=== PATIENT | female | born 1940 | race Caucasian/White ===

== ENCOUNTER 2021-09-18 06:15 | Observation (INO) | payer MEDICARE, BC, SELFPAY ==
[2021-09-18] VITALS (7 sets, daily range): BP systolic 129–204; BP diastolic 68–110; PULSE 66–100; RESP 12–18; TEMP 36.3–37; O2SAT 89–100; BMI 23.9
--- NOTE | ~2021-09-18 | XR_ITS ---
EXAMINATION: XR SHOULDER, LEFT CLINICAL INFORMATION: Left shoulder trauma COMPARISON: None TECHNIQUE: Two views of the left shoulder. FINDINGS: There is a transverse fracture through the humeral neck. The humeral head is aligned with the glenoid. Surgical clips in the left axilla. The left lung is grossly clear. XR/XR shoulder LT min 2V IMPRESSION: Transverse fracture through the humeral neck.
--- NOTE | ~2021-09-18 | CT_ITS ---
EXAMINATION: CT CERVICAL SPINE WITHOUT CONTRAST CLINICAL INFORMATION: Trauma COMPARISON: None TECHNIQUE: Axial images through the cervical spine without contrast. Sagittal and coronal reconstructions on the technologist workstation were performed. This CT examination was performed using dose optimization techniques as appropriate, variously including the following: *Automated exposure control *Adjustment of mA and/or kV according to patient size (this includes techniques or standardized protocols for targeted exams where dose is matched to indication/reason for exam; i.e. extremities or head) *Use of iterative reconstruction technique DLP: 287 mGy-cm FINDINGS: There is mild curvature of the mid cervical spine to the right. Bone alignment is otherwise normal. No fracture or dislocation is seen. There is degenerative spondylosis and degenerative disc disease from C3-C4 to C6-C7. Prevertebral soft tissues are normal. There is bilateral carotid calcification. There are emphysematous changes at the lung apices and mild scarring. CT/CT cervical spine wo con IMPRESSION: Degenerative changes. No fracture or dislocation seen. Fleischner guidelines were followed.
--- NOTE | ~2021-09-18 | CT_ITS ---
EXAMINATION: CT HEAD WITHOUT CONTRAST CLINICAL INFORMATION: Trauma COMPARISON: None TECHNIQUE: Contiguous axial imaging was performed from the skull base to vertex without intravenous administration of contrast. This CT examination was performed using dose optimization techniques as appropriate, variously including the following: *Automated exposure control *Adjustment of mA and/or kV according to patient size (this includes techniques or standardized protocols for targeted exams where dose is matched to indication/reason for exam; i.e. extremities or head) *Use of iterative reconstruction technique DLP: 670 mGy-cm FINDINGS: There is no evidence of an extra-axial collection. There is no evidence of intra-axial or extra-axial hemorrhage. The ventricles and extra-axial CSF spaces are prominent suggestive of generalized atrophy. There is nonspecific periventricular white matter disease. There may be a small left basal ganglia lacunar infarct. No mass or mass effect is seen. Review of bone windows is normal. No skull fracture is seen. Visualized paranasal sinuses, mastoid air cells and middle ears are clear. CT/CT head/brain wo con IMPRESSION: Generalized atrophy and nonspecific periventricular white matter disease.
--- NOTE | 2021-09-18 06:47 | ECG_ITS ---
Test Reason : elevated troponin Blood Pressure : / mmHG Vent. Rate : 088 BPM Atrial Rate : 088 BPM P-R Int : 166 ms QRS Dur : 088 ms QT Int : 380 ms P-R-T Axes : 057 -40 075 degrees QTc Int : 459 ms Normal sinus rhythm Possible Left atrial enlargement Left axis deviation Left ventricular hypertrophy ( Sokolow-Gotti , Master product , Romhilt-Carvalho ) Nonspecific T wave abnormality Abnormal ECG When compared with ECG of 10-OCT-2017 11:17, ST no longer depressed in Anterior leads T wave inversion now evident in Lateral leads Referred By: Geovanni Strong Electronically Signed By:RUBENS MUHAMMAD MD
--- NOTE | 2021-09-18 06:49 | ED.FALL ---
HPI - Fall General Stated Complaint: fall Time Seen by Provider: 09/18/21 06:47 Source: patient and family Mode of arrival: EMS History of Present Illness HPI Narrative: Pt fell going to the bathroom,c/o left shoulder pain,denies chest pain and sob,she has hx of arthritis,she thinks she is not sure why she fell complaint: fall Onset (ago): hour(s) (1) Fall from: standing Fall witnessed: yes, by family Place fall occurred: home Loss of consciousness: none Prolonged down time: no Symptoms prior to fall: none Context: tripped/slipped Location of injury - extremities: left: shoulder Quality: sharp and dull Related Data Allergies Allergy/AdvReac Type Severity Reaction Status Date / Time No Known Allergies Allergy Unverified 03/31/20 15:43 Review of Systems Review of Systems: Yes all other systems are reviewed and are negative ENT: Reports system reviewed and no additional complaints, except as documented Cardiovascular: Cardiovascular: Reports no additional cardiovascular complaints Gastrointestinal: Gastrointestinal: Reports no additional gastrointestinal complaints [facility] Past Medical History Attestation statement: The following information was validated with the patient. [facility] Narrative: arthritis,s/p bilateral knee replacement Social History Social History Patient Tobacco Use Status: Never used Tobacco Use of substances other than those prescribed or required for medical reasons: No Advance Directives: No Advance Directives Information Provided: No Physical Exam Vital Signs: Vital Signs: Last Vital Signs Temp 97.4 F 09/18/21 06:49 Pulse 91 09/18/21 07:29 Resp 16 09/18/21 07:29 BP 192/110 H 09/18/21 07:29 Pulse Ox 97 09/18/21 07:29 BMI result Body Mass Index 23.9 HENMT: Head: Yes normal to inspection and Yes No palpable skull fracture present General nose exam: Normal external nose present Face and sinus: Yes normal facial exam Mouth: Normal oral and palatal mucosa present Throat: Yes posterior oropharynx normal Neck: Neck: Yes normal visual inspection, Yes full ROM and Yes no lymphadenopathy Thyroid: Thyroid normal Chest: Chest palpation & inspection: normal inspection of the chest Resp: Effort & Inspection: normal respiratory effort and able to speak in complete sentences Auscultation: clear to auscultation bilaterally Cardio: Jugular venous distension: no JVD Rate: regular rate Rhythm: regular rhythm GI: Inspection: Yes normal to inspection Palpation (GI): Soft to palpation and nontender Skin: General skin exam: no rashes or lesions noted Extrem: Other: left shoulder tenderness,decrease ROM Course Reevaluation(s) Reevaluation #1: Pt had an episode of wide complex tachy at 7.38 am ,discussed with school plant consultant dr Kwadwo aguirre admission Time: 08:44 Reevaluation #2: discussed with Dr Maximino Ornelas only sling Time: 09:24 Reevaluation #3: Spoke with Joni Multani Hospitalist - Fall Lab Data Result diagrams: 09/18/21 07:23 09/18/21 07:23 Labs: Lab Results 09/18/21 09/18/21 09/18/21 Range/Units 07:23 07:23 07:23 WBC 9.7 (4.8-10.8) X10*3/uL RBC 4.76 (4.20-5.50) X10*6/uL Hgb 13.1 (12.0-16.0) g/dl Hct 40.6 (37.0-47.0) % MCV 85.3 (80.0-98.0) fL MCH 27.5 (27.0-33.0) pg MCHC 32.3 (31.0-35.0) g/dl RDW 14.4 (11.0-16.0) % Plt Count 173 (160-400) X10*3/uL MPV 10.6 (9.4-12.3) fL Immature Gran % (Auto) 0.5 H (0.0-0.4) % Neut % (Auto) 82.2 H (45-73) % Lymph % (Auto) 10.8 L (20-40) % [place] % (Auto) 6.0 (2-11) % Eos % (Auto) 0.2 (0-4) % Baso % (Auto) 0.3 (0-2) % Lymph # (Auto) 1.0 L (1.2-4.9) X10*3/uL [place] # (Auto) 0.6 (0.1-1.2) X10*3/uL Eos # (Auto) 0.0 (0.0-0.4) X10*3/uL Baso # (Auto) 0.0 (0.0-0.2) X10*3/uL Abs Immat Gran (auto) 0.05 H (0.00-0.03) X10*3/uL Absolute Neuts (auto) 7.9 (2.0-8.3) x10*3/uL Absolute Nucleated RBC 0.000 (0.0-0.012) X10*3/uL Nucleated RBC % (auto) 0.0 (0.0-0.2) /100WBC Sodium 139 (135-145) mmol/L Potassium 4.2 (3.3-5.1) mmol/L Chloride 109 H (96-108) mmol/L Carbon Dioxide 22 (22-29) mmol/L Anion Gap 12 (12-20) BUN 19 H (9-16) mg/dL Creatinine 0.76 (0.5-1.4) mg/dL Estim Creat Clear Calc 49.6 Estimated GFR > 60 Random Glucose 112 (60-115) mg/dL Calcium 8.9 (8.4-10.2) mg/dL Total Bilirubin 0.3 (0.0-1.0) mg/dL AST 23 (5-31) U/L ALT 7 (0-31) U/L Alkaline Phosphatase 61 (39-117) U/L Troponin I High Sens 41.8 H (<3.5-17.0) ng/L Total Protein 7.0 (6.5-8.0) g/dL Albumin 3.5 (3.5-5.0) g/dL Imaging Data CT scan - head: Radiologist's impression: TECHNIQUE: Contiguous axial imaging was performed from the skull base to vertex without intravenous administration of contrast. This CT examination was performed using dose optimization techniques as appropriate, variously including the following: *Automated exposure control *Adjustment of mA and/or kV according to patient size (this includes techniques or standardized protocols for targeted exams where dose is matched to indication/reason for exam; i.e. extremities or head) *Use of iterative reconstruction technique DLP: 670 mGy-cm FINDINGS: There is no evidence of an extra-axial collection. There is no evidence of intra-axial or extra-axial hemorrhage. The ventricles and extra-axial CSF spaces are prominent suggestive of generalized atrophy. There is nonspecific periventricular white matter disease. There may be a small left basal ganglia lacunar infarct. No mass or mass effect is seen. Review of bone windows is normal. No skull fracture is seen. Visualized paranasal sinuses, mastoid air cells and middle ears are clear. ? CT/CT head/brain wo con IMPRESSION: Generalized atrophy and nonspecific periventricular white matter disease. CT CSPINE: Radiologist's impression: ?performed. ? This CT examination was performed using dose optimization techniques as appropriate, variously including the following: *Automated exposure control *Adjustment of mA and/or kV according to patient size (this includes techniques or standardized protocols for targeted exams where dose is matched to indication/reason for exam; i.e. extremities or head) *Use of iterative reconstruction technique DLP: 287 mGy-cm FINDINGS: There is mild curvature of the mid cervical spine to the right. Bone alignment is otherwise normal. No fracture or dislocation is seen. There is degenerative spondylosis and degenerative disc disease from C3-C4 to C6-C7. Prevertebral soft tissues are normal. There is bilateral carotid calcification. There are emphysematous changes at the lung apices and mild scarring. CT/CT cervical spine wo con IMPRESSION: Degenerative changes. No fracture or dislocation seen.? ? Fleischner guidelines were followed. ECG Data ECG interpretation date: 09/18/21 ECG interpretation time: 08:29 Pacemaker model: NSR 88 inverted t in V6 only Discharge Plan Discharge Clinical Impression: Syncope, Fracture, humerus, neck, Troponin level elevated Patient Disposition: Admitted As Inpatient
[2021-09-18 07:25] LABS: MANUAL DIFF FLAG NO
[2021-09-18 07:30] LABS: Basophils Percent Auto 0.3 % (0-2); Eosinophils Percent Auto 0.2 % (0-4); Hematocrit 40.6 % (37.0-47.0); Hemoglobin 13.1 g/dl (12.0-16.0); Imm Gran Abs Auto 0.05 X10*3/uL (0.00-0.03); Imm Gran Pct Auto 0.5 % (0.0-0.4); Lymphocytes Percent Auto 10.8 % (20-40); Mean Corpuscular HGB Conc 32.3 g/dl (31.0-35.0); Mean Corpuscular Hemoglobin 27.5 pg (27.0-33.0); Mean Corpuscular Volume 85.3 fL (80.0-98.0); Mean Platelet Volume 10.6 fL (9.4-12.3); Monocytes Absolute Auto 0.6 X10*3/uL (0.1-1.2); Neutrophils Absolute Auto 7.9 x10*3/uL (2.0-8.3); Neutrophils Percent Auto 82.2 % (45-73); Platelet Count 173 X10*3/uL (160-400); Red Blood Count 4.76 X10*6/uL (4.20-5.50); Red Cell Distribution Width 14.4 % (11.0-16.0); White Blood Count 9.7 X10*3/uL (4.8-10.8)
[2021-09-18 07:41] LABS: Alanine Aminotransferase 7 U/L (0-31); Albumin Level 3.5 g/dL (3.5-5.0); Alkaline Phosphatase 61 U/L (39-117); Anion Gap 12 (12-20); Aspartate Amino Transferase 23 U/L (5-31); Bilirubin Total 0.3 mg/dL (0.0-1.0); Blood Urea Nitrogen 19 mg/dL (9-16); Calcium 8.9 mg/dL (8.4-10.2); Carbon Dioxide 22 mmol/L (22-29); Chloride 109 mmol/L (96-108); Creatinine Clr Calc Pharmacy 49.6; Estimated Glomerular Filt Rate > 60; Glucose Random 112 mg/dL (60-115); Potassium 4.2 mmol/L (3.3-5.1); Sodium 139 mmol/L (135-145)
[2021-09-18 07:45] LABS: Troponin-I High Sensitivity 41.8 ng/L (<3.5-17.0)
[2021-09-18 10:07] LABS: COVID-19 Test Negative (Negative)
[2021-09-18] MEDS: oxyCODONE HCl Immed Release 5 MG TABLET PO (10:34)
--- NOTE | 2021-09-18 10:45 | P.HPHOSP_ITS ---
History of Present Illness Date of Service: 09/18/21 Chief Complaint: Fall This is a 81 year old female with a PMH of HTN, Breast Ca s/p mastectomy, RA, who presented to [facility] ED after she sustained a fall on the morning of admission. The patient, who is a limited historian, states that she fell at home while ambulating. She denies any LOC, but states that she does not recall the events surrounding the fall. She denies any palpitations or chest pain. She reports being in her state of health. Her who is bedside, reports no LOC either. He states that after the fall, she was unable to stand up from the floor and hence, he called the paramedics. In the ED, the patient underwent basic work including Cbc/bmp/ekg and imaging studies. Ct head / c-spine were negative for acute findings and XR revealed a L humeral neck fracture. Plan was for discharge home with outpatient f/u with ortho, however, the patient had an 11 beat run of what appears to be NSVT and hence, she will be observed over night. COVID Vaccination status -- Pfizer 2 dose series + booster Review of Systems Review of Systems: negative except HPI [facility] Medical History (Updated 09/18/21 @ 10:55 by David Multani MD) Breast cancer Hypertension Rheumatoid aortitis Pertinent family history: Positive for cancer , unclear what kind Surgical History (Updated 09/18/21 @ 10:51 by David Multani MD) H/O knee surgery H/O mastectomy Social History (Updated 09/18/21 @ 10:52 by David Multani MD) Alcohol intake: current Alcohol intake frequency: holidays/special occasions only Patient Tobacco Use Status: Current everyday Tobacco user Use of substances other than those prescribed or required for medical reasons: No Advance Directives: No Advance Directives Information Provided: No Meds Allergies Allergy/AdvReac Type Severity Reaction Status Date / Time No Known Allergies Allergy Unverified 03/31/20 15:43 Active Medications: Current Medications Acetaminophen (Acetaminophen 325 Mg Tablet) 650 mg PO Q6H PRN PRN Reason: Pain, Mild (Pain Scale 1-3) Oxycodone HCl (Oxycodone Hcl Immed Release 5 Mg Tablet) 5 mg PO Q6H PRN PRN Reason: Pain, Severe (Pain Scale 7-10) Pharmacy Consult (Consult Rx Perform Med Rec) 1 each MISCELLANE ONCE PRN PRN Reason: Consult order Sodium Chloride (0.9 % Sodium Chloride Flush 3 Ml Syringe) 3 ml IVFLUSH QSHIFT [facility] Home Medications Medication Instructions Recorded Confirmed Last Taken Type amlodipine 5 mg tablet 1 tab PO DAILY 09/18/21 09/18/21 09/17/21 History aspirin 81 mg tablet,delayed 81 mg PO DAILY 09/18/21 09/18/21 09/17/21 History release Physical Exam Vital Signs and Narrative: Vital Signs: Last Vital Signs Temp 97.4 F 09/18/21 06:49 Pulse 91 09/18/21 07:29 Resp 16 09/18/21 07:29 BP 192/110 H 09/18/21 07:29 Pulse Ox 97 09/18/21 07:29 BMI result Body Mass Index 23.9 Const: Other: Constitutional - Awake and Alert, No apparent distress Eyes - PERRLA, EOMI Cardiovascular - S1S2, RRR, No edema Respiratory - Normal lung expansion, Normal respiratory effort, No respiratory distress, CTA bilaterally Gastrointestinal - NT / ND; +BS; No rebound or guarding - No CVA tenderness Extremities - no calf tenderness bilaterally, no swelling Musculoskeletal - Normal inspection, LUE in sling Skin - Warm/Dry Neurological - Alert & oriented x3, No focal deficit Psychological - Appropriate affect Results Labs CBC and Chem 7: 09/18/21 07:23 09/18/21 07:23 Labs: Laboratory Results - last 24 hr 09/18/21 09/18/21 09/18/21 07:23 07:23 09:39 MCV 85.3 MCH 27.5 MCHC 32.3 RDW 14.4 Plt Count 173 MPV 10.6 Immature Gran % (Auto) 0.5 H Neut % (Auto) 82.2 H Lymph % (Auto) 10.8 L [place] % (Auto) 6.0 Eos % (Auto) 0.2 Baso % (Auto) 0.3 Lymph # (Auto) 1.0 L [place] # (Auto) 0.6 Eos # (Auto) 0.0 Baso # (Auto) 0.0 Abs Immat Gran (auto) 0.05 H Absolute Neuts (auto) 7.9 Absolute Nucleated RBC 0.000 Nucleated RBC % (auto) 0.0 Anion Gap 12 Estim Creat Clear Calc 49.6 Estimated GFR > 60 Random Glucose 112 Calcium 8.9 Magnesium 2.0 Total Bilirubin 0.3 AST 23 ALT 7 Alkaline Phosphatase 61 Total Protein 7.0 Albumin 3.5 COVID-19 (CATHERINE) COVID-19 Clin Com 09/18/21 09:39 MCV MCH MCHC RDW Plt Count MPV Immature Gran % (Auto) Neut % (Auto) Lymph % (Auto) [place] % (Auto) Eos % (Auto) Baso % (Auto) Lymph # (Auto) [place] # (Auto) Eos # (Auto) Baso # (Auto) Abs Immat Gran (auto) Absolute Neuts (auto) Absolute Nucleated RBC Nucleated RBC % (auto) Anion Gap Estim Creat Clear Calc Estimated GFR Random Glucose Calcium Magnesium Total Bilirubin AST ALT Alkaline Phosphatase Total Protein Albumin COVID-19 (CATHERINE) Negative COVID-19 Clin Com See Note Imaging Radiologist's Impressions: Impressions Cervical Spine CT 09/18/21 08:10 IMPRESSION: Degenerative changes. No fracture or dislocation seen. Fleischner guidelines were followed. Head CT 09/18/21 08:10 IMPRESSION: Generalized atrophy and nonspecific periventricular white matter disease. Shoulder X-Ray 09/18/21 08:57 IMPRESSION: Transverse fracture through the humeral neck. Assessment and Plan (1) NSVT (nonsustained ventricular tachycardia): Status: Acute Plan This is a 81 year old female with a PMH of HTN, RA, Brease Ca s/p mastectomy who presented to the hospital after she sustained a fall -- unclear if it was truly mechanical in nature as the patient denies any LOC but does not recalls the events surrounding the fall. She was noted to have a wide complex tachycardia last 11 beats in the ED and now will be observed on tele overnight. 1. NSVT 11 beats x 1 Lytes within normal limits will monitor on tele 2d echo + cardiology consult 2. Humeral neck fx sling and outpatient ortho f/u PO pain control 3. Uncontrolled HTN likely exacerbated by pain to start home meds and titrate as needed Full Code DVT pptx -- low risk, early ambulation Endorses her as HCP Quality Stroke Does the patient have a stroke diagnosis?: No VTE Prior VTE?: No VTE Risk Level:: Medical - low VTE Device Contraindication: Treatment Not Indicated VTE Drug Contraindication: Treatment Not Indicated
--- NOTE | 2021-09-18 10:47 | PHA.MEDREC ---
Pharmacy Consult ? Medication Reconciliation Pharmacy has completed the medication reconciliation. Spoke with patient and spouse.
[2021-09-18] MEDS: amLODIPine Besylate 5 MG TABLET PO (12:22)
[2021-09-18] MEDS: Aspirin Enteric Coated 81 MG TABLET.DR PO (12:22)
--- NOTE | 2021-09-18 15:42 | PC.NURSE ---
RN assumed care at 1500. Pt alert and confused, easily re-directed. Pt resting in stretcher calmly. Denies pain. Urinating without issues i pure wick. at bedside. offered multiple times throughout shift by previous RN's for transport home, refusing. educated that he can't stay in ER all night due to safety concerns, pt is admitted. refusing to leave. Case management addressing patient at this time.
--- NOTE | 2021-09-18 17:22 | PC.NURSE ---
Report called to BRIAN duarte at 1720, was told he will call back.
[2021-09-19 03:34] VITALS: BP 170/88; PULSE 73; RESP 14; TEMP 36.3; O2SAT 97
[2021-09-19] MEDS: oxyCODONE HCl Immed Release 5 MG TABLET PO (04:14)
[2021-09-19] MEDS: Acetaminophen 325 MG TABLET 650 MG PO (04:15)
[2021-09-19 07:34] VITALS: BP 140/84; PULSE 97; RESP 16; TEMP 36.6; O2SAT 97
[2021-09-19] MEDS: amLODIPine Besylate 5 MG TABLET PO (07:38)
[2021-09-19] MEDS: Aspirin Enteric Coated 81 MG TABLET.DR PO (07:38)
[2021-09-19] MEDS: 0.9 % Sodium Chloride Flush 3 ML SYRINGE IVFLUSH (07:38)
--- NOTE | 2021-09-19 09:17 | HO.PM.IMPN ---
Subjective Subjective Date of Service: 09/19/21 Interval History: seen and examined this AM bedside reports arm pain controlled denies any cp, palp, dizziness Review of Systems negative except interval history Physical Exam Vital Signs: Vital Signs: Last Vital Signs Temp 97.8 F 09/19/21 07:34 Pulse 97 09/19/21 07:34 Resp 16 09/19/21 07:34 BP 140/84 H 09/19/21 07:34 Pulse Ox 97 09/19/21 07:34 BMI result Body Mass Index 23.9 Const: Other: General - no acute distress, appears comfortable Cardiovascular - regular rate and rhythm, S1-S2 Lungs - normal respiratory effort, clear to auscultation bilaterally, no wheezing Abdomen - soft, nontender, no rebound or guarding Extremities - no edema bilaterally; LUE in sling Neuro - awake and alert, no focal deficits Objective Data Active Medications Acetaminophen (Acetaminophen 325 Mg Tablet) 650 mg PO Q6H PRN PRN Reason: Pain, Mild (Pain Scale 1-3) Last Admin: 09/19/21 04:15 Dose: 650 mg Documented by: SIVA Amlodipine Besylate (Amlodipine Besylate 5 Mg Tablet) 5 mg PO DAILY [facility]; Protocol Last Admin: 09/19/21 07:38 Dose: 5 mg Documented by: GILBERT Aspirin (Aspirin Enteric Coated 81 Mg Tablet.Dr) 81 mg PO DAILY [facility] Last Admin: 09/19/21 07:38 Dose: 81 mg Documented by: GILBERT Oxycodone HCl (Oxycodone Hcl Immed Release 5 Mg Tablet) 5 mg PO Q6H PRN PRN Reason: Pain, Severe (Pain Scale 7-10) Last Admin: 09/19/21 04:14 Dose: 5 mg Documented by: SIVA Pharmacy Consult (Consult Rx Perform Med Rec) 1 each MISCELLANE ONCE PRN PRN Reason: Consult order Sodium Chloride (0.9 % Sodium Chloride Flush 3 Ml Syringe) 3 ml IVFLUSH QSHIFT [facility] Last Admin: 09/19/21 07:38 Dose: 3 ml Documented by: GILBERT Labs CBC & Chem 7: 09/18/21 07:23 09/18/21 07:23 Labs: Laboratory Results - last 24 hr 09/18/21 09/18/21 09:39 09:39 Magnesium 2.0 COVID-19 (CATHERINE) Negative COVID-19 Clin Com See Note Assessment and Plan (1) NSVT (nonsustained ventricular tachycardia): Status: Acute Plan This is a 81 year old female with a PMH of HTN, RA, Brease Ca s/p mastectomy who presented to the hospital after she sustained a fall -- unclear if it was truly mechanical in nature as the patient denies any LOC but does not recalls the events surrounding the fall. She was noted to have a wide complex tachycardia last 11 beats in the ED and now will be observed on tele overnight. 1. NSVT 11 beats x 1 while in the ED, none further (did have a short burst of PAT this AM) continue tele await cardiology consult 2. Humeral neck fx sling and outpatient ortho f/u PO pain control 3. Uncontrolled HTN improved as her pain improves continue baseline antihypertensives Full Code DVT pptx -- low risk, early ambulation Endorses her as HCP dispo: likely home this afternoon if no further work up needed Quality Stroke Does the patient have a stroke diagnosis?: No VTE Prior VTE?: No VTE Risk Level:: Medical - low VTE Device Contraindication: Treatment Not Indicated VTE Drug Contraindication: Treatment Not Indicated
[2021-09-19 11:44] VITALS: BP 137/77; PULSE 100; RESP 15; TEMP 36.4; O2SAT 98
[2021-09-19 11:46] VITALS: BP 137/77; PULSE 100; O2SAT 98
--- NOTE | 2021-09-19 12:43 | PM.EVENT ---
Event Note Date of Service: 09/19/21 Event Note: Informed by RN that the patient and patient's wanted to be discharged. Both seen in her room. Requesting discharge and stating that they will follow up with her outpatient team for completion of work up. Informed them that plan is for discharge this afternoon, pending echo. Explained to them both that she has a NSVT run yesterday which requires work up. Informed them of the potential risk, including sustgained VT / MA / . They are able to verbalize this and restate it in their own words. The patient is AAOx3 as is the . They will be signing out AMA. Encouraged them to return to ED if they change their mind. Also encouraged them to f/u with PCP for completion of Echo. Will given referral for orthopedic follow up.
--- NOTE | 2021-09-19 12:57 | MHC.CM.PN ---
NURSE RADIOLOGY TECH NOTE ELECTRONIC MEDICAL RECORD REVIEWED ALONG WITH CASE DISCUSSED WITH STAFF NURSE AND HOSPITALISTS, MET WITH PATIENT AND HER PATIENT LIVBES WITH HER AND HAS BEEN INDEPENDENT IN ALL ADLS AND MOBILITY PRIOR TO COMING TO THE HOSPITAL , WHEN OUTIDE SOMETIME SHE MAY USE A CAN PRECAUTIONARY . SHE FELL AT HOME , REPORTS SHE SLIPED ON BATHROOM SCATTER RUG, SHE DOES NTO RECAL THIS , REPORTS SOME FORGETFUL [place] NESS, . PATIENT / DECLINED [facility] THYE FEEL THEY DO NOT NEED IT , PATIETN DISCHARGE PLAN HOME WITH NO SERVICES, HAS SLING ON LEFT ARM (FX HUMEROUS) PATIENT INITIALLY ALERT TO NAME PLACE AND SHE FELL ) TRANSPORTATION FAMILY SELF RESUMPTION OF [facility] FOR MEALS ON WHEELS PATIENT / SIGNING OUT AMA (AFTER SPEAKSING AT LENGTH WITH HOSPITALIST )
--- NOTE | 2021-09-19 13:06 | PM.CNCAR ---
History of Present Illness History of Present Illness Date of Service: 09/19/21 Requesting physician: David Multani Chief complaint: Possible loss of consciousness Narrative: I was consulted to see daughter thing cardiology consultation today as she fell in her bathroom yesterday. The was close by but did not actually see year fall. Patient does not recall anything. On further questioning she appears to be extremely confused and does not recall any other past medical history. She lives at home with her . denies her being confused at home however this history is questionable. is also questionable in providing history. Says in usual state of health yesterday morning, patient was going to the bathroom she does not recall anything. was in the kitchen close b heard her fall and when he reached her she was sitting on the floor and was awake and conscious. There is no clear loss of conscious reported. She was then complaining of left arm pain and was brought to the emergency room. In the emergency room she was noted to have left humerus fracture which is being seen by Orthopedic and manage conservatively. However while in the ED she was also noted to have a short run of wide complex rhythm which was felt to be nonsustained ventricular tachycardia. As per the patient and the have no prior cardiac history however this is difficult to obtain. Patient currently denies any chest pain and says she would like to go home. Review of Systems Review of Systems: Yes Unobtainable due to mental status Neurologic: Reports confusion Psychiatric: Psychiatric: Reports confusion PENDING SALE TO [facility] Past Medical History Medical History Breast cancer Hypertension Rheumatoid aortitis Surgical History Surgical History H/O knee surgery H/O mastectomy Social History Social History Alcohol intake: current Alcohol intake frequency: holidays/special occasions only Patient Tobacco Use Status: Current everyday Tobacco user Tobacco use type: Cigarette Cigarettes Per Day: 4 Second Hand Smoke Exposure: No service: No Current occupational status: retired Meds Allergies Allergy/AdvReac Type Severity Reaction Status Date / Time No Known Allergies Allergy Unverified 03/31/20 15:43 Active Medications: Current Medications Acetaminophen (Acetaminophen 325 Mg Tablet) 650 mg PO Q6H PRN PRN Reason: Pain, Mild (Pain Scale 1-3) Last Admin: 09/19/21 04:15 Dose: 650 mg Documented by: Amlodipine Besylate (Amlodipine Besylate 5 Mg Tablet) 5 mg PO DAILY [facility]; Protocol Last Admin: 09/19/21 07:38 Dose: 5 mg Documented by: Aspirin (Aspirin Enteric Coated 81 Mg Tablet.) 81 mg PO DAILY [facility] Last Admin: 09/19/21 07:38 Dose: 81 mg Documented by: Oxycodone HCl (Oxycodone Hcl Immed Release 5 Mg Tablet) 5 mg PO Q6H PRN PRN Reason: Pain, Severe (Pain Scale 7-10) Last Admin: 09/19/21 04:14 Dose: 5 mg Documented by: Pharmacy Consult (Consult Rx Perform Med Rec) 1 each MISCELLANE ONCE PRN PRN Reason: Consult order Sodium Chloride (0.9 % Sodium Chloride Flush 3 Ml Syringe) 3 ml IVFLUSH [facility] Last Admin: 09/19/21 07:38 Dose: 3 ml Documented by: Home Medications Medication Instructions Recorded Confirmed Last Taken Type amlodipine 5 mg tablet 1 tab PO DAILY 09/18/21 09/18/21 09/17/21 History aspirin 81 mg tablet,delayed 81 mg PO DAILY 09/18/21 09/18/21 09/17/21 History release Physical Exam Vital Signs: Vital Signs: Last Vital Signs Temp 97.6 F 09/19/21 11:44 Pulse 100 09/19/21 11:46 Resp 15 09/19/21 11:44 BP 137/77 09/19/21 11:46 Pulse Ox 98 09/19/21 11:46 BMI result Body Mass Index 23.9 Const: General: cooperative, comfortable, no acute distress, alert, awake and confusion Nutritional Appearance: average body habitus Orientation/consciousness: confusion HENMT: Head: Yes normocephalic and Yes periorbital ecchymosis Neck: Neck: Yes trachea midline, Yes supple and Yes no JVD Chest: Chest palpation & inspection: normal inspection of the chest Resp: Effort & Inspection: normal respiratory effort Auscultation: clear to auscultation bilaterally Cardio: Jugular venous distension: no JVD Palpation: normal PMI Rate: regular rate Rhythm: regular rhythm Heart sounds: S1 normal heart sound present, S2 normal heart sound present, no click, no gallops, no murmurs and no rubs GI: Auscultation: normal bowel sounds Skin: General skin exam: no rashes or lesions noted Neuro: General: no focal motor deficits and confusion Extrem: General: Yes no clubbing, cyanosis or edema Objective Labs and Meds Result diagrams: 09/18/21 07:23 09/18/21 07:23 Assessment and Plan (1) Fall: Status: Acute Patient who presented with fall, not completely witnessed by her who is completely confused. Patient does not recall the event, can be due to baseline diagnosed dementia. categorically denies any memory issues in the past. This is concerning and needs social work intervention in evaluation. She was noted to have 1 run of wide complex tachycardia on the ED monitoring question could represent AFib with aberrancy or nonsustained VT. She will need an echocardiogram to assess for LV systolic and diastolic function for further risk stratification in terms of discharge. If her LV systolic function is normal, she can be discharged home on low-dose metoprolol therapy. She will eventually require Holter monitor and stress test to further evaluate for cardiac risk. However it is unclear whether patient actually had a syncopal event although she did definitely have a fractured humerus which could be due to a fall. History is not clear at this point time. I would continue to pursue workup for significant cardiac abnormalities that would make her prone to have future risk of syncope. From cardiac perspective echocardiogram is negative can be discharged home. Will follow-up as outpatient. Thank you for allowing us to partake in the care Procedures Date of Service Date of Service: 09/19/21
--- NOTE | 2021-09-19 13:56 | MHC.CM.PN ---
ON-LINE [facility] REPORT FILED (CALL WAS MADE TO [phone]. INTAKE STAFF MEMBER STATED THAT DUE TO LACK OF AVAILABLE ASSISTANCE, ONLINE REPORT IS BEST WAY TO FILE TODAY.)
== END 2021-09-19 14:14 | disposition left against medical advice (07) ==
LOC: HO.ED 09:06 → HO.EDOVER 10:48 → HO.S3 17:05
PROVIDERS: Admitting Provider Family Medicine; Emergency Provider Emergency Medicine; PCP Internal Medicine; Visit Provider Family Medicine
DX: I47.2 Ventricular tachycardia (principal); M19.90 Unspecified osteoarthritis, unspecified site; M79.602 Pain in left arm; S00.12XA Contusion of left eyelid and periocular area, initial encounter; S42.295A Other nondisplaced fracture of upper end of left humerus, initial encounter for closed fracture; W18.30XA Fall on same level, unspecified, initial encounter; Y93.9 Activity, unspecified; Y92.008 Other place in unspecified non-institutional (private) residence as the place of occurrence of the external cause; Y99.8 Other external cause status; I10 Essential (primary) hypertension; R41.0 Disorientation, unspecified; M06.9 Rheumatoid arthritis, unspecified; M43.8X2 Other specified deforming dorsopathies, cervical region; R90.82 White matter disease, unspecified; R77.8 Other specified abnormalities of plasma proteins; F17.210 Nicotine dependence, cigarettes, uncomplicated; Z20.822 Contact with and (suspected) exposure to COVID-19; Z85.3 Personal history of malignant neoplasm of breast; Z90.10 Acquired absence of unspecified breast and nipple; Z79.899 Other long term (current) drug therapy; Z53.29 Procedure and treatment not carried out because of patient's decision for other reasons
CPT/HCPCS: 36415; 70450; 72125; 73030; 80053; 83735; 84484; 85025; 87635; 93005; 93306; 97162; 99218; 99285

== ENCOUNTER 2021-09-20 14:18 | Inpatient (IN) | payer MEDICARE, BC, SELFPAY ==
[2021-09-20 14:46] VITALS: BP 146/81; PULSE 96; RESP 18; TEMP 37.2; O2SAT 99; BMI 21.5
--- NOTE | 2021-09-20 15:01 | ED.EXTPRO ---
HPI - Extremity Problem General Chief complaint: Extremity Injury, Upper Stated complaint: SHOULDER PAIN RECENT FX Time Seen by Provider: 09/20/21 14:30 Source: EMS Mode of arrival: EMS Limitations: other (Poor historian) History of Present Illness HPI Narrative: Patient is brought to the emergency room today by EMS. According to the EMS crew, elderly services went to visit the patient and her at their home. It is unclear what the concern was, but EMS was asked to bring the patient to the emergency room. Patient was seen here in the emergency room yesterday. Patient fell when she was going to the bathroom. Patient came yesterday complaining of left shoulder pain. Patient was diagnosed with a transfer fracture through the humeral neck. While she was in the emergency room, patient had a run of wide complex tachycardia. Cardiology was consulted and admission was recommended. Orthopedics was also consulted, recommendations: Sling. Patient was admitted to the hospitalist service. Per the hospitalist's note. Patient left against medical advice, requested by her . Hospitalist spoke to the patient and her , it was explained to both of them that the patient needed further workup for nonsustained ventricular tachycardia. Both, patient and were informed of the potential risk of leaving against medical advice, including sustained ventricular tachycardia, myocardial infection, and . They were able to verbalize understanding and restated the above mention in their own words. It seems that case management called elderly services yesterday after the patient left against medical advise, asking them to check on the patient, which he did today. Today, patient comes to emergency room, she is not sure why she is here. Patient does not know where she is. Patient does not remember when she fell. Patient denies any chest pain or shortness of breath. Patient does not remember either that she was admitted yesterday to the hospital and she was going to stay for cardiac workup Related Data Home Medications Medication Instructions Recorded Confirmed amlodipine 5 mg tablet 1 tab PO DAILY 09/18/21 09/18/21 aspirin 81 mg tablet,delayed 81 mg PO DAILY 09/18/21 09/18/21 release Allergies Allergy/AdvReac Type Severity Reaction Status Date / Time No Known Allergies Allergy Unverified 03/31/20 15:43 Review of Systems Review of Systems: Constitutional : No fever ENT/Mouth : No Hearing loss, No Ear Pain, No Nasal Congestion, No Sinus Pain, No Hoarseness, No sore throat, No Rhinorrhea, No Swallowing Difficulty Eyes: No Eye Pain, No Swelling, No Redness, No Foreign Body, No Discharge, No Vision Changes Cardiovascular : No Chest Pain, No SOB, No Dyspnea on Exertion, No Orthopnea, No Edema, No Palpitations Respiratory : No Cough, No Sputum, No Wheezing, No Smoke Exposure, No Dyspnea Gastrointestinal : No Nausea, No Vomiting, No Diarrhea, No Constipation, No abdominal Pain, No Hematochezia, No Melena Genitourinary : no irregular bleeding, No Dysuria, No Urinary Frequency, No Hematuria, No Urinary Incontinence, No Urgency, No Flank Pain, No Urinary Flow Changes, No Hesitancy Musculoskeletal : Complaining of left shoulder pain Skin : No Skin Lesions, No rash Neuro : No Weakness, No Numbness, No Paresthesias, No Loss of Consciousness, No Dizziness, No Headache Psych : No Anxiety/Panic, No Depression, No SI/HI/AH/VH, No Social Issues, Heme/Lymph: No Bruising, No Bleeding,No Lymphadenopathy Endocrine : No Polyuria, No Polydipsia, No Temperature Intolerance COUNTS INCLUDE 234 BEDS AT THE [facility] Past Medical History Medical History Breast cancer Hypertension Rheumatoid aortitis Surgical History H/O knee surgery H/O mastectomy Social History Social History Alcohol intake: current Alcohol intake frequency: holidays/special occasions only Patient Tobacco Use Status: Current everyday Tobacco user Tobacco use type: Cigarette Cigarettes Per Day: 4 Second Hand Smoke Exposure: No Advance Directives: No Advance Directives Information Provided: No service: No Current occupational status: retired Physical Exam Vital Signs: Vital Signs: Last Vital Signs Temp 98.6 F 09/20/21 15:07 Pulse 92 09/20/21 15:07 Resp 16 09/20/21 15:07 BP 144/76 H 09/20/21 15:07 Pulse Ox 100 09/20/21 15:07 BMI result Body Mass Index 21.5 Const: Other: Appearance: Alert. Oriented X3. No acute distress. Eyes: Pupils equal, round and reactive to light. ENT: Pharynx normal. Neck: Normal inspection. Neck supple. No lymph nodes noted. No crepitus CVS: Normal heart rate and rhythm. Pulses normal. Normal S1 and S2 Respiratory: No respiratory distress. Breath sounds normal. No Wheezing. No rales Abdomen: Soft and nontender. No rigidity. No distention. Skin: Skin warm and dry. Normal skin color. Normal skin turgor. Extremities: No lower extremity edema. No Lacerations. No Rash Neuro: Oriented X 3. No motor deficit. No sensory deficit. Moving all extermities. No slurred speech. Cranial nerves 2-12 grossly intact Psych: Calm, cooperative, tries to answer questions, but seems confused Course Course Course Narrative: At this time, we will repeat the cardiac workup. At this time I spoke with the patient she seems to be agreeable to admission for further cardiac workup. All of the labs are pending. I discussed with the patient that yesterday she went into a potentially fatal arrhythmia, ventricular tachycardia. Patient and her are agreeable to be admitted for further workup. All of the labs are pending. Sign-out given to Dr. Carrero [facility] - Extremity (Nontraumatic) Lab Data Result diagrams: 09/20/21 16:03 09/20/21 16:03 Labs: Lab Results 09/20/21 09/20/21 09/20/21 Range/Units 15:18 16:03 16:03 WBC 5.5 (4.8-10.8) X10*3/uL RBC 4.61 (4.20-5.50) X10*6/uL Hgb 12.5 (12.0-16.0) g/dl Hct 39.0 (37.0-47.0) % MCV 84.6 (80.0-98.0) fL MCH 27.1 (27.0-33.0) pg MCHC 32.1 (31.0-35.0) g/dl RDW 14.6 (11.0-16.0) % Plt Count 157 L (160-400) X10*3/uL MPV 10.4 (9.4-12.3) fL Immature Gran % (Auto) 0.2 (0.0-0.4) % Neut % (Auto) 65.0 (45-73) % Lymph % (Auto) 23.5 (20-40) % Kinney % (Auto) 9.7 (2-11) % Eos % (Auto) 0.9 (0-4) % Baso % (Auto) 0.7 (0-2) % Lymph # (Auto) 1.3 (1.2-4.9) X10*3/uL Kinney # (Auto) 0.5 (0.1-1.2) X10*3/uL Eos # (Auto) 0.1 (0.0-0.4) X10*3/uL Baso # (Auto) 0.0 (0.0-0.2) X10*3/uL Abs Immat Gran (auto) 0.01 (0.00-0.03) X10*3/uL Absolute Neuts (auto) 3.6 (2.0-8.3) x10*3/uL Absolute Nucleated RBC 0.000 (0.0-0.012) X10*3/uL Nucleated RBC % (auto) 0.0 (0.0-0.2) /100WBC TSH Cancelled Urine Color YELLOW Urine Appearance HAZY Urine pH 5.5 (5.0-8.0) Ur Specific [place] >= 1.030 H (1.005-1.025) Urine Protein 2+ H (NEG-TRACE) MG/DL Urine Glucose (UA) NEG (NEG) MG/DL Urine Ketones 5 (NEG) MG/DL Urine Blood 2+ H (NEG) Urine Nitrite NEG (NEG) Ur Leukocyte Esterase NEG (NEG) Urine RBC 15-29 H (0) /HPF Urine WBC 0-2 (0-4) /HPF Ur Squamous Epith Cells 1+ /LPF Urine Bacteria 1+ /LPF Discharge Plan Discharge Clinical Impression: Arrhythmia Patient Disposition: Still a Patient Prescriptions: No Action aspirin 81 mg Tablet,Delayed Release (Dr/Ec) 81 mg PO DAILY 0RF amlodipine 5 mg tablet 1 tab PO DAILY 0RF
--- NOTE | 2021-09-20 15:05 | PC.NURSE ---
This Rn answered phone call, was patients daughter. daughter asking how and why patient was brought to ED, why elder services were in patients home today and what was the medical reason patient needed to be in hospital. This rn had not seen patient prior to this conversation, did not have any history as to why patient was coming to ED. daughter states she does not want CM involved and want medical reason as to why patient and her are in ER. asking for this RN to put together paperwork from patients stay yesterday, explained that this can be done through medical records, daughter states to this nurse you get those papers together for me now!', this Rn explained she must examine mother as she had not seen her as a patint yet and would like to assess her, daughter understood.
[2021-09-20 15:07] VITALS: BP 144/76; PULSE 92; RESP 16; TEMP 37; O2SAT 100
--- NOTE | 2021-09-20 15:20 | ECG_ITS ---
Test Reason : SHOULDER PAIN Blood Pressure : / mmHG Vent. Rate : 094 BPM Atrial Rate : 094 BPM P-R Int : 142 ms QRS Dur : 084 ms QT Int : 366 ms P-R-T Axes : 067 -37 053 degrees QTc Int : 457 ms Normal sinus rhythm Left axis deviation Moderate voltage criteria for LVH, may be normal variant ( Sokolow-Gotti , Master product ) ST & T wave abnormality, consider lateral ischemia or repolarization abnormality Abnormal ECG When compared with ECG of 18-SEP-2021 08:21, No significant change was found Referred By: Annie Graham Electronically Signed By:RUBENS MUHAMMAD MD
[2021-09-20 15:28] LABS: Appearance Urine HAZY; Color Urine YELLOW; Glucose Urine UA NEG (NEG); Leukocyte Esterase Urine NEG (NEG); Nitrite Urine NEG (NEG); PH 5.5 (5.0-8.0); Specific Gravity - Urine >= 1.030 (1.005-1.025); UACC Culture Trigger NO; Urine Blood 2+ (NEG); Urine Ketones 5 MG/DL (NEG); Urine Protein 2+ MG/DL (NEG-TRACE)
[2021-09-20 15:39] LABS: WBC Urine 0-2 /HPF (0-4)
[2021-09-20 15:40] LABS: Bacteria Urine 1+ /LPF; Squamous Epithelial Cell Urine 1+ /LPF
--- NOTE | 2021-09-20 15:46 | PC.NURSE ---
called PCP office, daughter stated that legal documents such as health care proxy would be on file there. office states they have no legal documents on file for patient.
--- NOTE | 2021-09-20 16:04 | MHC.CM.ED ---
Patient brought to ER via EMS. Received notification that patient was sent by [facility]. T/W spoke with Braden Costa at [facility]. He is the supervisor fireworks assembly of Opal Brewer. Opal went to the patient's home after Elder at Risk was filed at [facility] when patient left [facility] AMA. Patient was found to be very confused and she was unable to answer any question appropriately. EMS was activated and patient was brought to the ER. No HCP found to be on file. PCP is at [facility]. No HCP on file there. Work up is pending at this time. Continue to monitor for d/c needs.
[2021-09-20 16:07] LABS: MANUAL DIFF FLAG NO
[2021-09-20 16:08] LABS: Basophils Percent Auto 0.7 % (0-2); Eosinophils Absolute Auto 0.1 X10*3/uL (0.0-0.4); Eosinophils Percent Auto 0.9 % (0-4); Hemoglobin 12.5 g/dl (12.0-16.0); Imm Gran Abs Auto 0.01 X10*3/uL (0.00-0.03); Imm Gran Pct Auto 0.2 % (0.0-0.4); Lymphocytes Absolute Auto 1.3 X10*3/uL (1.2-4.9); Lymphocytes Percent Auto 23.5 % (20-40); Mean Corpuscular HGB Conc 32.1 g/dl (31.0-35.0); Mean Corpuscular Hemoglobin 27.1 pg (27.0-33.0); Mean Corpuscular Volume 84.6 fL (80.0-98.0); Mean Platelet Volume 10.4 fL (9.4-12.3); Monocytes Absolute Auto 0.5 X10*3/uL (0.1-1.2); Monocytes Percent Auto 9.7 % (2-11); Neutrophils Absolute Auto 3.6 x10*3/uL (2.0-8.3); Platelet Count 157 X10*3/uL (160-400); Red Blood Count 4.61 X10*6/uL (4.20-5.50); Red Cell Distribution Width 14.6 % (11.0-16.0); White Blood Count 5.5 X10*3/uL (4.8-10.8)
--- NOTE | 2021-09-20 16:11 | PC.NURSE ---
Daughter Priscilla called concerned as to why her parents were transferred to [facility]. No HCP or directives on file. Obtained permission from Soraya to share information with her daughter. This publications writer left a message for Priscilla to call [facility] back for care update. Spoke with Sobeida LEMAmanager ambulatory and she will speak with daughter when she calls back.
[2021-09-20 16:22] LABS: INTERNATIONAL NORM RATIO 1.1 (0.9-1.1); Prothrombin Time 12.6 SEC (9.9-13.0)
[2021-09-20 16:24] LABS: Alanine Aminotransferase 12 U/L (0-31); Albumin Level 3.6 g/dL (3.5-5.0); Alkaline Phosphatase 60 U/L (39-117); Anion Gap 11 (12-20); Aspartate Amino Transferase 24 U/L (5-31); Bilirubin Direct 0.2 mg/dL (0.0-0.5); Bilirubin Total 0.6 mg/dL (0.0-1.0); Blood Urea Nitrogen 29 mg/dL (9-16); Calcium 8.8 mg/dL (8.4-10.2); Carbon Dioxide 25 mmol/L (22-29); Chloride 106 mmol/L (96-108); Creatinine Clr Calc Pharmacy 46.6; Estimated Glomerular Filt Rate > 60; Glucose Random 129 mg/dL (60-115); Magnesium 2.2 mg/dL (1.6-2.6); Potassium 4.1 mmol/L (3.3-5.1); Sodium 138 mmol/L (135-145); Total Protein 7.1 g/dL (6.5-8.0)
[2021-09-20 16:30] LABS: B Type Natriuretic Peptide 158 pg/mL (<100); Troponin-I High Sensitivity 385.6 ng/L (<3.5-17.0)
[2021-09-20 16:41] LABS: COVID-19 Test Negative (Negative)
[2021-09-20 16:45] LABS: TSH reflex Free T4 0.79 uIU/mL (0.32-4.0)
[2021-09-20] MEDS: Aspirin 81 MG TAB.CHEW 324 MG PO (16:51)
[2021-09-20 17:27] VITALS: BP 151/71; PULSE 83; RESP 20; TEMP 37; O2SAT 99
[2021-09-20 19:27] LABS: Troponin-I High Sensitivity 502.2 ng/L (<3.5-17.0)
[2021-09-20 20:06] VITALS: BP 131/77; PULSE 92; RESP 14; TEMP 37; O2SAT 99
--- NOTE | 2021-09-20 20:40 | MHC.CM.ED ---
CM met with patient and her at 1705. Pt is very [place], has hearing aides in, unsure if they are working. Pt does not know why she is here. Pt does know she is in the hospital. Pt does understand that she has a fx L arm. tells CM that pt is fully vaccinated and boosted with Pfizer against Covid 19. Pt defers questions to her . Pt named her daughter, Priscilla Garcia ([phone]) as her HCP. Pt understands that Priscilla will make healthcare decisions for her if she cannot make them. Pt tells CM that Priscilla is going to move in with them and sell her home in [place]. HCP reviewed, completed and signed per protocol. Copies given and uploaded into [facility]. Pt to be admitted with NSTEMI, troponin at 385. IMM reviewed and signed 09/20/21@0990. Dr. Carrero in to speak with pt after speaking with daughter regarding plan of care for both patient and her father. [facility]CP is [facility] Marie Herrera at [facility]. Pt tells CM that she has 3 children and 6 grandchildren. CM spoke with daughterPriscilla multiple times. Priscilla tells CM that she and her brothers have a family care plan; Priscilla will move in with her parents and sell her house when they deem parents need more care. Torres, pt brother, verifies this plan and tells CM that Priscilla sees her parents twice a week and provides supports as needed. She has been doing this for 6 years. Torres tells CM that the family has finances to keep their parents at home, along with family care. CM to follow for d/c needs. Pt will need VNA at discharge. Unsure of transportation home.
--- NOTE | 2021-09-20 21:16 | P.HPHOSP_ITS ---
History of Present Illness Date of Service: 09/20/21 Chief Complaint: humeral fracture, this is a 81-year-old female with past medical history of breast cancer, hypertension, rheumatoid arthritis who initially presented to the hospital on 09 18 and admitted for evaluation of nonsustained V-tach but left against medical advice returns today after elderly services asked EMS to bring her in. It is unclear why elderly services was at the patient's home, EMS nor ED has any further information but patient was brought back for further evaluation. Patient is oriented to self and place but not to time, she is complaining of left shoulder pain otherwise has denied any dizziness, no chest pain, no shortness of breath, no abdominal pain nausea or vomiting, no diarrhea constipation, no urinary symptoms and no lower extremity edema. She does not remember how she sustained the fracture of her humerus, she does not remember falling or losing consciousness. Per the vent note from hospitalist on 09/19 patient requesting discharge and did not want to wait for the echocardiogram for the further evaluation of nonsustained V-tach and patient was signed out AMA by her and herself. Her daughter reported to the ED that she has now resumed care of her mother and is going to be her healthcare proxy. On arrival to the ED patient hemodynamically stable with no significant abnormal vitals labs are remarkable for WBC count of 4.7, hemoglobin of 11.7, hematocrit 36.9 , troponin of 385, increased to 502 EKG shows normal sinus rhythm, voltage criteria for LVH, nonspecific ST T wave abnormalities which were present on previous EKG cardiology was consulted, patient will be admitted for further management Review of Systems Review of Systems: Yes all other systems are reviewed and are negative [facility] Medical History (Updated 09/21/21 @ 06:56 by Tavo Nur MD) Breast cancer Hypertension NSVT (nonsustained ventricular tachycardia) Rheumatoid aortitis Family History (Updated 09/21/21 @ 06:56 by Tavo uNr MD) Other No family history of coronary artery disease Surgical History H/O knee surgery H/O mastectomy Social History Household Members: Spouse Housing: House Do you presently have visiting nurse or other home services: No Alcohol intake: current Alcohol intake frequency: holidays/special occasions only Patient Tobacco Use Status: Current everyday Tobacco user Tobacco use type: Cigarette Cigarettes Per Day: 4 Smoked in Last 30 Days: Yes Second Hand Smoke Exposure: No Use of substances other than those prescribed or required for medical reasons: No Have you been hit, kicked, punched, or otherwise hurt by someone within the past year? If so, by whom?: No Do you feel safe in your current relationship?: Yes Is there a partner from a previous relationship who is making you feel unsafe now?: No Are you made to feel afraid or neglected: No Advance Directives: No Advance Directives Information Provided: No Do you have thoughts of harming others: None Do you have a plan to hurt others: No Plan Recently lost weight without trying: Unsure Nutrition Risks: No Nutritional Risk Patient : No : No Poor oral hygiene: No service: No Current occupational status: [employer] Allergies Allergy/AdvReac Type Severity Reaction Status Date / Time No Known Allergies Allergy Unverified 03/31/20 15:43 Active Medications: Current Medications Pharmacy Consult (Consult Rx Perform Med Rec) 1 each MISCELLANE ONCE PRN PRN Reason: Consult order Home Medications Medication Instructions Recorded Confirmed Last Taken Type amlodipine 5 mg tablet 1 tab PO DAILY 09/18/21 09/20/21 09/17/21 History aspirin 81 mg tablet,delayed 81 mg PO DAILY 09/18/21 09/20/21 09/17/21 History release Physical Exam Vital Signs and Narrative: Vital Signs: Last Vital Signs Temp 98.6 F 09/20/21 20:06 Pulse 92 09/20/21 20:06 Resp 14 09/20/21 20:06 BP 131/77 09/20/21 20:06 Pulse Ox 99 09/20/21 20:06 BMI result Body Mass Index 21.5 Results Labs CBC and Chem 7: 09/21/21 05:59 09/21/21 05:59 Labs: Laboratory Results - last 24 hr 09/20/21 09/20/21 09/20/21 15:18 15:57 16:03 MCV 84.6 MCH 27.1 MCHC 32.1 RDW 14.6 Plt Count 157 L MPV 10.4 Immature Gran % (Auto) 0.2 Neut % (Auto) 65.0 Lymph % (Auto) 23.5 [place] % (Auto) 9.7 Eos % (Auto) 0.9 Baso % (Auto) 0.7 Lymph # (Auto) 1.3 [place] # (Auto) 0.5 Eos # (Auto) 0.1 Baso # (Auto) 0.0 Abs Immat Gran (auto) 0.01 Absolute Neuts (auto) 3.6 Absolute Nucleated RBC 0.000 Nucleated RBC % (auto) 0.0 PT INR Anion Gap Estim Creat Clear Calc Estimated GFR Random Glucose Calcium Magnesium Total Bilirubin Direct Bilirubin AST ALT Alkaline Phosphatase B-Natriuretic Peptide Total Protein Albumin TSH Urine Color YELLOW Urine Appearance HAZY Urine pH 5.5 Ur Specific [place] >= 1.030 H Urine Protein 2+ H Urine Glucose (UA) NEG Urine Ketones 5 Urine Blood 2+ H Urine Nitrite NEG Ur Leukocyte Esterase NEG Urine RBC 15-29 H Urine WBC 0-2 Ur Squamous Epith Cells 1+ Urine Bacteria 1+ COVID-19 (CATHERINE) Negative COVID-19 Clin Com See Note 09/20/21 09/20/21 09/20/21 16:03 16:03 16:03 MCV MCH MCHC RDW Plt Count MPV Immature Gran % (Auto) Neut % (Auto) Lymph % (Auto) [place] % (Auto) Eos % (Auto) Baso % (Auto) Lymph # (Auto) [place] # (Auto) Eos # (Auto) Baso # (Auto) Abs Immat Gran (auto) Absolute Neuts (auto) Absolute Nucleated RBC Nucleated RBC % (auto) PT 12.6 INR 1.1 Anion Gap 11 L Estim Creat Clear Calc 46.6 Estimated GFR > 60 Random Glucose 129 H Calcium 8.8 Magnesium 2.2 Total Bilirubin 0.6 Direct Bilirubin 0.2 AST 24 ALT 12 Alkaline Phosphatase 60 B-Natriuretic Peptide 158 H Total Protein 7.1 Albumin 3.6 TSH 0.79 Urine Color Urine Appearance Urine pH Ur Specific [place] Urine Protein Urine Glucose (UA) Urine Ketones Urine Blood Urine Nitrite Ur Leukocyte Esterase Urine RBC Urine WBC Ur Squamous Epith Cells Urine Bacteria COVID-19 (CATHERINE) COVID-19 Clin Com 09/20/21 16:03 MCV MCH MCHC RDW Plt Count MPV Immature Gran % (Auto) Neut % (Auto) Lymph % (Auto) [place] % (Auto) Eos % (Auto) Baso % (Auto) Lymph # (Auto) [place] # (Auto) Eos # (Auto) Baso # (Auto) Abs Immat Gran (auto) Absolute Neuts (auto) Absolute Nucleated RBC Nucleated RBC % (auto) PT INR Anion Gap Estim Creat Clear Calc Estimated GFR Random Glucose Calcium Magnesium Total Bilirubin Direct Bilirubin AST ALT Alkaline Phosphatase B-Natriuretic Peptide Total Protein Albumin TSH Cancelled Urine Color Urine Appearance Urine pH Ur Specific [place] Urine Protein Urine Glucose (UA) Urine Ketones Urine Blood Urine Nitrite Ur Leukocyte Esterase Urine RBC Urine WBC Ur Squamous Epith Cells Urine Bacteria COVID-19 (CATHERINE) COVID-19 Clin Com Assessment and Plan (1) NSVT (nonsustained ventricular tachycardia): Status: Acute (2) Acute non-ST elevation myocardial infarction (NSTEMI): Status: Acute (3) Closed left humeral fracture: Status: Acute Plan this is a 81-year-old female with past medical history of hypertension who initially presented to the hospital on 09/18 after a fall, found to have humeral fracture as well as NSVT. Patient signed out AMA on 09/19 without waiting for further evaluation of the NSVT returns today brought in by her daughter # nonsustained V-tach - patient currently hemodynamically stable, EKG shows normal sinus rhythm with nonspecific ST T wave abnormalities - will obtain echocardiogram - cardiology consulted # elevated troponin - likely type 2 NSTEMI - no EKG changes suggestive of ACS - patient denies chest pain - ED consult with Cardiology at this time will admit for echocardiogram, hold off on starting heparin given her recent fracture and falls - admit to telemetry - trend troponin # humeral fracture - sling - outpatient follow-up # hypertension - stable - continue amlodipine DVT prophylaxis Lovenox Quality Stroke Does the patient have a stroke diagnosis?: No VTE Prior VTE?: No VTE Risk Level:: Medical - moderate - high VTE Device Contraindication: Treatment Not Indicated VTE Drug Contraindication: N/A - Med Ordered
[2021-09-20 22:15] VITALS: BP 150/66; PULSE 79; RESP 24; TEMP 37; O2SAT 99
[2021-09-21] VITALS (8 sets, daily range): BP systolic 107–166; BP diastolic 58–83; PULSE 65–92; RESP 16–20; TEMP 36.3–37.1; O2SAT 92–100
[2021-09-21] MEDS: Acetaminophen 325 MG TABLET 650 MG PO ×3 (02:33→21:36)
[2021-09-21 06:27] LABS: MANUAL DIFF FLAG NO
[2021-09-21 06:33] LABS: Basophils Percent Auto 0.8 % (0-2); Eosinophils Absolute Auto 0.1 X10*3/uL (0.0-0.4); Eosinophils Percent Auto 2.8 % (0-4); Hematocrit 36.9 % (37.0-47.0); Hemoglobin 11.7 g/dl (12.0-16.0); Imm Gran Abs Auto 0.02 X10*3/uL (0.00-0.03); Imm Gran Pct Auto 0.4 % (0.0-0.4); Lymphocytes Absolute Auto 1.4 X10*3/uL (1.2-4.9); Lymphocytes Percent Auto 29.2 % (20-40); Mean Corpuscular HGB Conc 31.7 g/dl (31.0-35.0); Mean Corpuscular Hemoglobin 27.3 pg (27.0-33.0); Mean Corpuscular Volume 86.2 fL (80.0-98.0); Mean Platelet Volume 10.7 fL (9.4-12.3); Monocytes Absolute Auto 0.6 X10*3/uL (0.1-1.2); Monocytes Percent Auto 12.1 % (2-11); Neutrophils Absolute Auto 2.6 x10*3/uL (2.0-8.3); Neutrophils Percent Auto 54.7 % (45-73); Platelet Count 149 X10*3/uL (160-400); Red Blood Count 4.28 X10*6/uL (4.20-5.50); Red Cell Distribution Width 14.6 % (11.0-16.0); White Blood Count 4.7 X10*3/uL (4.8-10.8)
[2021-09-21 06:46] LABS: Anion Gap 10 (12-20); Blood Urea Nitrogen 23 mg/dL (9-16); Calcium 8.5 mg/dL (8.4-10.2); Carbon Dioxide 24 mmol/L (22-29); Chloride 108 mmol/L (96-108); Creatinine Clr Calc Pharmacy 54.7; Estimated Glomerular Filt Rate > 60; Glucose Random 94 mg/dL (60-115); Potassium 4.1 mmol/L (3.3-5.1); Sodium 138 mmol/L (135-145)
[2021-09-21 07:46] LABS: Troponin-I High Sensitivity 307.1 ng/L (<3.5-17.0)
--- NOTE | 2021-09-21 09:03 | HO.PM.IMPN ---
Subjective Subjective Date of Service: 09/21/21 Interval History: nsvt , elevated troponins Review of Systems Patient denies any chest pain or shortness of breath abdominal pain or fever chills No cough or phlegm. Physical Exam Vital Signs: Vital Signs: Last Vital Signs Temp 97.8 F 09/21/21 08:00 Pulse 92 09/21/21 08:00 Resp 20 09/21/21 08:00 BP 148/73 H 09/21/21 08:00 Pulse Ox 95 09/21/21 08:00 BMI result Body Mass Index 21.5 Appearance: Alert.? Oriented X3.? not in distress.? Eyes: Pupils equal, round and reactive to light.? Sclera nonicteric.? ENT: Pharynx normal.? Moist mucous membranes. cvs: rrr, [id number] . res: clear to auscultation ,no rhonchii or wheezing abd: no rebound or guarding ,nt, bs present. ext pulses present , no cyanosis, left arm sling neuro: axo3 , nonfocal. Objective Data Active Medications Acetaminophen (Acetaminophen 325 Mg Tablet) 650 mg PO Q6H PRN PRN Reason: Pain, Mild (Pain Scale 1-3) Last Admin: 09/21/21 02:33 Dose: 650 mg Documented by: TYRA Amlodipine Besylate (Amlodipine Besylate 5 Mg Tablet) 5 mg PO DAILY [facility]; Protocol Aspirin (Aspirin Enteric Coated 81 Mg Tablet.) 81 mg PO DAILY [facility] Docusate Sodium (Docusate Sodium 100 Mg Capsule) 100 mg PO DAILY PRN PRN Reason: Constipation Heparin Sodium (Porcine) (Heparin Sodium,Porcine 5,000 Unit/Ml Vial) 5,000 unit SUBCUT Q12H [facility] Last Admin: 09/21/21 01:19 Dose: Not Given Documented by: CYNTHIA Non-Admin Reason: Patient Refused Ondansetron HCl (Ondansetron Hcl 4 Mg/2 Ml Vial) 4 mg IVPUSH Q8H PRN PRN Reason: Nausea and Vomiting Oxycodone HCl (Oxycodone Hcl Immed Release 5 Mg Tablet) 5 mg PO Q6H PRN PRN Reason: Pain, Severe (Pain Scale 7-10) Pharmacy Consult (Consult Rx Perform Med Rec) 1 each MISCELLANE ONCE PRN PRN Reason: Consult order Sodium Chloride (0.9 % Sodium Chloride Flush 3 Ml Syringe) 3 ml IVFLUSH QSHIFT [id number] Last Admin: 09/21/21 01:20 Dose: Not Given Documented by: CYNTHIA Non-Admin Reason: IV Running Labs CBC & Chem 7: 09/21/21 05:59 09/21/21 05:59 Labs: Laboratory Results - last 24 hr 09/20/21 09/20/21 09/20/21 15:18 15:57 16:03 MCV 84.6 MCH 27.1 MCHC 32.1 RDW 14.6 Plt Count 157 L MPV 10.4 Immature Gran % (Auto) 0.2 Neut % (Auto) 65.0 Lymph % (Auto) 23.5 [place] % (Auto) 9.7 Eos % (Auto) 0.9 Baso % (Auto) 0.7 Lymph # (Auto) 1.3 [place] # (Auto) 0.5 Eos # (Auto) 0.1 Baso # (Auto) 0.0 Abs Immat Gran (auto) 0.01 Absolute Neuts (auto) 3.6 Absolute Nucleated RBC 0.000 Nucleated RBC % (auto) 0.0 PT INR Anion Gap Estim Creat Clear Calc Estimated GFR Random Glucose Calcium Magnesium Total Bilirubin Direct Bilirubin AST ALT Alkaline Phosphatase B-Natriuretic Peptide Total Protein Albumin TSH Urine Color YELLOW Urine Appearance HAZY Urine pH 5.5 Ur Specific [place] >= 1.030 H Urine Protein 2+ H Urine Glucose (UA) NEG Urine Ketones 5 Urine Blood 2+ H Urine Nitrite NEG Ur Leukocyte Esterase NEG Urine RBC 15-29 H Urine WBC 0-2 Ur Squamous Epith Cells 1+ Urine Bacteria 1+ COVID-19 (CATHERINE) Negative COVID-19 Clin Com See Note 09/20/21 09/20/21 09/20/21 16:03 16:03 16:03 MCV MCH MCHC RDW Plt Count MPV Immature Gran % (Auto) Neut % (Auto) Lymph % (Auto) [place] % (Auto) Eos % (Auto) Baso % (Auto) Lymph # (Auto) [place] # (Auto) Eos # (Auto) Baso # (Auto) Abs Immat Gran (auto) Absolute Neuts (auto) Absolute Nucleated RBC Nucleated RBC % (auto) PT 12.6 INR 1.1 Anion Gap 11 L Estim Creat Clear Calc 46.6 Estimated GFR > 60 Random Glucose 129 H Calcium 8.8 Magnesium 2.2 Total Bilirubin 0.6 Direct Bilirubin 0.2 AST 24 ALT 12 Alkaline Phosphatase 60 B-Natriuretic Peptide 158 H Total Protein 7.1 Albumin 3.6 TSH 0.79 Urine Color Urine Appearance Urine pH Ur Specific [place] Urine Protein Urine Glucose (UA) Urine Ketones Urine Blood Urine Nitrite Ur Leukocyte Esterase Urine RBC Urine WBC Ur Squamous Epith Cells Urine Bacteria COVID-19 (CATHERINE) COVID-19 Clin Com 09/20/21 09/21/21 09/21/21 16:03 05:59 05:59 MCV 86.2 MCH 27.3 MCHC 31.7 RDW 14.6 Plt Count 149 L MPV 10.7 Immature Gran % (Auto) 0.4 Neut % (Auto) 54.7 Lymph % (Auto) 29.2 [place] % (Auto) 12.1 H Eos % (Auto) 2.8 Baso % (Auto) 0.8 Lymph # (Auto) 1.4 [place] # (Auto) 0.6 Eos # (Auto) 0.1 Baso # (Auto) 0.0 Abs Immat Gran (auto) 0.02 Absolute Neuts (auto) 2.6 Absolute Nucleated RBC 0.000 Nucleated RBC % (auto) 0.0 PT INR Anion Gap 10 L Estim Creat Clear Calc 54.7 Estimated GFR > 60 Random Glucose 94 Calcium 8.5 Magnesium Total Bilirubin Direct Bilirubin AST ALT Alkaline Phosphatase B-Natriuretic Peptide Total Protein Albumin TSH Cancelled Urine Color Urine Appearance Urine pH Ur Specific [place] Urine Protein Urine Glucose (UA) Urine Ketones Urine Blood Urine Nitrite Ur Leukocyte Esterase Urine RBC Urine WBC Ur Squamous Epith Cells Urine Bacteria COVID-19 (CATHERINE) COVID-19 Clin Com Assessment and Plan (1) Cardiomyopathy: Status: Acute (2) NSVT (nonsustained ventricular tachycardia): Status: Acute Plan 81-year-old female with past medical history of hypertension who initially presented to the hospital on 09/18 after a fall, found to have humeral fracture as well as NSVT.? Patient signed out AMA on 09/19 without waiting for further evaluation of the NSVT returns today brought in by her daughter 1. nonsustained V-tach/? elevated troponin nsvt in Ed echo:1. Moderate LV systolic dysfunction with LVEF of 35-40% with ? impaired relaxation filling pattern and elevated filling ? pressures? 2.? No significant abnormality of cardiac valvular Dopplers? ? ? 3. Normal RV systolic pressure ? 4. Trivial pericardial effusion? ? trops flat,telemtry Seen by Cardiology: Seems like above echo finding possible like lead due to cardiomyopathy,could ahve underlying cad: Recommended to continue aspirin, check lipid panel, added metoprolol and valsartan. 2. humeral fracture -? sling -? outpatient follow-up 3.? hypertension -? stable started on valsartan and metoprolol as above. will moniter tele and also moniter overnight with mutiple blood pressure medication adjustments ,moniter renal function /electrolytes , also discussed with patient family in detail. ?DVT prophylaxis Lovenox Quality Stroke Does the patient have a stroke diagnosis?: No VTE Prior VTE?: No VTE Risk Level:: Medical - moderate - high VTE Device Contraindication: Treatment Not Indicated VTE Drug Contraindication: N/A - Med Ordered
--- NOTE | 2021-09-21 09:30 | CA_ITS ---
Transthoracic Echocardiogram Patient (Last, First, Middle): Soraya Mendoza M Gender: Female Date of : 1940 Age: 81 Procedure Date: 09/21/2021 Procedure Type: Transthoracic Echocardiogram Location: [facility] [place] Height: 160.02 cm Weight: 54.89 kg BSA: 1.56 m2 Heart Rate: bpm BP: 166 / 33 mmHg Flour Blender: ROMI Phillip MD: Tavo Nur MD Administrative Operations Coordinator: Krzysztof Burkett MD Symptoms: NSVT, elevated trop Study Quality: Fair ECG Rhythm: Sinus Conclusions: - 1. Moderate LV systolic dysfunction with LVEF of 35-40% with impaired relaxation filling pattern and elevated filling pressures 2. No significant abnormality of cardiac valvular Dopplers 3. Normal RV systolic pressure 4. Trivial pericardial effusion Findings Left Ventricle Normal left ventricular cavity size. There is normal left ventricular wall thickness. The left ventricular systolic function is moderately decreased. The visually estimated ejection fraction is between 35-40%. There is moderate global hypokinesis. Spectral Doppler is indicative of an impaired relaxation filling pattern. Elevated filling pressures. E/E prime ratio is >15, consistent with elevated filling pressures. Right Ventricle Normal right ventricular cavity size and systolic function. Atria The left atrium is likely dilated. There is lipomatous hypertrophy of the interatrial septum. There is no evidence of interatrial shunt. The right atrium is normal in size. Aortic Valve Normal aortic valve structure and function. There is no aortic valve stenosis. There is no aortic valve regurgitation. Mitral Valve There is mild anterior and moderate posterior mitral leaflet thickening. There is mild mitral annular calcification. There is trace mitral valve regurgitation. There is no mitral valve stenosis. Pulmonic Valve The pulmonic valve was not well visualized. Tricuspid Valve There is mild tricuspid valve regurgitation. The right ventricular systolic pressure is normal. Mildly elevated right atrial pressure. There is no evidence of pulmonary hypertension. Great Vessels All visible segments of the aorta are normal in size. The pulmonary artery was not well visualized. Venous The inferior vena cava is mildly dilated and collapses less than 50% with inspiration. Pericardium/Pleural There is a trivial pericardial effusion. Prior Study Comparison No prior study available for comparison. Measurements 2D Linear Measurements IVSd: 1.03 0.6-0.9/0.6-1.0 cm LVIDd: 5.40 3.9-5.3/4.2-5.9 cm LVIDd Index: 3.46 2.4-3.2/2.2-3.1 cm/m2 LVIDs: 4.53 2.0-3.6 cm LVPWd: 0.98 0.7-1.1 cm LA Diam: 3.50 2.7-3.8/3.0-4.0 cm LAIDs Index: 2.24 1.5-2.3 cm/m2 LV Mass: 258.53 67-162/88-224 g LV Mass Index: 165.72 43-95/49-115 g/m2 LVOT Diam: 2.30 3.0+(-)1.3 cm 2D Systolic Function EF 4C: 37.70 >55% EF 2C: 39.20 >55% EF BiP: 39.30 >55% Mitral Valve MV Pk E: 0.55 MV PK A: 0.94 MV Decel Time: 187.00 E/A: 0.60 E'Lateral: 2.61 E'Medial: 3.37 E/E' Med: 16.30 E/E' Lat: 21.00 PHT: 55.00 MVA PHT: 4.00 Decel [place]: 2.93 Aortic Valve AoV Pk Miky: 1.23 AoV Mn Miky: 0.92 AoV VTI: 0.24 AoV Pk Grad: 6.00 Aov Mn Grad: 4.00 ERROL Cont.VTI: 2.23 LVOT LVOT Pk Miky: 0.65 LVOT Mn Miky: 0.44 LVOT VTI: 0.13 LVOT Pk Grad: 2.00 LVOT Mn Grad: 1.00 LVOT Diam: 2.30 LVOT Area: 4.15 Diastolic Function MV Pk E: 0.55 MV Pk A: 0.94 E/A: 0.60 E'Medial: 3.37 E/E' Med: 16.30 E' Laterial: 2.61 E/E' Lat: 21.00 Right Ventricle TAPSE (mm): 22.40 TVS' Miky: 14.50 Tricuspid Valve TR Pk Miky: 1.98 TR Pk Grad: 16.00 RA Press: 8.00 RVSP: 24.00 Great Vessels Aorta Sinus of Valsalva: 3.39 2.0-3.5 cm Updated in Other Vendor System with Status of Final Krzysztof Burkett MD electronically signed on 09/21/2021 9:50:45 AM with status of Final
[2021-09-21] MEDS: Heparin Sodium,Porcine 5,000 UNIT/ML VIAL 5000 UNIT SUBCUT ×2 (09:47→21:38)
[2021-09-21] MEDS: Aspirin Enteric Coated 81 MG TABLET.DR PO (09:47)
[2021-09-21] MEDS: amLODIPine Besylate 5 MG TABLET PO (09:47)
[2021-09-21] MEDS: 0.9 % Sodium Chloride Flush 3 ML SYRINGE IVFLUSH ×3 (09:47→21:47)
--- NOTE | 2021-09-21 10:27 | PM.PNCARD ---
Subjective Subjective Date of Service: 09/21/21 Principal diagnosis: Elevated troponins, LV systolic dysfunction. Interval history: I was reconsulted during this hospitalization. I saw the patient couple of days ago when she was signed out against medical advise by her . At that time there was concern in because patient was very confused and seems like the was confused. Subsequently after going home Elder Services were involved and refer both the patient and patient's to the hospital. Patient is very confused and does not know why she is here. She denies any chest pain syndrome. Her troponin were elevated went up to 300 subsequent troponin to 500 and down trending again to 300 today. This is suggestive myocardial injury. Patient again has no symptoms of angina. EKG shows nonspecific changes and no significant changes. All this could be related to stress-induced troponin release related to recent fall and fracture. She continues to have pain in the left arm. Denies any shortness of breath, orthopnea, PND. Echo done this morning shows diffuse hypokinesis LVEF of 35-40% unclear as to prior diagnosis of cardiomyopathy. Overnight has no arrhythmias. Review of Systems Review of Systems Yes Unobtainable due to mental status Physical Exam Vital Signs: Last Vital Signs Temp 97.8 F 09/21/21 08:00 Pulse 92 09/21/21 08:00 Resp 20 09/21/21 08:00 BP 148/73 H 09/21/21 08:00 Pulse Ox 95 09/21/21 08:00 BMI result Body Mass Index 21.5 Const General: cooperative, comfortable, no acute distress, alert and awake Nutritional Appearance: thin Orientation/consciousness: patient oriented x3 Neck Neck: Yes trachea midline, Yes supple and Yes no JVD Chest Chest palpation & inspection: normal inspection of the chest Resp Effort & Inspection: normal respiratory effort Auscultation: clear to auscultation bilaterally Cardio Jugular venous distension: no JVD Palpation: normal PMI Rate: regular rate Rhythm: regular rhythm Heart sounds: S1 normal heart sound present, S2 normal heart sound present, no click, no gallops and no murmurs GI Auscultation: normal bowel sounds Skin General skin exam: no rashes or lesions noted and ecchymosis Neuro General: patient oriented x3 Objective Labs and Meds Result diagrams: 09/21/21 05:59 09/21/21 05:59 Lab results: Laboratory Results - last 24 hr 09/20/21 09/20/21 09/20/21 15:18 15:57 16:03 WBC 5.5 RBC 4.61 Hgb 12.5 Hct 39.0 MCV 84.6 MCH 27.1 MCHC 32.1 RDW 14.6 Plt Count 157 L MPV 10.4 Immature Gran % (Auto) 0.2 Neut % (Auto) 65.0 Lymph % (Auto) 23.5 [place] % (Auto) 9.7 Eos % (Auto) 0.9 Baso % (Auto) 0.7 Lymph # (Auto) 1.3 [place] # (Auto) 0.5 Eos # (Auto) 0.1 Baso # (Auto) 0.0 Abs Immat Gran (auto) 0.01 Absolute Neuts (auto) 3.6 Absolute Nucleated RBC 0.000 Nucleated RBC % (auto) 0.0 PT INR Sodium Potassium Chloride Carbon Dioxide Anion Gap BUN Creatinine Estim Creat Clear Calc Estimated GFR Random Glucose Calcium Magnesium Total Bilirubin Direct Bilirubin AST ALT Alkaline Phosphatase Troponin I High Sens B-Natriuretic Peptide Total Protein Albumin TSH Urine Color YELLOW Urine Appearance HAZY Urine pH 5.5 Ur Specific [place] >= 1.030 H Urine Protein 2+ H Urine Glucose (UA) NEG Urine Ketones 5 Urine Blood 2+ H Urine Nitrite NEG Ur Leukocyte Esterase NEG Urine RBC 15-29 H Urine WBC 0-2 Ur Squamous Epith Cells 1+ Urine Bacteria 1+ COVID-19 (CATHERINE) Negative COVID-19 Clin Com See Note 09/20/21 09/20/21 09/20/21 16:03 16:03 16:03 WBC RBC Hgb Hct MCV MCH MCHC RDW Plt Count MPV Immature Gran % (Auto) Neut % (Auto) Lymph % (Auto) [place] % (Auto) Eos % (Auto) Baso % (Auto) Lymph # (Auto) [place] # (Auto) Eos # (Auto) Baso # (Auto) Abs Immat Gran (auto) Absolute Neuts (auto) Absolute Nucleated RBC Nucleated RBC % (auto) PT 12.6 INR 1.1 Sodium 138 Potassium 4.1 Chloride 106 Carbon Dioxide 25 Anion Gap 11 L BUN 29 H D Creatinine 0.81 Estim Creat Clear Calc 46.6 Estimated GFR > 60 Random Glucose 129 H Calcium 8.8 Magnesium 2.2 Total Bilirubin 0.6 Direct Bilirubin 0.2 AST 24 ALT 12 Alkaline Phosphatase 60 Troponin I High Sens 385.6 H* D B-Natriuretic Peptide 158 H Total Protein 7.1 Albumin 3.6 TSH 0.79 Urine Color Urine Appearance Urine pH Ur Specific [place] Urine Protein Urine Glucose (UA) Urine Ketones Urine Blood Urine Nitrite Ur Leukocyte Esterase Urine RBC Urine WBC Ur Squamous Epith Cells Urine Bacteria COVID-19 (CATHERINE) COVID-19 Clin Com 09/20/21 09/20/21 09/21/21 16:03 18:56 05:59 WBC 4.7 L RBC 4.28 Hgb 11.7 L Hct 36.9 L MCV 86.2 MCH 27.3 MCHC 31.7 RDW 14.6 Plt Count 149 L MPV 10.7 Immature Gran % (Auto) 0.4 Neut % (Auto) 54.7 Lymph % (Auto) 29.2 [place] % (Auto) 12.1 H Eos % (Auto) 2.8 Baso % (Auto) 0.8 Lymph # (Auto) 1.4 [place] # (Auto) 0.6 Eos # (Auto) 0.1 Baso # (Auto) 0.0 Abs Immat Gran (auto) 0.02 Absolute Neuts (auto) 2.6 Absolute Nucleated RBC 0.000 Nucleated RBC % (auto) 0.0 PT INR Sodium Potassium Chloride Carbon Dioxide Anion Gap BUN Creatinine Estim Creat Clear Calc Estimated GFR Random Glucose Calcium Magnesium Total Bilirubin Direct Bilirubin AST ALT Alkaline Phosphatase Troponin I High Sens 502.2 H* B-Natriuretic Peptide Total Protein Albumin TSH Cancelled Urine Color Urine Appearance Urine pH Ur Specific [place] Urine Protein Urine Glucose (UA) Urine Ketones Urine Blood Urine Nitrite Ur Leukocyte Esterase Urine RBC Urine WBC Ur Squamous Epith Cells Urine Bacteria COVID-19 (CATHERINE) COVID-19 Clin Com 09/21/21 09/21/21 05:59 05:59 WBC RBC Hgb Hct MCV MCH MCHC RDW Plt Count MPV Immature Gran % (Auto) Neut % (Auto) Lymph % (Auto) [place] % (Auto) Eos % (Auto) Baso % (Auto) Lymph # (Auto) [place] # (Auto) Eos # (Auto) Baso # (Auto) Abs Immat Gran (auto) Absolute Neuts (auto) Absolute Nucleated RBC Nucleated RBC % (auto) PT INR Sodium 138 Potassium 4.1 Chloride 108 Carbon Dioxide 24 Anion Gap 10 L BUN 23 H Creatinine 0.69 Estim Creat Clear Calc 54.7 Estimated GFR > 60 Random Glucose 94 Calcium 8.5 Magnesium Total Bilirubin Direct Bilirubin AST ALT Alkaline Phosphatase Troponin I High Sens 307.1 H* B-Natriuretic Peptide Total Protein Albumin TSH Urine Color Urine Appearance Urine pH Ur Specific [place] Urine Protein Urine Glucose (UA) Urine Ketones Urine Blood Urine Nitrite Ur Leukocyte Esterase Urine RBC Urine WBC Ur Squamous Epith Cells Urine Bacteria COVID-19 (CATHERINE) COVID-19 Clin Com Progress Note: A&P Assessment and plan (1) Acute non-ST elevation myocardial infarction (NSTEMI): Status: Acute Assessment and Plan: Patient presented 2 days ago with a fall/syncope of unclear etiology with left humerus fracture and was signed out against medical advise prior to workup by her . Presents again with no continued cardiac symptoms although this is difficult to assess in this patient given her significant memory impairment and possible underlying dementia. Likely that she could have significant coronary artery disease. However she is not having any clinical symptoms at this point time and given her cognitive dysfunction needs to be discussed in details as to whether management time would be. I think conservative management plan with medical therapy should be pursued. I still do not think she needs IV heparin as she has no ischemic symptoms. Would continue low-dose aspirin therapy. Start beta-blockers and statin therapy. Other possible etiologies include stress-induced cardiomyopathy given her recent humeral fracture and probably underlying prior undiagnosed cardiomyopathy, leading to troponin elevation with acute hospitalization. (2) Cardiomyopathy: Status: Acute Assessment and Plan: Cardiomyopathy unclear whether this is ischemic versus stress-induced versus longstanding nonischemic cardiomyopathy. Clinically not in heart failure at this point time. Will continue with conservative management. Start beta-blockers as above. Also add valsartan to her regimen for neurohormonal modulation. Should discuss with family about further management including signs and symptoms of heart failure. Will sign of the case at this point time unless there further questions please re-consult us. Thank you for allowing us to partake in her care Fall Risk Details Current Medications: Current Medications Acetaminophen (Acetaminophen 325 Mg Tablet) 650 mg PO Q6H PRN PRN Reason: Pain, Mild (Pain Scale 1-3) Last Admin: 09/21/21 02:33 Dose: 650 mg Documented by: Amlodipine Besylate (Amlodipine Besylate 5 Mg Tablet) 5 mg PO DAILY TAWNYA; Protocol Last Admin: 09/21/21 09:47 Dose: 5 mg Documented by: Aspirin (Aspirin Enteric Coated 81 Mg Tablet.) 81 mg PO DAILY [facility] Last Admin: 09/21/21 09:47 Dose: 81 mg Documented by: Docusate Sodium (Docusate Sodium 100 Mg Capsule) 100 mg PO DAILY PRN PRN Reason: Constipation Heparin Sodium (Porcine) (Heparin Sodium,Porcine 5,000 Unit/Ml Vial) 5,000 unit SUBCUT Q12H [facility] Last Admin: 09/21/21 09:47 Dose: 5,000 unit Documented by: Ondansetron HCl (Ondansetron Hcl 4 Mg/2 Ml Vial) 4 mg IVPUSH Q8H PRN PRN Reason: Nausea and Vomiting Oxycodone HCl (Oxycodone Hcl Immed Release 5 Mg Tablet) 5 mg PO Q6H PRN PRN Reason: Pain, Severe (Pain Scale 7-10) Pharmacy Consult (Consult Rx Perform Med Rec) 1 each MISCELLANE ONCE PRN PRN Reason: Consult order Sodium Chloride (0.9 % Sodium Chloride Flush 3 Ml Syringe) 3 ml IVFLUSH QSHIFT [facility] Last Admin: 09/21/21 09:47 Dose: 3 ml Documented by: Time Spent With Patient Time: Total time spent is greater than 50% in coordination of care (as documented) at patient's floor/unit and/or counseling patient: Time with patient: 25 - 35 minutes Progress Note: Quality Stroke Does the patient have a stroke diagnosis?: No Procedures Date of Service Date of Service: 09/21/21
[2021-09-21] MEDS: Valsartan 40 MG TABLET PO (11:37)
[2021-09-21] MEDS: Metoprolol Tartrate 25 MG TABLET PO ×2 (11:38→19:20)
[2021-09-21 14:47] LABS: Appearance Urine HAZY; Color Urine YELLOW; Glucose Urine UA NEG (NEG); Leukocyte Esterase Urine NEG (NEG); Nitrite Urine NEG (NEG); PH 5.5 (5.0-8.0); Specific Gravity - Urine 1.025 (1.005-1.025); UACC Culture Trigger NO; Urine Blood 3+ (NEG); Urine Ketones NEG (NEG); Urine Protein 1+ MG/DL (NEG-TRACE)
[2021-09-21 15:03] LABS: Amphetamine Screen Urine Not Detected (Not Detect); Barbiturates, Urine Not Detected (Not Detect); Benzodiazepines Screen Urine Not Detected (Not Detect); Cannabinoid Screen Urine Not Detected (Not Detect); Cocaine Screen Urine Not Detected (Not Detect); Fentanyl, urine Not Detected (Not Detect); Opiate Screen Urine Not Detected (Not Detect); Phencyclidine Screen Urine Not Detected (Not Detect)
[2021-09-21 15:32] LABS: Bacteria Urine 1+ /LPF; Squamous Epithelial Cell Urine TRACE /LPF; WBC Urine 0-2 /HPF (0-4)
--- NOTE | 2021-09-21 15:59 | MHC.CM.PN ---
CM MET WITH PTS DAUGHTER AT HER REQUEST SHE REPORTS THERE WAS A HCP COMPLETED WITH THE PT YESTERDAY HOWEVER HER FIRST AND LAST NAME WAS INCORRECT A NEW HCP WAS COMPLETED TODAY NAMING HER DAUGHTER, BINTA VELAZQUEZ, HER AGENT
[2021-09-21 16:43] LABS: Cholesterol 174 mg/dL; HDL Cholesterol 52 mg/dL; LDL Cholesterol Calculated 107 mg/dl; Triglycerides 76 mg/dL
[2021-09-21] MEDS: Atorvastatin Calcium 40 MG TABLET PO (19:20)
[2021-09-21] MEDS: Albuterol/Iprat 2.5/0.5MG 3 ML AMPUL.NEB INHALE (19:39)
[2021-09-22 04:00] VITALS: BP 126/84; PULSE 68; RESP 18; TEMP 36.9; O2SAT 97
[2021-09-22 07:23] LABS: Anion Gap 8 (12-20); Blood Urea Nitrogen 24 mg/dL (9-16); Calcium 8.7 mg/dL (8.4-10.2); Carbon Dioxide 26 mmol/L (22-29); Chloride 109 mmol/L (96-108); Creatinine Clr Calc Pharmacy 53.1; Estimated Glomerular Filt Rate > 60; Glucose Random 98 mg/dL (60-115); Sodium 139 mmol/L (135-145)
[2021-09-22 07:39] VITALS: PULSE 72; RESP 16; O2SAT 98
[2021-09-22] MEDS: Albuterol/Iprat 2.5/0.5MG 3 ML AMPUL.NEB INHALE (07:39)
--- NOTE | 2021-09-22 07:57 | PM.DS ---
DS: Providers Provider Date of Service: 09/22/21 Date of admission: 09/20/21 21:14 Primary care physician: Jonathan Hrenandez III, MD Consults: 09/20/21 21:13 Consult to Cardiology Routine Consulting Provider: Krzysztof Burkett Reason for consultation: NSVT, elevated trop Has provider been notified: Yes DS: Diagnosis Discharge Diagnosis (1) Cardiomyopathy: Status: Acute (2) NSVT (nonsustained ventricular tachycardia): Status: Acute DS: Summary Hospital Course Hospital Course: 81-year-old female with past medical history of breast cancer, hypertension, rheumatoid arthritis who initially presented to the hospital on? 3 and admitted for evaluation of? nonsustained? V-tach but left against medical advice returns today after elderly services asked EMS to bring her in.? It is unclear why elderly services was at the patient's home, EMS nor ED has any further information but patient was brought back for further evaluation.? Patient is oriented to self and place but not to time, she is complaining of left shoulder pain otherwise has denied any dizziness, no chest pain, no shortness of breath, no abdominal pain nausea or vomiting, no diarrhea constipation, no urinary symptoms and no lower extremity edema.? She does not remember how she sustained the fracture of her humerus, she does not remember falling or losing consciousness. ? Per? the vent note from hospitalist on 09/19 patient requesting discharge and did not want to wait for the echocardiogram for the? further evaluation of? nonsustained V-tach and patient was signed out AMA by her and herself. ? Her daughter reported to the ED that she has now resumed care of her mother and is going to be her healthcare proxy. ? On arrival to the ED patient hemodynamically stable with no? significant abnormal vitals ?labs are remarkable for WBC count of 4.7, hemoglobin of 11.7, hematocrit 36.9 ,? troponin of 385, increased to 502 ?EKG shows normal sinus rhythm, voltage criteria for LVH, nonspecific ST T wave abnormalities which were present on previous EKG ?cardiology was consulted, patient will be admitted for further management. Hospital course: 81-year-old female with past medical history of hypertension who initially presented to the hospital on 09/18 after a fall, found to have humeral fracture as well as NSVT.? Patient signed out AMA on 09/19 without waiting for further evaluation of the NSVT returns today brought in by her daughter Hospital course: Patient presented 2 days ago with a fall/syncope of unclear etiology with left humerus fracture and was signed out against medical advise prior to workup by her .? Presents again with no continued cardiac symptoms although this is difficult to assess in this seems like patient has memory impairment( confirmed with duaghter)and very loud on hearing , may possible underlying dementia.? telemetry seems fine and troponins flat. Patient Likely that she could have significant coronary artery disease.? However she is not having any clinical symptoms at this point time and given her cognitive dysfunction -discussed with her daughter in detail cardiology recomendation: conservative management plan with medical therapy should be pursued. cardiology recomended medical therapy with low-dose aspirin therapy,beta-blockers and statin and added valsartan her regimen for neurohormonal modulation. Other possible etiologies include stress-induced cardiomyopathy given her recent humeral fracture and probably underlying prior undiagnosed cardiomyopathy, leading to troponin elevation with acute hospitalization. Patient is to follow-up with Cardiology out patiently for further management as well as PCP. 2. humeral fracture-has ? sling outpatient follow-up with ortho. Daughter said she is going to make the appointment with Ortho because patient missed appointment this week, ortho is aware. 3. Cognitive impairment: As per the daughter patient has on and off memory problems, today she looks at our baseline as per daughter. Daughter is leaning towards outpatient neurology [id number] possible undiagnosed dementia. Above management discussed with the patient in detail length she understand and in agreement with the above plan, time spent 50 minutes and 50% time spent on counseling. Significant findings: As above. Procedures performed: None. Treatment and response: As above. Complications: None. Time Spent with Patient Time attestation: Total time spent providing and/or coordinating discharge services: Discharge coordination time: Greater than 30 minutes Quality: Stroke Does the patient have a stroke diagnosis?: No Physical Exam Vital Signs: Vital Signs: Last Vital Signs Temp 98.4 F 09/22/21 04:00 Pulse 72 09/22/21 07:39 Resp 16 09/22/21 07:39 BP 126/84 09/22/21 04:00 Pulse Ox 97 09/22/21 04:00 BMI result Body Mass Index 21.5 Appearance: Alert.? Oriented X3.? not in distress.? Eyes: Pupils equal, round and reactive to light.? Sclera nonicteric.? ENT: Pharynx normal.? Moist mucous membranes. cvs: rrr, [id number] . res: clear to auscultation ,no rhonchii or wheezing abd: no rebound or guarding ,nt, bs present. ext pulses present , no cyanosis, left arm sling neuro: axo3 , nonfocal DS: Data Data Completed and Pending Labs on day of discharge: Laboratory Results - last 24 hr 09/21/21 09/21/21 09/21/21 05:59 11:15 11:15 Sodium Potassium Chloride Carbon Dioxide Anion Gap BUN Creatinine Estim Creat Clear Calc Estimated GFR Random Glucose Calcium Triglycerides 76 Cholesterol 174 LDL Cholesterol, Calc 107 HDL Cholesterol 52 Urine Color YELLOW Urine Appearance HAZY Urine pH 5.5 Ur Specific [place] 1.025 Urine Protein 1+ H Urine Glucose (UA) NEG Urine Ketones NEG Urine Blood 3+ H Urine Nitrite NEG Ur Leukocyte Esterase NEG Urine RBC 1-4 Urine WBC 0-2 Ur Squamous Epith Cells TRACE Urine Bacteria 1+ Urine Opiates Screen Not Detected Urine Fentanyl Screen Not Detected Ur Barbiturates Screen Not Detected Ur Phencyclidine Scrn Not Detected Ur Amphetamines Screen Not Detected U Benzodiazepines Scrn Not Detected Urine Cocaine Screen Not Detected U Marijuana (THC) Screen Not Detected 09/22/21 06:25 Sodium 139 Potassium 4.0 Chloride 109 H Carbon Dioxide 26 Anion Gap 8 L BUN 24 H Creatinine 0.71 Estim Creat Clear Calc 53.1 Estimated GFR > 60 Random Glucose 98 Calcium 8.7 Triglycerides Cholesterol LDL Cholesterol, Calc HDL Cholesterol Urine Color Urine Appearance Urine pH Ur Specific [place] Urine Protein Urine Glucose (UA) Urine Ketones Urine Blood Urine Nitrite Ur Leukocyte Esterase Urine RBC Urine WBC Ur Squamous Epith Cells Urine Bacteria Urine Opiates Screen Urine Fentanyl Screen Ur Barbiturates Screen Ur Phencyclidine Scrn Ur Amphetamines Screen U Benzodiazepines Scrn Urine Cocaine Screen U Marijuana (THC) Screen Additional Comments Additional comments: echo ? :1. Moderate LV systolic dysfunction with LVEF of 35-40% with ? impaired relaxation filling pattern and elevated filling ? pressures? 2.? No significant abnormality of cardiac valvular Dopplers? ? ? 3. Normal RV systolic pressure ? 4. Trivial pericardial effusion? Discharge Plan Discharge Patient Disposition: Home Health Service Discharge Diagnosis: Cardiomyopathy,htn Referrals: [facility] [Other] - 1 Week Jonathan Heranndez III, MD [Primary Care Provider] - 1 Week Discharge Medications: New atorvastatin 40 mg Tablet 40 mg PO BEDTIME Qty: 30 0RF docusate sodium 100 mg Capsule 100 mg PO DAILY PRN (Reason: Constipation) Qty: 30 0RF metoprolol tartrate 25 mg Tablet 25 mg PO BID Qty: 60 0RF Protocol: Hold for SBP/HR < HOLD for SBP < : 90 HOLD for HR < : 60 valsartan 40 mg tablet 40 mg PO BID Qty: 60 0RF Continued aspirin 81 mg Tablet,Delayed Release (Dr/Ec) 81 mg PO DAILY 0RF Discontinued amlodipine 5 mg tablet 1 tab PO DAILY 0RF Discharge Orders: Discharge Order (Routine); Ordered 09/22/21 Ordered By: Sneha Subramanian Diet: advance to usual diet, low fat, low cholesterol and low salt diet Activity on Discharge: As tolerated Stand Alone Forms: Patient Portal Discharge page Care Plan Goals: Patient initially came with abnormal heart rhythm(nsvt)-that time left against medical advise and came back : Seen by Cardiology-patient has found to have low heart function: Seen by Cardiology for above: Cardiology recommended medical management: Patient medications are adjusted. Patient telemetry recording seems fine. Patient will be going home, further management out patiently with PCP and Cardiology may arrange their own appointment if needed. Cognitive impairment: As per family patient mental status at baseline, consider outpatient neurology evaluation as per PCP. Please check BMP in 1 week outpatient with PCP. humeral fracture-has ? sling,outpatient follow-up with ortho. Above was discussed with patient daughter and patient has spent in detail. Health Concerns: As above. Plan of Treatment: As above. Assessment: As above. Discharge Date/Time: 09/22/21 13:17
[2021-09-22 08:00] VITALS: BP 136/82; PULSE 73; RESP 18; TEMP 36.3; O2SAT 96
[2021-09-22] MEDS: 0.9 % Sodium Chloride Flush 3 ML SYRINGE IVFLUSH (09:01)
[2021-09-22] MEDS: Metoprolol Tartrate 25 MG TABLET PO (09:01)
[2021-09-22] MEDS: Aspirin Enteric Coated 81 MG TABLET.DR PO (09:01)
[2021-09-22] MEDS: Acetaminophen 325 MG TABLET 650 MG PO (09:47)
--- NOTE | 2021-09-22 10:44 | P.CDIC_ITS ---
CDI Concurrent Query Documentation Clarification: PHYSICIAN'S DOCUMENTATION REQUEST Date of Query: 09/22/21 1044 Patient Name: Soraya Mendoza Admit Date: 09/20/21 Dear Doctor, A review of the medical record indicates additional documentation may be needed. Please review below and update the documentation accordingly. Clinical Indicators: Risk Factors/Clinical Indicators/Treatments ED: Dementia - patient lacks insight, doesnt know why she is here, doesnt remember the two admits, falling, memory impairement. Based on the above, could you clarify in the Progress Notes which, if any of the following, is the most likely etiology of the confusion/altered mental status? * Dementia - indicate type of dementia, such as Alzheimer's, senile, vascular, Lewy body, etc. * Acute delirium - indicate known or suspected etiology, such as postoperative, due to narcotics or other drugs, etc. * Baseline dementia - indicate type, such as Alzheimer's, senile, vascular, Lewy body, etc., and any associated behavioral disturbances (aggressive, combative, or violent behavior) * Acute or subacute confusional state due to (specify known or suspected etiology) * Other etiology (please specify) * Unable to determine Use of terms such as suspected, likely, concern for, or probable (associated with a specific diagnosis that is being evaluated, monitored, or treated as if it exists) are acceptable and can be coded in the inpatient setting, when documented at the time of discharge. Thank you, Nancy Rosales [facility], CDIS Extension: [phone] Please use your independent medical judgment in providing your response. THIS QUERY IS PART OF THE PERMANENT MEDICAL RECORD Provider Response: Other Other Diagnosis: cognitive impairment ( currently at baseline),possible undiagnosed dementia
--- NOTE | 2021-09-22 10:58 | P.PNCA_ITS ---
Subjective Subjective Date of Service: 09/22/21 Principal diagnosis: Elevated troponins, LV systolic dysfunction. Interval history: Patient still remains confused. Daughter was at bedside. She thinks patient has adequate mental status. Patient still does not know why she is in the hospital and how long she has been here. She definitely has short-term memory i ssues. She has tolerated initiation of medical therapy since yesterday. No reported chest pain or shortness of breath. Complains of left arm pain and I told her that she has left humeral fracture, she was not aware of it despite having been told multiple times. Review of Systems Review of Systems Yes Unobtainable due to mental status Reports confusion Psychiatric: Reports confusion Physical Exam Vital Signs: Last Vital Signs Temp 97.3 F 09/22/21 08:00 Pulse 73 09/22/21 08:00 Resp 18 09/22/21 08:00 BP 136/82 09/22/21 08:00 Pulse Ox 96 09/22/21 08:00 BMI result Body Mass Index 21.5 Const General: cooperative, comfortable, no acute distress, alert, awake and confusion Nutritional Appearance: thin and other (Frail elderly woman) Orientation/consciousness: confusion Limitations: no limitations Neck Neck: Yes trachea midline, Yes supple and Yes no JVD Resp Effort & Inspection: normal respiratory effort Auscultation: clear to auscultation bilaterally Cardio Jugular venous distension: no JVD Palpation: normal PMI Rate: regular rate Rhythm: regular rhythm Heart sounds: S1 normal heart sound present, S2 normal heart sound present, no click, no gallops and no murmurs GI Auscultation: normal bowel sounds Skin General skin exam: no rashes or lesions noted and ecchymosis Neuro General: no focal motor deficits and confusion Extrem General: Yes no clubbing, cyanosis or edema Objective Labs and Meds Result diagrams: 09/21/21 05:59 09/22/21 06:25 Lab results: Laboratory Results - last 24 hr 09/21/21 09/21/21 09/21/21 05:59 11:15 11:15 Sodium Potassium Chloride Carbon Dioxide Anion Gap BUN Creatinine Estim Creat Clear Calc Estimated GFR Random Glucose Calcium Triglycerides 76 Cholesterol 174 LDL Cholesterol, Calc 107 HDL Cholesterol 52 Urine Color YELLOW Urine Appearance HAZY Urine pH 5.5 Ur Specific [place] 1.025 Urine Protein 1+ H Urine Glucose (UA) NEG Urine Ketones NEG Urine Blood 3+ H Urine Nitrite NEG Ur Leukocyte Esterase NEG Urine RBC 1-4 Urine WBC 0-2 Ur Squamous Epith Cells TRACE Urine Bacteria 1+ Urine Opiates Screen Not Detected Urine Fentanyl Screen Not Detected Ur Barbiturates Screen Not Detected Ur Phencyclidine Scrn Not Detected Ur Amphetamines Screen Not Detected U Benzodiazepines Scrn Not Detected Urine Cocaine Screen Not Detected U Marijuana (THC) Screen Not Detected 09/22/21 06:25 Sodium 139 Potassium 4.0 Chloride 109 H Carbon Dioxide 26 Anion Gap 8 L BUN 24 H Creatinine 0.71 Estim Creat Clear Calc 53.1 Estimated GFR > 60 Random Glucose 98 Calcium 8.7 Triglycerides Cholesterol LDL Cholesterol, Calc HDL Cholesterol Urine Color Urine Appearance Urine pH Ur Specific [place] Urine Protein Urine Glucose (UA) Urine Ketones Urine Blood Urine Nitrite Ur Leukocyte Esterase Urine RBC Urine WBC Ur Squamous Epith Cells Urine Bacteria Urine Opiates Screen Urine Fentanyl Screen Ur Barbiturates Screen Ur Phencyclidine Scrn Ur Amphetamines Screen U Benzodiazepines Scrn Urine Cocaine Screen U Marijuana (THC) Screen Progress Note: A&P Assessment and plan (1) Cardiomyopathy: Status: Acute Assessment and Plan: Patient with LV systolic dysfunction with moderate LV systolic dysfunction without any signs of congestive heart failure. She has no symptoms. No prior history of known cardiac issues however this is difficult to obtain from the patient. For now management will be medical given his significant cognitive dysfunction. Will continue pursue neurohormonal modulation with valsartan and metoprolol. Outpatient follow-up with ischemic workup if her cognitive function improves. Will set up for outpatient follow-up. Signs and symptoms of heart failure were discussed. May consider outpatient ischemic workup she continues to improve medically. (2) Acute non-ST elevation myocardial infarction (NSTEMI): Status: Acute Assessment and Plan: Patient present with elevated troponin with rise and fall suggestive NSTEMI and myocardial necrosis. However this appears to be secondary. Could be due to underlying LV systolic dysfunction and/or stress-induced related to her acute fracture. Underlying coronary artery disease cannot be entirely ruled out, patient however complains of no chest pain. Continue aspirin and statin therapy. Continue to control blood pressure with neurohormonal modulation as above. Outpatient ischemic workup can be pursued if her mental status improves. From cardiac perspective patient can be discharged home. Fall Risk Details Current Medications: Current Medications Acetaminophen (Acetaminophen 325 Mg Tablet) 650 mg PO Q6H PRN PRN Reason: Pain, Mild (Pain Scale 1-3) Last Admin: 09/22/21 09:47 Dose: 650 mg Documented by: Aspirin (Aspirin Enteric Coated 81 Mg Tablet.) 81 mg PO DAILY [facility] Last Admin: 09/22/21 09:01 Dose: 81 mg Documented by: Atorvastatin Calcium (Atorvastatin Calcium 40 Mg Tablet) 40 mg PO BEDTIME [facility] Last Admin: 09/21/21 19:20 Dose: 40 mg Documented by: Docusate Sodium (Docusate Sodium 100 Mg Capsule) 100 mg PO DAILY PRN PRN Reason: Constipation Heparin Sodium (Porcine) (Heparin Sodium,Porcine 5,000 Unit/Ml Vial) 5,000 unit SUBCUT Q12H [facility] Last Admin: 09/21/21 21:38 Dose: 5,000 unit Documented by: Metoprolol Tartrate (Metoprolol Tartrate 25 Mg Tablet) 25 mg PO BID [facility]; Protocol Last Admin: 09/22/21 09:01 Dose: 25 mg Documented by: Ondansetron HCl (Ondansetron Hcl 4 Mg/2 Ml Vial) 4 mg IVPUSH Q8H PRN PRN Reason: Nausea and Vomiting Oxycodone HCl (Oxycodone Hcl Immed Release 5 Mg Tablet) 5 mg PO Q6H PRN PRN Reason: Pain, Severe (Pain Scale 7-10) Pharmacy Consult (Consult Rx Perform Med Rec) 1 each MISCELLANE ONCE PRN PRN Reason: Consult order Sodium Chloride (0.9 % Sodium Chloride Flush 3 Ml Syringe) 3 ml IVFLUSH QSHIFT [facility] Last Admin: 09/22/21 09:01 Dose: 3 ml Documented by: Time Spent With Patient Time: Total time spent is greater than 50% in coordination of care (as documented) at patient's floor/unit and/or counseling patient: Time with patient: 25 - 35 minutes Progress Note: Quality Stroke Does the patient have a stroke diagnosis?: No Procedures Date of Service Date of Service: 09/22/21
[2021-09-22 11:14] VITALS: BP 122/80; PULSE 70; RESP 18; TEMP 36.3; O2SAT 98
[2021-09-22 11:18] VITALS: BP 122/80; PULSE 70; O2SAT 98
--- NOTE | 2021-09-22 11:30 | P.F2F_ITS ---
Service Date Service Date: 09/22/21 Encounter Date of encounter: 09/22/21 Reasons for Services Signs and symptoms assessed: NSVT, cardiomyopathy, cognitive impairment Reason for halfway: CV/CP assess and/or care, neurological assessment, medication management, medication treatment and teach disease management Reason for occupational therapy: home safety and mobility, therapeutic exercises, restore joint function, gait/transfer training, assess need for DME, ADL training, energy conservation and other MD Overseeing Care: Jonathan Hernandez III Homebound: Leaving the home is medically contraindicated at this time without the asist of a device and/or another person due th the listed conditions above and below. Reason homebound: weakness related to hospital stay Homebound supporting statement: Patient has multiple comorbidities including new cardiomyopathy, also has cognitive impairment, need needs help with appointments. Certification: Based on the above findings, I certify that this patient is confined to the home and needs intermittent halfway care, physical therapy and/or speech therapy, or continues to need occupational therapy. The patient is under my care, and I have initiated the establishment of the plan of care. The patient will be followed by a physician who will periodically review the plan of care.
[2021-09-22 13:21] LABS: Vitamin B12 215 pg/mL (200-900)
--- NOTE | 2021-09-22 13:53 | MHC.CM.PN ---
POST DISCHARGE NOTE CALL FROM DIANN JACK OF [facility]. SHE IS ASKING ABOUT PATIENT STATUS AND MADE AWARE THAT PATIENT HAS DISCHARGED HOME TODAY WITH [facility] SERVICES SET UP FOR PATIENT. CONTACT NUMBER FOR [facility] GIVEN. DIANN THANKED [facility] FOR [place]ING AND FOR THE INFORMATION. THEY WILL FOLLOW UP IN THE COMMUNITY. SHE LEAVES HER PHONE NUMBER [phone] FOR ANY CONCERNS OR FUTURE ADMISSIONS TO [facility] AND/OR DC NEEDS
--- NOTE | 2021-09-22 14:00 | MHC.CM.PN ---
called [facility] neglect abuse office ..left message for usha chao dc of this pt ho me with julia today
== END 2021-09-22 13:17 | disposition home health service (06) | DRG 281 ==
LOC: HO.ED 21:09 → HO.EDOVER 21:20 → HO.IMC 09-21 01:11
PROVIDERS: Emergency Medicine; Admitting Provider Internal Medicine; Emergency Provider Emergency Medicine Emergency Medical Services; PCP Physician Assistant Medical; Visit Provider Internal Medicine
DX: I47.2 Ventricular tachycardia (principal); I21.A1 Myocardial infarction type 2; S42.302A Unspecified fracture of shaft of humerus, left arm, initial encounter for closed fracture; I42.9 Cardiomyopathy, unspecified; M06.9 Rheumatoid arthritis, unspecified; W19.XXXA Unspecified fall, initial encounter; F17.210 Nicotine dependence, cigarettes, uncomplicated; Z71.6 Tobacco abuse counseling; I10 Essential (primary) hypertension; F03.90 Unspecified dementia, unspecified severity, without behavioral disturbance, psychotic disturbance, mood disturbance, and anxiety; Z20.822 Contact with and (suspected) exposure to COVID-19; Z79.82 Long term (current) use of aspirin; Z79.899 Other long term (current) drug therapy
CPT/HCPCS: 36415; 70450; 72125; 73030; 80048; 80053; 80061; 80076; 80307; 81001; 81003; 82607; 83735; 83880; 84443; 84484; 85025; 85610; 87635; 93005; 93306; 94640; 97161; 97162; 99218; 99285

== ENCOUNTER → 2021-09-28 09:32 | Outpatient (REF) | payer MEDICARE, BC, SELFPAY ==
--- NOTE | ~2021-09-28 | NM_ITS ---
Lexiscan Myocardial perfusion study Indication: Elevated troponins, cardiomyopathy, assess for coronary disease and ischemia Technique: The patient was brought in for a Lexiscan perfusion study on 09/29/2021 and was injected 0.4 mg of Lexiscan intravenously. Within a minute of this injection 25 mCi of sestamibi was given intravenously. Images were obtained using the SPECT gamma camera interlaced with the gating device. Images were obtained in supine position. Resting perfusion study was performed on 09/28/2021. Patient was administered 25 mCi of sestamibi intravenously at rest. Images were then obtained in supine position. Total DLP 77mGy-cm. Images were processed with the software and compared side to side in short axis, horizontal long axis and vertical long axis views. Findings: Raw acquisition was reviewed. Arms by the patient's side. The stress perfusion study showed diminished tracer uptake in the mid lateral wall, mid inferolateral wall. Towards the distal part of lateral wall and inferolateral wall as well as the adjacent apex, there is absent tracer uptake. With CT attenuation correction, there is some improvement in uptake in these areas which may indicate diaphragmatic attenuation artifact. In the most apical lateral wall and adjacent apex, there is still reduced uptake. The gated study shows diminished LV systolic function with calculated LVEF of 27%. LV cavity is mildly dilated in size. The gated study shows globally reduced wall thickening and contraction of segments. Markedly reduced thickening in the distal lateral wall and adjacent apex. Resting study shows diminished tracer uptake in the mid to distal inferolateral wall and adjacent apex. There is overall reduced tracer uptake in the inferior wall as well. There is improvement with CT attenuation correction and hence suggestive of diaphragmatic attenuation artifact. Gating at rest reveals globally reduced wall motion with ejection fraction at 28%. The findings are consistent with mid to distal lateral, inferolateral defect as well as adjacent apex with reversible and fixed components. NM/NM abdoul perf SPECT rest & str Impression: 1. Myocardial perfusion imaging study shows mixed ischemia/infarct pattern in the mid to distal lateral wall, inferolateral wall as well as adjacent apex. Other areas appear to be normally perfused. Could be mixed cardiomyopathy. 2. Gated LVEF is 27% during stress and 28% during rest. Correlate with echocardiogram. 3. Transient ischemic dilatation not present, but LV cavity appears dilated. EKG component of the test reported separately.
--- NOTE | 2021-09-28 08:47 | CA_ITS ---
Acquisition Time: 2021-09-29 09:14:15 Total Exercise Time: 00:02:00 Test Indications: nsvt Medications: see chart Protocol: LEXISCAN Max HR: 111 BPM 78% of Pred: 141 BPM Max BP: 122/068 mmHG Max Work Load: 1.0 METS Pharmacological stress test with Lexiscan injection, while sitting and kicking her legs, without anginal symptoms, with isolated PVCs, with normotensive response to injection, with nondiagnostic EKG for ischemia. In recovery she was treated with Aminophylline 75mg IVP to reverse Lexiscan. At 5 min recovery there was a 3 beat atrial run and isolated PACs noted. Nuclear images pending. Test reviewed with Dr Alarcon. Referred By: Krzysztof Burkett Overread By: FABIANA SHIELDS
== END ==
LOC: HO.CARD 09:32
PROVIDERS: Visit Provider Internal Medicine Cardiovascular Disease
DX: I47.2 Ventricular tachycardia (principal); I21.4 Non-ST elevation (NSTEMI) myocardial infarction
CPT/HCPCS: 78452; 93017; A9500

== ENCOUNTER → 2021-09-29 08:28 | Outpatient (REF) | payer MEDICARE, BC, SELFPAY ==
--- NOTE | 2021-09-29 08:38 | HM_ITS ---
conclusion: 1. Patient was monitored for total period of 2 days and 21 hours 2. Baseline was normal sinus rhythm with average heart of 69 beats per minute 3. One 8 beat run of nonsustained VT at about [id number] beats per minute noted. 4. Total of 2644 PVCs accounting for 0.9% of total burden account for occasional PVCs 5. Total of 1714 PACs accounting for 0.59% of total burden accounting for occasional PACs 6. No patient reported events MTDD
== END ==
LOC: HO.CARD 08:28
PROVIDERS: PCP Internal Medicine; Visit Provider Internal Medicine Cardiovascular Disease
DX: I47.2 Ventricular tachycardia (principal); I21.4 Non-ST elevation (NSTEMI) myocardial infarction
CPT/HCPCS: 93242; J0280; J2785

== ENCOUNTER 2021-10-05 | Outpatient (REF) | payer MEDICARE, BC, SELFPAY | END 2021-10-05 00:01 | LOC: CF | PROVIDERS: Visit Provider Orthopaedic Surgery | DX: S42.302A Unspecified fracture of shaft of humerus, left arm, initial encounter for closed fracture (principal) | CPT/HCPCS: 99202 ==

== ENCOUNTER → 2022-08-30 09:40 | Outpatient (BNVA) | payer MEDICARE, BC, SELFPAY | PROVIDERS: PCP Internal Medicine; Visit Provider Psychiatry & Neurology Neurology | DX: F03.918 Unspecified dementia, unspecified severity, with other behavioral disturbance (principal) | CPT/HCPCS: 99202 ==

== ENCOUNTER 2023-04-01 09:22 | Outpatient (AMB) | payer MEDICARE, BC, SELFPAY ==
--- NOTE | 2023-04-01 09:41 | A.OFFVIS_ITS ---
Intake Vital Signs 04/01/23 09:44 Weight 113 lb 4 oz BP 112/62 Blood Pressure Location Rt brachial Pulse 64 Pulse Source Pulse Oximeter Pulse Oximetry (%) 97 Oxygen Delivery Method Room Air Intake Visit Reasons: 3m follow up-lvm Intake Note: F/U DEmentia Manager It Security Required: No Allergies No Known Allergies Allergy (Verified 04/01/23 09:46) Medication List - Last Reconciled 04/01/23 by Glenna Lema MD docusate sodium 100 mg PO DAILY PRN memantine 28 mg PO DAILY metoprolol tartrate 25 mg See Protocol PO BID valsartan 40 mg PO BID HPI HPI Comments History of Present Illness Details 83y/o female comes for follow up of cogn itive impairment and behavior issues.Her daughter reports increase in appetite. she is accompanied by her daughter and who helps with the history. Patient says that she is ok becomes agitated when I mention memory changes. she also was more aggressive with statins and is off that. Her personality changed in the past 1 year .she had a fall and fractured her left humerus , she also had VT . Her memory changes started about 2 years but worse since her fall 1 year ago.Her helps with meals. she needs reminder with her showers.Her cognition fluctuates. She sleeps OK. [facility] and socializes.she reads the newspaper everyday [facility] Medical History Dementia with behavioral disturbance NSVT (nonsustained ventricular tachycardia) NSVT (nonsustained ventricular tachycardia) Breast cancer Rheumatoid aortitis Hypertension Troponin level elevated Fracture, humerus, neck Syncope Surgical History H/O knee surgery H/O mastectomy Family History Mother Cancer Sister Cancer Daughter Cancer Other No family history of coronary artery disease Social History Household Members: Spouse Housing: House Do you presently have visiting nurse or other home services: No Alcohol intake: never Patient Tobacco Use Status: Current everyday Tobacco user Tobacco use type: Cigarette Cigarettes Per Day: 4 Second Hand Smoke Exposure: No service: No Current occupational status: retired Review of Systems Neuro Reports confusion Psych Reports confusion Physical Exam Vital Signs: Last Vital Signs Pulse 64 04/01/23 09:44 BP 112/62 04/01/23 09:44 Pulse Ox 97 04/01/23 09:44 Oxygen Delivery Method Room Air 04/01/23 09:44 Const General: no acute distress, anxious and confusion Nutritional Appearance: average body habitus Orientation/consciousness: confusion Limitations: behavioral limitations HEENT Head: Yes normal to inspection Face and sinus: Yes normal facial exam Eyes Pupils: Equal, round and reactive pupils present Neuro General: moves all extremities, no focal motor deficits and confusion Cranial nerves: Yes Facial sensation intact/muscles of mastication intact, Yes Equal, round and reactive pupils present, Yes Bilaterally intact EOM present, Yes Nystagmus not present, Yes Normal facial strength present, Yes Midline tongue present, Yes Symmetric palate elevation present and Yes Ability to bilaterally elevate shoulders present Cognition (Neuro): abnormal cognition Speech: Expressive aphasia present and Receptive aphasia present Gait exam (Neuro): Normal gait present Motor exam (neuro): 5/5 motor strength present throughout and Normal motor muscle tone present throughout Coordination: [id number] test normal Psych Speech and movement: Clear speech present Affect: Irritable affect present Thought process: Perseverating thought process present Insight: Fair insight present (Psych) Assessment & Plan Assessment & Plan (1) Dementia with behavioral disturbance: Comment: ? frontal lobe dementia Code(s): F03.918 - Unspecified dementia, unspecified severity, with other behavioral disturbance Plan Reviewed CT brain from September 2021- shows atrophy and white matter changes Labs reviewed- mildly decreased vit B 12 - suggested OTC Vit B 12 supplement Namenda XR 28mg qd I will trial her on lexapro 10mg qd t Medications: New escitalopram oxalate (Lexapro) 10 mg PO DAILY 30 tabs 6RF Coding Level of Care Code Est Pt Level 4 (11552) Diagnoses Dementia with behavioral disturbance F03.918
[2023-04-01 09:44] VITALS: BP 112/62; PULSE 64; O2SAT 97
== END 2023-04-01 10:23 | disposition home or self-care (01) ==
PROVIDERS: Visit Provider Psychiatry & Neurology Neurology
DX: F03.918 Unspecified dementia, unspecified severity, with other behavioral disturbance (principal)
CPT/HCPCS: 99214

== ENCOUNTER → 2023-04-01 09:22 | Outpatient (BNVA) | payer MEDICARE, BC, SELFPAY | PROVIDERS: Visit Provider Psychiatry & Neurology Neurology | DX: F03.918 Unspecified dementia, unspecified severity, with other behavioral disturbance (principal) | CPT/HCPCS: 99212 ==

== ENCOUNTER 2023-09-30 09:14 | Outpatient (AMB) | payer MEDICARE, BC, SELFPAY ==
--- NOTE | 2023-09-30 09:33 | MHC.OFFVIS ---
Intake Vital Signs 09/30/23 09:34 Height 5 ft 2.5 in Weight 117 lb 2 oz BMI 21.1 BP 162/80 H Blood Pressure Location Rt brachial Position Sitting Respiration 17 Pulse 69 Pulse Source Pulse Oximeter Pulse Oximetry (%) 96 Oxygen Delivery Method Room Air Intake Visit Reasons: 6 mnts f/u-LVM Intake Note: Pt presents for a 6 month follow up for dementia. 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 she still reads a lot but does not remember what she read.Her daughter reports increase in appetite. she is accompanied by her daughter and who helps with the history. Patient says that she is ok becomes agitated when I mention memory changes. she also was more aggressive with statins and is off that. Her memory changes started about 2 years but worse since her fall 1 year ago.Her helps with meals. she needs reminder with her showers.Her cognition fluctuates. She sleeps OK. she goes to [facility] [place] and socializes.she reads the newspaper everyday [facility] Medical History Dementia with behavioral disturbance NSVT (nonsustained ventricular tachycardia) NSVT (nonsustained ventricular tachycardia) Breast cancer Rheumatoid aortitis Hypertension Troponin level elevated Fracture, humerus, neck Syncope Surgical History H/O knee surgery H/O mastectomy Family History Mother Cancer Sister Cancer Daughter Cancer Other No family history of coronary artery disease Social History Household Members: Spouse Housing: House Do you presently have visiting nurse or other home services: No Alcohol intake: never Comment: 1:1 sitter Patient Tobacco Use Status: Current everyday Tobacco user Tobacco use type: Cigarette Cigarettes Per Day: 4 Second Hand Smoke Exposure: No service: No Current occupational status: retired Review of Systems Neuro Reports confusion Psych Reports confusion Physical Exam Vital Signs: Last Vital Signs Pulse 69 09/30/23 09:34 Resp 17 09/30/23 09:34 BP 162/80 H 09/30/23 09:34 Pulse Ox 96 09/30/23 09:34 Oxygen Delivery Method Room Air 09/30/23 09:34 BMI result Body Mass Index 21.1 Const General: no acute distress, anxious and confusion Nutritional Appearance: average body habitus Orientation/consciousness: confusion Limitations: behavioral limitations HEENT Head: Yes normal to inspection Face and sinus: Yes normal facial exam Eyes Pupils: Equal, round and reactive pupils present Neuro General: moves all extremities, no focal motor deficits and confusion Cranial nerves: Yes Facial sensation intact/muscles of mastication intact, Yes Equal, round and reactive pupils present, Yes Bilaterally intact EOM present, Yes Nystagmus not present, Yes Normal facial strength present, Yes Midline tongue present, Yes Symmetric palate elevation present and Yes Ability to bilaterally elevate shoulders present Cognition (Neuro): abnormal cognition Speech: Expressive aphasia present and Receptive aphasia present Gait exam (Neuro): Normal gait present Motor exam (neuro): 5/5 motor strength present throughout and Normal motor muscle tone present throughout Coordination: [id number] test normal Psych Speech and movement: Clear speech present Affect: Irritable affect present Thought process: Perseverating thought process present Insight: Fair insight present (Psych) Assessment & Plan Assessment & Plan (1) Dementia with behavioral disturbance: Comment: ? frontal lobe dementia Code(s): F03.918 - Unspecified dementia, unspecified severity, with other behavioral disturbance Plan Namenda XR 28mg qd lexapro 20mg qd \quetiapine 12.5 mg qhs Medications: New quetiapine 12.5 mg (1/2 x 25 mg) PO BEDTIME 30 tabs 6RF Changed From escitalopram oxalate (Lexapro) 10 mg PO DAILY 30 tabs 6RF To escitalopram oxalate 20 mg PO DAILY 30 tabs 6RF Coding Level of Care Code Est Pt Level 4 (92381) Diagnoses Dementia with behavioral disturbance F03.918
[2023-09-30 09:34] VITALS: BP 162/80; PULSE 69; RESP 17; O2SAT 96; BMI 21.1
== END 2023-09-30 10:15 | disposition home or self-care (01) ==
PROVIDERS: PCP Internal Medicine; Visit Provider Psychiatry & Neurology Neurology
DX: F03.918 Unspecified dementia, unspecified severity, with other behavioral disturbance (principal)
CPT/HCPCS: 99214

== ENCOUNTER → 2023-09-30 09:14 | Outpatient (BNVA) | payer MEDICARE, BC, SELFPAY | PROVIDERS: PCP Internal Medicine; Visit Provider Psychiatry & Neurology Neurology | DX: F03.918 Unspecified dementia, unspecified severity, with other behavioral disturbance (principal) | CPT/HCPCS: 99212 ==

== ENCOUNTER 2024-04-09 12:57 | Outpatient (AMB) | payer MEDICARE, BC, SELFPAY ==
[2024-04-09 13:08] VITALS: BP 122/70; PULSE 68; O2SAT 98; BMI 22.0
--- NOTE | 2024-04-09 13:08 | A.OFFVIS_ITS ---
Vital Signs 04/09/24 13:08 Height 5 ft 2.5 in Weight 122 lb BMI 22.0 BP 122/70 Blood Pressure Location Rt brachial Position Sitting Pulse 68 Pulse Source Pulse Oximeter Pulse Oximetry (%) 98 Oxygen Delivery Method Room Air Intake Visit Reasons: 6 MONTH F/U Intake Note: Patient presents for a 6 mo f/u- Dementia with behavioral disturbance. Guard Entrance Registrar Required: No Accompanied by: Daughter Allergies No Known Allergies Allergy (Verified 04/09/24 13:10) HPI Comments Details: 84y/o female comes for follow up of cognitive impairment and behavior issues.she had a left hip fracture in NOVEMBER 2023 afetr a fall. she has partial hip replacement complicated by DVT then bleeding related to anticoagulants . she was encompass in [place] and she started walking in 2 weeks .she is doing well now and goes to PT she goes to senior center everyday.Memory is stable. she still reads a lot but does not remember what she read.Her daughter reports increase in appetite. she is accompanied by her daughter and who helps with the history. Her helps with meals. she needs reminder with her showers.Her cognition fluctuates. She sleeps OK. she reads the newspaper everyday she was too drowsy with quetiapine PFSH Medical History Dementia with behavioral disturbance NSVT (nonsustained ventricular tachycardia) NSVT (nonsustained ventricular tachycardia) Breast cancer Rheumatoid aortitis Hypertension Troponin level elevated Fracture, humerus, neck Syncope Surgical History H/O knee surgery H/O mastectomy Family History Mother Cancer Sister Cancer Daughter Cancer Other No family history of coronary artery disease Social History Household Members: Spouse Housing: House Do you presently have visiting nurse or other home services: No Alcohol intake: never Comment: 1:1 sitter Patient Tobacco Use Status: Current everyday Tobacco user Tobacco use type: Cigarette Cigarettes Per Day: 4 Second Hand Smoke Exposure: No service: No Current occupational status: retired Review of Systems Neuro Reports confusion Psych Reports confusion Physical Exam Vital Signs: Last Vital Signs Pulse 68 04/09/24 13:08 BP 122/70 04/09/24 13:08 Pulse Ox 98 04/09/24 13:08 Oxygen Delivery Method Room Air 04/09/24 13:08 BMI result Body Mass Index 22.0 Const General: no acute distress, anxious and confusion Nutritional Appearance: average body habitus Orientation/consciousness: confusion Limitations: behavioral limitations HEENT Head: Yes normal to inspection Face and sinus: Yes normal facial exam Eyes Pupils: Equal, round and reactive pupils present Neuro General: moves all extremities, no focal motor deficits and confusion Cranial nerves: Yes Facial sensation intact/muscles of mastication intact, Yes Equal, round and reactive pupils present, Yes Bilaterally intact EOM present, Yes Nystagmus not present, Yes Normal facial strength present, Yes Midline tongue present, Yes Symmetric palate elevation present and Yes Ability to bilaterally elevate shoulders present Cognition (Neuro): abnormal cognition Speech: Expressive aphasia present and Receptive aphasia present Gait exam (Neuro): Normal gait present Motor exam (neuro): 5/5 motor strength present throughout and Normal motor muscle tone present throughout Coordination: qwzaly-jc-gjgb test normal Psych Speech and movement: Clear speech present Affect: Irritable affect present Thought process: Perseverating thought process present Insight: Fair insight present (Psych) Assessment & Plan Assessment & Plan (1) Dementia with behavioral disturbance: Comment: ? frontal lobe dementia Code(s): F03.918 - Unspecified dementia, unspecified severity, with other behavioral disturbance Category: Medical Plan Namenda XR 28mg qd lexapro 20mg qd Continue exercises. Coding Level of Care Code Est Pt Level 4 (13895) Diagnoses Dementia with behavioral disturbance F03.918
== END 2024-04-09 14:01 | disposition home or self-care (01) ==
PROVIDERS: PCP Internal Medicine; Visit Provider Psychiatry & Neurology Neurology
DX: F03.918 Unspecified dementia, unspecified severity, with other behavioral disturbance (principal)
CPT/HCPCS: 99214

== ENCOUNTER → 2024-04-09 12:57 | Outpatient (BNVA) | payer MEDICARE, BC, SELFPAY | PROVIDERS: PCP Internal Medicine; Visit Provider Psychiatry & Neurology Neurology | DX: F03.918 Unspecified dementia, unspecified severity, with other behavioral disturbance (principal); Z91.81 History of falling | CPT/HCPCS: 99212 ==

== ENCOUNTER 2025-01-27 11:02 | Outpatient (AMB) | payer MEDICARE, BC, SELFPAY ==
--- OUTSIDE RECORDS SUMMARY | 2025-01-22 23:59 | XMS_ITS | Continuity of Care Document ---
Author Organization [facility] Address [address] [place] [id number]- Care Team Providers Care Business Services Specialist Sales Name Role Phone David VANCE MD, Jonathan Vergara Primary Care Physician Encounter [facility] Date(s): 12/23/24 - 01/22/25 [facility] [address] [place] [id number]- Attending Physician: Chyna Coto Admitting Physician: Chyna Coto Referring Physician: Admtr ArAshley Encounter Type: Triage Allergies, Adverse Reactions, Alerts Substance Criticality Severity Reaction Reaction Severity Status methotrexate Active iodinated radiocontrast dyes hives Active Percocet anxiety Active Medications Eliquis 2.5 mg oral tablet 1 tablet = 2.5 mg, By Mouth, 2 times a day, # 60 tablet, 0 Refills, Maintenance, 12/24/24 4:29:00 PMEDT, Tablet, Partial fill upon patient request if the prescription is for a schedule II opioid drug. Start Date: 12/24/24 Status: Ordered Quantity: 60.0 Unit: tablet Repeat number: 1 escitalopram 10 mg oral tablet m, By Mouth, 2 times a day, # 90 tablet, 0 Refills, Maintenance, 12/24/24 4:29:00 PM EDT, Tablet, Partial fill upon patient request if the prescription is for a schedule II opioid drug. Start Date: 12/24/24 Status: Ordered Quantity: 90.0 Unit: tablet Repeat number: 1 metoprolol 25 mg oral tablet 25 mg, 1, tablet, By Mouth, 2 times a day, # 180 tablet, Refills 0, Maintenance, 12/24/24 4:29:00 PMEDT, Partial fill upon patient request if the prescription is for a schedule II opioid drug. Start Date: 12/24/24 Status: Ordered Quantity: 180.0 Unit: tablet Repeat number: 1 Tirosint 62.5 mcg (0.0625 mg) oral capsule 1 capsule = 62.5 mcg, By Mouth, Daily, 30 to 60 minutes before breakfast, # 30 capsule, 11 Refills,Maintenance, 01/21/25 8:48:00 AM EDT, Capsule, [id number], Partial fill upon patient requestif the prescription is for a schedule II opioid drug., 160, cm, 12/23/24 12:56:00 EDT, Height Start Date: 01/21/25 Status: Ordered Quantity: 30.0 Unit: capsule Repeat number: 12 Tirosint 75 mcg (0.075 mg) oral capsule 1 capsule = 75 mcg, By Mouth, Daily, # 30 capsule, 11 Refills, Maintenance, 12/23/24 1:27:00 PM EDT,Capsule, [id number], Partial fill upon patient request if the prescription is for a schedule II opioid drug., 160, cm, 12/23/24 12:56:00 EDT, Height Start Date: 12/23/24 Status: Ordered Quantity: 30.0 Unit: capsule Repeat number: 12 valsartan 80 mg oral tablet 80 mg, 1, tablet, By Mouth, Daily, # 90 tablet, Refills 0, Maintenance, 12/24/24 4:29:00 PM EDT, Partial fill upon patient request if the prescription is for a schedule II opioid drug. Start Date: 12/24/24 Status: Ordered Quantity: 90.0 Unit: tablet Repeat number: 1 Patient Care team information Care Team Personnel Name: Jonathan Hernandez III, MD Position: Reference Physician Member Role: PCP Address: [address] [place] [address] Telecom: Name: Fanny Madrigal RN Position: S RN Member Role: Primary Care Nurse Name: Shawna Gregorio LPN Position: S RN Member Role: Primary Care Nurse Care Team Related Persons Name: MI HARGROVE Name: DARIA VELAZQUEZ [facility] Insurance Providers Guarantor name: [facility] Information #: 1 Payer: [facility] Payer Identifier: NA Member Number: [id number] Group Number: [id number] Subscriber Identifier: [id number] Relationship to Subscriber: self Coverage Type: Medicare PPO Coverage Verification Date: KD Telecom: KD Address: NA
[2025-01-27 11:18] VITALS: BP 110/80; PULSE 75; O2SAT 95
--- NOTE | 2025-01-27 11:18 | MHC.OFFVIS ---
Vital Signs 01/27/25 11:18 Height 5 ft 2.5 in BP 110/80 Blood Pressure Location Lt brachial Position Sitting Pulse 75 Pulse Source Pulse Oximeter Pulse Oximetry (%) 95 Oxygen Delivery Method Room Air Intake Visit Reasons: 6 MONTH F/U Intake Note: Patient presents for follow up Dementia with behavioral disturbance Senior Sql Server Developer Required: No Accompanied by: Spouse Allergies No Known Allergies Allergy (Verified 01/27/25 11:19) HPI Comments Details: 84y/o female comes for follow up of cognitive impairment and behavior issues.s she was started on Thyroid replacement and is doing better since then. Her behavior and cognition is better History from last visit- he had a left hip fracture in NOVEMBER 2023 afetr a fall. she has partial hip replacement complicated by DVT then bleeding related to anticoagulants . she was encompass in [place] and she started walking in 2 weeks .she is doing well now and goes to PT she goes to senior center everyday.Memory is stable. she still reads a lot but does not remember what she read.Her daughter reports increase in appetite. she is accompanied by her daughter and who helps with the history. Her helps with meals. she needs reminder with her showers.Her cognition fluctuates. She sleeps OK. she reads the newspaper everyday she was too drowsy with quetiapine [facility] Medical History Dementia with behavioral disturbance NSVT (nonsustained ventricular tachycardia) NSVT (nonsustained ventricular tachycardia) Breast cancer Rheumatoid aortitis Hypertension Troponin level elevated Fracture, humerus, neck Syncope Surgical History H/O knee surgery H/O mastectomy Family History Mother Cancer Sister Cancer Daughter Cancer Other No family history of coronary artery disease Social History Household Members: Spouse Housing: House Do you presently have visiting nurse or other home services: No Alcohol intake: never Comment: 1:1 sitter Patient Tobacco Use Status: Current everyday Tobacco user Tobacco use type: Cigarette Cigarettes Per Day: 4 Second Hand Smoke Exposure: No service: No Current occupational status: retired Physical Exam Vital Signs: Last Vital Signs Pulse 75 01/27/25 11:18 BP 110/80 01/27/25 11:18 Pulse Ox 95 01/27/25 11:18 Oxygen Delivery Method Room Air 01/27/25 11:18 Const General: no acute distress Nutritional Appearance: average body habitus HEENT Head: Yes normal to inspection Face and sinus: Yes normal facial exam Eyes Pupils: Equal, round and reactive pupils present Neuro Other: gait- off balance with cane General: moves all extremities and no focal motor deficits Cranial nerves: Yes Facial sensation intact/muscles of mastication intact, Yes Equal, round and reactive pupils present, Yes Bilaterally intact EOM present, Yes Nystagmus not present, Yes Normal facial strength present, Yes Midline tongue present, Yes Symmetric palate elevation present and Yes Ability to bilaterally elevate shoulders present Cognition (Neuro): abnormal cognition Speech: Expressive aphasia present and Receptive aphasia present Motor exam (neuro): 5/5 motor strength present throughout and Normal motor muscle tone present throughout Assessment & Plan Assessment & Plan (1) Dementia with behavioral disturbance: Comment: ? frontal lobe dementia Code(s): F03.918 - Unspecified dementia, unspecified severity, with other behavioral disturbance Category: Medical Plan Namenda XR 28mg qd lexapro 20mg qd Continue exercises. Coding Level of Care Code Est Pt Level 4 (13142) Diagnoses Dementia with behavioral disturbance F03.918
--- OUTSIDE RECORDS SUMMARY | 2025-01-27 11:58 | XMS_ITS | Patient Health Record ---
Author Organization [facility] Address [address] [place] [address] Care Team Providers Care Driller Helper Name Role Phone Dewayne Hernandez MD Primary Care Provider UnavailAdelaida Torres Unavailable [phone] Allergies Allergen (clinical drug ingredient) Drug/Non Drug Allergy documented on EMR Reaction Allergy Type Onset Date Status acetaminophen / oxycodone Percocet Unknown Drug Allergy Active Iodinated contrast media (substance) Iodinated Diagnostic Agents Unknown Drug Allergy Active Reason For Referral Diagnosis 1 Other hammer toe(s) (acquired), right foot (M20.41) Diagnosis 2 Arthritis of joint o f lesser toe, right (M19.071) Diagnosis 3 Other hammer toe(s) (acquired), left foot (M20.42) Diagnosis 4 Arthritis of joint o f lesser toe, left (M19.072) Diagnosis 5 Plantar wart (B07.0) Referring Provider First Name Dewayne Referring Provider Last Name David [facility]erred Provider Adelaida Fontana Referred Address [address] [place], [place],[address], Referred Provider Specialty Podiatry Referral Priority Routine Medications Medication SIG (Take, Route, Frequency, Duration) Notes Start Date End Date Status Ammonium Lactate 12 % 1 application Externally Twice a day; Duration: 30 days Not-Taking Compression Stockings 20-30mm Hg 1 pair wear daily; Duration: 30 days Not-Taking Levothyroxine Sodium 75 MCG TAKE 1 TABLET BY MOUTH ONCE EVERY DAY Oral; Duration: 90 Days Active Memantine HCl Active Metoprolol Succinate ER 50 MG 1 tablet Orally Once a day Active Levothyroxine Sodium 50 MCG TAKE 1 TABLET BY MOUTH EVERY DAY Oral; Duration: 90 Days Active Eliquis 5 MG as directed Orally 1/2 in am 1/2 in pm Active Escitalopram Oxalate 10 MG 1 tablet Orally Once a day Active Metoprolol Succinate Active Valsartan 80 MG 1 tablet Orally Once a day Not-Taking Levothyroxine Sodium 50 MCG TAKE 1 TABLET BY MOUTH EVERY DAY Oral; Duration: 90 Days Not-Taking Memantine HCl ER 28 MG TAKE 1 CAPSULE (28MG) BY MOUTH DAILY. Oral; Duration: 90 Days Active Social History Tobacco Use: Social History Observation Description Date Details (start date - stop date) Never Smoker NA - NA Alcohol Screen Question Answer Notes Did you have a drink containing alcohol in the p ast year? No Points 0 Interpretation Negative Tobacco use other than smoking: Question Answer Notes Are you an other tobacco user? No Tobacco Control (Standard) Question Answer Notes Tobacco use: Nonsmoker Problems Problem Type SNOMED Code ICD Code Onset Dates Problem Status W/U Status Risk Notes Problem Acquired hammer toe of right foot (7011708841886252) Other hammer toe(s) (acquired), right foot (M20.41) Active confirmed Problem Acquired hammer toe of left foot (7180587188198981) Other hammer toe(s) (acquired), left foot (M20.42) Active confirmed Problem Plantar wart (06750604) Plantar wart (B07.0) Active confirmed Problem Acquired hammer toe of right foot (0915515162580954) Other hammer toe(s) (acquired), right foot (M20.41) Active confirmed Problem Localized, primary osteoarthritis of the ankle and/or foot (582991825) Arthritis of joint of lesser toe, left (M19.072) Active confirmed Problem Localized, primary osteoarthritis of the ankle and/or foot (934489873) Arthritis of joint of lesser toe, right (M19.071) Active confirmed Vital Signs Blood pressure diastolic 80 mm Hg 11/09/2024 Height 5 ft 2 in in 11/09/2024 Blood pressure systolic 135 mm Hg 11/09/2024 Weight 145 lbs 11/09/2024 BMI 26.52 kg/m2 11/09/2024 Procedures Procedure Date Ordered Date Performed Result Body Sit e 68864-QKJOFDH NAIL, 6 OR MORE 04/16/2024 N/A 10196-SVIELQQ NAIL, 6 OR MORE 07/30/2024 N/A 01526-ELKBQIU NAIL, 6 OR MORE 11/09/2024 N/A 20858-Rblesukm Plate 11/09/2024 N/A Encounters Encounter Location Date Provider Diagnosis [facility] [address] 04/16/2024 Adelaida Black Onychomycosis B35.1 ; Pain of toe of right foot M79.674 and Pain of toe of left foot [facility]79.[facility] [address] 07/30/2024 Adelaida Black Onychomycosis B35.1 ; Pain of toe of right foot M79.674 and Pain of toe of left foot M79.[address] [address] 11/09/2024 Adelaida Black Onychomycosis B35.1 ; Ingrown nail L60.0 ; Pain of toe of right foot M79.674 and Pain of toe of left foot M79.675 Assessments Encounter Date Diagnosis (ICD Code) Assessment Notes Treatment Notes Treatment Clinical Notes Section Notes 04/16/2024 Pain of toe of right foot (ICD-10 - M79.674) 04/16/2024 Onychomycosis (ICD-10 - B35.1) 07/30/2024 Pain of toe of right foot (ICD-10 - M79.674) 07/30/2024 Onychomycosis (ICD-10 - B35.1) 11/09/2024 Ingrown nail (ICD-10 - L60.0) 11/09/2024 Onychomycosis (ICD-10 - B35.1) 11/09/2024 Pain of toe of right foot (ICD-10 - M79.674) 07/30/2024 Pain of toe of left foot (ICD-10 - M79.675) 04/16/2024 Pain of toe of left foot (ICD-10 - M79.675) 11/09/2024 Pain of toe of left foot (ICD-10 - M79.675) Plan Of Treatment Pending Test Test Name Order Date 74030-[id number] NAIL, 6 OR MORE 02/07/2023 01320-RYUPZAM NAIL, 6 OR MORE 05/23/2023 43339-ZWKWDBB NAIL, 6 OR MORE 09/16/2023 77916-PEXDNBB NAIL, 6 OR MORE 01/02/2024 95672-BIMNDRG NAIL, 6 OR MORE 04/16/2024 17367-RFVBUMJ NAIL, 6 OR MORE 07/30/2024 64241-UBUEQUH NAIL, 6 OR MORE 11/09/2024 28173-Bkthsdux Plate 11/09/2024 Next Appt Details Provider Name:Adelaida Fontana , 02/08/2025 01:15:00 PM, [address] [place], [address], Provider Name:Adelaida Fontana , 05/03/2025 01:15:00 PM, [address] [place], [address], Insurance Providers Payer Name Payer Address Payer Phone Subscriber Number Group Number Insured Name Patient Relationship to Insured Coverage Start Date Coverage End Date [facility] 65 Medicare Preferred [address] [place] [address] [phone] [id number] Soraya Mendoza Self - patient is the insured Medical (General) History Medical History History ICD Code Hypertension Psoriatic arthropathy microalbuminuria peripheral artery disease Dementia Ischemic cardiomyopathy Nonsustained ventricular tachycardia A fib Syncope Supraventricular tachycardia Rheumatoid arthritis osteoarthritis of glenohumeral joint, ri ght Anxiety disorder DVT Hearing loss Glaucoma Osteoporosis Fracture of humerus, right Reflux Infiltrating lobular Back,Hip,and Knee pain Broken bones Cancer (Breast) covid-19 High blood pressure Chicken pox Bone implants/screws Surgical History Surgery Date(Month/Year) left knee replacement 2004 fracture of humerus, right 11/2008 breast cancer wrist surgery Hospitalization History Reason Date(Month/Year) [facility] and broke hip 11/2023
--- OUTSIDE RECORDS SUMMARY | 2025-01-27 11:58 | XMS_ITS | Clinical Summary ---
Author Organization [facility] Address [address] [facility] [address] [place] [address] Care Team Providers Care Supervisor Chlorine Liquefaction Name Role Phone Unavailable Primary Care Provider Unavailabl e Immunizations Immunization Administration Dates Next Due Influenza, IIV3, injectable 04/14/2019, 8 Influenza, Unspecified 04/14/2019,03/11/2018 Influenza, seasonal, injecta ble, preservative free 04/06/2024,04/19/2016,05/22/2014,04/10,04/18/2011,03/31/2010,04/02/2009 ,04/01/2008,04/11/2007,05/20/2006,08/2004 Influenza, trivalent, adjuvanted 04/30/2022,02/13,05/01/2016 Novel [id number], preservative-free 07/21/2009 PPD Test 09/04/2011,12/26/2005 Pfizer Covid-19 Vaccine 12+ 07/05/2022 Pneumococcal Conjugate PCV 13 03/23/2017, 016 Pneumococcal Polysaccharide PPSV23 03/11,05/03/2015,09/04/2011,05/20 Tdap 05/03/2015,02/04/2012 Zoster, Recombinant 05/14/2020,02/19/2020 Social History Tobacco Use Types Packs/Day Years Used Date Smoking Tobacco: Never Assessed Comments Unknown Sex and Gender Information Value Date Recorded Sex Assigned at Female 04/07/2024 2:11 PM EDT Legal Sex Female 2:09 PM EDT Gender Identity Female 04/07/2024 2:11 PM EDT Sexual Orientation Don't know 04/07/2024 2: 11 PM EDT Plan of Treatment Health Maintenance Due Date Last Done Comments Depression Screening 1942 Lipid Panel 1942 SDOH Screening 1942 Alcohol/Substance Use Screening 1954 Tobacco Screening 1954 RSV Patients and Patients Aged 60 years or older (1 - 1-dose 75+ series) 2017 COVID-19 Vaccine (4 - season) 2024 07/05/2022, 09/12/2020, 08/22/2020 Influenza Vaccine (#1) 2025 , 04/30/2022, 04/14/2019, Additional history exists DTaP/Tdap/Td Vaccines (3 - Td or Tdap) 05/03/2025 05/03/2015, 02/04/2012 Pneumococcal Vaccine: 50+ Years Completed 03/11/2018, 03/23/2017, 05/22/2016, Additional history exists Zoster Vaccines Completed 05/14/2020, 02/19/2020 HIB Vaccines Aged Out No longer eligi ble based on patient's age to complete this topic HPV Vaccines Aged Out No longer eligi ble based on patient's age to complete this topic Hepatitis A Vaccines Aged Out No long er eligible based on patient's age to complete this topic Hepatitis B Vaccines Aged Out No long er eligible based on patient's age to complete this topic IPV Vaccines Aged Out No longer eligi ble based on patient's age to complete this topic Meningococcal B Vaccine Aged Out No l onger eligible based on patient's age to complete this topic Meningococcal Vaccine Aged Out No serina katherine eligible based on patient's age to complete this topic RSV under 20 months Aged Out No longe r eligible based on patient's age to complete this topic Rotavirus Vaccines Aged Out No longer eligible based on patient's age to complete this topic Insurance MEDICARE
--- OUTSIDE RECORDS SUMMARY | 2025-01-27 11:59 | XMS_ITS | Clinical Summary ---
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 regulations and is used for clinical purposes. Test Performed by Lorraine Rodrigez, [employer] [facility], [address] [place] [address] Sandeep Loya M.D., Ph.D., Director of Laboratories , CLIA [id number] Blood Venous blood specimen / Unknown Venipuncture / Unknown 11/17/2024 12:48 PM EDT 11/17/2024 12:48 PM EDT Gretel Mcconnell MD LAB BLOOD ORDERABLES Final R esult [place] [address] [place] [address] * Creatine kinase (11/17/2024 12:48 PM EDT) [facility] Total CK 60 22 - 269 unit/L LAB CHEMISTRY METHOD 11/17/2024 4:[address] [facility] Blood Venous blood specimen / Unknown Venipuncture / Unknown 11/17/2024 12:48 PM EDT 11/17/2024 12:48 PM EDT Gretel Mcconnell MD LAB BLOOD ORDERABLES Final R esult Performing Organization Address [facility] Co de Phone Number [facility] [address] [place] [address], [place] [phone] * Thyroid stimulating hormone with reflex to free t4 and free t3 (10/28/2024 11:19 AM EDT) [facility] TSH 1.66 0.40 - 4.00 mcIU/mL LAB CHEMISTRY METHOD 10/28/2024 2:[address] [facility] Blood Venous blood specimen / Unknown Venipuncture / Unknown 10/28/2024 11:19 AM EDT 10/28/2024 11:19 AM EDT Gretel Mcconnell MD LAB BLOOD ORDERABLES Final R esult Performing Organization Address City/[facility]/ZIP Co de Phone Number [facility] [address] [place] [address], [place] [phone] * Annual BMP Blood Test (03/20/2024) [facility] Annual BMP Blood Test Abstracted Emma Najera MD HEALTH MAINTENANCE Final Result * Falls Risk Assessment (05/02/2023) Falls Risk Assessment Abstracted Historical Provider MD [facility] Final Result * Depression Screening (05/02/2023) Depression Screening Abstracted [facility] Provider [facility] Final Result * DXA BONE DENSITY STUDY 1+ SITS AXIAL SKEL (06/15/2022 10:18 AM EST) Anatomical Region Laterality Modality Bone Densitometr y 02/08/2022 10:4 6 AM EDT Narrative 06/18/2022 9:14 AM EST Clinical history: other osteoporosis Scans of the lumbar spine and hips were performed on a [employer] fan beam bone densitometer. Bone mineral density measurements and associated T and Z scores respectively are as follows: Lumbar Spine: L1-L4 BMD: 0.874 g/cm2 T-Score: -1.6 Z-Score: 1.1 Compared with the prior study dated 04/22/2019, the BMD reading has increased which is statistically significant Left Proximal Femur: Neck BMD: 0.551 g/cm2 T-Score: -2.7 Z-Score: -0.4 Total BMD: 0.612 g/cm2 T-Score: -2.7 Z-Score: -0.6 Compared with the prior study the mean BMD reading in the total left hip has decreased which is statistically significant Compared with standards for the young adult, lowest measured bone density places the patient in the W.H.O. osteoporotic range. IMPRESSION: IMPRESSION: Osteoporosis. The NOF guidelines recommend that FDA approved medical therapies be considered in postmenopausal women and men age >50 years with a: i. Hip or vertebral (clinical or morphometric) fracture ii. T score of < -2.5 at the spine or hip iii. 10 year fracture probability by FRAX of >3% for hip fracture, or >20% for major osteoporotic fracture PLEASE NOTE: W.H.O. classification is based on lowest measured density at the spine, femoral neck, or total hip.This classification has prognostic significance when applied to post menopausal women and older men. 1) The World Health Organization defines low BMD as follows: T-score Normal at or > -1 Osteopenia < -1 and > -2.5 Osteoporosis at or < -2.5 without fractures Established osteoporosis < -2.5 with fractures Procedure Note Janina Sanchez MD - 08/20/2023 Clinical history: other osteoporosis Scans of the lumbar spine and hips were performed on a [employer] beam bone densitometer. Bone mineral density measurements and associated T and Z scoresrespectively are as follows: Lumbar Spine: L1-L4 BMD: 0.874 g/cm2 T-Score: -1.6 Z-Score: 1.1 Compared with the prior study dated 04/22/2019, the BMD reading hasincreased which is statistically significant Left Proximal Femur: Neck BMD: 0.551 g/cm2 T-Score: -2.7 Z-Score: -0.4 Total BMD: 0.612 g/cm2 T-Score: -2.7 Z-Score: -0.6 Compared with the prior study the mean BMD reading in the total left hiphas decreased which is statistically significant Compared with standards for the young adult, lowest measured bone densityplaces the patient in the W.H.O. osteoporotic range. IMPRESSION: IMPRESSION: Osteoporosis. The NOF guidelines recommend that FDA approved medical therapies beconsidered in postmenopausal women and men age >50 years with a: i. Hip or vertebral (clinical or morphometric) fracture ii. T score of < -2.5 at the spine or hip iii. 10 year fracture probability by FRAX of >3% for hip fracture, or >20%for major osteoporotic fracture PLEASE NOTE: W.H.O. classification is based on lowest measured density at the spine,femoral neck, or total hip.This classification has prognostic significance when applied to postmenopausal women and older men. 1) The World Health Organization defines low BMD as follows: T-score Normal at or > -1 Osteopenia < -1 and > -2.5 Osteoporosis at or < -2.5 withoutfractures Established osteoporosis < -2.5 with fractures Phoebe LORENZANA IMG DXA PROCEDU RES Final Result * (ABNORMAL) Lipid panel (04/25/2021) LDL/HDL Ratio 4 0 - 4 Triglycerides 83 0 - 150 mg/dL Cholesterol 221(A) 0 - 200 mg/dL HDL 59 >=40 mg/dL LDL Cholesterol 146(A) 0 - 100 mg/dL Blood Venous blood specimen / Unknown us Historical Provider LAB BLOOD ORDERABLES Adamaris l Result from Last 3 Months or Most Recently Relevant to Health Maintenance Insurance [employer] - [place] MEDICARE ADVANTAGE Advance Directives Documents on File Type Date Recorded Patient Interventional Radiologist Expl anation Health Care Decision (hx) 12/05/2023 AD MARQUEZ DIRECTIVE Health Care Decision (hx) 12/05/2023 AD MARQUEZ DIRECTIVE Health Care Decision (hx) 12/05/2023 AD MARQUEZ DIRECTIVE Health Care Decision (hx) 03/17/2019 AD MARQUEZ DIRECTIVE Health Care Decision (hx) 03/17/2019 AD MARQUEZ DIRECTIVE Health Care Decision (hx) 03/17/2019 AD MARQUEZ DIRECTIVE Health Care Decision (hx) 03/17/2019 AD MARQUEZ DIRECTIVE Health Care Decision (hx) 03/17/2019 AD MARQUEZ DIRECTIVE Health Care Decision (hx) 03/17/2019 AD MARQUEZ DIRECTIVE Health Care Decision (hx) 03/17/2019 AD MARQUEZ DIRECTIVE Health Care Decision (hx) 03/17/2019 AD MARQUEZ DIRECTIVE Health Care Decision (hx) 03/17/2019 AD MARQUEZ DIRECTIVE Health Care Decision (hx) 03/17/2019 AD MARQUEZ DIRECTIVE Health Care Decision (hx) 03/17/2019 AD MARQUEZ DIRECTIVE Health Care Decision (hx) 03/17/2019 AD MARQUEZ DIRECTIVE Health Care Decision (hx) 03/17/2019 AD MARQUEZ DIRECTIVE Health Care Decision (hx) 03/13/2019 AD MARQUEZ DIRECTIVE Health Care Decision (hx) 03/13/2019 AD MARQUEZ DIRECTIVE Health Care Decision (hx) 03/13/2019 AD MARQUEZ DIRECTIVE Health Care Decision (hx) 03/13/2019 AD MARQUEZ DIRECTIVE Health Care Decision (hx) 03/13/2019 AD MARQUEZ DIRECTIVE Health Care Decision (hx) 03/13/2019 AD MARQUEZ DIRECTIVE Health Care Decision (hx) 03/13/2019 AD MARQUEZ DIRECTIVE Health Care Decision (hx) 03/13/2019 AD MARQUEZ DIRECTIVE Health Care Decision (hx) 03/13/2019 AD MARQUEZ DIRECTIVE Health Care Decision (hx) 03/13/2019 AD MARQUEZ DIRECTIVE Health Care Decision (hx) 03/13/2019 AD MARQUEZ DIRECTIVE Health Care Decision (hx) 03/13/2019 AD MARQUEZ DIRECTIVE Health Care Decision (hx) 03/13/2019 AD MARQUEZ DIRECTIVE Health Care Decision (hx) 06/06/2010 AD MARQUEZ DIRECTIVE Health Care Decision (hx) 06/06/2010 AD MARQUEZ DIRECTIVE Health Care Decision (hx) 06/06/2010 AD MARQUEZ DIRECTIVE Health Care Decision (hx) 06/06/2010 AD MARQUEZ DIRECTIVE Health Care Decision (hx) 06/06/2010 AD MARQUEZ DIRECTIVE Health Care Decision (hx) 06/06/2010 AD MARQUEZ DIRECTIVE Health Care Decision (hx) 06/06/2010 AD MARQUEZ DIRECTIVE Health Care Decision (hx) 06/06/2010 AD MARQUEZ DIRECTIVE Health Care Decision (hx) 06/06/2010 AD MARQUEZ DIRECTIVE Health Care Decision (hx) 06/06/2010 AD MARQUEZ DIRECTIVE Health Care Decision (hx) 06/06/2010 AD MARQUEZ DIRECTIVE Health Care Decision (hx) 06/06/2010 AD MARQUEZ DIRECTIVE Health Care Decision (hx) 06/06/2010 AD MARQUEZ DIRECTIVE Care Teams Director [employer] Relationship Specialty Start Date End Date Jonathan Hernandez MD [address] [place] [id number] PCP - General Internal Medicine 05/21/24
--- OUTSIDE RECORDS SUMMARY | 2025-01-27 11:59 | XMS_ITS | Clinical Summary ---
Author Organization [facility] Address [address] [place] [id number] Care Team Providers Care Assayer Name Role Phone Byron Fuentes MD Primary Care Provider [phone] Allergies Active Allergy Reactions Criticality Noted Date Comments Iodinated Contrast Media 03/04/2019 Oxycodone-Acetaminophen 03/04/2019 Medications Medication Sig Dispensed Refills Start Date End Date Status metoprolol succinate (TOPROL-XL) 24 hr tablet 50 mg Take by mouth daily. 0 Active valsartan (DIOVAN) tablet 160 mg Take 160 mg by mouth daily. 0 Active rosuvastatin (CRESTOR) tablet 20 mg Take 20 mg by mouth daily. 0 Active Active Problems No known active problems Family History Medical History Relation Name Comments No Sig Med Hx Father Breast cancer Mother Uterine cancer Mother Breast cancer Sister Relation Name Status Comments Father Mother neg BRCA test Sister Social History Tobacco Use Types Packs/Day Years Used Date Smoking Tobacco: Former Cigarettes 0.1 25 Smokeless Tobacco: Never Alcohol Use Standard Drinks/Week Comments Yes 0 (1 standard drink = 0.6 oz pur e alcohol) RARE Sex and Gender Information Value Date Recorded Sex Assigned at Not on file Gender Identity Not on file Sexual Orientation Not on file Job Start Date Occupation Industry Not on file Not on file Not on file Last Filed Vital Signs Vital Sign Reading Time Taken Comments Blood Pressure 176/77 02/27/2022 9:55 AM EDT Pulse 99 02/27/2022 9:55 AM EDT Temperature 36.8 C (98.2 F) 02/27/2022 9:55 AM EDT Respiratory Rate - - Oxygen Saturation 100% 02/27/2022 9:55 AM EDT Inhaled Oxygen Concentration - - Weight 55.3 kg (122 lb) 02/27/2022 9:55 AM EDT Height 160 cm (5' 3 ) 01/05/2020 10:37 AM EDT Body Mass Index 21.61 01/05/2020 10:37 AM EDT Plan of Treatment Health Maintenance Due Date Last Done Comments Depression Screening 1952 Preventative Health Evaluation 1960 Fall Risk Assessment 2007 Osteoporosis Screening (DEXA Scan) 2007 RSV Adult > 60+ Yrs or (1 - 1-dose 75+ series) 2017 COVID-19 Vaccine ( season) 2024 07/05/2022, 09/12/2020, 08/22/2020 Influenza Vaccine (#1) 2025 2, 04/30/2022, 04/14/2019, Additional history exists DTap / Tdap / Td (3 - Td or Tdap) 05/03/2025 05/03/2015, 02/04/2012 Pneumococcal Vaccine Completed 03/11/2018, 03/23/2017, 05/22/2016, Additional history exists Shingrix-Zoster Vaccine Completed 05/14/2020, 02/18 Hepatitis B Vaccines Aged Out No long er eligible based on patient's age to complete this topic RSV Ped < 20 months Aged Out No longe r eligible based on patient's age to complete this topic Care Teams Assayer Relationship Specialty Start Date End Date Byron Fuentes MD PCP - General Rheumatology 08/11/19
== END 2025-01-27 12:47 | disposition home or self-care (01) ==
LOC: HO.HSMS 11:03
PROVIDERS: PCP Internal Medicine; Visit Provider Psychiatry & Neurology Neurology
DX: F03.918 Unspecified dementia, unspecified severity, with other behavioral disturbance (principal)
CPT/HCPCS: 99214

== ENCOUNTER → 2025-01-27 11:02 | Outpatient (BNVA) | payer MEDICARE, SELFPAY | PROVIDERS: PCP Internal Medicine; Visit Provider Psychiatry & Neurology Neurology | DX: R41.89 Other symptoms and signs involving cognitive functions and awareness (principal); F91.9 Conduct disorder, unspecified; Z79.899 Other long term (current) drug therapy | CPT/HCPCS: 99212 ==

== ENCOUNTER 2025-04-27 11:37 | Inpatient (IN) | payer MEDICARE, SELFPAY ==
--- NOTE | ~2025-04-27 | XR_ITS ---
EXAMINATION: XR PELVIS CLINICAL INFORMATION: post op COMPARISON: April 27, 2025. TECHNIQUE: AP view of the pelvis. FINDINGS: Metallic prosthesis with an acetabular and femoral component well-seated in the osseous structures of the right hip. Skin hood along the right hip. Degenerative changes in the symphysis pubis. Status post total left hip arthroplasty prosthesis, unchanged. XR/XR pelvis 1-2V IMPRESSION: Status post total right hip arthroplasty prosthesis, satisfactory. Electronically signed by: Gagan Ernst MD 04/30/2025 07:06 AM EDT
--- NOTE | ~2025-04-27 | XR_ITS ---
EXAMINATION: XR HIP 1 VIEW RIGHT WITH PELVIS HISTORY: pain, injury COMPARISON: There are no prior studies available for comparison. FINDINGS: A single AP view of the pelvis and two views of the right hip are submitted. The bones are osteopenic. A left hip prosthesis is noted. There is a subcapital fracture of the right femur. No additional fracture is identified. There is no dislocation. The right hip joint space is maintained. The soft tissues are unremarkable. XR/XR hip RT w PEL1V IMPRESSION: Subcapital fracture of the right femur. Electronically signed by: Edgar English MD 04/27/2025 01:15 PM EDT
--- NOTE | ~2025-04-27 | CT_ITS ---
EXAMINATION: CT CERVICAL SPINE WITHOUT CONTRAST CLINICAL INFORMATION: Pain, injury. COMPARISON: 09/18/2021. TECHNIQUE: Spiral CT imaging of the cervical spine performed in axial plane without contrast. Multiplanar reformatted images were constructed from the axial data set. This CT examination was performed using dose optimization techniques as appropriate, variously including the following: *Automated exposure control *Adjustment of mA and/or kV according to patient size (this includes techniques or standardized protocols for targeted exams where dose is matched to indication/reason for exam; i.e. extremities or head) *Use of iterative reconstruction technique FINDINGS: Severe motion artifact is present, obscuring C3 and C4 entirely. Reacquisition of these levels was performed. Despite this, the exam is considered significantly limited. CORONAL ALIGNMENT: -There is a minimal right convex scoliosis. SAGITTAL ALIGNMENT: -There is straightening of the normal lordosis. Within the confines of motion, there is no evidence of traumatic subluxation. C1-C2 AND CRANIOCERVICAL JUNCTION: -Grossly intact and normally aligned. VERTEBRAL BODIES AND FACETS: -No definite fracture or evidence of traumatic subluxation although extremely motion limited. DISCS: -Mild to moderate disc degeneration present C4-5 and C5-6. Mild degeneration C6-7. CENTRAL CANAL: -Cannot well assess due to motion. PREVERTEBRAL AND PARAVERTEBRAL SOFT TISSUES: -Grossly no prevertebral or paravertebral soft tissue abnormality within confines of motion. LUNG APICES: -Not included on the exam. CT/CT cervical spine wo IV con IMPRESSION: 1. Severely motion limited examination, despite reacquisition of levels C2-C4. If there is high suspicion for injury, rescanning this patient is suggested. 2. Within these confines, no CT evidence of acute cervical spine fracture or injury. Electronically signed by: Odin Chase MD 04/27/2025 01:14 PM EDT
--- NOTE | ~2025-04-27 | XR_ITS ---
EXAMINATION: XR CHEST 1 VIEW HISTORY: fall, weakness COMPARISON: There are no prior studies available for comparison. FINDINGS: Two AP portable views of the chest performed at 1:02 PM are submitted. The lungs are expanded and clear. There is no pleural effusion, pneumothorax, or pulmonary vascular congestion. The heart is normal in size. The aorta is calcified. There is degenerative disc disease of the spine. There is an old healed fracture of the right 7th rib. There are surgical clips in both axillae. XR/XR chest 1V IMPRESSION: Clear lungs. Electronically signed by: Edgar English MD 04/27/2025 01:13 PM EDT
--- NOTE | ~2025-04-27 | XR_ITS ---
CLINICAL HISTORY: Shortness of breath with a drop in pulse ox sp hip 1 view chest x-ray Comparison: CR/SR - XR CHEST 1 VIEW - 04/27/25 13:01 EDT Findings: No consolidation or effusion. Slight blunting of the left costophrenic angle which could be atelectasis or consolidation. Heart size is stable. No acute fracture. IMPRESSION: 1. Slight blunting of the left costophrenic angle, nonspecific possibly related to atelectasis This document has been electronically signed by: Temi Self MD on 04/30/2025 06:31:06
--- NOTE | ~2025-04-27 | CT_ITS ---
EXAMINATION: CT HEAD WITHOUT CONTRAST CLINICAL INFORMATION: Pain, injury, anticoagulated. COMPARISON: 09/18/2021. TECHNIQUE: Contiguous axial imaging was performed from the skull base to vertex without intravenous administration of contrast. This CT examination was performed using dose optimization techniques as appropriate, variously including the following: *Automated exposure control *Adjustment of mA and/or kV according to patient size (this includes techniques or standardized protocols for targeted exams where dose is matched to indication/reason for exam; i.e. extremities or head) *Use of iterative reconstruction technique FINDINGS: Study is significantly motion degraded, limiting sensitivity. There is no evidence of intracranial hemorrhage or extra-axial fluid collection. There is no mass effect, or edema. No CT evidence of acute territorial infarct. Ventricles, sulci, and cisterns are diffusely somewhat prominent, in keeping with age-related cerebral and cerebellar involutional changes. No hydrocephalus. No midline shift. Negative hyperdense MCA sign. Negative insular ribbon sign. Patchy periventricular and deep white matter hypoattenuation is consistent with moderate small vessel ischemic changes. Old lacunar type infarcts are present in the bilateral gangliocapsular regions. Partial empty sella. Atheromatous calcification of the bilateral carotid siphons and V4 segments vertebral arteries bilaterally. Globes and orbital contents image normally. There are bilateral lens replacements. No extracranial soft tissue abnormalities. The paranasal sinuses, mastoid air cells, and tympanic cavities are normally aerated. No suspicious bony abnormalities. There are no acute fractures evident within confines of motion. CT/CT head/brain wo IV con IMPRESSION: 1. Significantly motion degraded examination. Within these confines, no acute intracranial abnormalities. Electronically signed by: Odin Chase MD 04/27/2025 01:23 PM EDT
--- NOTE | 2025-04-27 11:47 | ED_ITS ---
HPI - General Adult General Chief complaint: Fall Stated complaint: FLL,R HIP PAIN,OBVIOUS DEFORMITY,-HS,-LOC,+THINNER Time Seen by Provider: 04/27/25 11:47 Source: patient, family (patient's daughter) and EMS Mode of arrival: EMS Limitations: physical limitation (patient is demented at baseline) History of Present Illness ED Provider: Ning Agudelo PA-C HPI narrative: Patient is a 85 year old assigned female at with a history of dementia, NSVT, cardiomyopathy, s/p left hip replacement complicated by developing a left lower extremity DVT (now on Eliquis) presenting to the emergency department today after a fall. Patient was at home and tripped walking up 2 steps and fell back onto her right hip. Patient's daughter provided all history given the patient's demented status. Related Data Home Medications ?Medication ?Instructions ?Recorded ?Confirmed apixaban 5 mg (74 tabs) tablets in 5 mg PO BID 4 a dose pack (Eliquis DVT-PE Treat 30D Start) escitalopram oxalate 10 mg tablet 10 mg PO BID 4 metoprolol tartrate 25 mg tablet 25 mg PO DAILY valsartan 40 mg tablet 80 mg PO DAILY 04/09/24 apixaban 2.5 mg tablet (Eliquis) 2.5 mg PO BID 5 levothyroxine 62.5 mcg capsule 62.5 mcg PO DAILY 01/27 (Tirosint) Previous Rx's ?Medication ?Instructions ?Recorded docusate sodium 100 mg capsule 100 mg PO DAILY PRN Con stipation 09/22/21 #30 caps memantine 28 mg capsule 28 mg PO DAILY #30 ea sprinkle,extended release 24hr Allergies Allergy/AdvReac Type Severity Reaction Status Date / Time No Known Allergies Allergy Verified 04/27/25 12:06 Review of Systems 2 Constitutional: Constitutional: Reports as per HPI Eyes: Eyes: Reports as per HPI ENT: Reports as per HPI Cardiovascular: Cardiovascular: Reports as per HPI Respiratory: Respiratory: Reports as per HPI Gastrointestinal: Gastrointestinal: Reports as per HPI Genitourinary: Genitourinary: Reports as per HPI Musculoskeletal: Musculoskeletal: Reports as per HPI Integumentary/Breasts: Skin/Breast: Reports as per HPI Neurologic: Reports as per HPI and Reports confusion (per her baseline) Psychiatric: Psychiatric: Reports as per HPI and Reports confusion (per her baseline) Endocrine: Endocrine: Reports as per HPI Hematologic/Lymphatic: Hematologic/Lymphatic: Reports as per HPI Allergic/Immunologic: Allergic/Immunologic: Reports as per HPI [facility] Past Medical History Attestation statement: The following information was validated with the patient. (all information validated with the patient's daughter) Source: old records reviewed, obtained from family (patient's daughter provided all history and ROS given the patient's demented status) and nursing notes reviewed Medical History Dementia with behavioral disturbance NSVT (nonsustained ventricular tachycardia) NSVT (nonsustained ventricular tachycardia) Breast cancer Rheumatoid aortitis Hypertension Troponin level elevated Fracture, humerus, neck Syncope Surgical History H/O knee surgery H/O mastectomy Family History Family History Mother Cancer Sister Cancer Daughter Cancer Other No family history of coronary artery disease Social History Social History Household Members: Spouse Housing: House Do you presently have visiting nurse or other home services: No Alcohol intake: never Comment: 1:1 sitter Patient Tobacco Use Status: Current everyday Tobacco user Tobacco use type: Cigarette Cigarettes Per Day: 4 Smoked in Last 30 Days: No Second Hand Smoke Exposure: No Use of substances other than those prescribed or required for medical reasons: No Advance Directives: No Advance Directives Information Provided: Yes service: No Current occupational status: retired Physical Exam ED Vital Signs: Vital Signs - 24 hr 04/27/25 12:04 Temperature 98.0 F Pulse Rate 65 Respiratory Rate 20 Blood Pressure 196/96 H Pulse Oximetry 100 Oxygen Delivery Method Room Air BMI result Body Mass Index 28.8 Const General: cooperative, no acute distress, alert, awake and confusion (per her baseline) Nutritional Appearance: well nourished Orientation/consciousness: oriented to person and confusion (per her baseline) HENMT Head: Yes normal to inspection and Yes atraumatic Ears: hearing grossly normal bilaterally and external ears normal General nose exam: Normal external nose present, no nasal discharge noted and no epistaxis Face and sinus: Yes normal facial exam, No abrasion and No laceration Mouth: Normal oral and palatal mucosa present, no drooling and no muffled voice Eyes General: appearance normal, both eyes and all related structures Periorbital: periorbital findings normal Eyelids: Yes eyelids normal Conjunctivae: conjunctivae normal Pupils: Equal, round and reactive pupils present EOM: EOMs intact bilaterally Neck Neck: Yes normal visual inspection and Yes full ROM Resp Effort & Inspection: normal respiratory effort and able to speak in complete sentences Neuro General: oriented to person, moves all extremities, CN's II-XI intact bilaterally and confusion (per her baseline) Cranial nerves: Yes Equal, round and reactive pupils present Extrem Other: patient's right lower extremity is shortened and externally rotated patient has decreased right lower extremity ROM secondary to pain General: Yes capillary refill normal Psych Appearance: grossly normal Mental Status: mental status grossly normal Medications Administered Discontinued Medications Generic Name Dose Route Start Last Admin Trade Name Freq PRN Reason Stop Dose Admin Acetaminophen 1,000 mg in 100 mls @ 400 mls/hr 04/27/25 12:12 04/27/25 12:50 Ofirmev IV 04/27/25 12:26 Infused ONCE ONE Infusion Medical Decision Making Medical Decision Making [facility] Narrative: Patient is a 85 year old assigned female at with a history of dementia, NSVT, cardiomyopathy, s/p left hip replacement complicated by developing a left lower extremity DVT (now on Eliquis) presenting to the emergency department today after a fall. Patient's physical exam was as noted in the physical exam portion of this note. Patient's blood work was unremarkable. Patient's EKG was unremarkable. Patient's chest x-ray showed no acute process. Patient's CT head and c-spine showed no acute process. Patient's right hip and pelvis x-ray showed a right subcapital femoral fracture. I explained my physical exam findings as well as all test results to the patient and the patient's daughter. I answered all questions asked by the patient and the patient's daughter. I spoke with the orthopedic team who recommended admission to the medicine team for probable surgical intervention tomorrow. I spoke with the hospitalist team who agreed to admission. Patient's daughter verbalized agreement and understanding with this treatment plan and admission. Differential Diagnosis Differential Diagnoses: The differential diagnosis associated with the presentation includes Right hip fracture Pain Fall Admission/Observation Consideration of admission/observation: Escalation of care including admission/observation considered Patient admitted as noted in the MDM Rationale portion of this note. Consult Healthcare Provider Management of the patient was discussed with: Hospitalist (Spoke with the hospitalist team as noted in the MDM Rationale portion of this note. ) and Lumber Checker (Spoke to the orthopedic team as noted in the MDM Rationale portion of this note. ) Lab Data [facility] Lab Attestation statement: I reviewed the patient's lab results. My interpretation of these results are in the MDM Rationale portion of this note. 04/27/25 11:57 04/27/25 11:57 Labs: Lab Results 04/27/25 04/27/25 Range/Units 11:57 13:29 WBC 7.7 (4.8-10.8) X10*3/uL RBC 5.16 D (4.20-5.50) X10*6/uL Hgb 14.4 D (12.0-16.0) g/dl Hct 45.7 D (37.0-47.0) % MCV 88.6 (80.0-98.0) fL MCH 27.9 (27.0-33.0) pg MCHC 31.5 (31.0-35.0) g/dl RDW 13.8 (11.0-16.0) % Plt Count 188 D (160-400) X10*3/uL MPV 9.9 (9.4-12.3) fL Immature Gran % (Auto) 0.5 H (0.0-0.4) % Neut % (Auto) 63.6 (45-73) % Lymph % (Auto) 25.7 (20-40) % [place] % (Auto) 7.9 (2-11) % Eos % (Auto) 1.7 (0-4) % Baso % (Auto) 0.6 (0-2) % Lymph # (Auto) 2.0 (1.2-4.9) X10*3/uL [place] # (Auto) 0.6 (0.1-1.2) X10*3/uL Eos # (Auto) 0.1 (0.0-0.4) X10*3/uL Baso # (Auto) 0.1 (0.0-0.2) X10*3/uL Abs Immat Gran (auto) 0.04 H (0.00-0.03) X10*3/uL Absolute Neuts (auto) 4.9 (2.0-8.3) x10*3/uL Absolute Nucleated RBC 0.000 (0.0-0.012) X10*3/uL Nucleated RBC % (auto) 0.0 (0.0-0.2) /100WBC PT 15.2 H (10.9-12.4) SEC INR 1.3 H (0.9-1.1) Sodium 142 (135-145) mmol/L Potassium 4.0 (3.3-5.1) mmol/L Chloride 108 (96-108) mmol/L Carbon Dioxide 24 (22-29) mmol/L Anion Gap 14 (12-20) BUN 25 H (9-16) mg/dL Creatinine 0.91 (0.5-1.4) mg/dL Estim Creat Clear Calc 43.4 Estimated GFR 59 Random Glucose 106 (60-115) mg/dL Calcium 9.1 (8.4-10.2) mg/dL Magnesium 2.4 (1.6-2.6) mg/dL Total Bilirubin 0.4 (0.0-1.0) mg/dL AST 22 (5-31) U/L ALT 13 (0-31) U/L Alkaline Phosphatase 99 (39-117) U/L Total Protein 7.5 (6.5-8.0) g/dL Albumin 4.0 (3.5-5.0) g/dL Blood Type A Positive Antibody Screen NEGATIVE Independent Interpretation I performed an independent interpretation of an: EKG, Plain X-Ray and CT Scan Interpretation: My interpretation is in agreement with the radiologist's impression of these imaging studies. L Reason for Exam: fall, weakness EXAMINATION: XR CHEST 1 VIEW HISTORY: fall, weakness COMPARISON: There are no prior studies available for comparison. FINDINGS: Two AP portable views of the chest performed at 1:02 PM are submitted. The lungs are expanded and clear. There is no pleural effusion, pneumothorax, or pulmonary vascular congestion. The heart is normal in size. The aorta is calcified. There is degenerative disc disease of the spine. There is an old healed fracture of the right 7th rib.There are surgical clips in both axillae. XR/XR chest 1V IMPRESSION: Clear lungs. Electronically signed by: Edgar English MD 04/27/2025 01:13 PM EDT RP Dictated By: Edgar English MD Signed By: Electronically signed by Edgar English MD 04/27/25 1313 Reason for Exam: pain, injury EXAMINATION: XR HIP 1 VIEW RIGHT WITH PELVIS HISTORY: pain, injury COMPARISON: There are no prior studies available for comparison. FINDINGS: A single AP view of the pelvis and two views of the right hip are submitted. The bones are osteopenic. A left hip prosthesis is noted. There is a subcapital fracture of the right femur. No additional fracture is identified. There is no dislocation. The right hip joint space is maintained. The soft tissues are unremarkable. XR/XR hip RT w PEL1V IMPRESSION: Subcapital fracture of the right femur. Electronically signed by: Edgar English MD 04/27/2025 01:15 PM EDT RP Dictated By: Edgar English MD Signed By: Electronically signed by Edgar English MD 04/27/25 1315 Report Number: [id number]: Total DLP = 777.00 mGy-cm Reason for Exam: pain, injury, on AC EXAMINATION: CT HEAD WITHOUT CONTRAST CLINICAL INFORMATION: Pain, injury, anticoagulated. COMPARISON: 09/18/2021. TECHNIQUE: Contiguous axial imaging was performed from the skull base to vertex without intravenous administration of contrast. This CT examination was performed using dose optimization techniques as appropriate, variously including the following: *Automated exposure control *Adjustment of mA and/or kV according to patient size (this includes techniques or standardized protocols for targeted exams where dose is matched to indication/reason for exam; i.e. extremities or head) *Use of iterative reconstruction technique FINDINGS: Study is significantly motion degraded, limiting sensitivity. There is no evidence of intracranial hemorrhage or extra-axial fluid collection. There is no mass effect, or edema. No CT evidence of acute territorial infarct. Ventricles, sulci, and cisterns are diffusely somewhat prominent, in keeping with age-related cerebral and cerebellar involutional changes. No hydrocephalus. No midline shift. Negative hyperdense MCA sign. Negative insular ribbon sign. Patchy periventricular and deep white matter hypoattenuation is consistent with moderate small vessel ischemic changes. Old lacunar type infarcts are present in the bilateral gangliocapsular regions. Partial empty sella. Atheromatous calcification of the bilateral carotid siphons and V4 segments vertebral arteries bilaterally. Globes and orbital contents image normally. There are bilateral lens replacements. No extracranial soft tissue abnormalities. The paranasal sinuses, mastoid air cells, and tympanic cavities are normally aerated. No suspicious bony abnormalities. There are no acute fractures evident within confines of motion. CT/CT head/brain wo IV con IMPRESSION: 1. Significantly motion degraded examination. Within these confines, no acute intracranial abnormalities. Electronically signed by: Odin Chase MD 04/27/2025 01:23 PM EDT Dictated By: Odin Chase MD Signed By: Electronically signed by Odin Chase MD 04/27/25 1323 Report Number: [id number]: Total DLP = 384.00 mGy-cm Reason for Exam: pain, injury, on AC EXAMINATION: CT CERVICAL SPINE WITHOUT CONTRAST CLINICAL INFORMATION: Pain, injury. COMPARISON: 09/18/2021. TECHNIQUE: Spiral CT imaging of the cervical spine performed in axial plane without contrast. Multiplanar reformatted images were constructed from the axial data set. This CT examination was performed using dose optimization techniques as appropriate, variously including the following: *Automated exposure control *Adjustment of mA and/or kV according to patient size (this includes techniques or standardized protocols for targeted exams where dose is matched to indication/reason for exam; i.e. extremities or head) *Use of iterative reconstruction technique FINDINGS: Severe motion artifact is present, obscuring C3 and C4 entirely. Reacquisition of these levels was performed. Despite this, the exam is considered significantly limited. CORONAL ALIGNMENT: -There is a minimal right convex scoliosis. SAGITTAL ALIGNMENT: -There is straightening of the normal lordosis. Within the confines of motion, there is no evidence of traumatic subluxation. C1-C2 AND CRANIOCERVICAL JUNCTION: -Grossly intact and normally aligned. VERTEBRAL BODIES AND FACETS: -No definite fracture or evidence of traumatic subluxation although extremely motion limited. DISCS: -Mild to moderate disc degeneration present C4-5 and C5-6. Mild degeneration C6- 7. CENTRAL CANAL: -Cannot well assess due to motion. PREVERTEBRAL AND PARAVERTEBRAL SOFT TISSUES: -Grossly no prevertebral or paravertebral soft tissue abnormality within confines of motion. LUNG APICES: -Not included on the exam. CT/CT cervical spine wo IV con IMPRESSION: 1. Severely motion limited examination, despite reacquisition of levels C2-C4. If there is high suspicion for injury, rescanning this patient is suggested. 2. Within these confines, no CT evidence of acute cervical spine fracture or injury. Electronically signed by: Odin Chase MD 04/27/2025 01:14 PM EDT Dictated By: Odin Chase MD Signed By: Electronically signed by Odin Chase MD 04/27/25 1314 I independently interpreted this EKG and am in agreement with the below findings: Vent. Rate: 64 BPM Atrial Rate: 64 BPM P-R Int: 160 ms QRS Dur: 84 ms QT Int: 396 ms P-R-T Axes: 100 -26 -54 degrees QTcB Int: 408 ms Normal sinus rhythm DD/ 1320 Radiology Impression Discussion of test interpretation with radiology: I have reviewed the radiologist's reading. Independent Historian Clinical information obtained from an independent historian. History obtained from or confirmed by: EMS (EMS provided additional history and confirmed the history provided by the patient. ) and Other (Patient's daughter provided additional history and confirmed the history provided by the patient. ) Critical Care Time Critical Care Time Critical Care Time: Yes Total Critical Care Time: 46 Attestation: I spent 46 minutes of Critical Care Time with this patient. This does not include time spent on separately reported billable procedures. Discharge Plan Discharge Clinical Impression: Closed fracture of right hip, Fall Patient Disposition: Admitted As Inpatient
--- NOTE | 2025-04-27 11:48 | ECG_ITS ---
Test Reason : WEAKNESS Blood Pressure : */* mmHG Vent. Rate : 64 BPM Atrial Rate : 64 BPM P-R Int : 160 ms QRS Dur : 84 ms QT Int : 396 ms P-R-T Axes : 100 -26 -54 degrees QTcB Int : 408 ms Normal sinus rhythm ST & T wave abnormality, consider anterolateral ischemia Abnormal ECG When compared with ECG of 20-Sep-2021 16:10, Non-specific change in ST segment in Inferior leads ST now depressed in Anterior leads T wave inversion now evident in Anterior leads Referred By: Ning Agudelo Electronically Signed By: Edwardo Vasquez
[2025-04-27 12:04] VITALS: BP 164/90; BP 196/96; PULSE 60; PULSE 65; RESP 20; TEMP 36.7; O2SAT 100; O2SAT 98; BMI 28.8
[2025-04-27 12:05] LABS: MANUAL DIFF FLAG NO
[2025-04-27 12:14] LABS: Hematocrit 45.7 % (37.0-47.0); Hemoglobin 14.4 g/dl (12.0-16.0); Imm Gran Abs Auto 0.04 X10*3/uL (0.00-0.03); Imm Gran Pct Auto 0.5 % (0.0-0.4); Lymphocytes Absolute Auto 2.0 X10*3/uL (1.2-4.9); Mean Corpuscular HGB Conc 31.5 g/dl (31.0-35.0); Mean Corpuscular Hemoglobin 27.9 pg (27.0-33.0); Mean Corpuscular Volume 88.6 fL (80.0-98.0); NRBC Abs Auto 0.000 X10*3/uL (0.0-0.012); NRBC Pct Auto 0.0 /100WBC (0.0-0.2); Platelet Count 188 X10*3/uL (160-400); Red Blood Count 5.16 X10*6/uL (4.20-5.50); White Blood Count 7.7 X10*3/uL (4.8-10.8)
--- NOTE | 2025-04-27 12:17 | PC.NURSE ---
iv inserted, labs drawn, engine monitor applied, pt to radiology
[2025-04-27 12:31] LABS: Alanine Aminotransferase 13 U/L (0-31); Albumin Level 4.0 g/dL (3.5-5.0); Alkaline Phosphatase 99 U/L (39-117); Anion Gap 14 (12-20); Aspartate Amino Transferase 22 U/L (5-31); Blood Urea Nitrogen 25 mg/dL (9-16); Calcium 9.1 mg/dL (8.4-10.2); Carbon Dioxide 24 mmol/L (22-29); Chloride 108 mmol/L (96-108); Creatinine Clr Calc Pharmacy 43.4; Estimated Glomerular Filt Rate 59; Magnesium 2.4 mg/dL (1.6-2.6); Potassium 4.0 mmol/L (3.3-5.1); Sodium 142 mmol/L (135-145); Total Protein 7.5 g/dL (6.5-8.0)
[2025-04-27 13:44] LABS: INTERNATIONAL NORM RATIO 1.3 (0.9-1.1); Prothrombin Time 15.2 SEC (10.9-12.4)
--- NOTE | 2025-04-27 14:02 | P.HPHOSP_ITS ---
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 Fall was mechanical in nature. Patient was walking up stairs and slipped backwards, was partially helped down but still fell pretty hard on her right side. She is complaining about right- sided hip pain. In ED found to have sub capitular right femur fracture. Review of Systems 2 Review of Systems: Yes all other systems are reviewed and are negative [facility] Medical History Dementia with behavioral disturbance NSVT (nonsustained ventricular tachycardia) NSVT (nonsustained ventricular tachycardia) Breast cancer Rheumatoid aortitis Hypertension Troponin level elevated Fracture, humerus, neck Syncope Family History Mother Cancer Sister Cancer Daughter Cancer Other No family history of coronary artery disease Surgical History H/O knee surgery H/O mastectomy Social History Household Members: Spouse Housing: House Do you presently have visiting nurse or other home services: No Alcohol intake: never Comment: 1:1 sitter Patient Tobacco Use Status: Current everyday Tobacco user Tobacco use type: Cigarette Cigarettes Per Day: 4 Smoked in Last 30 Days: No Second Hand Smoke Exposure: No Use of substances other than those prescribed or required for medical reasons: No Advance Directives: No Advance Directives Information Provided: Yes service: No Current occupational status: retired [employer] Allergies Allergy/AdvReac Type Severity Reaction Status Date / Time No Known Allergies Allergy Verified 04/27/25 12:06 Active Medications: Current Medications Acetaminophen (Acetaminophen 325 Mg Tablet) 650 mg PO Q6H PRN PRN Reason: Pain, Mild 1-3,fever,headache Calcium Carbonate (Calcium Carbonate 750 Mg Tab.Chew) 750 mg PO Q4H PRN PRN Reason: Heartburn Magnesium Hydroxide (Milk Of Magnesia 30 Ml Oral.Susp) 30 ml PO DAILY PRN PRN Reason: Constipation Melatonin (Melatonin 3 Mg Tablet) 6 mg PO BEDTIME PRN PRN Reason: Insomnia Sodium Chloride (0.9 % Sodium Chloride Flush 3 Ml Syringe) 3 ml IVFLUSH QSHIFT [facility] Home Medications ?Medication ?Instructions ?Recorded ?Confirmed ?Last Taken ?Type apixaban 5 mg (74 tabs) tablets in 5 mg PO BID 4 Unknown History a dose pack (Eliquis DVT-PE Treat 30D Start) escitalopram oxalate 10 mg tablet 10 mg PO BID 4 Unknown History metoprolol tartrate 25 mg tablet 25 mg PO DAILY Unknown History valsartan 40 mg tablet 80 mg PO DAILY 04/09/24 Unk nown History apixaban 2.5 mg tablet (Eliquis) 2.5 mg PO BID 5 Unknown History levothyroxine 62.5 mcg capsule 62.5 mcg PO DAILY 01/27 Unknown History (Tirosint) Physical Exam 2 Vital Signs and Narrative: Vital Signs: Last Vital Signs Temp 98.0 F 04/27/25 12:04 Pulse 65 04/27/25 12:04 Resp 20 04/27/25 12:04 BP 196/96 H 04/27/25 12:04 Pulse Ox 100 04/27/25 12:04 O2 Del Method Room Air 04/27/25 12:04 BMI result Body Mass Index 28.8 General: AO X 2, no acute distress Resp: CTA bilateral, no accessory muscles used CVS: S1,S2,RRR GI: soft, non tender, non distended Neuro: motor grossly intact, alert Psych: appropriate affect, has some insight Results Labs 04/27/25 11:57 04/27/25 11:57 Labs: Laboratory Results - last 24 hr 04/27/25 04/27/25 11:57 13:29 MCV 88.6 MCH 27.9 MCHC 31.5 RDW 13.8 Plt Count 188 D MPV 9.9 Immature Gran % (Auto) 0.5 H Neut % (Auto) 63.6 Lymph % (Auto) 25.7 [place] % (Auto) 7.9 Eos % (Auto) 1.7 Baso % (Auto) 0.6 Lymph # (Auto) 2.0 [place] # (Auto) 0.6 Eos # (Auto) 0.1 Baso # (Auto) 0.1 Abs Immat Gran (auto) 0.04 H Absolute Neuts (auto) 4.9 Absolute Nucleated RBC 0.000 Nucleated RBC % (auto) 0.0 PT 15.2 H INR 1.3 H Anion Gap 14 Estim Creat Clear Calc 43.4 Estimated GFR 59 Random Glucose 106 Calcium 9.1 Magnesium 2.4 Total Bilirubin 0.4 AST 22 ALT 13 Alkaline Phosphatase 99 Total Protein 7.5 Albumin 4.0 Imaging Radiologist's Impressions: Impressions Cervical Spine CT 04/27/25 12:27 IMPRESSION: 1. Severely motion limited examination, despite reacquisition of levels C2-C4. If there is high suspicion for injury, rescanning this patient is suggested. 2. Within these confines, no CT evidence of acute cervical spine fracture or injury. Electronically signed by: Odin Chase MD 04/27/2025 01:14 PM EDT RP Head CT 04/27/25 12:27 IMPRESSION: 1. Significantly motion degraded examination. Within these confines, no acute intracranial abnormalities. Electronically signed by: Odin Chase MD 04/27/2025 01:23 PM EDT RP Hip/Pelvis X-Ray 04/27/25 12:59 IMPRESSION: Subcapital fracture of the right femur. Electronically signed by: Edgar English MD 04/27/2025 01:15 PM EDT RP Chest X-Ray 04/27/25 13:01 IMPRESSION: Clear lungs. 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, rheumatoid arthritis, presented with fall Mechanical fall complicated by right femur fracture Moderate risk for moderate risk surgery, benefits outweigh risks and would proceed as planned History of DVT Restart Eliquis after surgery, if delay in surgery will bridge with IV heparin Alzheimer dementia At risk for delirium, monitor Memantine Chronic systolic CHF Euvolemic, on Toprol and valsartan Full code Given hip fracture and need for surgical repair expected to require at least 2 midnights inpatient Quality Stroke Does the patient have a stroke diagnosis?: No VTE Prior VTE?: Yes VTE Risk Level:: Medical - moderate - high VTE Device Contraindication: N/A - Device Ordered VTE Drug Contraindication: Treatment Not Indicated
--- NOTE | 2025-04-27 14:50 | P.CONOP_ITS ---
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 Fall was mechanical in nature. Patient was walking up stairs and slipped backwards, was partially helped down but still fell pretty hard on her right side. In ED found to have sub capitular right femur fracture. I spoke with the patients daughterPriscilla who states the patient has dementia . She lives with her daughter and . She is ambulatory at baseline. Review of Systems 2 Review of Systems: Yes all other systems are reviewed and are negative [facility] Past Medical History Medical History Dementia with behavioral disturbance NSVT (nonsustained ventricular tachycardia) NSVT (nonsustained ventricular tachycardia) Breast cancer Rheumatoid aortitis Hypertension Troponin level elevated Fracture, humerus, neck Syncope Family History Family History Mother Cancer Sister Cancer Daughter Cancer Other No family history of coronary artery disease Surgical History Surgical History H/O knee surgery H/O mastectomy Social History Social History Household Members: Spouse and Children Housing: House Do you presently have visiting nurse or other home services: No Alcohol intake: never Comment: 1:1 sitter Patient Tobacco Use Status: Never used Tobacco Tobacco use type: Cigarette Cigarettes Per Day: 4 Second Hand Smoke Exposure: No service: No Current occupational status: retired Meds Allergies Allergy/AdvReac Type Severity Reaction Status Date / Time No Known Allergies Allergy Verified 04/27/25 12:06 Active Medications: Current Medications Acetaminophen (Acetaminophen 325 Mg Tablet) 650 mg PO Q6H PRN PRN Reason: Pain, Mild 1-3,fever,headache Calcium Carbonate (Calcium Carbonate 750 Mg Tab.Chew) 750 mg PO Q4H PRN PRN Reason: Heartburn Magnesium Hydroxide (Milk Of Magnesia 30 Ml Oral.Susp) 30 ml PO DAILY PRN PRN Reason: Constipation Melatonin (Melatonin 3 Mg Tablet) 6 mg PO BEDTIME PRN PRN Reason: Insomnia Sodium Chloride (0.9 % Sodium Chloride Flush 3 Ml Syringe) 3 ml IVFLUSH QSHIFT [facility] Home Medications ?Medication ?Instructions ?Recorded ?Confirmed ?Last Taken ?Type escitalopram oxalate 10 mg tablet 10 mg PO BID 4 04/27/25 04/27/25 History valsartan 40 mg tablet 80 mg PO DAILY 04/09/2404/1404/27/25 History apixaban 2.5 mg tablet (Eliquis) 2.5 mg PO BID 5 04/27/25 04/27/25 History levothyroxine 62.5 mcg capsule 62.5 mcg PO DAILY 01/2704/27/25 04/27/25 History (Tirosint) metoprolol succinate 25 mg 25 mg PO BID 04/27/2504/2704/27/25 History tablet,extended release 24 hr Physical Exam 2 Vital Signs: Vital Signs: Last Vital Signs Temp 98.0 F 04/27/25 12:04 Pulse 65 04/27/25 12:04 Resp 20 04/27/25 12:04 BP 196/96 H 04/27/25 12:04 Pulse Ox 100 04/27/25 12:04 O2 Del Method Room Air 04/27/25 12:04 BMI result Body Mass Index 28.8 Const: General: cooperative, healthy appearing, comfortable and no acute distress Extrem: Other: Right hip skin intact. No open wounds or abraisons She has pain with log roll Unable to perform SLR she is able to dorsi and plantar flex NVI Results Labs 04/27/25 11:57 04/27/25 11:57 Labs: Abnormal lab results 04/27/25 04/27/25 Range/Units 11:57 13:29 Immature Gran % (Auto) 0.5 H (0.0-0.4) % Abs Immat Gran (auto) 0.04 H (0.00-0.03) X10*3/uL PT 15.2 H (10.9-12.4) SEC INR 1.3 H (0.9-1.1) BUN 25 H (9-16) mg/dL H & H 04/27/25 Range/Units 11:57 Hgb 14.4 D (12.0-16.0) g/dl Hct 45.7 D (37.0-47.0) % Coagulation 04/27/25 Range/Units 13:29 INR 1.3 H (0.9-1.1) All other labs normal. Diagnostic results Hip x-ray: image reviewed (Right femoral neck fracture) Assessment and Plan (1) Displaced fracture of right femoral neck: Status: Acute Plan I explained to the patient;s daughter Priscilla, the extent of her injury which would benefit from surgical intervention for optimal functioning. She does understand nonsurgical intervention would result in significantly limited function including bed bound for anywhere from 8-12 weeks at least. Given the patient's activity level and she is ambulatory at baseline, it would be recommended to pursue surgical intervention. We discussed the procedure in detail along with the risks benefits and alternatives. Risks including but not limited to infection, injury to surrounding nerves and tissue and bone, small and large vessels, stiffness,need for further surgery, DVT/PE along with intraoperative complications including but not limited to . We discussed postoperative recovery which includes Home with VNA vs STR. Daughter is adamant the patient be transferred to [place] rehab once DC from hospital. I did place a consult for CM with the information. I explained typical recovery is often WBAT with a walker for approximately 6 weeks,but overall recovery could be anywhere from 6-12 months. The patient's daughter does express understanding and would like to proceed with Operative fixation of the right hip with Dr. Stanton. The patient will be booked accordingly. NPO after midnight, medical clearance obtained. Priscilla HCP signs consents: [phone] She states last dose of Eliquis 04/26 2.5 am / 2.5 evening 04/27 2.5 am INR 1.3 Procedures Date of Service Date of Service: 04/27/25
[2025-04-27] MEDS: 0.9 % Sodium Chloride Flush 3 ML SYRINGE IVFLUSH ×2 (15:18→20:20)
--- OUTSIDE RECORDS SUMMARY | 2025-04-27 16:33 | XMS_ITS | Encounter Summary ---
Author Organization [facility] Address [address] [place] [address] Care Team Providers Care Protein Scientist Name Role Phone Byron Fuentes MD Primary Care Provider Un available Flor Bruce MD Primary Care Provider Unavail able Byron Fuentes MD Unavailable Unavaila Jonathan Beth MD Primary Care Provider [phone] Jonathan Hernandez MD Primary Care Provider [phone] Luis Rodriguez MD Unavailable Arlen Millan NP Unavailable Unavailab Joselito Carranza MD Unavailable Unavailab Lisa Maddox MD Unavailable UnavailShawna Alvarez LINOLEUM LAYER APPRENTICE Unavailable [phone] Encounter Details Date Type Department Care Team Description 10/31/2016 [facility] Medical Records [address] [place] [address] Abstract, Provider Social History Tobacco Use Types Packs/Day Years Used Date Smoking Tobacco: Former Cigarettes 0.1 25 Smokeless Tobacco: Never Alcohol Use Standard Drinks/Week Comments Yes 0 (1 standard drink = 0.6 oz pur e alcohol) rare Sex Assigned at Date Recorded Not on file Job Start Date Occupation Industry Not on file Not on file Not on file documented as of this encounter Plan of Treatment Not on file documented as of this encounter Visit Diagnoses Not on filedocumented in this encounter Care Teams Protein Scientist Relationship Specialty Start Date End Date Byron Fuentes MD PCP - General 07/15/1992 09/04/18 Flor Bruce MD PCP - General Internal Medicine 09/05/18 05/21/21 Jonathan Hernandez MD [address] [place], [place] [id number] PCP - General Internal Medicine 05/22/21 09/03/21 Jonathan Hernandez MD [address] [place] [address] PCP - General Internal Medicine 09/04/21 Byron Fuentes MD Specialist Internal Medicine 10/05/19 Luis Rodriguez MD [address] [place] [address] Innovation Analyst Cardiovascular Disease 10/12/21 Arlen Millan NP [address] [place], [place] [phone] Nurse Practioner Acute Care 12/21/21 Joselito Pires MD [address] [place] [address] Neurology 02/08/22 Lisa Zepeda MD [address] [place], [place] [phone] Specialist Internal Medicine 02/08/22 Shawna Farooq NP [address] [place] [address] Cardiology 05/15/24 documented as of this encounter
--- OUTSIDE RECORDS SUMMARY | 2025-04-27 16:33 | XMS_ITS | Encounter Summary ---
Author Organization [facility] Address [address] [place] [address] Care Team Providers Care Asphalt Distributor Operator Name Role Phone Byron Fuentes MD Primary Care Provider Un available Flor Bruce MD Primary Care Provider Unavail able Byron Fuentes MD Unavailable Unavaila Jonathan Beth MD Primary Care Provider [phone] Jonathan Hernandez MD Primary Care Provider [phone] Luis Rodriguez MD Unavailable Arlen Millan NP Unavailable Unavailab Joselito Carranza MD Unavailable Unavailab Lisa Maddox MD Unavailable UnavailShawna Alvarez SOIL TECHNICIAN Unavailable [phone] Encounter Details Date Type Department Care Team Description 04/09/2017 [facility] Medical Records [address] [place] [address] Abstract, Provider Social History Tobacco Use Types [...] on filedocumented in this encounter Care Teams Asphalt Distributor Operator Relationship Specialty Start Date End Date Byron Fuentes MD PCP - General 07/15/1992 09/04/18 Flor Bruce MD PCP - General Internal Medicine 09/05/18 05/21/21 Jonathan Hernandez MD [address] [place], [place] [id number] PCP - General Internal Medicine 05/22/21 09/03/21 Jonathan Hernandez MD [address] [place] [address] PCP - General Internal Medicine 09/04/21 Byron Fuentes MD Specialist Internal Medicine 10/05/19 Luis Rodriguez MD [address] [place] [address] Delivery Man Cardiovascular Disease 10/12/21 Arlen Millan NP [address] [place], [place] [id number] Nurse Practioner Acute Care 12/21/21 Joselito Pires MD [address] [place] [address] Neurology 02/08/22 Lisa Zepeda MD [address] [place], [place] [phone] Specialist Internal Medicine 02/08/22 Shawna Farooq NP [address] [place] [address] Cardiology 05/15/24 documented as of this encounter
--- OUTSIDE RECORDS SUMMARY | 2025-04-27 16:33 | XMS_ITS | Encounter Summary ---
Author Organization [facility] Address [address] [place] [address] Care Team Providers Care Statistical Modeler Name Role Phone Jonathan Hernandez MD Primary Care Provider [phone] Luis Rodriguez MD Unavailable Arlen Millan NP Unavailable Unavailab Joselito Carranza MD Unavailable Unavailab Lisa Maddox MD Unavailable Unavailabl Shawna Zuluaga METAL SLITTER Unavailable [phone] Encounter Details Date Type Department Care Team Description 09/30/2023 [facility] Report Medical Records [address] [place] [address] Glenna Lema MD Social History Tobacco Use Types Packs/Day Years Used Date Smoking Tobacco: Some Days Cigarettes 0.1 25 Started: 01/26/1960 Smokeless Tobacco: Never Comments:smokes 2 cigarettes daily Alcohol Use Standard Drinks/Week Comments [...] on filedocumented in this encounter Care Teams Statistical Modeler Relationship Specialty Start Date End Date Jonathan Hernandez MD [address] [place] [address] PCP - General Internal Medicine 09/04/21 Luis Rodriguez MD [address] [place] [address] Data Abstractor Cardiovascular Disease 10/12/21 Arlen Millan NP [address] [place] [address] Nurse Practioner Acute Care 12/21/21 Joselito Pires MD [address] [place] [address] Neurology 02/08/22 Lisa Zepeda MD [address] [place] [address] Specialist Internal Medicine 02/08/22 Shawna Farooq NP [address] [place] [address] Cardiology 05/15/24 documented as of this encounter
--- OUTSIDE RECORDS SUMMARY | 2025-04-27 16:33 | XMS_ITS | Encounter Summary ---
Author Organization [facility] Address [address] [place] [address] Care Team Providers Care Faucet Polisher Name Role Phone Jonathan Hernandez MD Primary Care Provider [phone] Luis Rodriguez MD Unavailable Arlen Millan NP Unavailable Unavailab Joselito Carranza MD Unavailable Unavailab Lisa Maddox MD Unavailable UnavailShawna Alvarez PUMP STATION OPERATOR Unavailable [phone] Encounter Details Date Type Department Care Team Description 12/04/2023 Hospital Medical Records [address] [place], [place] [id number] [place] [address] Social History Tobacco Use Types Packs/Day Years [...] on file documented as of this encounter Procedures Procedure Name Priority Date/Time Associated Diagnosis Comments OUTSIDE ECHO Routine 12/02/2023 documented in this encounter Results * OUTSIDE ECHO (12/02/2023) Provider Default CARDIOLOGY [facility] documented in this encounter Visit Diagnoses Not on filedocumented in this encounter Care Teams Faucet Polisher Relationship Specialty Start Date End Date Jonathan Hernandez MD [address] [place] [address] PCP - General Internal Medicine 09/04/21 Luis Rodriguez MD [address] [place] [address] Manager Unit Cardiovascular Disease 10/12/21 Arlen Millan NP [address] [place] [address] Nurse Practioner Acute Care 12/21/21 Joselito Pires MD [address] [place] [address] Neurology 02/08/22 Lisa Zepeda MD [address] [place] [address] Specialist Internal Medicine 02/08/22 Shawna Farooq NP [address] [place] [address] Cardiology 05/15/24 documented as of this encounter
--- OUTSIDE RECORDS SUMMARY | 2025-04-27 16:33 | XMS_ITS | Encounter Summary ---
Author Organization [facility] Address [address] [place] [address] Care Team Providers Care Regulatory Lead Name Role Phone Jonathan Hernandez MD Primary Care Provider [phone] Luis Rodriguez MD Unavailable Arlen Millan NP Unavailable Unavailab Joselito Carranza MD Unavailable Unavailab Lisa Maddox MD Unavailable UnavailShawna Alvarez CONCERT PIANIST Unavailable [phone] Encounter Details Date Type Department Care Team Description 11/01/2023 Pt. Non Urgent Medical Question Cardio PVCA Diag Testing 101 [address] [facility] [address] [place] [address] [id number] Luis Rodriguez MD [address] [place] [address] [phone] Social History Tobacco Use Types Packs/Day Years [...] on file documented as of this encounter Miscellaneous Notes * Telephone Encounter - Clifton Ross RN - 11/04/2023 7:58 AM EDTFrom: Soraya Mendoza To: Umair Rodriguez Sent: 11/01/2023 6:59 PM EDT Subject: Valsarten Hi Dr. Rodriguez Just sent in a prescription request for an increase in Valsartan dose for Soraya Mendoza. She took my Dads 160mg Valsartan by accident this week. It seems to help with her anxiety that leads to her bouts with high blood pressure. Could I make an appointment for them both to be reevaluated? I wi ll wait till next week before refilling Soraya's Valsartan. Jaime Cervantes daughter health proxy on file for both. documented in this encounter Plan of Treatment Not on file documented as of this encounter Visit Diagnoses Not on filedocumented in this encounter Care Teams Regulatory Lead Relationship Specialty Start Date End Date Jonathan Hernandez MD [address] [place] [address] PCP - General Internal Medicine 09/04/21 Luis Rodriguez MD [address] [place] [address] Concrete Polisher Cardiovascular Disease 10/12/21 Arlen Millan NP [address] [place], [place] [phone] Nurse Practioner Acute Care 12/21/21 Joselito Piers MD [address] [place] [address] Neurology 02/08/22 Lisa Zepeda MD [address] [place], [place] [phone] Specialist Internal Medicine 02/08/22 Shawna Farooq NP [address] [place], [place] [phone] Cardiology 05/15/24 documented as of this encounter
--- OUTSIDE RECORDS SUMMARY | 2025-04-27 16:33 | XMS_ITS | Encounter Summary ---
Author Organization [facility] Address [address] [place] [address] Care Team Providers Care Hall Coordinator Name Role Phone Jonathan Hernandez MD Primary Care Provider Luis Rodriguez MD Unavailable Arlen Millan NP Unavailable Unavailab Joselito Carranza MD Unavailable Unavailab Lisa Maddox MD Unavailable Unavailabl Shawna Zuluaga NP Unavailable Encounter Details Date Type Department Care Team Description 12/10/2023 Pt. Non Urgent Medical Question Cardio PVC [address] [facility] [address] [place] [address] Shawna Farooq NP [address] [facility] [place] [address] Social History Tobacco Use Types Packs/Day Years [...] encounter Miscellaneous Notes * Telephone Encounter - Kira Candi - 12/11/2023 8:04 AM EDTFrom: Soraya Mendoza To: Yvette Farooq Sent: 12/10/2023 10:38 PM EDT Subject: Review Of Meds Needed due Hip surgery and blood clot Torin Shawnabruce Farooq, [facility]-, I am writing due to a recent visit with Dr. Rodriguez and my mother Soraya Mendoza. On November 23, she fell and broke her hip and had a hemiarthroplasty and then on November 30, she developed and had a blood clot treated first with Hepparin drip and now the pill called Eliquis. She is now at [facility] and the her blood pressure is low today it was higher at 112 over 64 and 81 pulse. Attached are the medications changes as they occurred between [facility] and [facility]. Can you check from your perspective field of cardiology to see why her pulse maybe so low is it normal in these events. Happy to pay for a telehealth visit for you to speak with her providers at [facility] in [place] where she is staying for intense PT and OT. Thank you in advance, Priscilla Cervantes for Soraya Mendoza [phone] documented in this encounter Plan of Treatment Not on file documented as of this encounter Visit Diagnoses Not on filedocumented in this encounter Care Teams Hall Coordinator Relationship Specialty Start Date End Date Jonathan Hernandez MD [address] [place] [address] PCP - General Internal Medicine 09/04/21 Luis Rodriguez MD [address] [place] [address] Residential Worker Cardiovascular Disease 10/12/21 Arlen Millan NP [address] [place] [address] Nurse Practioner Acute Care 12/21/21 Joselito Pires MD [address] [place] [address] Neurology 02/08/22 Lisa Zepeda MD [address] [place], [place] [phone] Specialist Internal Medicine 02/08/22 Shawna Farooq NP [address] [place] [address] Cardiology 05/15/24 documented as of this encounter
--- OUTSIDE RECORDS SUMMARY | 2025-04-27 16:33 | XMS_ITS | Encounter Summary ---
Author Organization [facility] Address [address] [place] [address] Care Team Providers Care Enrollment Management Manager Name Role Phone Jonathan Hernandez MD Primary Care Provider [phone] Luis Rodriguez MD Unavailable Arlen Millan NP Unavailable Unavailab Joselito Carranza MD Unavailable Unavailab Lisa Maddox MD Unavailable UnavailShawna Alvarez FITTER HAND Unavailable Reason for Visit * Reason Onset Date Comments APPOINTMENT 03/28/2023 ON 03/22/23 Encounter Details Date Type Department Care Team Description 03/28/2023 Telephone Adult Medicine [facility] [address] [place] [address] [phone] Jonathan Hernandez MD [address] [place] [address] [phone] APPOINTMENT (ON 03/22/23) Social History Tobacco Use Types Packs/Day Years [...] file Not on file Not on file COVID-19 Exposure Response Date Recorded In the last 10 days, have yo u been in contact with someone who was confirmed or suspected to have Coronavirus/COVID-19? No / Unsure 03/22/2023 1:14 PM EDT documented as of this encounter Miscellaneous Notes * Telephone Encounter - Pao Tate PA-C - 03/28/2023 4:57 PM EDT Images from the original note were not included. * Telephone Encounter - Gina Lee - 03/28/2023 4:14 PM EDT On March 22 I had clocked out of wokr to leave early and was approched by patients daughter who had requested help with her mother who was in the car in our parking lot who refused to come inside building for her appt, I went out to the vehicle and introduced myself to PT, who stated her daughter was a Bitch and I dont know what her daughter does to her and she stated she was fine and did not make this appt, I offered to walk PT inside and bring her into exam room by myself PT agreed andsaid as long as that bitch does not come in the room that she would come she stated again I dont know what her daughter does to her and that her daughter has no control of what she does, Daughter also had patient's with them who was found wondering the parking lot with another coworker trying to find his car which he came with daughter and PT we checked in with Petr in front office clerk and asked daughter if it was okay if I took PT to exam room alone daughter agreed and situation with PT deesculated and PT was cooperative. Blood pressure was elevated and MA and provider was informed. Farooq adair completely agreed and was thankful for my help. I was able to get PT's weight and vitals with out issue documented in this encounter Plan of Treatment Not on file documented as of this encounter Visit Diagnoses Not on filedocumented in this encounter Care Teams Enrollment Management Manager Relationship Specialty Start Date End Date Jonathan Hernandez MD [address] [place] [address] PCP - General Internal Medicine 09/04/21 Luis Rodriguez MD [address] [place] [address] Refueler Cardiovascular Disease 10/12/21 Arlen Millan NP [address] [place] [address] Nurse Practioner Acute Care 12/21/21 Joselito Pires MD [address] [place] [address] Neurology 02/08/22 Lisa Zepeda MD [address] [place] [address] Specialist Internal Medicine 02/08/22 Shawna Farooq NP [address] [place] [address] Cardiology 05/15/24 documented as of this encounter
--- OUTSIDE RECORDS SUMMARY | 2025-04-27 16:33 | XMS_ITS | Encounter Summary ---
Author Organization [facility] Address [address] [place] [address] Care Team Providers Care Chemical Tank Worker Name Role Phone Jonathan Hernandez MD Primary Care Provider [phone] Luis Rodriguez MD Unavailable Arlen Millan NP Unavailable Unavailab Joselito Carranza MD Unavailable Unavailab Lisa Maddox MD Unavailable UnavailShawna Alvarez BUCKLE AND BUTTON MAKER Unavailable [phone] Encounter Details Date Type Department Care Team Description 12/02/2023 [facility] V[facility] Surgery - [place] [address] [address] Suzan Owens MD [address] [address] Social History Tobacco Use Types Packs/Day Years [...] on filedocumented in this encounter Care Teams Chemical Tank Worker Relationship Specialty Start Date End Date Jonathan Hernandez MD [address] [place] [address] PCP - General Internal Medicine 09/04/21 Luis Rodriguez MD [address] [place] [address] Technical Publications Writer Cardiovascular Disease 10/12/21 Arlen Millan NP [address] [place] [address] Nurse Practioner Acute Care 12/21/21 Joseltio Pires MD [address] [place] [address] Neurology 02/08/22 Lisa Zepeda MD [address] [place] [address] Specialist Internal Medicine 02/08/22 Shawna Farooq NP [address] [place] [address] Cardiology 05/15/24 documented as of this encounter
--- OUTSIDE RECORDS SUMMARY | 2025-04-27 16:33 | XMS_ITS | Encounter Summary ---
Author Organization [facility] Address [address] [place] [address] Care Team Providers Care Database Security Expert Name Role Phone Byron Fuentes MD Primary Care Provider Un available Flor Bruce MD Primary Care Provider Unavail able Byron Fuentes MD Unavailable Unavaila Jonathan Beth MD Primary Care Provider [phone] Jonathan Hernandez MD Primary Care Provider [phone] Luis Rodriguez MD Unavailable Arlen Millan NP Unavailable Unavailab Joselito Carranza MD Unavailable Unavailab Lisa Maddox MD Unavailable UnavailShawna Alvarez GARMENT CUTTER Unavailable [phone] Encounter Details Date Type Department Care Team Description 04/03/2017 Business Doc Medical Records [address] [place] [address] Abstract, Provider Social History Tobacco Use Types [...] on filedocumented in this encounter Care Teams Database Security Expert Relationship Specialty Start Date End Date Byron Fuentes MD PCP - General 07/15/1992 09/04/18 Flor Bruce MD PCP - General Internal Medicine 09/05/18 05/21/21 Jonathan Hernandez MD [address] [place] [address] PCP - General Internal Medicine 05/22/21 09/03/21 Jonathan Hernandez MD [address] [place] [address] 8[address]13 PCP - General Internal Medicine 09/04/21 Byron Fuentes MD Specialist Internal Medicine 10/05/19 Luis Rodriguez MD [address] [place] [address] Blank Driller Cardiovascular Disease 10/12/21 Arlen Millan NP [address] [place], [place] [phone] Nurse Practioner Acute Care 12/21/21 Joselito Pires MD [address] [place] [address] 6[address] Neurology 02/08/22 Lisa Zepeda MD [address] [place], [place] [phone] Specialist Internal Medicine 02/08/22 Shawna Farooq NP [address] [place] [address]41 Cardiology 05/15/24 documented as of this encounter
--- OUTSIDE RECORDS SUMMARY | 2025-04-27 16:33 | XMS_ITS | Encounter Summary ---
Author Organization [facility] Address [address] [place] [address] Care Team Providers Care Mold Shaker Name Role Phone Jonathan Hernandez MD Primary Care Provider [phone] Luis Rodriguez MD Unavailable Arlen Millan NP Unavailable Unavailab Joselito Carranza MD Unavailable Unavailab Lisa Maddox MD Unavailable UnavailShawna Alvarez B2B MANAGED SERVICE SALES EXEC Unavailable [phone] Reason for Visit * Reason Onset Date Comments refill request 11/01/2023 Valsartan Encounter Details Date Type Department Care Team Description 11/01/2023 Refill Cardio PVC POC [address] [facility] [address] [place] [address] Luis Rodriguez MD [address] [place] [address] [id number] refill request (Valsartan ) Social History Tobacco Use Types Packs/Day Years [...] encounter Miscellaneous Notes * Telephone Encounter - Stefanie Thakkar RN - 11/04/2023 11:45 AM EDT Pt sent my chart message for Valsartan refill, pt has refill left at pharmacy I spoke with Brenda Meyer Refill refused LMOM to inform pt and sent my chart message documented in this encounter Plan of Treatment Not on file documented as of this encounter Visit Diagnoses Diagnosis NSTEMI (non-ST elevated myocardial infarction) (HCC) Acute myocardial infarction, subendocardial infarction, episode of care unspecified Ischemic cardiomyopathy Other specified forms of chronic ischemic heart disease documented in this encounter Care Teams Mold Shaker Relationship Specialty Start Date End Date Jonathan Hernandez MD [address] [place] [address] PCP - General Internal Medicine 09/04/21 Luis Rodriguez MD [address] [place], [place] [phone] Harness Installer Cardiovascular Disease 10/12/21 Arlen Millan NP [address] [place], [place] [address] Nurse Practioner Acute Care 12/21/21 Joselito Pires MD [address] [place] [address] Neurology 02/08/22 Lisa Zepeda MD [address] [place], [place] [phone] Specialist Internal Medicine 02/08/22 Shawna Farooq NP [address] [place] [address] Cardiology 05/15/24 documented as of this encounter
--- OUTSIDE RECORDS SUMMARY | 2025-04-27 16:34 | XMS_ITS | Encounter Summary ---
Author Organization [facility] Address [address] [place] [address] Care Team Providers Care Underground Heavy Equipment Operator Name Role Phone Byron Fuentes MD Unavailable Unavaila Jonathan Beth MD Primary Care Provider [phone] Jonathan Hernandez MD Primary Care Provider [phone] Luis Rodriguez MD Unavailable Arlen Millan NP Unavailable Unavailab Joselito Carranza MD Unavailable Unavailab Lisa Maddox MD Unavailable UnavailShawna Alvarez PHOTOGRAPHIC ARTIST Unavailable [phone] Reason for Referral * Non DANIEL (Routine) - Authorized/Booked Specialty Diagnoses / Procedures Referred By Contac t Referred To Contact ORTHOPEDICS / Orthopedic Procedures REFERRAL TO ORTHOPEDICS (IN NETWORK) Stacia Garza PA [address] [place] [address] Jeremy Turcios PA-C [address] [place] [address] Referral ID Status Reason Start Date Expiration Date V isits Requested Visits Authorized [id number] Authorized/ Booked 09/03/2021 09/03/2022 12 12 Encounter Details Date Type Department Care Team Description 09/03/2021 Telephone Adult Medicine [address] [address] Stacia Garza PA Social History Tobacco Use Types Packs/Day Years [...] Exposure Response Date Recorded In the last month, have you been in contact with someone who was confirmed or suspected to have Coronavirus / COVID-19? No / Unsure 09/01/2021 10:04 AM EST documented as of this encounter Miscellaneous Notes * Telephone Encounter - Sarah Peres M.A. - 09/04/2021 1:56 PM EST Read message to Pt. She understands. * Telephone Encounter - Sushil Gooden - 09/04/2021 1:09 PM EST Patient's calling back to office * Telephone Encounter - Kayli Pena - 09/04/2021 1:02 PM EST Patient's returning call to office. * Telephone Encounter - Sarah Peres M.A. - 09/04/2021 11:36 AM EST Pt not at home. said to try again after 2:30. Call cell # [phone] re: Stacia Leger's message below. * Telephone Encounter - Stacia Leger PA-C - 09/03/2021 6:53 AM EST Please let patient know that I will be referring her to orthopedics. The x-ray of her right shoulder is stable from her previous x-ray showing degenerative changes or changes that occur over time. Also it shows that the lump that she has on her elbow is from swelling in her joint so that is anotherreason why I will be referring her to orthopedics. She will continue her follow-up with Dr. Rodriguez next month. Thank you. documented in this encounter Plan of Treatment Not on file documented as of this encounter Visit Diagnoses Diagnosis Elbow joint effusion, left- Primary Chronic right shoulder pain Pain in joint, shoulder region documented in this encounter Care Teams Underground Heavy Equipment Operator Relationship Specialty Start Date End Date Jonathan Hernandez MD [address] [place] [address] PCP - General Internal Medicine 05/22/21 09/03/21 Jonathan Hernandez MD [address] [place] [address] PCP - General Internal Medicine 09/04/21 Byron Fuentes MD Specialist Internal Medicine 10/05/19 Luis Rodriguez MD [address] [place] [address]71 Scrap Handler Cardiovascular Disease 10/12/21 Arlen Millan NP [address] [place] [address] Nurse Practioner Acute Care 12/21/21 Joselito Pires MD [address] [place], [place] [phone] Neurology 02/08/22 Lisa Zepeda MD [address] [place] [address] Specialist Internal Medicine 02/08/22 Shawna Farooq NP [address] [place] [address]48 Cardiology 05/15/24 documented as of this encounter
--- OUTSIDE RECORDS SUMMARY | 2025-04-27 16:34 | XMS_ITS | Encounter Summary ---
Author Organization [facility] Address [address] [place] [address] Care Team Providers Care Humanities Division Chair Name Role Phone Flor Bruce MD Primary Care Provider Unavail able Byron Fuentes MD Unavailable Unavaila Jonathan Beth MD Primary Care Provider [phone] Jonathan Hernandez MD Primary Care Provider Luis Rodriguez MD Unavailable Arlen Millan NP Unavailable Unavailab Joselito Carranza MD Unavailable Unavailab Lisa Maddox MD Unavailable UnavailShawna Alvarez NP Unavailable Encounter Details Date Type Department Care Team Description 04/24/2019 Business Doc Medical Records [address] [place] [address] Abstract, Provider Social History Tobacco Use Types Packs/Day Years Used Date Smoking Tobacco: Some Days Cigarettes 0.1 25 Started: 01/26/1960 Smokeless Tobacco: Never Alcohol Use Standard Drinks/Week Comments No 0 [...] on filedocumented in this encounter Care Teams Humanities Division Chair Relationship Specialty Start Date End Date Flor Bruce MD PCP - General Internal Medicine 09/05/18 05/21/21 Jonathan Hernandez MD [address] [place] [address] PCP - General Internal Medicine 05/22/21 09/03/21 Jonathan Hernandez MD [address] [place] [address] PCP - General Internal Medicine 09/04/21 Byron Fuentes MD Specialist Internal Medicine 10/05/19 Luis Rodriguez MD [address] [place] [address] Packaging Designer Cardiovascular Disease 10/12/21 Arlen Millan NP [address] [place], [place] [address] Nurse Practioner Acute Care 12/21/21 Joselito Pires MD [address] [place], [place] [address] Neurology 02/08/22 Lisa Zepeda MD [address] [place] [address] Specialist Internal Medicine 02/08/22 Shawna Farooq NP [address] [place], [place] [address] Cardiology 05/15/24 documented as of this encounter
--- OUTSIDE RECORDS SUMMARY | 2025-04-27 16:34 | XMS_ITS | Encounter Summary ---
Author Organization [facility] Address [address] [place] [address] Care Team Providers Care Fitness Attendant Name Role Phone Byron Fuentes MD Primary Care Provider Un available Flor Bruce MD Primary Care Provider Unavail able Byron Fuentes MD Unavailable Unavaila Jonathan Beth MD Primary Care Provider Jonathan Hernandez MD Primary Care Provider [phone] Luis Rodriguez MD Unavailable Arlen Millan NP Unavailable Unavailab Joselito Carranza MD Unavailable Unavailab Lisa Maddox MD Unavailable UnavailShawna Alvarez MINE SAFETY DIRECTOR Unavailable [phone] Reason for Visit * Reason Onset Date Comments REFERRAL 04/17/2011 Encounter Details Date Type Department Care Team Description 04/17/2011 Telephone [facility] - [address] [address] Byron Fuentes MD REFERRAL Social History Tobacco Use Types Packs/Day Years [...] encounter Miscellaneous Notes * Telephone Encounter - Nikitarebekah Lonnie - 04/17/2011 8:58 AM EDT See review 02/12/11 * Telephone Encounter - Sarah العلي - 04/17/2011 8:54 AM EDT Please verify with the patient now that this is the current/active insurance: [place] Plan[place] Product Type: MEDICARE [id number] Effective 04/14/09: BCBS will not retro referral requests over 90 days. If request is for this please instruct patient to call the 800# on their insurance card to appeal. Do not submit a request. Referrals cannot be processed if the insurance is not accurate. If the insurance listed above in red is NO BILLING INFORMATION FOUND FOR THIS ENCOUTNER The patients correct insurance must be obtained and registered in [employer] or their referral can not be processed. Who is calling to request this referral? [email or web address] If the caller is not the patient, what is their name? N/A FIRST and LAST NAME of SPECIALIST PATIENT is seeing: Dr. Tahira Vinson What specialty is this? acoustic intelligence specialist DIAGNOSIS Patient is being seen for (Not a body part or a procedure): glaucoma evaluation Have you seen this SPECIALIST for this PROBLEM/DX before?NO If YES, when:na Have you checked REVIEW or the APPT DESK to see if this referral has already been done or has visits left? YES Who referred the patient to this specialty? Dr. Senior Is this visit:Initial Visit Address of Specialist:[address] [place] [address] Phone # of Specialist:[phone] Fax #: (if applicable):[phone] Does patient have an appointment scheduled?: YES Date of appointment- (including a retro-request): 04-17-11 Is this appointment related to: Not MVA, WC or Surgery related documented in this encounter Plan of Treatment Not on file documented as of this encounter Visit Diagnoses Not on filedocumented in this encounter Care Teams Fitness Attendant Relationship Specialty Start Date End Date Byron Fuentes MD PCP - General 07/15/1992 09/04/18 Flor Bruce MD PCP - General Internal Medicine 09/05/18 05/21/21 Jonathan Hernandez MD [address] [place] [address] PCP - General Internal Medicine 05/22/21 09/03/21 Jonathan Hernandez MD [address] [place] [address]791 PCP - General Internal Medicine 09/04/21 Byron Fuentes MD Specialist Internal Medicine 10/05/19 Luis Rodriguez MD [address] [place] [address] Pork Cutlet Maker Cardiovascular Disease 10/12/21 Arlen Millan, KENNY [address] [place] [address] Nurse Practioner Acute Care 12/21/21 Joselito Pires MD [address] [place], [place] [phone] Neurology 02/08/22 Lisa Zepeda MD [address] [place] [address] Specialist Internal Medicine 02/08/22 Shawna Farooq NP [address] [place] [address] Cardiology 05/15/24 documented as of this encounter
--- OUTSIDE RECORDS SUMMARY | 2025-04-27 16:34 | XMS_ITS | Encounter Summary ---
Author Organization [facility] Address [address] [place] [address] Care Team Providers Care Licensed Psychiatric Technician Name Role Phone Jonathan Hernandez MD Primary Care Provider [phone] Luis Rodriguez MD Unavailable Arlen Millan NP Unavailable Unavailab Joselito Carranza MD Unavailable Unavailab Lisa Maddox MD Unavailable UnavailShawna Alvarez COMMUNITY HEALTH DIRECTOR Unavailable [phone] Reason for Visit * Reason Onset Date Comments Echocardiogram 06/12/2022 Echo results Encounter Details Date Type Department Care Team Description 06/12/2022 Telephone Cardio PVCA Diag Testing [address] [facility] [address] [place] [address] Hayley Samano PA-C [address] [place] [address] Echocardiogram (Echo results) Social History Tobacco Use Types Packs/Day Years [...] was confirmed or suspected to have Coronavirus/COVID-19? Unable to assess 06/15/2022 9:59 AM EST documented as of this encounter Miscellaneous Notes * Telephone Encounter - Hayley Samano PA-C - 06/12/2022 12:49 PM EST I reviewed echo completed earlier this month. LVEF remains unchanged 35-40% from echo done this past spring at [facility]. I called and spoke to daughter, Priscilla. Daughter confirmed that patient is taking metoprolol and ARB on a regular basis. She stopped rosuvastatin due to agitation in the setting of dementia. Daughter reports agitation has improved significantly off statin. She states patient has not had any significant dyspnea. She can walk around the grocery store with no symptoms. No weight gain or edema. Recommend checking BMP and then determining if we can optimize CHF med regimen further. Checks BP and HR at [facility]. Recent pulse 70-90s and BP 120/60. Scheduling- please call daughter Priscilla to reschedule Donell appt with Dr. Rodriguez as she can not makea late afternoon appt time. Requesting mid moring or early afternoon any day of the week.Ok to leave a voicemail. documented in this encounter Plan of Treatment Not on file documented as of this encounter Results * (ABNORMAL) BASIC METABOLIC PANEL (06/13/2022 10:39 AM EST) GLUCOSE 106(H) 70 - 100 mg/dL 06/13/2022 4:01 PM EST [facility] Comment:Reference range appl icable to fasting specimens only Blood Urea Nitrogen 17 5 - 25 mg/dL 06/13/2022 4:01 PM EST [facility] CREAT 0.85 0.5 - 1.1 mg/dL 06/13/2022 4:01 PM EST [facility] GLOMERULAR FILTRATION RATE 69 >60 06/13/2022 4:01 PM EST [facility] Comment: This eGFR result was calculated using the CKD-EPI 2020 Creatinine Equation NA 141 135 - 145 mEq/L 06/13/2022 4:01 PM EST [facility] K 4.1 3.5 - 5.5 mmol/L 06/13/2022 4:01 PM EST [facility] CL 108 96 - 110 mmol/L 06/13/2022 4:01 PM EST [facility] CARBON DIOXIDE (CO2) 29 21 - 32 mmol/L 06/13/2022 4:01 PM EST [facility] ANION GAP 4 3 - 11 06/13/2022 4:01 PM EST [facility] CALCIUM 8.9 8.5 - 10.5 mg/dL 06/13/2022 4:01 PM EST [facility] 06/13/2022 10:3 9 AM EST 06/13/2022 10:40 AM EST Narrative [facility] - 06/13/2022 4:01 PM EST Release to patient->Immediate Hayley Samano PA-C LAB [facility] documented in this encounter Visit Diagnoses Diagnosis Ischemic cardiomyopathy- Primary Other specified forms of chronic ischemic heart disease Ischemic cardiomyopathy Other specified forms of chronic ischemic heart disease documented in this encounter Care Teams Licensed Psychiatric Technician Relationship Specialty Start Date End Date Jonathan Hernandez MD [address] [place] [address] PCP - General Internal Medicine 09/04/21 Luis Rodriguez MD [address] [place] [address] Brewery Cellar Worker Cardiovascular Disease 10/12/21 Arlen Millan NP [address] [place], [place] [address] Nurse Practioner Acute Care 12/21/21 Joselito Pires MD [address] [place], [place] [address]47[address] Neurology 02/08/22 Lisa Zepeda MD [address] [place], [place] [address] Specialist Internal Medicine 02/08/22 Shawna Farooq NP [address] [place], [place] [address] Cardiology 05/15/24 documented as of this encounter
--- OUTSIDE RECORDS SUMMARY | 2025-04-27 16:34 | XMS_ITS | Encounter Summary ---
Author Organization [facility] Address [address] [place] [address] Care Team Providers Care Roads And Parking Lots Sweeper Operator Name Role Phone Byron Fuentes MD Primary Care Provider Un available Flor Bruce MD Primary Care Provider Unavail able Byron Fuentes MD Unavailable Unavaila Jonathan Beth MD Primary Care Provider Jonathan Hernandez MD Primary Care Provider [phone] Luis Rodriguez MD Unavailable Arlen Millan NP Unavailable Unavailab Joselito Carranza MD Unavailable Unavailab Lisa Maddox MD Unavailable UnavailShawna Alvarez BRICKMASON SUPERVISOR Unavailable [phone] Encounter Details Date Type Department Care Team Description 06/29/2015 COVERED BUTTON MAKER/[facility] Report Medical Records [address] [place] [address] Abstract, Provider Social History Tobacco Use Types [...] on filedocumented in this encounter Care Teams Roads And Parking Lots Sweeper Operator Relationship Specialty Start Date End Date Byron Fuentes MD PCP - General 07/15/1992 09/04/18 Flor Bruce MD PCP - General Internal Medicine 09/05/18 05/21/21 Jonathan Hernandez MD [address] [place] [address] PCP - General Internal Medicine 05/22/21 09/03/21 Jonathan Hernandez MD [address] [place] [address] PCP - General Internal Medicine 09/04/21 Byron Fuentes MD Specialist Internal Medicine 10/05/19 Luis Rodriguez MD [address] [place] [address] Permastone Mechanic Cardiovascular Disease 10/12/21 Arlen Millan NP [address] [place], [place] [address] Nurse Practioner Acute Care 12/21/21 Joselito Pires MD [address] [place] [address] Neurology 02/08/22 Lisa Zepeda MD [address] [place], [place] [address] Specialist Internal Medicine 02/08/22 Shawna Farooq NP [address] [place] [address] Cardiology 05/15/24 documented as of this encounter
--- OUTSIDE RECORDS SUMMARY | 2025-04-27 16:34 | XMS_ITS | Encounter Summary ---
Author Organization [facility] Address [address] [place] [address] Care Team Providers Care Textiles And Clothing Teacher Name Role Phone Flor Bruce MD Primary Care Provider Unavail able Byron Fuentes MD Unavailable Unavaila Jonathan Beth MD Primary Care Provider [phone] Jonathan Hernandez MD Primary Care Provider [phone] Luis Rodriguez MD Unavailable Arlen Millan NP Unavailable Unavailab Joselito Carranza MD Unavailable Unavailab Lisa Maddox MD Unavailable UnavailShawna Alvarez CERTIFIED NURSE AIDE Unavailable [phone] Encounter Details Date Type Department Care Team Description 03/12/2019 Hospital Medical Records [address] [place] [address] Chidi Dickinson MD [address] [place] [address] Social History Tobacco Use Types Packs/Day Years [...] on filedocumented in this encounter Care Teams Textiles And Clothing Teacher Relationship Specialty Start Date End Date Flor Bruce MD PCP - General Internal Medicine 09/05/18 05/21/21 Jonathan Hernandez MD [address] [place] [address] PCP - General Internal Medicine 05/22/21 09/03/21 Jonathan Hernandez MD [address] [place] [address] PCP - General Internal Medicine 09/04/21 Byron Fuentes MD Specialist Internal Medicine 10/05/19 Luis Rodriguez MD [address] [place] [address] Grinding Machine Operator Portable Cardiovascular Disease 10/12/21 Arlen Millan, KENNY [address] [place], [place] [phone] Nurse Practioner Acute Care 12/21/21 Joselito Pires MD [address] [place] [address] Neurology 02/08/22 Lisa Zepeda MD [address] [place], [place] [phone] Specialist Internal Medicine 02/08/22 Shawna Farooq NP [address] [place] [address] Cardiology 05/15/24 documented as of this encounter
--- OUTSIDE RECORDS SUMMARY | 2025-04-27 16:34 | XMS_ITS | Encounter Summary ---
Author Organization [facility] Address [address] [place] [address] Care Team Providers Care Operations Consultant Name Role Phone Byron Fuentes MD Primary Care Provider Un available Flor Bruce MD Primary Care Provider Unavail able Byron Fuentes MD Unavailable Unavaila Jonathan Beth MD Primary Care Provider [phone] Jonathan Hernandez MD Primary Care Provider [phone] Luis Rodriguez MD Unavailable Arlen Millan NP Unavailable Unavailab Joselito Carranza MD Unavailable Unavailab Lisa Maddox MD Unavailable UnavailShawna Alvarez TOBACCO SIEVE OPERATOR Unavailable [phone] Encounter Details Date Type Department Care Team Description 09/02/2013 Business Doc Medical Records [address] [place] [address] Abstract, Provider Social History Tobacco Use Types [...] on filedocumented in this encounter Care Teams Operations Consultant Relationship Specialty Start Date End Date Byron Fuentes MD PCP - General 07/15/1992 09/04/18 Flor Bruce MD PCP - General Internal Medicine 09/05/18 05/21/21 Jonathan Hernandez MD [address] [place] [address] PCP - General Internal Medicine 05/22/21 09/03/21 Jonathan Hernandez MD [address] [place] [address] PCP - General Internal Medicine 09/04/21 Byron Fuentes MD Specialist Internal Medicine 10/05/19 Luis Rodriguez MD [address] [place] [address] Route Vending Machine Servicer Cardiovascular Disease 10/12/21 Arlen Millan NP [address] [place], [place] [address] Nurse Practioner Acute Care 12/21/21 Joselito Pires MD [address] [place] [address] Neurology 02/08/22 Lisa Zepeda MD [address] [place], [place] [address] Specialist Internal Medicine 02/08/22 Shawna Farooq NP [address] [place] [address] Cardiology 05/15/24 documented as of this encounter
--- OUTSIDE RECORDS SUMMARY | 2025-04-27 16:34 | XMS_ITS | Encounter Summary ---
Author Organization [facility] Address [address] [place] [address] Care Team Providers Care Mobile Architect Name Role Phone Byron Fuentes MD Primary Care Provider Un available Flor Bruce MD Primary Care Provider Unavail able Byron Fuentes MD Unavailable Unavaila Jonathan eBth MD Primary Care Provider [phone] Jonathan Hernandez MD Primary Care Provider [phone] Luis Rodriguez MD Unavailable Arlen Millan NP Unavailable Unavailab Joselito Carranza MD Unavailable Unavailab Lisa Maddox MD Unavailable UnavailShawna Alvarez SPRING LAYER Unavailable [phone] Encounter Details Date Type Department Care Team Description 12/25/2011 Guest Services Ambassador Report Medical Records [address] [place] [address] Abstract, Provider Social History Tobacco Use Types [...] on filedocumented in this encounter Care Teams Mobile Architect Relationship Specialty Start Date End Date Byron Fuentes MD PCP - General 07/15/1992 09/04/18 Flor Bruce MD PCP - General Internal Medicine 09/05/18 05/21/21 Jonathan Hernandez MD [address] [place] [address] 51210 PCP - General Internal Medicine 05/22/21 09/03/21 Jonathan Hernandez MD [address] [place] [address] 55987 PCP - General Internal Medicine 09/04/21 Byron Fuentes MD Specialist Internal Medicine 10/05/19 Luis Rodriguez MD [address] [place] [address] 10358 Metal Window Screen Assembler Cardiovascular Disease 10/12/21 Arlen Millan NP [address] [place], [place] [phone] Nurse Practioner Acute Care 12/21/21 Joselito Pires MD [address] [place] [address] 68413 Neurology 02/08/22 Lisa Zepeda MD [address] [place], [place] [address] Specialist Internal Medicine 02/08/22 Shawna Farooq NP [address] [place] [address] 28138 Cardiology 05/15/24 documented as of this encounter
--- OUTSIDE RECORDS SUMMARY | 2025-04-27 16:34 | XMS_ITS | Encounter Summary ---
Author Organization [facility] Address [address] [place] [address] Care Team Providers Care Solutions Specialist Name Role Phone Jonathan Hernandez MD Primary Care Provider [phone] Luis Rodriguez MD Unavailable Arlen Millan NP Unavailable Unavailab Joselito Carranza MD Unavailable Unavailab Lisa Maddox MD Unavailable UnavailShawna Alvarez CARE ANALYST Unavailable [phone] Encounter Details Date Type Department Care Team Description 06/26/2022 SCAN Medical Records [address] [place] [address] Abstract, Provider Social History Tobacco Use Types [...] AM EST documented as of this encounter Plan of Treatment Not on file documented as of this encounter Procedures Procedure Name Priority Date/Time Associated Diagnosis Comments OUTSIDE LAB Routine 06/26/2022 OUTSIDE LAB Routine 06/26/2022 documented in this encounter Results * OUTSIDE LAB (06/26/2022) Provider Abstract LAB * OUTSIDE LAB (06/26/2022) Provider Abstract LAB documented in this encounter Visit Diagnoses Not on filedocumented in this encounter Care Teams Solutions Specialist Relationship Specialty Start Date End Date Jonathan Hernandez MD [address] [place] [address]407 PCP - General Internal Medicine 09/04/21 Luis Rodriguez MD [address] [place] [address] 95133 Spray Machine Operator Cardiovascular Disease 10/12/21 Arlen Millan NP [address] [place], [place] [address] Nurse Practioner Acute Care 12/21/21 Joselito Pires MD [address] [place] [address] 14750 Neurology 02/08/22 Lisa Zepeda MD [address] [place], [place] [address] Specialist Internal Medicine 02/08/22 Shawna Farooq NP [address] [place] [address] 76382 Cardiology 05/15/24 documented as of this encounter
--- OUTSIDE RECORDS SUMMARY | 2025-04-27 16:34 | XMS_ITS | Encounter Summary ---
Author Organization [facility] Address [address] [place] [address] Care Team Providers Care Shipping Clerk/Admin Name Role Phone Jnoathan Hernandez MD Primary Care Provider [phone] Luis Rodriguez MD Unavailable Arlen Millan NP Unavailable Unavailab Joselito Carranza MD Unavailable Unavailab Lisa Maddox MD Unavailable UnavailShawna Alvarez SWITCHBOARD TROUBLESHOOTER Unavailable [phone] Reason for Visit * Reason Onset Date Comments Medication 06/20/2022 Reminder for med ications Encounter Details Date Type Department Care Team Description 06/20/2022 Telephone Cardio PVCA Diag Testing [address] [facility] [address] [place], [place] [id number] Luis Rodriguez MD [address] [place] [address] [id number] Medication (Reminder for medications) Social History Tobacco Use Types Packs/Day Years [...] encounter Miscellaneous Notes * Telephone Encounter - Ariadne Yates RN - 06/20/2022 1:21 PM EST Past 2 days only took valsartan and has not taken Toprol Xl for past 2 days. Daughter states patient has a better day, less tired and eats better and is happier. Per daughter patient will be seeing anew neurologist in 08/2022 and is 08/30/[address] Glenna Nixon. I spoke with daughter who stated patient has plenty of meds for now and will call when needs meds. She asked for me to speak with patient as well and remind her why she is on them. I spoke with patient and reminded her JM has her on these medications for her heart. I asked patient to please take daily as prescribed so JM can see how she is doing on her meds. I asked her to please take meds as prescribed so she does not start to feel unwell and end up in the hospital and discharged on more meds. I am unsure if she will take her meds or not. 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 She states she has [employer] assistance with helpful information for what assistance is in the community. * Telephone Encounter - Hayley Samano PA-C - 06/20/2022 11:56 AM EST Please have nurse call patient and encourage her to take her medications as prescribed. * Telephone Encounter - Ashlie Pulido C.M.A. - 06/20/2022 10:46 AM EST Pt doesn't want to take her BP meds. Dtr Mary Lou, called to report that . Her bp with meds at home 120/68 without 154/74 (todays bp) . Pt stopped meds 3 days ago and hid them. I spoke with pt and to find out if patient was having any trouble tolerating the med and they both said no. Soraya simply doesn't want to take them. Dtr asked me to tell her to take them but I told Priscilla, I would let her provider be aware of the situation . I told Mary Lou we do want Toro to be compliant with her medical treatment. In the end we cannot force her She was hoping we can encourage her to take her meds * Telephone Encounter - Monroeantionette Teodoro - 06/20/2022 9:57 AM EST Patients daughter Priscilla calling,state patient is not taking her medications and reporting blood pressure for patient is 156/74 without medications . Would like a nurse to call and advise patient tottake medications so the monitoring blood pressure can be accurate.[phone] documented in this encounter Plan of Treatment Not on file documented as of this encounter Visit Diagnoses Not on filedocumented in this encounter Care Teams Shipping Clerk/Admin Relationship Specialty Start Date End Date Jonathan Hernandez MD [address] [place] [address] PCP - General Internal Medicine 09/04/21 Luis Rodriguez MD [address] [place] [address] Information Assistant Cardiovascular Disease 10/12/21 Arlen Millan NP [address] [place], [place] [phone] Nurse Practioner Acute Care 12/21/21 Joselito Pires MD [address] [place] [address] 65734 Neurology 02/08/22 Lisa Zepeda MD [address] [place], [place] [phone] Specialist Internal Medicine 02/08/22 Shawna Farooq NP [address] [place] [address] Cardiology 05/15/24 documented as of this encounter
--- OUTSIDE RECORDS SUMMARY | 2025-04-27 16:34 | XMS_ITS | Encounter Summary ---
Author Organization [facility] Address [address] [place] [address] Care Team Providers Care Upsetter Helper Name Role Phone Byron Fuentes MD Primary Care Provider Un available Flor Bruce MD Primary Care Provider Unavail able Byron Fuentes MD Unavailable Unavaila Jonathan Beth MD Primary Care Provider [phone] Jonathan Hernandez MD Primary Care Provider [phone] Luis Rodriguez MD Unavailable Arlen Millan NP Unavailable Unavailab Joselito Carranza MD Unavailable Unavailab Lisa Maddox MD Unavailable UnavailShawna Alvarez BUTTON AND BUCKLE MAKER Unavailable [phone] Reason for Visit * Reason Onset Date Comments APPOINTMENT 01/22/2017 gastro dept. Encounter Details Date Type Department Care Team Description 01/22/2017 Telephone Gastroenterology - [address] [phone] Tyler Zimmer MD APPOINTMENT (gastro dept.) Social History Tobacco Use Types Packs/Day Years [...] encounter Miscellaneous Notes * Telephone Encounter - Nkechi Lundberg - 01/22/2017 5:00 PM EDT We have sent a follow-up letter advising the patient to contact us for an appointment to have theircolonoscopy with no response. At this time we will be removing this patient from our wait list. We would appreciate your assistance in facilitating the scheduling of this patient. documented in this encounter Plan of Treatment Not on file documented as of this encounter Visit Diagnoses Not on filedocumented in this encounter Care Teams Upsetter Helper Relationship Specialty Start Date End Date Byron Fuentes MD PCP - General 07/15/1992 09/04/18 Flor Bruce MD PCP - General Internal Medicine 09/05/18 05/21/21 Jonathan Hernandez MD [address] [place] [address] PCP - General Internal Medicine 05/22/21 09/03/21 Jonathan Hernandez MD [address] [place] [address] PCP - General Internal Medicine 09/04/21 Byron Fuentes MD Specialist Internal Medicine 10/05/19 Luis Rodriguez MD [address] [place], [place] [phone] Solution Manager Cardiovascular Disease 10/12/21 Arlen Millan NP [address] [place], [place] [address] Nurse Practioner Acute Care 12/21/21 Joselito Pires MD [address] [place], [place] [phone] Neurology 02/08/22 Lisa Zepeda MD [address] [place], [place] [phone] Specialist Internal Medicine 02/08/22 Shawna Farooq NP [address] [place] [address] Cardiology 05/15/24 documented as of this encounter
--- OUTSIDE RECORDS SUMMARY | 2025-04-27 16:34 | XMS_ITS | Encounter Summary ---
Author Organization [facility] Address [address] [place] [address] Care Team Providers Care Ssn/Ssbn Weapons Equipment Operator Name Role Phone Jonathan Hernandez MD Primary Care Provider [phone] Luis Rodriguez MD Unavailable Arlen Millan NP Unavailable Unavailab Joselito Carranza MD Unavailable Unavailab Lisa Maddox MD Unavailable UnavailShawna Alvarez CLIENT MANAGER [employer]GE [employer] Unavailable [phone] Encounter Details Date Type Department Care Team Description 05/25/2022 Pt. Non Urgent Medic al Question Cardio PVC Stfd [address] [facility] [address] [place] [id number] Arlen Millan NP Social History Tobacco Use Types Packs/Day Years [...] suspected to have Coronavirus/COVID-19? No / Unsure 05/16/2022 1:00 PM EDT documented as of this encounter Plan of Treatment Not on file documented as of this encounter Visit Diagnoses Not on filedocumented in this encounter Care Teams Ssn/Ssbn Weapons Equipment Operator Relationship Specialty Start Date End Date Jonathan Hernandez MD [address] [place], [place] [phone] PCP - General Internal Medicine 09/04/21 Luis Rodriguez MD [address] [place] [address] Mid Level Net Developer Cardiovascular Disease 10/12/21 Arlen Millan NP [address] [place] [address] Nurse Practioner Acute Care 12/21/21 Joselito Pires MD [address] [place], [place] [phone] Neurology 02/08/22 Lisa Zepeda MD [address] [place] [address] Specialist Internal Medicine 02/08/22 Shawna Farooq NP [address] [place], [place] [address] Cardiology 05/15/24 documented as of this encounter
--- OUTSIDE RECORDS SUMMARY | 2025-04-27 16:34 | XMS_ITS | Encounter Summary ---
Author Organization [facility] Address [address] [place] [address] Care Team Providers Care Drafter Civil Name Role Phone Byron Fuentes MD Unavailable Unavaila Jonathan Beth MD Primary Care Provider [phone] Luis Rodriguez MD Unavailable Arlen Millan NP Unavailable Unavailab Joselito Carranza MD Unavailable Unavailab Lisa Maddox MD Unavailable UnavailShawna Alvarez PATIENT CARE ASSISTANT Unavailable [phone] Encounter Details Date Type Department Care Team Description 09/18/2021 Hospital Medical Records [address] [place] [address] David Multani MD Social History Tobacco Use Types Packs/Day [...] have Coronavirus / COVID-19? No / Unsure 09/11/2021 3:23 PM EST documented as of this encounter Plan of Treatment Not on file documented as of this encounter Visit Diagnoses Not on filedocumented in this encounter Care Teams Drafter Civil Relationship Specialty Start Date End Date Jonathan Hernandez MD [address] [place], [place] [phone] PCP - General Internal Medicine 09/04/21 Byron Fuentes MD Specialist Internal Medicine 10/05/19 Luis Rodriguez MD [address] [place] [address] Business Analytics Intern Cardiovascular Disease 10/12/21 Arlen Millan NP [address] [place] [address] Nurse Practioner Acute Care 12/21/21 Joselito Pires MD [address] [place], [place] [address] Neurology 02/08/22 Lisa Zepeda MD [address] [place] [address] Specialist Internal Medicine 02/08/22 Shawna Farooq NP [address] [place] [address] Cardiology 05/15/24 documented as of this encounter
--- OUTSIDE RECORDS SUMMARY | 2025-04-27 16:34 | XMS_ITS | Encounter Summary ---
Author Organization [facility] Address [address] [place] [address] Care Team Providers Care Sales Operations Coordinator Name Role Phone Byron Fuentes MD Primary Care Provider Un available Flor Bruce MD Primary Care Provider Unavail able Byron Fuentes MD Unavailable Unavaila Jonathan Beth MD Primary Care Provider [phone] Jonathan Hernandez MD Primary Care Provider [phone] Luis Rodriguez MD Unavailable Arlen Millan NP Unavailable Unavailab Joselito Carranza MD Unavailable Unavailab Lisa Maddox MD Unavailable UnavailShawna Alvarez SURVEYOR'S ASSISTANT Unavailable [phone] Encounter Details Date Type Department Care Team Description 06/23/2014 AREA FIELD WORKER/MassPat Report Medical Records [address] [place] [address] Abstract, Provider Social History Tobacco Use Types [...] on filedocumented in this encounter Care Teams Sales Operations Coordinator Relationship Specialty Start Date End Date Byron Fuentes MD PCP - General 07/15/1992 09/04/18 Flor Bruce MD PCP - General Internal Medicine 09/05/18 05/21/21 Jonathan Hernandez MD [address] [place] [address] 81468 PCP - General Internal Medicine 05/22/21 09/03/21 Jonathan Hernandez MD [address] [place] [address] 85906 PCP - General Internal Medicine 09/04/21 Byron Fuentes MD Specialist Internal Medicine 10/05/19 Luis Rodriguez MD [address] [place] [address] 97753 Warp Picker Cardiovascular Disease 10/12/21 Arlen Millan NP [address] [place], [place] [phone] Nurse Practioner Acute Care 12/21/21 Joselito Pires MD [address] [place] [address] 96450 Neurology 02/08/22 Lisa Zepeda MD [address] [place], [place] [phone] Specialist Internal Medicine 02/08/22 Shawna Farooq NP [address] [place] [address]7835 Cardiology 05/15/24 documented as of this encounter
--- OUTSIDE RECORDS SUMMARY | 2025-04-27 16:34 | XMS_ITS | Encounter Summary ---
Author Organization [facility] Address [address] [place] [address] Care Team Providers Care Servicer Name Role Phone Flor Bruce MD Primary Care Provider Unavail able Byron Fuentes MD Unavailable Unavaila Jonathan Beth MD Primary Care Provider [phone] Jonathan Hernandez MD Primary Care Provider Luis Rodriguez MD Unavailable Arlen Millan NP Unavailable Unavailab Joselito Carranza MD Unavailable Unavailab Lisa Maddox MD Unavailable UnavailShawna Alvarez NP Unavailable Encounter Details Date Type Department Care Team Description 07/20/2019 Release of Information Medical Records [address] [place] [address] Abstract, Provider Social History Tobacco Use Types [...] on filedocumented in this encounter Care Teams Servicer Relationship Specialty Start Date End Date Flor Bruce MD PCP - General Internal Medicine 09/05/18 05/21/21 Jonathan Hernandez MD [address] [place] [address]38 PCP - General Internal Medicine 05/22/21 09/03/21 Jonathan Hernandez MD [address] [place] [address] 19050 PCP - General Internal Medicine 09/04/21 Byron Fuentes MD Specialist Internal Medicine 10/05/19 Luis Rodriguez MD [address] [place] [address] Cat Cracker Operator Cardiovascular Disease 10/12/21 Arlen Millan NP [address] [place], [place] [address] Nurse Practioner Acute Care 12/21/21 Joselito Pires MD [address] [place], [place] [address] Neurology 02/08/22 Lisa Zepeda MD [address] [place] [address] Specialist Internal Medicine 02/08/22 Shawna Farooq NP [address] [place], [place] [address] Cardiology 05/15/24 documented as of this encounter
--- OUTSIDE RECORDS SUMMARY | 2025-04-27 16:34 | XMS_ITS | Encounter Summary ---
Author Organization [facility] Address [address] [place] [address] Care Team Providers Care Vocational Teacher Name Role Phone Byron Fuentes MD Primary Care Provider Un available Flor Bruce MD Primary Care Provider Unavail able Byron Fuentes MD Unavailable Unavaila Jonathan Beth MD Primary Care Provider [phone] Jonathan Hernandez MD Primary Care Provider [phone] Luis Rodriguez MD Unavailable Arlen Millan NP Unavailable Unavailab Joselito Carranza MD Unavailable Unavailab Lisa Maddox MD Unavailable UnavailShawna Alvarez SENIOR DOT NET DEVELOPER Unavailable [phone] Encounter Details Date Type Department Care Team Description 04/17/2011 Eye Mud Worker Report Medical Records [address] [place] [address] Tahira Vinson Social History Tobacco Use Types Packs/Day Years [...] on filedocumented in this encounter Care Teams Vocational Teacher Relationship Specialty Start Date End Date Byron Fuentes MD PCP - General 07/15/1992 09/04/18 Flor Bruce MD PCP - General Internal Medicine 09/05/18 05/21/21 Jonathan Hernandez MD [address] [place] [address] 43383 PCP - General Internal Medicine 05/22/21 09/03/21 Jonathan Hernandez MD [address] [place] [address] 09405 PCP - General Internal Medicine 09/04/21 Byron Fuentes MD Specialist Internal Medicine 10/05/19 Luis Rodriguez MD [address] [place] [address] 46360 Salt Refiner Cardiovascular Disease 10/12/21 Arlen Millan, KENNY [address] [place], [place] [address] Nurse Practioner Acute Care 12/21/21 Joselito Pires MD [address] [place] [address] 16095 Neurology 02/08/22 Lisa Zepeda MD [address] [place], [place] [address] Specialist Internal Medicine 02/08/22 Shawna Farooq NP [address] [place] [address] 22231 Cardiology 05/15/24 documented as of this encounter
--- OUTSIDE RECORDS SUMMARY | 2025-04-27 16:34 | XMS_ITS | Encounter Summary ---
Author Organization [facility] Address [address] [place] [address] Care Team Providers Care Corn Cooker Name Role Phone Byron uFentes MD Primary Care Provider Un available Flor Bruce MD Primary Care Provider Unavail able Byron uFentes MD Unavailable Unavaila Jonathan Beth MD Primary Care Provider [phone] Jonathan Hernandez MD Primary Care Provider [phone] Luis Rodriguez MD Unavailable Arlen Millan NP Unavailable Unavailab Joselito Carranza MD Unavailable Unavailab Lisa Maddox MD Unavailable UnavailShawna Alvarez MECHANICAL RESEARCH ENGINEER Unavailable [phone] Encounter Details Date Type Department Care Team Description 08/04/2012 Business Doc Medical Records [address] [place] [address] Abstract, Provider Social History Tobacco Use Types [...] on filedocumented in this encounter Care Teams Corn Cooker Relationship Specialty Start Date End Date Byron Fuentes MD PCP - General 07/15/1992 09/04/18 Flor Bruce MD PCP - General Internal Medicine 09/05/18 05/21/21 Jonathan Hernandez MD [address] [place] [address] 18046 PCP - General Internal Medicine 05/22/21 09/03/21 Jonathan Hernandez MD [address] [place] [address] 00477 PCP - General Internal Medicine 09/04/21 Byron Fuentes MD Specialist Internal Medicine 10/05/19 Lusi Rodriguez MD [address] [place] [address] 09428 Mobility Scooter Repairer Cardiovascular Disease 10/12/21 Arlen Millan NP [address] [place], [place] [address] Nurse Practioner Acute Care 12/21/21 Joselito Pires MD [address] [place] [address] 64060 Neurology 02/08/22 Lisa Zepeda MD [address] [place], [place] [address] Specialist Internal Medicine 02/08/22 Shawna Farooq NP [address] [place] [address]995 Cardiology 05/15/24 documented as of this encounter
--- OUTSIDE RECORDS SUMMARY | 2025-04-27 16:34 | XMS_ITS | Encounter Summary ---
Author Organization [facility] Address [address] [place] [address] Care Team Providers Care Auto Garage Attendant Name Role Phone Byron Fuentes MD Primary Care Provider Un available Flor Bruce MD Primary Care Provider Unavail able Byron Fuentes MD Unavailable Unavaila Jonathan Beth MD Primary Care Provider [phone] Jonathan Hernandez MD Primary Care Provider [phone] Luis Rodriguez MD Unavailable Arlen Millan NP Unavailable Unavailab Joselito Carranza MD Unavailable Unavailab Lisa Maddox MD Unavailable UnavailShawna Alvarez HOT TOP LINER Unavailable [phone] Encounter Details Date Type Department Care Team Description 02/07/2012 Business Doc Medical Records [address] [place] [address] Abstract, Provider Social History Tobacco Use Types [...] on filedocumented in this encounter Care Teams Auto Garage Attendant Relationship Specialty Start Date End Date Byron Fuentes MD PCP - General 07/15/1992 09/04/18 Flor Bruce MD PCP - General Internal Medicine 09/05/18 05/21/21 Jonathan Hernandez MD [address] [place] [address]127 PCP - General Internal Medicine 05/22/21 09/03/21 Jonathan Hernandez MD [address] [place] [address] 23482 PCP - General Internal Medicine 09/04/21 Byron Fuentes MD Specialist Internal Medicine 10/05/19 Luis Rodriguez MD [address] [place] [address]841 Career Advisor Cardiovascular Disease 10/12/21 Arlen Millan NP [address] [place], [place] [address] Nurse Practioner Acute Care 12/21/21 Joselito Pires MD [address] [place] [address] 06703 Neurology 02/08/22 Lisa Zepeda MD [address] [place], [place] [phone] Specialist Internal Medicine 02/08/22 Shawna Farooq NP [address] [place] [address] Cardiology 05/15/24 documented as of this encounter
--- OUTSIDE RECORDS SUMMARY | 2025-04-27 16:34 | XMS_ITS | Clinical Summary ---
Author Organization [facility] Address [address] [facility] [address] [place] [address] Phone Care Team Providers Care Collection Systems Worker Name Role Phone Unavailable Primary Care Provider Unavailabl e Social History Tobacco Use Types Packs/Day Years Used Date Smoking Tobacco: Never Assessed Education Answer Date Recorded Are you interested in more education? Not on angel e 11/10/2022 Are you concerned about learning? Not on file 11/10/2022 No 11/10/2022 No 11/10/2022 Digital Access Answer Date Recorded No 12/11/2022 No 12/11/2022 Reliable internet access at home? Not on file 12/11/2022 Device with a working camera? Not on file Comments Unknown Sex and Gender Information Value Date Recorded Sex Assigned at Not on file Legal Sex Female 11:48 AM EST Gender Identity Not on file Sexual Orientation Not on file Plan of Treatment Not on file Medical Devices Not on file Additional Source Comments The information contained in this document represents components of the legal health record. It is not the complete legal health record.[facility]
--- OUTSIDE RECORDS SUMMARY | 2025-04-27 16:34 | XMS_ITS | Encounter Summary ---
Author Organization [facility] Address [address] [place] [address] Care Team Providers Care Advertising Operations Manager Name Role Phone Byron Fuentes MD Primary Care Provider Un available Flor Bruce MD Primary Care Provider Unavail able Byron Fuentes MD Unavailable Unavaila Jonathan Beth MD Primary Care Provider [phone] Jonathan Hernandez MD Primary Care Provider Luis Rodriguez MD Unavailable Arlen Millan NP Unavailable Unavailab Joselito Carranza MD Unavailable Unavailab Lisa Maddox MD Unavailable UnavailShawna Alvarez AIRCRAFT MAINTENANCE TECHNICIAN Unavailable [phone] Reason for Visit * Reason Comments E-prescribe Rx Request Encounter Details Date Type Department Care Team Description 02/26/2016 Refill Rheumatology - [address] [address] Byron Fuentes MD E-prescribe Rx Request Social History Tobacco Use Types Packs/Day Years [...] encounter Miscellaneous Notes * Telephone Encounter - Lauren Jodi WillettN. - 02/27/2016 2:06 PM EDT She does not need the refill and she will call to refill.... And yes she is down to 2 a day * Telephone Encounter - Lauren Zapata L.P.N. - 02/27/2016 1:22 PM EDT Not due till * Telephone Encounter - Byron Fuentes MD - 02/27/2016 12:44 PM EDT Krystal, please call patient [phone] (home) [phone] (work) I had given her 60 and she was supposed to cut down to an average of 2 per day Ask her how many she has left Dr. Fuentes * Telephone Encounter - Byron Fuentes MD - 02/27/2016 12:43 PM EDT Too early for refill Dr. Fuentes * Telephone Encounter - Connie Lexi - 02/27/2016 8:02 AM EDT Patient would like script to be: E-PRESCRIBED/FAXED TO PHARMACY WHEN WAS THE PATIENT'S LAST APPOINTMENT IN ADULT MEDICINE? 11/29/15 WHEN WAS THE LAST TIME THE PATIENT SAW THEIR PCP? Same as above Does patient have an upcoming appointment? Yes 02/29/16 (THE MEDICATION REQUESTED IS ON THE MED LIST ABOVE) All of the medications requested were on the CURRENT MEDS list Did you check the Pharmacy information above?: YES Patient wants: 30 -day supply Is this a mail order prescription request ? NO Patients current insurance carrier is: Payor: MEDICARE-[employer] / Plan: MEDICARE-[employer] / Product Type: MEDICARE [id number] documented in this encounter Plan of Treatment Not on file documented as of this encounter Visit Diagnoses Not on filedocumented in this encounter Care Teams Advertising Operations Manager Relationship Specialty Start Date End Date Byron Fuentes MD PCP - General 07/15/1992 09/04/18 Flor Bruce MD PCP - General Internal Medicine 09/05/18 05/21/21 Jonathan Hernandez MD [address] [place] [address] PCP - General Internal Medicine 05/22/21 09/03/21 Jonathan Hernandez MD [address] [place] [address] PCP - General Internal Medicine 09/04/21 Byron Fuentes MD Specialist Internal Medicine 10/05/19 Luis Rodriguez MD [address] [place] [address] Executive Pilot Cardiovascular Disease 10/12/21 Arlen Millan, KENNY [address] [place] [address] Nurse Practioner Acute Care 12/21/21 Joselito Pires MD [address] [place], [place] [phone] Neurology 02/08/22 Lisa Zepeda MD [address] [place] [address] Specialist Internal Medicine 02/08/22 Shawna Farooq KENNY [address] [place] [address] Cardiology 05/15/24 documented as of this encounter
--- OUTSIDE RECORDS SUMMARY | 2025-04-27 16:34 | XMS_ITS | Encounter Summary ---
Author Organization [facility] Address [address] [place] [address] Care Team Providers Care Onion Farmer Name Role Phone Byron Fuentes MD Primary Care Provider Un available Flor Bruce MD Primary Care Provider Unavail able Byron Fuentes MD Unavailable Unavaila Jonathan Beth MD Primary Care Provider [phone] Jonathan Hernandez MD Primary Care Provider [phone] Luis Rodriguez MD Unavailable Arlen Millan NP Unavailable Unavailab Joselito Carranza MD Unavailable Unavailab Lisa Maddox MD Unavailable UnavailShawna Alvarez ANIMAL CONTROL SUPERVISOR Unavailable Encounter Details Date Type Department Care Team Description 02/04/2018 Business Doc Medical Records [address] [place] [address] Abstract, Provider Social History Tobacco Use Types [...] on filedocumented in this encounter Care Teams Onion Farmer Relationship Specialty Start Date End Date Byron Fuentes MD PCP - General 07/15/1992 09/04/18 Flor Bruce MD PCP - General Internal Medicine 09/05/18 05/21/21 Jonathan Hernandez MD [address] [place] [address] PCP - General Internal Medicine 05/22/21 09/03/21 Jonathan Hernandez MD [address] [place] [address] PCP - General Internal Medicine 09/04/21 Byron Fuentes MD Specialist Internal Medicine 10/05/19 Luis Rodriguez MD [address] [place] [address] Telephone Sex Worker Cardiovascular Disease 10/12/21 Arlen Millan, KENNY [address] [place], [place] [address] Nurse Practioner Acute Care 12/21/21 Joselito Pires MD [address] [place], [place] [address] Neurology 02/08/22 Lisa Zepeda MD [address] [place] [address] Specialist Internal Medicine 02/08/22 Shawna Farooq NP [address] [place] [address] Cardiology 05/15/24 documented as of this encounter
--- OUTSIDE RECORDS SUMMARY | 2025-04-27 16:34 | XMS_ITS | Encounter Summary ---
Author Organization [facility] Address [address] [place] [address] Care Team Providers Care Box Lidder Name Role Phone Byron Fuentes MD Primary Care Provider Un available Flor Bruce MD Primary Care Provider Unavail able Byron Fuentes MD Unavailable Unavaila Jonathan Beth MD Primary Care Provider [phone] Jonathan Hernandez MD Primary Care Provider [phone] Luis Rodriguez MD Unavailable Arlen Millan NP Unavailable Unavailab Joselito Carranza MD Unavailable Unavailab Lisa Maddox MD Unavailable UnavailShawna Alvarez SERVICE CLEANER Unavailable Encounter Details Date Type Department Care Team Description 06/06/2016 Wellness Visit Medical Records [address] [place] [address] Byron Fuentes MD Social History Tobacco Use Types Packs/Day [...] on filedocumented in this encounter Care Teams Box Lidder Relationship Specialty Start Date End Date Byron Fuentes MD PCP - General 07/15/1992 09/04/18 Flor Bruce MD PCP - General Internal Medicine 09/05/18 05/21/21 Jonathan Hernandez MD [address] [place] [address] PCP - General Internal Medicine 05/22/21 09/03/21 Jonathan Hernandez MD [address] [place] [address] PCP - General Internal Medicine 09/04/21 Byron Fuentes MD Specialist Internal Medicine 10/05/19 Luis Rodriguez MD [address] [place] [address] Water Conservationist Cardiovascular Disease 10/12/21 Arlen Millan, KENNY [address] [place], [place] [address] Nurse Practioner Acute Care 12/21/21 Joselito Pires MD [address] [place] [address] Neurology 02/08/22 Lisa Zepeda MD [address] [place], [place] [phone] Specialist Internal Medicine 02/08/22 Shawna Farooq NP [address] [place] [address] Cardiology 05/15/24 documented as of this encounter
--- OUTSIDE RECORDS SUMMARY | 2025-04-27 16:34 | XMS_ITS | Encounter Summary ---
Author Organization [facility] Address [address] [place] [address] Care Team Providers Care Proprietary Trader Name Role Phone Flor Bruce MD Primary Care Provider Unavail able Byron Fuentes MD Unavailable Unavaila Jonathan Beth MD Primary Care Provider [phone] Jonathan Hernandez MD Primary Care Provider [phone] Luis Rodriguez MD Unavailable Arlen Millan NP Unavailable Unavailab Joselito Carranza MD Unavailable Unavailab Lisa Maddox MD Unavailable UnavailShawna Alvarez HR ADMINISTRATIVE ASSISTANT Unavailable Encounter Details Date Type Department Care Team Description 03/05/2019 Hr Specialist Report Medical Records [address] [place] [address] Lisa Zepeda MD Social History Tobacco Use Types Packs/Day [...] on filedocumented in this encounter Care Teams Proprietary Trader Relationship Specialty Start Date End Date Flor Bruce MD PCP - General Internal Medicine 09/05/18 05/21/21 Jonathan Hernandez MD [address] [place] [address] PCP - General Internal Medicine 05/22/21 09/03/21 Jonathan Hernandez MD [address] [place], [place] [phone] PCP - General Internal Medicine 09/04/21 Byron Fuentes MD Specialist Internal Medicine 10/05/19 Luis Rodriguez MD [address] [place] [address] Hand Hardener Cardiovascular Disease 10/12/21 Arlen Millan NP [address] [place] [address] Nurse Practioner Acute Care 12/21/21 Joselito Pires MD [address] [place], [place] [phone] Neurology 02/08/22 Lisa Zepeda MD [address] [place] [address] Specialist Internal Medicine 02/08/22 Shawna Farooq NP [address] [place], [place] [phone] Cardiology 05/15/24 documented as of this encounter
--- OUTSIDE RECORDS SUMMARY | 2025-04-27 16:34 | XMS_ITS | Encounter Summary ---
Author Organization [facility] Address [address] [place] [address] Care Team Providers Care Food Assembler Commissary Kitchen Name Role Phone Byron Fuentes MD Primary Care Provider Un available Flor Bruce MD Primary Care Provider Unavail able Byron Fuentes MD Unavailable Unavaila Jonathan Beth MD Primary Care Provider [phone] Jonathan Hernandez MD Primary Care Provider [phone] Luis Rodriguez MD Unavailable Arlen Millan NP Unavailable Unavailab Joselito Carranza MD Unavailable Unavailab Lisa Maddox MD Unavailable UnavailShawna Alvarez SANDING LINE OPERATOR Unavailable [phone] Encounter Details Date Type Department Care Team Description 02/27/2011 Hospital Medical Records [address] [place] [address] Clay Garcia MD Social History Tobacco Use Types Packs/Day [...] on filedocumented in this encounter Care Teams Food Assembler Commissary Kitchen Relationship Specialty Start Date End Date Byron Fuentes MD PCP - General 07/15/1992 09/04/18 Flor Bruce MD PCP - General Internal Medicine 09/05/18 05/21/21 Jonathan Hernandez MD [address] [place] [address] PCP - General Internal Medicine 05/22/21 09/03/21 Jonathan Hernandez MD [address] [place] [address] PCP - General Internal Medicine 09/04/21 Byron Fuentes MD Specialist Internal Medicine 10/05/19 Luis Rodriguez MD [address] [place] [address] Design Quality Engineer Cardiovascular Disease 10/12/21 Arlen Millan, KENNY [address] [place] [address] Nurse Practioner Acute Care 12/21/21 Joselito Pires MD [address] [place] [address] Neurology 02/08/22 Lisa Zepeda MD [address] [place] [address] Specialist Internal Medicine 02/08/22 Shawna Farooq NP [address] [place] [address] Cardiology 05/15/24 documented as of this encounter
--- OUTSIDE RECORDS SUMMARY | 2025-04-27 16:34 | XMS_ITS | Encounter Summary ---
Author Organization [facility] Address [address] [place] [address] Care Team Providers Care Primary Class Teacher Name Role Phone Jonathan Hernandez MD Primary Care Provider Luis Rodriguez MD Unavailable Arlen Millan NP Unavailable Unavailab Joselito Carranza MD Unavailable Unavailab Lisa Maddox MD Unavailable UnavailShawna Alvarez COMMUNICATION EQUIPMENT REPAIRER Unavailable [phone] Encounter Details Date Type Department Care Team Description 06/12/2022 Pt. Non Urgent Medical Question Cardio PVCA Diag Testing [address] [facility] [address] [place], [place] [phone] Luis Rodriguez MD [address] [place] [address] [id number] Social History Tobacco Use Types Packs/Day Years [...] on filedocumented in this encounter Care Teams Primary Class Teacher Relationship Specialty Start Date End Date Jonathan Hernandez MD [address] [place] [address] PCP - General Internal Medicine 09/04/21 Luis Rodriguez MD [address] [place] [address] Contract Admin Cardiovascular Disease 10/12/21 Arlen Millan NP [address] [place] [address] Nurse Practioner Acute Care 12/21/21 Joselito Pires MD [address] [place] [address] Neurology 02/08/22 Lisa Zepeda MD [address] [place] [address] Specialist Internal Medicine 02/08/22 Shawna Farooq NP [address] [place] [address] Cardiology 05/15/24 documented as of this encounter
--- OUTSIDE RECORDS SUMMARY | 2025-04-27 16:34 | XMS_ITS | Encounter Summary ---
Author Organization [facility] Address [address] [place] [address] Care Team Providers Care Bakery Machine Mechanic Supervisor Name Role Phone Byron Fuentes MD Primary Care Provider Un available Flor Bruce MD Primary Care Provider Unavail able Byron Fuentes MD Unavailable Unavaila Jonathan Beth MD Primary Care Provider [phone] Jonathan Hernandez MD Primary Care Provider [phone] Lius Rodriguez MD Unavailable Arlen Millan NP Unavailable Unavailab Joselito Carranza MD Unavailable Unavailab Lisa Maddox MD Unavailable UnavailShawna Alvarez FIRE TRUCK DRIVER Unavailable Encounter Details Date Type Department Care Team Description 02/14/2015 MARKETING OPERATIONS MANAGER/[place] Report Medical Records [address] [place] [address] Abstract, Provider Social History Tobacco Use Types [...] on filedocumented in this encounter Care Teams Bakery Machine Mechanic Supervisor Relationship Specialty Start Date End Date Byron Fuentes MD PCP - General 07/15/1992 09/04/18 Flor Bruce MD PCP - General Internal Medicine 09/05/18 05/21/21 Jonathan Hernandez MD [address] [place] [address] PCP - General Internal Medicine 05/22/21 09/03/21 Jonathan Hernandez MD [address] [place] [address] PCP - General Internal Medicine 09/04/21 Byron Fuentes MD Specialist Internal Medicine 10/05/19 Luis Rodriguez MD [address] [place] [address] Equipment Services Associate Cardiovascular Disease 10/12/21 Arlen Millan NP [address] [place], [place] [address] Nurse Practioner Acute Care 12/21/21 Joselito Pires MD [address] [place] [address] Neurology 02/08/22 Lisa Zepeda MD [address] [place], [place] [address] Specialist Internal Medicine 02/08/22 Shawna Farooq NP [address] [place] [address] Cardiology 05/15/24 documented as of this encounter
--- OUTSIDE RECORDS SUMMARY | 2025-04-27 16:34 | XMS_ITS | Encounter Summary ---
Author Organization [facility] Address [address] [place] [address] Care Team Providers Care Kitchen Manager Name Role Phone Flor Bruce MD Primary Care Provider Unavail able Byron Fuentes MD Unavailable Unavaila Jonathan Beth MD Primary Care Provider [phone] Jonathan Hernandez MD Primary Care Provider [phone] Luis Rodriguez MD Unavailable Arlen Millan NP Unavailable Unavailab Joselito Carranza MD Unavailable Unavailab Lisa Maddox MD Unavailable UnavailShawna Alvarez CONTINUOUS CRUSHER OPERATOR Unavailable [phone] Encounter Details Date Type Department Care Team Description 01/05/2020 Coagulating Drying Supervisor Report Medical Records [address] [place] [address] Lisa Zepeda MD Social History Tobacco Use [...] on filedocumented in this encounter Care Teams Kitchen Manager Relationship Specialty Start Date End Date Flor Bruce MD PCP - General Internal Medicine 09/05/18 05/21/21 Jontahan Hernandez MD [address] [place], [place] [phone] PCP - General Internal Medicine 05/22/21 09/03/21 Jonathan Hernandez MD [address] [place], [place] [address] PCP - General Internal Medicine 09/04/21 Byron Fuentes MD Specialist Internal Medicine 10/05/19 Luis Rodriguez MD [address] [place] [address] Loan Officer Assistant Cardiovascular Disease 10/12/21 Arlen Millan NP [address] [place], [place] [address] Nurse Practioner Acute Care 12/21/21 Joselito Pires MD [address] [place], [place] [address] Neurology 02/08/22 Lisa Zepeda MD [address] [place] [address] Specialist Internal Medicine 02/08/22 Shawna Farooq NP [address] [place] [address] Cardiology 05/15/24 documented as of this encounter
--- OUTSIDE RECORDS SUMMARY | 2025-04-27 16:34 | XMS_ITS | Encounter Summary ---
Author Organization [facility] Address [address] [place] [address] Care Team Providers Care Bobbin Painter Name Role Phone Flor Bruce MD Primary Care Provider Unavail able Byron Fuentes MD Unavailable Unavaila Jonathan Beth MD Primary Care Provider [phone] Jonathan Hernandez MD Primary Care Provider Luis Rodriguez MD Unavailable Arlen Millan NP Unavailable Unavailab Joselito Carranza MD Unavailable Unavailab Lisa Maddox MD Unavailable UnavailShawna Alvarez DIESEL RETROFIT INSTALLER Unavailable [phone] Reason for Visit * Reason Onset Date Comments Provider Call Back 05/05/2021 Encounter Details Date Type Department Care Team Description 05/05/2021 Telephone Adult Medicine [address] [address] Flor Bruce MD Provider Call Back Social History Tobacco Use Types Packs/Day Years [...] have Coronavirus / COVID-19? No / Unsure 04/25/2021 2:16 PM EDT documented as of this encounter Miscellaneous Notes * Telephone Encounter - Obed Real PA-C - 05/09/2021 11:28 AM EDT Resubmitted referrals stating patient request [facility] * Telephone Encounter - Bette Redding - 05/09/2021 11:21 AM EDT Telephone call to patient to clarify which referrals she would like to be sent to [facility] and patient would like all referrals to be sent to [facility] patient not specific about where in [place]. * Telephone Encounter - Jez Romero M.A. - 05/08/2021 10:31 AM EDT Left message for patient to return call. Please clarify which referrals she wants sent to [facility] and where in [place]. * Telephone Encounter - Obed Real PA-C - 05/08/2021 8:02 AM EDT Please clarify what [facility] and which referrals. * Telephone Encounter - Shawna Klein - 05/05/2021 2:36 PM EDT Caller requesting call back from provider: Is the caller the patient? YES If caller is not the patient, what is the callers name? N/A Callers relationship to patient? N/A If person calling is not the patient themselves, is there a verbal release in FYI or permanent comments for this person: NO Reason for call back: Patient requesting to speak with Manan regarding referrals that were placed for patient. Patient states he wants referrals sent to [facility]. Caller offered to speak with the nurse for assistance: YES Response: Patient offered to speak with nurse for assistance and patient agreed. Message forwarded to nurse. documented in this encounter Plan of Treatment Not on file documented as of this encounter Visit Diagnoses Not on filedocumented in this encounter Care Teams Bobbin Painter Relationship Specialty Start Date End Date Flor Bruce MD PCP - General Internal Medicine 09/05/18 05/21/21 Jonathan Hernandez MD [address] [place] [address] PCP - General Internal Medicine 05/22/21 09/03/21 Jonathan Hernandez MD [address] [place] [address] PCP - General Internal Medicine 09/04/21 Byron Fuentes MD Specialist Internal Medicine 10/05/19 Luis Rodriguez MD [address] [place] [address] Pack Changer Cardiovascular Disease 10/12/21 Arlen Millan NP [address] [place], [place] [address] Nurse Practioner Acute Care 12/21/21 Joselito Pires MD [address] [place], [place] [address] Neurology 02/08/22 Lisa Zepeda MD [address] [place] [address] Specialist Internal Medicine 02/08/22 Shawna Farooq NP [address] [place], [place] [address] Cardiology 05/15/24 documented as of this encounter
--- OUTSIDE RECORDS SUMMARY | 2025-04-27 16:34 | XMS_ITS | Encounter Summary ---
Author Organization [facility] Address [address] [place] [address] Care Team Providers Care Metaphysician Name Role Phone Jonathan Hernandez MD Primary Care Provider [phone] Luis Rodriguez MD Unavailable Arlen Millan NP Unavailable Unavailab Joselito Carranza MD Unavailable Unavailab Lisa Maddox MD Unavailable UnavailShawna Alvarez COMMERCIAL ENERGY RATER Unavailable [phone] Encounter Details Date Type Department Care Team Description 12/20/2023 Home Health Certification Medical Records [address] [place] [address] Caring, Livia Social History Tobacco Use Types Packs/Day Years [...] on filedocumented in this encounter Care Teams Metaphysician Relationship Specialty Start Date End Date Jonathan Hernandez MD [address] [place] [address] PCP - General Internal Medicine 09/04/21 Luis Rodriguez MD [address] [place] [address] Ratings Analyst Cardiovascular Disease 10/12/21 Arlen Millan NP [address] [place] [address] Nurse Practioner Acute Care 12/21/21 Joselito Pires MD [address] [place] [address] Neurology 02/08/22 Lisa Zepeda MD [address] [place] [address] Specialist Internal Medicine 02/08/22 Shawna Farooq NP [address] [place] [address] Cardiology 05/15/24 documented as of this encounter
--- OUTSIDE RECORDS SUMMARY | 2025-04-27 16:34 | XMS_ITS | Encounter Summary ---
Author Organization [facility] Address [address] [place] [address] Care Team Providers Care Disaster Director Name Role Phone Jonathan Hernandez MD Primary Care Provider [phone] Luis Rodriguez MD Unavailable Arlen Millan NP Unavailable Unavailab Joselito Carranza MD Unavailable Unavailab Lisa Maddox MD Unavailable UnavailShawna Alvarez ATHLETIC INSTRUCTOR Unavailable [phone] Reason for Visit * Reason Onset Date Comments Faxed Order 01/14/2024 [facility] order # [id number] Encounter Details Date Type Department Care Team Description 01/14/2024 Telephone Adult Medicine [address] [id number] Jonathan Hernandez MD [address] [place] [phone] Faxed Order ([facility] order # [id number]) Social History Tobacco Use Types Packs/Day Years [...] encounter Miscellaneous Notes * Telephone Encounter - Florecita Sands - 01/14/2024 1:10 PM EDT [facility] order received, order # [id number] , OT Please review, sign , fax back to [phone] Place on provider bin documented in this encounter Plan of Treatment Not on file documented as of this encounter Visit Diagnoses Not on filedocumented in this encounter Care Teams Disaster Director Relationship Specialty Start Date End Date Jonathan Hernandez MD [address] [place] [address] PCP - General Internal Medicine 09/04/21 Luis Rodriguez MD [address] [place] [address] Digital Art Director Cardiovascular Disease 10/12/21 Arlen Millan NP [address] [place] [address] Nurse Practioner Acute Care 12/21/21 Joselito Pires MD [address] [place] [address] Neurology 02/08/22 Lisa Zepeda MD [address] [place] [address] Specialist Internal Medicine 02/08/22 Shawna Farooq NP [address] [place], [place] [phone] Cardiology 05/15/24 documented as of this encounter
--- OUTSIDE RECORDS SUMMARY | 2025-04-27 16:34 | XMS_ITS | Encounter Summary ---
Author Organization [facility] Address [address] [place] [address] Care Team Providers Care Grades 1 Thru 6 Visiting Teacher Name Role Phone Jonathan Hernandez MD Primary Care Provider [phone] Luis Rodriguez MD Unavailable Arlen Millan NP Unavailable Unavailab Joselito Carranza MD Unavailable Unavailab Lisa Maddox MD Unavailable UnavailShawna Alvarez SUSTAINABILITY MANAGER Unavailable [phone] Encounter Details Date Type Department Care Team Description 03/07/2022 Pt. Non Urgent Medic al Question Cardio PVC [address] [facility] [address] [place] [address] [id number] Arlen Millan NP Social History Tobacco Use [...] suspected to have Coronavirus/COVID-19? No / Unsure 02/08/2022 9:50 AM EDT documented as of this encounter Miscellaneous Notes * Telephone Encounter - Ashlie Pulido C.M.A. - 03/07/2022 9:36 AM EDTFrom: Soraya Mendoza To: Mary Yana Sent: 03/07/2022 9:34 AM EDT Subject: reschedule cardio appt Hi need an appoint for the hour test at 10 am or 1pm please reshedule and then reschedule your followup as needed. documented in this encounter Plan of Treatment Not on file documented as of this encounter Visit Diagnoses Not on filedocumented in this encounter Care Teams Grades 1 Thru 6 Visiting Teacher Relationship Specialty Start Date End Date Jonathan Hernandez MD [address] [place] [address] PCP - General Internal Medicine 09/04/21 Luis Rodriguez MD [address] [place] [address] Health Sciences Program Coordinator Cardiovascular Disease 10/12/21 Arlen Millan NP [address] [place] [address] Nurse Practioner Acute Care 12/21/21 Joselito Pires MD [address] [place], [place] [id number] Neurology 02/08/22 Lisa Zepeda MD [address] [place] [address] Specialist Internal Medicine 02/08/22 Shawna Farooq NP [address] [place], [place] [phone] Cardiology 05/15/24 documented as of this encounter
--- OUTSIDE RECORDS SUMMARY | 2025-04-27 16:34 | XMS_ITS | Encounter Summary ---
Author Organization [facility] Address [address] [place] [address] Care Team Providers Care Machine Packager Name Role Phone Byron Fuentes MD Primary Care Provider Un available Flor Bruce MD Primary Care Provider Unavail able Byron uFentes MD Unavailable Unavaila Jonathan Beth MD Primary Care Provider [phone] Jonathan Hernandez MD Primary Care Provider [phone] Luis Rodriguez MD Unavailable Arlen Millan NP Unavailable Unavailab Joselito Carranza MD Unavailable Unavailab Lisa Maddox MD Unavailable UnavailShawna Alvarez TEAROOM HOSTESS Unavailable [phone] Encounter Details Date Type Department Care Team Description 11/26/2012 Business Doc Medical Records [address] [place] [address] Abstract, Provider Social History Tobacco Use Types [...] on filedocumented in this encounter Care Teams Machine Packager Relationship Specialty Start Date End Date Byron Fuentes MD PCP - General 07/15/1992 09/04/18 Flor Bruce MD PCP - General Internal Medicine 09/05/18 05/21/21 Jonathan Hernandez MD [address] [place] [address] PCP - General Internal Medicine 05/22/21 09/03/21 Jonathan Hernandez MD [address] [place] [address] PCP - General Internal Medicine 09/04/21 Byron Fuentes MD Specialist Internal Medicine 10/05/19 Luis Rodriguez MD [address] [place] [address] 11348 Reserve Officer Cardiovascular Disease 10/12/21 Arlen Millan NP [address] [place], [place] [address] Nurse Practioner Acute Care 12/21/21 Joselito Pires MD [address] [place] [address] Neurology 02/08/22 Lisa Zepeda MD [address] [place], [place] [address] Specialist Internal Medicine 02/08/22 Shawna Farooq NP [address] [place] [address] Cardiology 05/15/24 documented as of this encounter
--- OUTSIDE RECORDS SUMMARY | 2025-04-27 16:34 | XMS_ITS | Encounter Summary ---
Author Organization [facility] Address [address] [place] [address] Care Team Providers Care Event Technician Name Role Phone Byron Fuentes MD Primary Care Provider Un available Flor Bruce MD Primary Care Provider Unavail able Byron Fuentes MD Unavailable Unavaila Jonathan Beth MD Primary Care Provider [phone] Jonathan Hernandez MD Primary Care Provider [phone] Luis Rodriguez MD Unavailable Alren Millan NP Unavailable Unavailab Joselito Carranza MD Unavailable Unavailab Lisa Maddox MD Unavailable UnavailShawna Alvarez HOSPITAL COORDINATOR Unavailable [phone] Encounter Details Date Type Department Care Team Description 01/21/2012 Street Cleaner Report Medical Records [address] [place] [address] Carlos Chaney MD Social History Tobacco Use Types Packs/Day [...] on filedocumented in this encounter Care Teams Event Technician Relationship Specialty Start Date End Date Byron Fuentes MD PCP - General 07/15/1992 09/04/18 Flor Bruce MD PCP - General Internal Medicine 09/05/18 05/21/21 Jonathan Hernandez MD [address] [place] [address] PCP - General Internal Medicine 05/22/21 09/03/21 Jonathan Hernandez MD [address] [place] [address] PCP - General Internal Medicine 09/04/21 Byron Fuentes MD Specialist Internal Medicine 10/05/19 Luis Rodriguez MD [address] [place] [address] Front Office Administrator Cardiovascular Disease 10/12/21 Arlen Millan, KENNY [address] [place], [place] [address] Nurse Practioner Acute Care 12/21/21 Joselito Pires MD [address] [place] [address] Neurology 02/08/22 Lisa Zepeda MD [address] [place], [place] [address] Specialist Internal Medicine 02/08/22 Shawna Farooq NP [address] [place] [address] Cardiology 05/15/24 documented as of this encounter
--- OUTSIDE RECORDS SUMMARY | 2025-04-27 16:34 | XMS_ITS | Encounter Summary ---
Author Organization [facility] Address [address] [place] [address] Care Team Providers Care Classification And Treatment Director Name Role Phone Byron Fuentes MD Unavailable Unavaila Jonathan Beth MD Primary Care Provider [phone] Luis Rodriguez MD Unavailable Arlen Millan NP Unavailable Unavailab Josleito Carranza MD Unavailable Unavailab Lisa Maddox MD Unavailable UnavailShawna Alvarez NURSE GENERAL DUTY Unavailable [phone] Encounter Details Date Type Department Care Team Description 09/18/2021 Hospital Medical Records [address] [place], [place] [id number] [place] [address] Social History Tobacco Use Types Packs/Day Years [...] on filedocumented in this encounter Care Teams Classification And Treatment Director Relationship Specialty Start Date End Date Jonathan Hernandez MD [address] [place], [place] [phone] PCP - General Internal Medicine 09/04/21 Byron Fuentes MD Specialist Internal Medicine 10/05/19 Luis Rodriguez MD [address] [place] [address] Dental Assistant Medical Assistant Cardiovascular Disease 10/12/21 Arlen Millan NP [address] [place] [address] Nurse Practioner Acute Care 12/21/21 Joselito Pires MD [address] [place], [place] [address] Neurology 02/08/22 Lisa Zepeda MD [address] [place] [address] Specialist Internal Medicine 02/08/22 Shawna Farooq NP [address] [place] [address] Cardiology 05/15/24 documented as of this encounter
--- OUTSIDE RECORDS SUMMARY | 2025-04-27 16:34 | XMS_ITS | Encounter Summary ---
Author Organization [facility] Address [address] [place] [address] Care Team Providers Care Global Category Manager Name Role Phone Byron Fuentes MD Primary Care Provider Un available Flor Bruce MD Primary Care Provider Unavail able Byron Fuentes MD Unavailable Unavaila Jonathan Beth MD Primary Care Provider [phone] Jonathan Hernandez MD Primary Care Provider [phone] Luis Rodriguez MD Unavailable Arlen Millan NP Unavailable Unavailab Joselito Carranza MD Unavailable Unavailab Lisa Maddox MD Unavailable UnavailShawna Alvarez LOCKER ATTENDANT Unavailable [phone] Encounter Details Date Type Department Care Team Description 06/29/2013 Release of Information Medical Records [address] [place] [address] Abstract, Provider Social History Tobacco Use Types [...] on filedocumented in this encounter Care Teams Global Category Manager Relationship Specialty Start Date End Date Byron Fuentes MD PCP - General 07/15/1992 09/04/18 Flor Bruce MD PCP - General Internal Medicine 09/05/18 05/21/21 Jonathan Hernandez MD [address] [place], [place] [address] PCP - General Internal Medicine 05/22/21 09/03/21 Jonathan Hernandez MD [address] [place] [address] PCP - General Internal Medicine 09/04/21 Byron Fuentes MD Specialist Internal Medicine 10/05/19 Luis Rodriguez MD [address] [place] [address] Psychiatric Nursing Assistant Cardiovascular Disease 10/12/21 Arlen Millan NP [address] [place], [place] [address] Nurse Practioner Acute Care 12/21/21 Joselito Pires MD [address] [place] [address] Neurology 02/08/22 Lisa Zepeda MD [address] [place], [place] [address] Specialist Internal Medicine 02/08/22 Shawna Farooq NP [address] [place] [address] Cardiology 05/15/24 documented as of this encounter
--- OUTSIDE RECORDS SUMMARY | 2025-04-27 16:34 | XMS_ITS | Encounter Summary ---
Author Organization [facility] Address [address] [place] [address] Care Team Providers Care Operational Risk Analyst Name Role Phone Jonathan Hernandez MD Primary Care Provider [phone] Luis Rodriguez MD Unavailable Arlen Millan NP Unavailable Unavailab Joselito Carranza MD Unavailable Unavailab Lisa Maddox MD Unavailable Unavailabl Shawna Zuluaga DRAW OPERATOR Unavailable [phone] Encounter Details Date Type Department Care Team Description 11/01/2022 SCAN Medical Records [address] [place] [address] Abstract, Provider Social History Tobacco Use Types [...] on filedocumented in this encounter Care Teams Operational Risk Analyst Relationship Specialty Start Date End Date Jonathan Hernandez MD [address] [place] [address] PCP - General Internal Medicine 09/04/21 Luis Rodriguez MD [address] [place] [address] Cheesemaking Laborer Cardiovascular Disease 10/12/21 Arlen Millan NP [address] [place] [address] Nurse Practioner Acute Care 12/21/21 Joselito Pires MD [address] [place] [address] Neurology 02/08/22 Lisa Zepeda MD [address] [place] [address] Specialist Internal Medicine 02/08/22 Shawna Farooq NP [address] [place] [address] Cardiology 05/15/24 documented as of this encounter
--- OUTSIDE RECORDS SUMMARY | 2025-04-27 16:34 | XMS_ITS | Encounter Summary ---
Author Organization [facility] Address [address] [place] [address] Care Team Providers Care Brass Molder Name Role Phone Byron Fuentes MD Primary Care Provider Un available Flor Bruce MD Primary Care Provider Unavail able Byron Fuentes MD Unavailable Unavaila Jonathan Beth MD Primary Care Provider [phone] Jonathan Hernandez MD Primary Care Provider [phone] Luis Rodriguez MD Unavailable Arlen Millan NP Unavailable Unavailab Joselito Carranza MD Unavailable Unavailab Lisa Maddox MD Unavailable UnavailShawna Alvarez TUBING MACHINE TENDER Unavailable [phone] Encounter Details Date Type Department Care Team Description 02/14/2011 Hospital Medical Records [address] [place] [address] Clay Garcia MD Social History Tobacco Use [...] on filedocumented in this encounter Care Teams Brass Molder Relationship Specialty Start Date End Date Byron Fuentes MD PCP - General 07/15/1992 09/04/18 Flor Bruce MD PCP - General Internal Medicine 09/05/18 05/21/21 Jonathan Hernandez MD [address] [place] [address] PCP - General Internal Medicine 05/22/21 09/03/21 Jonathan Hernandez MD [address] [place] [address] PCP - General Internal Medicine 09/04/21 Byron Fuentes MD Specialist Internal Medicine 10/05/19 Luis Rodriguez MD [address] [place] [address] Coastal/Harbor Defense Officer Cardiovascular Disease 10/12/21 Arlen Millan, KENNY [address] [place] [address] Nurse Practioner Acute Care 12/21/21 Joselito Pires MD [address] [place] [address] Neurology 02/08/22 Lisa Zepeda MD [address] [place] [address] Specialist Internal Medicine 02/08/22 Shawna Farooq NP [address] [place] [address] Cardiology 05/15/24 documented as of this encounter
--- OUTSIDE RECORDS SUMMARY | 2025-04-27 16:34 | XMS_ITS | Encounter Summary ---
Author Organization [facility] Address [address] [place] [address] Care Team Providers Care Electronic Die Maker Name Role Phone Jonathan Hernandez MD Primary Care Provider [phone] Luis Rodriguez MD Unavailable Arlen Millan NP Unavailable Unavailab Joselito Carranza MD Unavailable Unavailab Lisa Maddox MD Unavailable UnavailShawna Alvarez CANVAS GOODS MAKER Unavailable [phone] Encounter Details Date Type Department Care Team Description 03/21/2024 Pt. Non Urgent Medical Question Endocrinology - [address] [address] China Shirley PA-C [address] [place] [address] Social History Tobacco Use Types Packs/Day Years [...] Miscellaneous Notes * Telephone Encounter - Sarah Gómez M.A. - 03/23/2024 7:08 AM EDTFrom: Soraya Mendoza To: Manuel Shirley Sent: 03/21/2024 10:39 AM EDT Subject: Test results Hi Not sure if this makes any difference. But when she took the urine test, she dropped the toilet paper in the cap that may not have been sanitized? I don't know if that could add to these results or what. Thanks for looking into it Jaime documented in this encounter Plan of Treatment Not on file documented as of this encounter Visit Diagnoses Not on filedocumented in this encounter Care Teams Electronic Die Maker Relationship Specialty Start Date End Date Jonathan Hernandez MD [address] [place] [address] PCP - General Internal Medicine 09/04/21 Luis Rodriguez MD [address] [place] [address] Manager Order Cardiovascular Disease 10/12/21 Arlen Millan NP [address] [place], [place] [address] Nurse Practioner Acute Care 12/21/21 Joselito Pires MD [address] [place] [address] Neurology 02/08/22 Lisa Zepeda MD [address] [place], [place] [address] Specialist Internal Medicine 02/08/22 Shawna Farooq NP [address] [place], [place] [address] Cardiology 05/15/24 documented as of this encounter
--- OUTSIDE RECORDS SUMMARY | 2025-04-27 16:34 | XMS_ITS | Encounter Summary ---
Author Organization [facility] Address [address] [place] [address] Care Team Providers Care Bridge Painter Name Role Phone Byron Fuentes MD Primary Care Provider Un available Flor Bruce MD Primary Care Provider Unavail able Byron Fuentes MD Unavailable Unavaila Jonathan Beth MD Primary Care Provider [phone] Jonathan Hernandez MD Primary Care Provider [phone] Luis Rodriguez MD Unavailable Arlen Millan NP Unavailable Unavailab Joselito Carranza MD Unavailable Unavailab Lisa Maddox MD Unavailable UnavailShawna Alvarez TYPE DISK QUALITY CONTROL SUPERVISOR Unavailable [phone] Reason for Visit * Reason Onset Date Comments DME Request 12/12/2011 Encounter Details Date Type Department Care Team Description 12/12/2011 Telephone Oncology [address] [place] [address] Troy Edwards MD DME Request Social History Tobacco Use Types Packs/Day [...] Miscellaneous Notes * Telephone Encounter - Ariadne Pruett - 12/12/2011 10:36 AM EDT Name of Product: Mastectomy bras Specific information about product n/a # Needed 3 Reason/Diagnosis: Breast cancer When completed: Fax to other office/MD at fax # Jonna Muñoz Fx [phone] documented in this encounter Plan of Treatment Not on file documented as of this encounter Procedures Procedure Name Priority Date/Time Associated Diagnosis Comments MASTECTOMY BRAS Routine 12/12/2011 12:14 PM EDT documented in this encounter Visit Diagnoses Not on filedocumented in this encounter Care Teams Bridge Painter Relationship Specialty Start Date End Date Byron Fuentes MD PCP - General 07/15/1992 09/04/18 Flor Bruce MD PCP - General Internal Medicine 09/05/18 05/21/21 Jonathan Hernandez MD [address] [place] [address] PCP - General Internal Medicine 05/22/21 09/03/21 Jonathan Hernandez MD [address] [place], [place] [address] PCP - General Internal Medicine 09/04/21 Byron Fuentes MD Specialist Internal Medicine 10/05/19 Luis Rodriguez MD [address] [place], [place] [address] Catering Attendant Cardiovascular Disease 10/12/21 Arlen Millan NP [address] [place], [place] [address] Nurse Practioner Acute Care 12/21/21 Joselito Pires MD [address] [place], [place] [address] Neurology 02/08/22 Lias Zepeda MD [address] [place], [place] [address] Specialist Internal Medicine 02/08/22 Shawna Farooq NP [address] [place], [place] [address] Cardiology 05/15/24 documented as of this encounter
--- OUTSIDE RECORDS SUMMARY | 2025-04-27 16:34 | XMS_ITS | Encounter Summary ---
Author Organization [facility] Address [address] [place] [address] Care Team Providers Care Philosophy Instructor Name Role Phone Byron Fuentes MD Primary Care Provider Un available Flor Bruce MD Primary Care Provider Unavail able Byron Fuentes MD Unavailable Unavaila Jonathan Beth MD Primary Care Provider [phone] Jonathan Hernandez MD Primary Care Provider [phone] Luis Rodriguez MD Unavailable Arlen Millan NP Unavailable Unavailab Joselito Carranza MD Unavailable Unavailab Lisa Maddox MD Unavailable UnavailShawna Alvarez CONVEYOR MAINTENANCE MECHANIC Unavailable [phone] Encounter Details Date Type Department Care Team Description 08/02/2011 Business Doc Medical Records [address] [place] [address] Abstract, Provider Social History Tobacco Use Types [...] on filedocumented in this encounter Care Teams Philosophy Instructor Relationship Specialty Start Date End Date Byron Fuentes MD PCP - General 07/15/1992 09/04/18 Flor Bruce MD PCP - General Internal Medicine 09/05/18 05/21/21 Jonathan Hernandez MD [address] [place] [address] PCP - General Internal Medicine 05/22/21 09/03/21 Jonathan Hernandez MD [address] [place] [address] PCP - General Internal Medicine 09/04/21 Byron Fuentes MD Specialist Internal Medicine 10/05/19 Luis Rodriguez MD [address] [place] [address] Insulation Board Calender Operator Cardiovascular Disease 10/12/21 Arlen Millan NP [address] [place], [place] [address] Nurse Practioner Acute Care 12/21/21 Joselito Pires MD [address] [place] [address] Neurology 02/08/22 Lisa Zepeda MD [address] [place], [place] [address] Specialist Internal Medicine 02/08/22 Shawna Farooq NP [address] [place] [address] Cardiology 05/15/24 documented as of this encounter
--- OUTSIDE RECORDS SUMMARY | 2025-04-27 16:34 | XMS_ITS | Encounter Summary ---
Author Organization [facility] Address [address] [place] [address] Care Team Providers Care Brownfield Redevelopment Specialist Name Role Phone Byron Fuentes MD Primary Care Provider Un available Flor Bruce MD Primary Care Provider Unavail able Byron Fuentes MD Unavailable Unavaila Jonathan Beth MD Primary Care Provider [phone] Jonathan Hernandez MD Primary Care Provider [phone] Luis Rodriguez MD Unavailable Arlen Millan NP Unavailable Unavailab Joselito Carranza MD Unavailable Unavailab Lisa Maddox MD Unavailable UnavailShawna Alvarez ASSIGNER Unavailable [phone] Encounter Details Date Type Department Care Team Description 01/26/2016 Business Doc Medical Records [address] [place] [address] Abstract, Provider Social History Tobacco Use Types [...] on filedocumented in this encounter Care Teams Brownfield Redevelopment Specialist Relationship Specialty Start Date End Date Byron Fuentes MD PCP - General 07/15/1992 09/04/18 Flor Bruce MD PCP - General Internal Medicine 09/05/18 05/21/21 Jonathan Hernandez MD [address] [place] [address] PCP - General Internal Medicine 05/22/21 09/03/21 Jonathan Hernandez MD [address] [place] [address] PCP - General Internal Medicine 09/04/21 Byron Fuentes MD Specialist Internal Medicine 10/05/19 Luis Rodriguez MD [address] [place] [address] Warp Dyeing Vat Tender Cardiovascular Disease 10/12/21 Arlen Millan NP [address] [place], [place] [address] Nurse Practioner Acute Care 12/21/21 Joselito Pires MD [address] [place] [address] Neurology 02/08/22 Lisa Zepeda MD [address] [place], [place] [address] Specialist Internal Medicine 02/08/22 Shawna Farooq NP [address] [place] [address] Cardiology 05/15/24 documented as of this encounter
--- OUTSIDE RECORDS SUMMARY | 2025-04-27 16:34 | XMS_ITS | Encounter Summary ---
Author Organization [facility] Address [address] [place] [address] Care Team Providers Care Citizenship Instructor Name Role Phone Byron Fuentes MD Primary Care Provider Un available Flor Bruce MD Primary Care Provider Unavail able Byron Fuentes MD Unavailable Unavaila Jonathan Beth MD Primary Care Provider [phone] Jonathan Hernandez MD Primary Care Provider [phone] Luis Rodriguez MD Unavailable Arlen Millan NP Unavailable Unavailab Joselito Carranza MD Unavailable Unavailab Lisa Maddox MD Unavailable UnavailShawna Alvarez CAR RENTAL MANAGER Unavailable [phone] Encounter Details Date Type Department Care Team Description 02/05/2008 Hospital Medical Records [address] [place] [address] Sushil Castelan MD [address] [place] [phone] Social History Tobacco Use Types Packs/Day Years [...] on filedocumented in this encounter Care Teams Citizenship Instructor Relationship Specialty Start Date End Date Byron Fuentes MD PCP - General 07/15/1992 09/04/18 Flor Bruce MD PCP - General Internal Medicine 09/05/18 05/21/21 Jonathan Hernandez MD [address] [place] [address] PCP - General Internal Medicine 05/22/21 09/03/21 Jonathan Hernandez MD [address] [place], [place] [phone] PCP - General Internal Medicine 09/04/21 Byron Fuentes MD Specialist Internal Medicine 10/05/19 Luis Rodriguez MD [address] [place] [address] School Cafeteria Cook Head Cardiovascular Disease 10/12/21 Arlen Millan, KENNY [address] [place], [place] [address] Nurse Practioner Acute Care 12/21/21 Joselito Pires MD [address] [place], [place] [address] Neurology 02/08/22 Lisa Zepeda MD [address] [place] [address] Specialist Internal Medicine 02/08/22 Shawna Farooq NP [address] [place], [place] [address] Cardiology 05/15/24 documented as of this encounter
--- OUTSIDE RECORDS SUMMARY | 2025-04-27 16:34 | XMS_ITS | Encounter Summary ---
Author Organization [facility] Address [address] [place] [address] Care Team Providers Care Skein Washer Name Role Phone Byron Fuentes MD Primary Care Provider Un available Flor Bruce MD Primary Care Provider Unavail able Byron Fuentes MD Unavailable Unavaila Jonathan Beth MD Primary Care Provider [phone] Jonathan Hernandez MD Primary Care Provider [phone] Luis Rodriguez MD Unavailable Arlen Millan NP Unavailable Unavailab Joselito Carranza MD Unavailable Unavailab Lisa Maddox MD Unavailable UnavailShawna Alvarez BOLT CUTTER Unavailable [phone] Encounter Details Date Type Department Care Team Description 10/05/2015 Controlled Substance Contract with Plan Medical Records [address] [place] [id number] Abstract, Provider Social History Tobacco Use Types [...] on filedocumented in this encounter Care Teams Skein Washer Relationship Specialty Start Date End Date Byron Fuentes MD PCP - General 07/15/1992 09/04/18 Flor Bruce MD PCP - General Internal Medicine 09/05/18 05/21/21 Jonathan Hernandez MD [address] [place] [address] PCP - General Internal Medicine 05/22/21 09/03/21 Jonathan Hernandez MD [address] [place] [address] PCP - General Internal Medicine 09/04/21 Byron Fuentes MD Specialist Internal Medicine 10/05/19 Luis Rodriguez MD [address] [place] [address] Dance Teacher Cardiovascular Disease 10/12/21 Arlen Millan NP [address] [place], [place] [phone] Nurse Practioner Acute Care 12/21/21 Joselito Pires MD [address] [place] [address] Neurology 02/08/22 Lisa Zepeda MD [address] [place], [place] [address] Specialist Internal Medicine 02/08/22 Shawna Farooq NP [address] [place] [address] Cardiology 05/15/24 documented as of this encounter
--- OUTSIDE RECORDS SUMMARY | 2025-04-27 16:34 | XMS_ITS | Encounter Summary ---
Author Organization [facility] Address [address] [place] [address] Care Team Providers Care Convertible Power Shovel Operator Name Role Phone Byron Fuentes MD Primary Care Provider Un available Flor Bruce MD Primary Care Provider Unavail able Byron Fuentes MD Unavailable Unavaila Jonathan Beth MD Primary Care Provider [phone] Jonathan Hernandez MD Primary Care Provider [phone] Luis Rodriguez MD Unavailable Arlen Millan NP Unavailable Unavailab Joselito Carranza MD Unavailable Unavailab Lisa Maddox MD Unavailable UnavailShawna Alvarez PALLET RECTIFIER Unavailable [phone] Reason for Visit * Reason Onset Date Comments refill request 07/23/2011 Encounter Details Date Type Department Care Team Description 07/23/2011 Refill Rheumatology - [address] [address] Byron Fuentes MD refill request Social History Tobacco Use Types Packs/Day Years [...] Miscellaneous Notes * Telephone Encounter - Lauren Zapata L.P.N. - 07/23/2011 1:29 PM EST Faxed to [email or web address] on 07/19/11 * Telephone Encounter - Daphne Lorenzana - 07/23/2011 12:59 PM EST WHEN WAS THE PATIENT'S LAST APPOINTMENT IN ADULT MEDICINE? [id number] WHEN WAS THE LAST TIME THE PATIENT SAW THEIR PCP? Same as above Does patient have an upcoming appointment? Yes [id number] (THE MEDICATION REQUESTED IS ON THE MED LIST ABOVE) All of the medications requested were on the CURRENT MEDS list Form in bin Did you check the Pharmacy information above?: NO Curascript Form faxed in Is this a mail order prescription request? YES Indicate how soon the patient needs the script: BY THE END OF THE DAY Patient would like script to be: FAXED TO PHARMACY Is the doctor here today?: YES Can the message wait until the doctor returns?: NO Patients current insurance carrier is: Payor: [email or web address] Plan: [email or web address] Product Type: MEDICARE [id number] documented in this encounter Plan of Treatment Not on file documented as of this encounter Visit Diagnoses Diagnosis Psoriatic arthropathy (HCC)- Primary Psoriatic arthropathy documented in this encounter Care Teams Convertible Power Shovel Operator Relationship Specialty Start Date End Date Byron Fuentes MD PCP - General 07/15/1992 09/04/18 Flor Bruce MD PCP - General Internal Medicine 09/05/18 05/21/21 Jonathan Hernandez MD [address] [place] [address] PCP - General Internal Medicine 05/22/21 09/03/21 Jonathan Hernandez MD [address] [place] [address] 19368 PCP - General Internal Medicine 09/04/21 Byron Fuentes MD Specialist Internal Medicine 10/05/19 Luis Rodriguez MD [address] [place] [address] Environmental Systems Coordinator Cardiovascular Disease 10/12/21 Arlen Millan NP [address] [place] [address] Nurse Practioner Acute Care 12/21/21 Joselito Pires MD [address] [place], [place] [address] Neurology 02/08/22 Lisa Zepeda MD [address] [place], [place] [address] Specialist Internal Medicine 02/08/22 Shawna Farooq NP [address] [place] [address] Cardiology 05/15/24 documented as of this encounter
--- OUTSIDE RECORDS SUMMARY | 2025-04-27 16:34 | XMS_ITS | Encounter Summary ---
Author Organization [facility] Address [address] [place] [address] Care Team Providers Care Foot Tender Name Role Phone Byron Fuentes MD Unavailable Unavaila Jonathan Beth MD Primary Care Provider [phone] Luis Rodriguez MD Unavailable Arlen Millan NP Unavailable Unavailab Joselito Carranza MD Unavailable Unavailab Lisa Maddox MD Unavailable UnavailShawna Alvarez RECEIVER SETTER Unavailable [phone] Encounter Details Date Type Department Care Team Description 09/24/2021 Home Health Certification Medical Records [address] [place] [address] Angy Livia Social History Tobacco Use Types Packs/Day [...] on filedocumented in this encounter Care Teams Foot Tender Relationship Specialty Start Date End Date Jonathan Hernandez MD [address] [place], [place] [phone] PCP - General Internal Medicine 09/04/21 Byron Fuentes MD Specialist Internal Medicine 10/05/19 Luis Rodriguez MD [address] [place] [address] Engravings Polisher Cardiovascular Disease 10/12/21 Arlen Millan NP [address] [place] [address] Nurse Practioner Acute Care 12/21/21 Joselito Pires MD [address] [place], [place] [id number] Neurology 02/08/22 Lisa Zepeda MD [address] [place] [address] Specialist Internal Medicine 02/08/22 Shawna Farooq NP [address] [place], [place] [address] Cardiology 05/15/24 documented as of this encounter
--- OUTSIDE RECORDS SUMMARY | 2025-04-27 16:34 | XMS_ITS | Encounter Summary ---
Author Organization [facility] Address [address] [place] [address] Care Team Providers Care Hat Checker Name Role Phone Byron Fuentes MD Unavailable Unavaila Jonathan Beth MD Primary Care Provider Luis Rodriguez MD Unavailable Arlen Millan NP Unavailable Unavailab Joselito Carranza MD Unavailable Unavailab Lisa Maddox MD Unavailable UnavailShawna Alvarez CARE DIRECTOR Unavailable [phone] Encounter Details Date Type Department Care Team Description 09/20/2021 SCAN Medical Records [address] [place] [address] Abstract, Provider Social History Tobacco Use Types [...] Name Priority Date/Time Associated Diagnosis Comments OUTSIDE EKG Routine 09/20/2021 documented in this encounter Results * OUTSIDE EKG (09/20/2021) Provider Default CARDIOLOGY documented in this encounter Visit Diagnoses Not on filedocumented in this encounter Care Teams Hat Checker Relationship Specialty Start Date End Date Jonathan Hernandez MD [address] [place], [place] [phone] PCP - General Internal Medicine 09/04/21 Byrno Fuentes MD Specialist Internal Medicine 10/05/19 Luis Rodriguez MD [address] [place] [address] Mobile Development Manager Cardiovascular Disease 10/12/21 Arlen Millan NP [address] [place], [place] [address] Nurse Practioner Acute Care 12/21/21 Joselito Pires MD [address] [place] [address] Neurology 02/08/22 Lisa Zepeda MD [address] [place] [address] Specialist Internal Medicine 02/08/22 Shawna Farooq NP [address] [place] [address] Cardiology 05/15/24 documented as of this encounter
--- OUTSIDE RECORDS SUMMARY | 2025-04-27 16:34 | XMS_ITS | Clinical Summary ---
Author Organization [facility] Address [address] [place] [address] Care Team Providers Care Line Installation Supervisor Name Role Phone Byron Fuentes MD Primary Care Provider [phone] Allergies Active Allergy Reactions Criticality Noted Date [...] 75+ series) 2017 COVID-19 Vaccine ( season) 2025 07/05/2022, 09/12/2020, 08/22/2020 Influenza Vaccine (#1) 2025 [...] age to complete this topic Care Teams Line Installation Supervisor Relationship Specialty Start Date End Date Byron Fuentes MD PCP - General Rheumatology 08/11/19
--- OUTSIDE RECORDS SUMMARY | 2025-04-27 16:34 | XMS_ITS | Encounter Summary ---
Author Organization [facility] Address [address] [place] [address] Care Team Providers Care Hand Coper Name Role Phone Byron Fuentes MD Primary Care Provider Un available Flor Bruce MD Primary Care Provider Unavail able Byron Fuentes MD Unavailable Unavaila Jonathan Beth MD Primary Care Provider [phone] Jonathan Hernandez MD Primary Care Provider [phone] Luis Rodriguez MD Unavailable Arlen Millan NP Unavailable Unavailab Joselito Carranza MD Unavailable Unavailab Lisa Maddox MD Unavailable UnavailShawna Alvarez WEAVER HAND Unavailable [phone] Encounter Details Date Type Department Care Team Description 11/27/2011 Rehabilitation Counsellor Report Medical Records [address] [place] [address] Sushil Castelan MD [address] [place] [id number] Social History Tobacco Use Types Packs/Day [...] on filedocumented in this encounter Care Teams Hand Coper Relationship Specialty Start Date End Date Byron Fuentes MD PCP - General 07/15/1992 09/04/18 Flor Bruce MD PCP - General Internal Medicine 09/05/18 05/21/21 Jonathan Hernandez MD [address] [place] [address] PCP - General Internal Medicine 05/22/21 09/03/21 Jonathan Hernandez MD [address] [place] [address] PCP - General Internal Medicine 09/04/21 Byron Fuentes MD Specialist Internal Medicine 10/05/19 Luis Rodriguez MD [address] [place] [address] Athletic Training Internship Cardiovascular Disease 10/12/21 Arlen Millan NP [address] [place] [address] Nurse Practioner Acute Care 12/21/21 Joselito Pires MD [address] [place], [place] [phone] Neurology 02/08/22 Lisa Zepeda MD [address] [place] [address] Specialist Internal Medicine 02/08/22 Shawna Farooq NP [address] [place], [place] [address] Cardiology 05/15/24 documented as of this encounter
--- OUTSIDE RECORDS SUMMARY | 2025-04-27 16:34 | XMS_ITS | Encounter Summary ---
Author Organization [facility] Address [address] [place] [address] Care Team Providers Care Self Propelled Hot Mix Roller Operator Name Role Phone Byron Fuentes MD Primary Care Provider Un available Flor Bruce MD Primary Care Provider Unavail able Byron Fuentes MD Unavailable Unavaila Jonathan Beth MD Primary Care Provider [phone] Jonathan Hernandez MD Primary Care Provider [phone] Luis Rodriguez MD Unavailable Arlen Millan NP Unavailable Unavailab Joselito Carranza MD Unavailable Unavailab Lisa Maddox MD Unavailable UnavailShawna Alvarez AUTOMATION TEST ENGINEER Unavailable [phone] Encounter Details Date Type Department Care Team Description 02/01/2017 PNO Controlled Substance Contract Medical Records [address] [place] [address] Abstract, Provider Social History Tobacco Use Types [...] on filedocumented in this encounter Care Teams Self Propelled Hot Mix Roller Operator Relationship Specialty Start Date End Date Byron Fuentes MD PCP - General 07/15/1992 09/04/18 Flor Bruce MD PCP - General Internal Medicine 09/05/18 05/21/21 Jonathan Hernandez MD [address] [place] [address] PCP - General Internal Medicine 05/22/21 09/03/21 Jonathan Hernandez MD [address] [place] [address] PCP - General Internal Medicine 09/04/21 Byron Fuentes MD Specialist Internal Medicine 10/05/19 Luis Rodriguez MD [address] [place] [address] Automobile Salesman Cardiovascular Disease 10/12/21 Arlen Millan NP [address] [place], [place] [address] Nurse Practioner Acute Care 12/21/21 Joselito Pires MD [address] [place] [address] Neurology 02/08/22 Lisa Zepeda MD [address] [place], [place] [address] Specialist Internal Medicine 02/08/22 Shawna Farooq NP [address] [place] [address] Cardiology 05/15/24 documented as of this encounter
--- OUTSIDE RECORDS SUMMARY | 2025-04-27 16:34 | XMS_ITS | Encounter Summary ---
Author Organization [facility] Address [address] [place] [address] Care Team Providers Care Economic Development Director Name Role Phone Byron Fuentes MD Primary Care Provider Un available Flor Bruce MD Primary Care Provider Unavail able Byron Fuentes MD Unavailable Unavaila Jonathan Beth MD Primary Care Provider [phone] Jonathan Hernandez MD Primary Care Provider Luis Rodriguez MD Unavailable Arlen Millan NP Unavailable Unavailab Joselito Carranza MD Unavailable Unavailab Lisa Maddox MD Unavailable UnavailShawna Alvarez MARK UP DESIGNER Unavailable [phone] Encounter Details Date Type Department Care Team Description 05/02/2016 [facility] Medical Records [address] [place] [address] Abstract, Provider Social History Tobacco Use Types [...] on filedocumented in this encounter Care Teams Economic Development Director Relationship Specialty Start Date End Date Byron Fuentes MD PCP - General 07/15/1992 09/04/18 Flor Bruce MD PCP - General Internal Medicine 09/05/18 05/21/21 Jonathan Hernandez MD [address] [place], [place] [phone] PCP - General Internal Medicine 05/22/21 09/03/21 Jonathan Hernandez MD [address] [place] [address] PCP - General Internal Medicine 09/04/21 Byron Fuentes MD Specialist Internal Medicine 10/05/19 Luis Rodriguez MD [address] [place] [address] Assistant Women'S Tennis Coach Cardiovascular Disease 10/12/21 Arlen Millan NP [address] [place], [place] [address] Nurse Practioner Acute Care 12/21/21 Joselito Pires MD [address] [place] [address] Neurology 02/08/22 Lisa Zepeda MD [address] [place], [place] [address] Specialist Internal Medicine 02/08/22 Shawna Farooq NP [address] [place] [address] Cardiology 05/15/24 documented as of this encounter
--- OUTSIDE RECORDS SUMMARY | 2025-04-27 16:34 | XMS_ITS | Encounter Summary ---
Author Organization [facility] Address [address] [place] [address] Care Team Providers Care Headwaitress Name Role Phone Jonathan Hernandez MD Primary Care Provider [phone] Luis Rodriguez MD Unavailable Arlen Millan NP Unavailable Unavailab Joselito Carranza MD Unavailable Unavailab Lisa Maddox MD Unavailable UnavailShawna Alvarez FARM FORESTRY AND GARDEN WORKERS Unavailable [phone] Reason for Visit * Reason Onset Date Comments Faxed Order 01/17/2024 Livia order # [id number] Encounter Details Date Type Department Care Team Description 01/17/2024 Telephone Adult Medicine [address] [phone] Jonathan Hernandez MD [address] [place] [phone] Faxed Order (Livia order # [id number]) Social History Tobacco Use Types Packs/Day Years [...] encounter Miscellaneous Notes * Telephone Encounter - Jessica Ramesh - 01/17/2024 12:59 PM EDT Home Health Certificate and order to be reviewed, signed and faxed back to Livia Angy at [phone], placed in PCP bin for signature documented in this encounter Plan of Treatment Not on file documented as of this encounter Visit Diagnoses Not on filedocumented in this encounter Care Teams Headwaitress Relationship Specialty Start Date End Date Jonathan Hernandez MD [address] [place] [address] PCP - General Internal Medicine 09/04/21 Luis Rodriguez MD [address] [place] [address] Rn Traveling Cardiovascular Disease 10/12/21 Arlen Millan NP [address] [place] [address] Nurse Practioner Acute Care 12/21/21 Joselito Pires MD [address] [place] [address] Neurology 02/08/22 Lisa Zepeda MD [address] [place] [address] Specialist Internal Medicine 02/08/22 Shawna Farooq NP [address] [place] [address] Cardiology 05/15/24 documented as of this encounter
--- OUTSIDE RECORDS SUMMARY | 2025-04-27 16:34 | XMS_ITS | Encounter Summary ---
Author Organization [facility] Address [address] [place] [address] Care Team Providers Care Animal Anatomist Name Role Phone Flor Bruce MD Primary Care Provider Unavail able Byron Fuentes MD Unavailable Unavaila Jonathan Beth MD Primary Care Provider Jonathan Hernandez MD Primary Care Provider [phone] Luis Rodriguez MD Unavailable Arlen Millan NP Unavailable Unavailab Joselito Carranza MD Unavailable Unavailab Lisa Maddox MD Unavailable UnavailShawna Alvarez DIAL SCREW ASSEMBLER Unavailable [phone] Reason for Visit * Reason Onset Date Comments hospital follow up 03/19/2019 [facility] 03-12-19 masectomy Encounter Details Date Type Department Care Team Description 03/19/2019 Telephone Adult Medicine [address] [id number] Flor Bruce MD hospital follow up ([facility] 03-12-19 masectomy) Social History Tobacco Use Types Packs/Day Years [...] encounter Miscellaneous Notes * Telephone Encounter - Smita Rios - 03/19/2019 10:17 AM EDT Patient's daughter will be available for a call back today between 12pm and 3:30pm. * Telephone Encounter - Smita Rios - 03/19/2019 9:56 AM EDT Hospital [facility] appointment [facility] Was this only an ER visit or was the patient admitted to the hospital? Admitted to hospital Date of visit if ER visit only: 03-12-19 If patient was admitted what was the date of discharge? 03-13-19 Reason/diagnosis for visit not or stay: mastectomy of right breast When was the patient told to follow up? Unknown, patient has a follow up appointment with her surgeon on 02-22-19 to have the results of the lymph nodes and to have the hood taken out, patient's daughter is concerned as patient has being having short term memory loss, also [facility] nurse Anna Marie noticed this at patient's home visit is on this past Saturday and at today's visit and was going to be contacting Dr Bruce regarding this. She would please like a call back [facility] regarding this thank you. Was visit or stay related to an injury? NO If yes, what was the date of injury (DOI)? N/A If yes, was the injury due to N/A Hospital notes requested on 03-19-19 documented in this encounter Plan of Treatment Not on file documented as of this encounter Visit Diagnoses Not on filedocumented in this encounter Care Teams Animal Anatomist Relationship Specialty Start Date End Date Flor Bruce MD PCP - General Internal Medicine 09/05/18 05/21/21 Jonathan Hernandez MD [address] [place] [address] PCP - General Internal Medicine 05/22/21 09/03/21 Jonathan Hernandez MD [address] [place] [address] PCP - General Internal Medicine 09/04/21 Byron Fuentes MD Specialist Internal Medicine 10/05/19 Luis Rodriguez MD [address] [place] [address] Laboratory Aide Cardiovascular Disease 10/12/21 Arlen Millan NP [address] [place] [address] Nurse Practioner Acute Care 12/21/21 Joselito Pires MD [address] [place] [address] Neurology 02/08/22 Lisa Zepeda MD [address] [place] [address] Specialist Internal Medicine 02/08/22 Shawna Farooq NP [address] [place] [address] Cardiology 05/15/24 documented as of this encounter
--- OUTSIDE RECORDS SUMMARY | 2025-04-27 16:35 | XMS_ITS | Encounter Summary ---
Author Organization [facility] Address [address] [place] [address] Care Team Providers Care Master Automotive Glass Technician Name Role Phone Byron Fuentes MD Unavailable Unavaila Jonathan Beth MD Primary Care Provider [phone] Luis Rodriguez MD Unavailable Arlen Millan NP Unavailable Unavailab Joselito Carranza MD Unavailable Unavailab Lisa Maddox MD Unavailable UnavailShawna Alvarez GOLF CART MAKER Unavailable [phone] Encounter Details Date Type Department Care Team Description 10/12/2021 Old Medical Records [facility] [address] [facility] [address] [place] [phone] Center, Occupational Care [address] [place], [place] [phone] Social History Tobacco Use Types Packs/Day Years [...] suspected to have Coronavirus/COVID-19? No / Unsure 10/09/2021 10:16 AM EDT documented as of this encounter Plan of Treatment Not on file documented as of this encounter Visit Diagnoses Not on filedocumented in this encounter Care Teams Master Automotive Glass Technician Relationship Specialty Start Date End Date Jonathan Hernandez MD [address] [place] [address] PCP - General Internal Medicine 09/04/21 Byron Fuentes MD Specialist Internal Medicine 10/05/19 Luis Rodriguez MD [address] [place] [address] Program Analyst Cardiovascular Disease 10/12/21 Arlen Millan NP [address] [place] [address] Nurse Practioner Acute Care 12/21/21 Joselito Pires MD [address] [place], [place] [phone] Neurology 02/08/22 Lisa Zepeda MD [address] [place] [address] Specialist Internal Medicine 02/08/22 Shawna Farooq NP [address] [place], [place] [phone] Cardiology 05/15/24 documented as of this encounter
--- OUTSIDE RECORDS SUMMARY | 2025-04-27 16:35 | XMS_ITS | Encounter Summary ---
Author Organization [facility] Address [address] [place] [address] Care Team Providers Care Docketing Specialist Name Role Phone Byron Fuentes MD Unavailable Unavaila Jonathan Beth MD Primary Care Provider [phone] Luis Rodriguez MD Unavailable Arlen Millan NP Unavailable Unavailab Joselito Carranza MD Unavailable Unavailab Lisa Maddox MD Unavailable UnavailShawna Alvarez OPTICAL MECHANIC Unavailable [phone] Encounter Details Date Type Department Care Team Description 09/28/2021 SCAN Medical Records [address] [place] [address] Krzysztof Burkett MD Social History Tobacco Use Types Packs/Day [...] Name Priority Date/Time Associated Diagnosis Comments OUTSIDE STRESS TEST Routine 09/28/2021 documented in this encounter Results * OUTSIDE STRESS TEST (09/28/2021) Provider Default CARDIOLOGY documented in this encounter Visit Diagnoses Not on filedocumented in this encounter Care Teams Docketing Specialist Relationship Specialty Start Date End Date Jonathan Hernandez MD [address] [place], [place] [phone] PCP - General Internal Medicine 09/04/21 Byron Fuentes MD Specialist Internal Medicine 10/05/19 Luis Rodriguez MD [address] [place] [address] Charge Coordinator Cardiovascular Disease 10/12/21 Arlen Millan NP [address] [place], [place] [address] Nurse Practioner Acute Care 12/21/21 Joselito Pires MD [address] [place] [address] Neurology 02/08/22 Lisa Zepeda MD [address] [place] [address] Specialist Internal Medicine 02/08/22 Shawna Farooq NP [address] [place] [address] Cardiology 05/15/24 documented as of this encounter
--- OUTSIDE RECORDS SUMMARY | 2025-04-27 16:35 | XMS_ITS | Encounter Summary ---
Author Organization [facility] Address [address] [place] [address] Care Team Providers Care Rockboard Lather Name Role Phone Byron Fuentes MD Unavailable Unavaila Jonathan Beth MD Primary Care Provider [phone] Luis Rodriguez MD Unavailable Arlen Millan NP Unavailable Unavailab Joselito Carranza MD Unavailable Unavailab Lisa Maddox MD Unavailable UnavailShawna Alvarez RETURNED GOODS SORTER Unavailable [phone] Encounter Details Date Type Department Care Team Description 10/05/2021 Nursing Informatics Clinical Analyst Report Medical Records [address] [place] [address] Isaías Stanton MD Social History Tobacco Use Types Packs/Day [...] on filedocumented in this encounter Care Teams Rockboard Lather Relationship Specialty Start Date End Date Jonathan Hernandez MD [address] [place], [place] [id number] PCP - General Internal Medicine 09/04/21 Byron Fuentes MD Specialist Internal Medicine 10/05/19 Luis Rodriguez MD [address] [place] [address] Hemmer Chainstitch Cardiovascular Disease 10/12/21 Arlen Millan NP [address] [place] [address] Nurse Practioner Acute Care 12/21/21 Joselito Pires MD [address] [place], [place] [id number] Neurology 02/08/22 Lisa Zepeda MD [address] [place] [address] Specialist Internal Medicine 02/08/22 Shawna Farooq NP [address] [place] [address] Cardiology 05/15/24 documented as of this encounter
--- OUTSIDE RECORDS SUMMARY | 2025-04-27 16:35 | XMS_ITS | Encounter Summary ---
Author Organization [facility] Address [address] [place] [address] Care Team Providers Care Cocoa Butter Filter Operator Name Role Phone Byron Fuentes MD Primary Care Provider Un available Flor Bruce MD Primary Care Provider Unavail able Byron Fuentes MD Unavailable Unavaila Jonathan Beth MD Primary Care Provider [phone] Jonathan Hernandez MD Primary Care Provider [phone] Luis Rodriguez MD Unavailable Arlen Millan NP Unavailable Unavailab Joselito Carranza MD Unavailable Unavailab Lisa Maddox MD Unavailable UnavailShawna Alvarez CHISEL WORKER Unavailable [phone] Encounter Details Date Type Department Care Team Description 08/02/2010 Business Doc Medical Records [address] [place] [address] Abstract, Provider Social History Tobacco Use Types Packs/Day Years Used Date Smoking Tobacco: Former Cigarettes 0.1 25 Comments:--- trying to quit Alcohol Use Standard Drinks/Week Comments Yes 0 [...] on filedocumented in this encounter Care Teams Cocoa Butter Filter Operator Relationship Specialty Start Date End Date Byron Fuentes MD PCP - General 07/15/1992 09/04/18 Flor Bruce MD PCP - General Internal Medicine 09/05/18 05/21/21 Jonathan Hernandez MD [address] [place] [address] PCP - General Internal Medicine 05/22/21 09/03/21 Jonathan Hernandez MD [address] [place] [address] PCP - General Internal Medicine 09/04/21 Byron Fuentes MD Specialist Internal Medicine 10/05/19 Luis Rodriguez MD [address] [place] [address] Atm Mechanic Cardiovascular Disease 10/12/21 Arlen Millan NP [address] [place], [place] [phone] Nurse Practioner Acute Care 12/21/21 Joselito Pires MD [address] [place] [address] Neurology 02/08/22 Lisa Zepeda MD [address] [place], [place] [phone] Specialist Internal Medicine 02/08/22 Shawna Farooq NP [address] [place] [address] Cardiology 05/15/24 documented as of this encounter
--- OUTSIDE RECORDS SUMMARY | 2025-04-27 16:35 | XMS_ITS | Encounter Summary ---
Author Organization [facility] Address [address] [place] [address] Care Team Providers Care Trade Manager Name Role Phone Jonathan Hernandez MD Primary Care Provider [phone] Luis Rodriguez MD Unavailable Arlen Millan NP Unavailable Unavailab Joselito Carranza MD Unavailable Unavailab Lisa Maddox MD Unavailable UnavailShanwa Alvarez ORTHOTIST Unavailable [phone] Encounter Details Date Type Department Care Team Description 03/03/2024 Telephone Adult Medicine [facility] [address] [place] [address] [phone] Jonathan Hernandez MD [address] [place] [address] [phone] Social History Tobacco Use Types Packs/Day Years [...] on filedocumented in this encounter Care Teams Trade Manager Relationship Specialty Start Date End Date Jonathan Hernandez MD [address] [place] [address] PCP - General Internal Medicine 09/04/21 Luis Rodriguez MD [address] [place] [address] Instructor Weaving Cardiovascular Disease 10/12/21 Arlen Millan NP [address] [place] [address] Nurse Practioner Acute Care 12/21/21 Joselito Pires MD [address] [place] [address] Neurology 02/08/22 Lisa Zepeda MD [address] [place] [address] Specialist Internal Medicine 02/08/22 Shawna Farooq NP [address] [place] [address] Cardiology 05/15/24 documented as of this encounter
--- OUTSIDE RECORDS SUMMARY | 2025-04-27 16:35 | XMS_ITS | Encounter Summary ---
Author Organization [facility] Address [address] [place] [address] Care Team Providers Care Gauger Chief Delivery Name Role Phone Jonathan Hernandez MD Primary Care Provider [phone] Luis Rodriguez MD Unavailable Arlen Millan NP Unavailable Unavailab Joselito Carranza MD Unavailable Unavailab Lisa Maddox MD Unavailable UnavailShawna Alvarez POSTBED STITCHER Unavailable [phone] Encounter Details Date Type Department Care Team Description 01/19/2024 Pt. Non Urgent Medical Question Cardio PVCA Diag Testing 101 300 [facility] [address] [place] [address] [phone] Luis Rodriguez MD [address] [place] [address] [phone] Social History Tobacco Use Types Packs/Day Years [...] Miscellaneous Notes * Telephone Encounter - Kira Christopher - 01/20/2024 8:09 AM EDTFrom: Soraya Mendoza To: Umair Rodriguez Sent: 01/19/2024 10:29 PM EDT Subject: Prescription Question HI Dr. Rodriguez My mom broke her hip on November 25, 2023 and since coming home from [facility] has been taking 80 mg of Valsartan and they added Metoprolol succinate 25 mg extended release. Not sure if you had that on her list before but are both of these necessary? She had an afib detected at an ER visit in September [facility] that we're [facility]. Thanks in advance hope your all having a great summer. Priscilla Cervantes for Soraya Mendoza documented in this encounter Plan of Treatment Not on file documented as of this encounter Visit Diagnoses Not on filedocumented in this encounter Care Teams Gauger Chief Delivery Relationship Specialty Start Date End Date Jonathan Hernandez MD [address] [place] [address] PCP - General Internal Medicine 09/04/21 Luis Rodriguez MD [address] [place] [address] Decorator Hand Cardiovascular Disease 10/12/21 Arlen Millan NP [address] [place], [place] [id number] Nurse Practioner Acute Care 12/21/21 Joselito Pires MD [address] [place], [place] [address] Neurology 02/08/22 Lisa Zepeda MD [address] [place], [place] [address] Specialist Internal Medicine 02/08/22 Shawna Farooq NP [address] [place] [address] Cardiology 05/15/24 documented as of this encounter
--- OUTSIDE RECORDS SUMMARY | 2025-04-27 16:35 | XMS_ITS | Encounter Summary ---
Author Organization [facility] Address [address] [place] [address] Care Team Providers Care Knitter Wire Mesh Name Role Phone Byron Fuentes MD Primary Care Provider Un available Flor Bruce MD Primary Care Provider Unavail able Byron Fuentes MD Unavailable Unavaila Jonathan Beth MD Primary Care Provider [phone] Jonathan Hernandez MD Primary Care Provider [phone] Luis Rodriguez MD Unavailable Arlen Millan NP Unavailable Unavailab Joseliot Carranza MD Unavailable Unavailab Lisa Maddox MD Unavailable UnavailShawna Alvarez TRAINING DESIGNER Unavailable [phone] Encounter Details Date Type Department Care Team Description 01/07/2015 Business Doc Medical Records [address] [place] [address] Abstract, Provider Social History Tobacco Use Types [...] on filedocumented in this encounter Care Teams Knitter Wire Mesh Relationship Specialty Start Date End Date Byron Fuentes MD PCP - General 07/15/1992 09/04/18 Flor Bruce MD PCP - General Internal Medicine 09/05/18 05/21/21 Jonathan Hernandez MD [address] [place] [address] PCP - General Internal Medicine 05/22/21 09/03/21 Jonathan Hernandez MD [address] [place] [address] PCP - General Internal Medicine 09/04/21 Byron Fuentes MD Specialist Internal Medicine 10/05/19 Luis Rodriguez MD [address] [place] [address] Cash Control Specialist Cardiovascular Disease 10/12/21 Arlen Millan NP [address] [place], [place] [address] Nurse Practioner Acute Care 12/21/21 Joselito Pires MD [address] [place] [address] Neurology 02/08/22 Lisa Zepeda MD [address] [place], [place] [address] Specialist Internal Medicine 02/08/22 Shawna Farooq NP [address] [place] [address] Cardiology 05/15/24 documented as of this encounter
--- OUTSIDE RECORDS SUMMARY | 2025-04-27 16:35 | XMS_ITS | Encounter Summary ---
Author Organization [facility] Address [address] [place] [address] Care Team Providers Care Currency Counter Name Role Phone Byron Fuentes MD Primary Care Provider Un available Flor Bruce MD Primary Care Provider Unavail able Byron Fuentes MD Unavailable Unavaila Jonathan Beth MD Primary Care Provider [phone] Jonathan Hernandez MD Primary Care Provider [phone] Luis Rodriguez MD Unavailable Arlen Millan NP Unavailable Unavailab Joselito Carranza MD Unavailable Unavailab Lisa Maddox MD Unavailable UnavailShawna Alvarez DOCUMENT SCANNER Unavailable [phone] Encounter Details Date Type Department Care Team Description 07/13/2014 Release of Information Medical Records [address] [place] [address] Abstract, Provider Social History Tobacco Use Types [...] on filedocumented in this encounter Care Teams Currency Counter Relationship Specialty Start Date End Date Byron Fuentes MD PCP - General 07/15/1992 09/04/18 Flor Bruce MD PCP - General Internal Medicine 09/05/18 05/21/21 Jonathan Hernandez MD [address] [place], [place] [phone] PCP - General Internal Medicine 05/22/21 09/03/21 Jonathan Hernandez MD [address] [place] [address] PCP - General Internal Medicine 09/04/21 Byron Fuentes MD Specialist Internal Medicine 10/05/19 Luis Rodriguez MD [address] [place] [address] Repairer And Checker Cardiovascular Disease 10/12/21 Arlen Millan NP [address] [place], [place] [address] Nurse Practioner Acute Care 12/21/21 Joselito Pires MD [address] [place] [address] Neurology 02/08/22 Lisa Zepeda MD [address] [place], [place] [address] Specialist Internal Medicine 02/08/22 Shawna Farooq NP [address] [place] [address] Cardiology 05/15/24 documented as of this encounter
--- OUTSIDE RECORDS SUMMARY | 2025-04-27 16:35 | XMS_ITS | Encounter Summary ---
Author Organization [facility] Address [address] [place] [address] Care Team Providers Care Fleet Driver Name Role Phone Byron Fuentes MD Primary Care Provider Un available Flor Bruce MD Primary Care Provider Unavail able Byron Fuentes MD Unavailable Unavaila Jonathan Beth MD Primary Care Provider [phone] Jonathan Hernandez MD Primary Care Provider [phone] Luis Rodriguez MD Unavailable Arlen Millan NP Unavailable Unavailab Joselito Carranza MD Unavailable Unavailab Lisa Maddox MD Unavailable UnavailShawna Alvarez AUDIO/VISUAL OPERATOR Unavailable [phone] Encounter Details Date Type Department Care Team Description 08/08/2010 Rug Cleaner Hand Report Medical Records [address] [place] [address] Clay Garcia MD Social History Tobacco Use [...] on filedocumented in this encounter Care Teams Fleet Driver Relationship Specialty Start Date End Date Byron Fuentes MD PCP - General 07/15/1992 09/04/18 Flor Bruce MD PCP - General Internal Medicine 09/05/18 05/21/21 Jonathan Hernandez MD [address] [place] [address] PCP - General Internal Medicine 05/22/21 09/03/21 Jonathan Hernandez MD [address] [place] [address] PCP - General Internal Medicine 09/04/21 Byron Fuentes MD Specialist Internal Medicine 10/05/19 Luis Rodriguez MD [address] [place] [address] Souvenir And Novelty Maker Cardiovascular Disease 10/12/21 Arlen Millan, KENNY [address] [place], [place] [address] Nurse Practioner Acute Care 12/21/21 Joselito Pires MD [address] [place], [place] 6[address] Neurology 02/08/22 Lisa Zepeda MD [address] [place] [address] Specialist Internal Medicine 02/08/22 Shawna Farooq NP [address] [place] [address] Cardiology 05/15/24 documented as of this encounter
--- OUTSIDE RECORDS SUMMARY | 2025-04-27 16:35 | XMS_ITS | Encounter Summary ---
Author Organization [facility] Address [address] [place] [address] Care Team Providers Care Log Snaker Name Role Phone Byron Fuentes MD Primary Care Provider Un available Flor Bruce MD Primary Care Provider Unavail able Byron Fuentes MD Unavailable Unavaila Jonathan Beth MD Primary Care Provider [phone] Jonathan Hernandez MD Primary Care Provider [phone] Luis Rodriguez MD Unavailable Arlen Millan NP Unavailable Unavailab Joselito Carranza MD Unavailable Unavailab Lisa Maddox MD Unavailable UnavailShawna Alvarez CLAM SHUCKER Unavailable [phone] Encounter Details Date Type Department Care Team Description 08/02/2010 Transfer Records Medical Records [address] [place] [address] Social History Tobacco Use Types Packs/Day Years [...] on filedocumented in this encounter Care Teams Log Snaker Relationship Specialty Start Date End Date Byron Fuentes MD PCP - General 07/15/1992 09/04/18 Flor Bruce MD PCP - General Internal Medicine 09/05/18 05/21/21 Jonathan Hernandez MD [address] [place] [address] PCP - General Internal Medicine 05/22/21 09/03/21 Jonathan Hernandez MD [address] [place] [address] PCP - General Internal Medicine 09/04/21 Byron Fuentes MD Specialist Internal Medicine 10/05/19 Luis Rodriguez MD [address] [place] [address] Vegetable Trimmer Cardiovascular Disease 10/12/21 Arlen Millan NP [address] [place], [place] [address] Nurse Practioner Acute Care 12/21/21 Joselito Pires MD [address] [place] [address] Neurology 02/08/22 Lisa Zepeda MD [address] [place], [place] [address] Specialist Internal Medicine 02/08/22 Shawna Farooq NP [address] [place] [address] Cardiology 05/15/24 documented as of this encounter
--- OUTSIDE RECORDS SUMMARY | 2025-04-27 16:35 | XMS_ITS | Patient Health Record ---
Author Organization [facility] Address [address] [facility] [place] [address] Care Team Providers Care Slab Tripper Name Role Phone Dewayne Hernandez MD Primary Care Provider Unavailevelina Fontana, Adelaida Unavailable [phone] Allergies Allergen (clinical drug ingredient) Drug/Non Drug Allergy documented on EMR Reaction Allergy Type Onset Date Status acetaminophen / oxycodone Percocet Unknown Drug Allergy Active Iodinated contrast media (substance) Iodinated Diagnostic Agents Unknown Drug Allergy Active Reason For Referral No Information Medications Medication SIG (Take, Route, Frequency, Duration) Notes Start Date End Date Status Levothyroxine Sodium 50 MCG TAKE 1 TABLET BY MOUTH EVERY DAY Oral; Duration: 90 Days Not-Taking Escitalopram Oxalate 10 MG 1 tablet Orally twice a day Active Memantine HCl ER 28 MG TAKE 1 CAPSULE (2 8MG) BY MOUTH DAILY. Oral; Duration: 90 Days Active Tirosint 62.5 MCG Oral; Duration: 30 Days Active Metoprolol Succinate Not-Taking Levothyroxine Sodium 50 MCG TAKE 1 TABLET BY MOUTH EVERY DAY Oral; Duration: 90 Days Not-Taking Memantine HCl Not-Ta sathya Levothyroxine Sodium 75 MCG TAKE 1 TABLET BY MOUTH ONCE EVERY DAY Oral; Duration: 90 Days Not-Taking Ammonium Lactate 12 % 1 application Externally Twice a day; Duration: 30 days Not-Takin g Metoprolol Succinate ER 25 MG 1 tablet Orally twice a day Active Compression Stockings 20-30mm Hg 1 pair wear daily; Duration: 30 days Not-Taking Valsartan 80 MG 1 tablet Orally Once a day Active Valsartan 80 MG 1 tablet Orally Once a day Not-Taking Eliquis 5 MG as directed Orally 2.5 x 2 Active Immunizations Vaccine Route Administration Date Status Comme nts Influenza Unknown 03/15/2024 Administered Social History Tobacco Use: Social History Observation [...] (Standard) Question Answer Notes Tobacco use: Nonsmoker AUDIT-C (Standard) Question Answer Notes Did you have a drink containing alcohol in the p ast year? 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) Plantar fasciitis, bilateral (M72.2) Active confirmed Vital Signs Blood pressure diastolic 80 mm Hg 02/08/2025 Height 5 ft 2 in in 02/08/2025 Blood pressure systolic 130 mm Hg 02/08/2025 Weight 148 lbs 02/08/2025 BMI 27.07 kg/m2 02/08/2025 Procedures Procedure Date Ordered Date Performed Result Body Sit e 32507-ASYHXLZ NAIL, 6 OR MORE 07/30/2024 N/A 04191-[id number] NAIL, 6 OR MORE 11/09/2024 N/A 58509-Hgzvehss Plate 11/09/2024 N/A 54893-VZFZLUD NAIL, 6 OR MORE 02/08/2025 N/A Encounters Encounter Location Date Provider Diagnosis [address] [address] 07/30/2024 Adelaida Black Onychomycosis B35.1 ; Pain of toe of right foot M79.674 and Pain [facility] toe of left foot M79.[address] [facility] [address] 11/09/2024 Adelaida Black Onychomycosis B35.1 ; Ingrown nail L60.0 ; Pain of toe of right foot M79.674 and Pain of toe of left foot M79.[address] [address] 02/08/2025 Adelaida Black Onychomycosis B35.1 ; Pain of toe of right foot M79.674 ; Pain of toe of left foot M79.675 ; Pain in right foot M79.671 ; Plantar fasciitis, bilateral M72.2 ; Other myositis of right foot M60.871 ; Bursitis of right foot M77.51 ; Pain in left foot M79.672 ; Other myositis of left foot M60.872 and Bursitis of left foot M77.52 Assessments Encounter Date Diagnosis (ICD Code) Assessment Notes Treatment Notes Treatment Clinical Notes Section Notes 07/30/2024 Pain of toe of right foot (ICD-10 - M79.674) 07/30/2024 Onychomycosis (ICD-10 - B35.1) 11/09/2024 Ingrown nail (ICD-10 - L60.0) 11/09/2024 Onychomycosis (ICD-10 - B35.1) 02/08/2025 Onychomycosis (ICD-10 - B35.1) 02/08/2025 Pain of toe of right foot (ICD-10 - M79.674) 11/09/2024 Pain of toe of right foot (ICD-10 - M79.674) 07/30/2024 Pain of toe of left foot (ICD-10 - M79.675) 11/09/2024 Pain of toe of left foot (ICD-10 - M79.675) 02/08/2025 Pain of toe of left foot (ICD-10 - M79.675) 02/08/2025 Pain in right foot (ICD-10 - M79.671) 02/08/2025 Plantar fasciitis, bilateral (ICD-10 - M72.2) Patient Educated with: HEEL CORD STRETCHES.pdf (HEEL CORD STRETCHES.pdf) Patient Educated with: RICE THERAPY.pdf (RICE THERAPY.pdf) 02/08/2025 Other myositis of right foot (ICD-10 - M60.871) 02/08/2025 Bursitis of right foot (ICD-10 - M77.51) 02/08/2025 Pain in left foot (ICD-10 - M79.672) 02/08/2025 Other myositis of left foot (ICD-10 - M60.872) 02/08/2025 Bursitis of left foot (ICD-10 - M77.52) Plan Of Treatment Pending Test Test Name Order Date [id number] NAIL, 6 OR MORE 02/07/2023 84647-FUQOEWQ NAIL, 6 OR MORE 05/23/2023 18438-OKIPBAL NAIL, 6 OR MORE 09/16/2023 44459-PASKNKI NAIL, 6 OR MORE 01/02/2024 97030-HSVXWBS NAIL, 6 OR MORE 04/16/2024 85014-JEUVVLM NAIL, 6 OR MORE 07/30/2024 13638-NHQAOQL NAIL, 6 OR MORE 11/09/2024 99696-NTWCEVV NAIL, 6 OR MORE 02/08/2025 40089-Sfdcnblx Plate 11/09/2024 Next Appt Details Provider Name:Adelaida Fontana , 05/03/2025 01:15:00 PM, [address] [place], [address], Insurance Providers Payer Name Payer Address Payer Phone Subscriber Number Group Number Insured Name Patient Relationship to Insured Coverage Start Date Coverage End Date BlueCare 65 Medicare Preferred [address] [place] [address] [phone] [id number] Soraya Mendoza Self - patient is the [...] High blood pressure Chicken pox Bone implants/screws Other hammer toe(s) (acquired), right fo ot M20.41 Arthritis of joint of lesser toe, right M19.071 Other hammer toe(s) (acquired), left emma t M20.42 Arthritis of joint of lesser toe, left M 19.072 Plantar wart B07.0 Surgical History Surgery Date(Month/Year) left knee replacement 2004 fracture of humerus, right 11/2008 breast cancer wrist surgery Hospitalization History Reason Date(Month/Year) [facility] broke hip 11/2023
--- OUTSIDE RECORDS SUMMARY | 2025-04-27 16:35 | XMS_ITS | Encounter Summary ---
Author Organization [facility] Address [address] [place] [address] Care Team Providers Care Application Support Technician Name Role Phone Byron Fuentes MD Unavailable Unavaila Jonathan Beth MD Primary Care Provider [phone] Luis Rodriguez MD Unavailable Arlen Millan NP Unavailable Unavailab Joselito Carranza MD Unavailable Unavailab Lisa Maddox MD Unavailable UnavailShawna Alvarez MOVE COORDINATOR Unavailable [phone] Reason for Visit * Reason Onset Date Comments other 12/19/2021 other? Encounter Details Date Type Department Care Team Description 12/19/2021 Telephone Cardio PVCA Diag Testing 101 [address] [place] [facility] [address] [place] [address] Luis Rodriguez MD [address] [place] [address] [phone] other (other?) Social History Tobacco Use Types Packs/Day Years [...] suspected to have Coronavirus/COVID-19? No / Unsure 12/21/2021 9:11 AM EDT documented as of this encounter Miscellaneous Notes * Telephone Encounter - Luis Rodriguez MD - 12/19/2021 12:23 PM EDT See this telephpone message chain * Telephone Encounter - Lucinda Hernandez - 12/19/2021 11:03 AM EDT Patient's daughter Priscilla called back stating she was uncomfortable with patient seeing a MOVE COORDINATOR. Aftera long conversation she decided to give Arlen Yana a chance. She wants to be very clear on what is needed for patients appointment on 12/21/21. Patient does not take any of her meds even if shesays she does. She only takes Valsartan on occassions. Patient has dementia and a plan needs to be made so patient can remember to take her medication. Please make sure Arlen speaks to patient directly during the office visit or patient will not want to go back. Priscilla stated patient needs consistency with her provider or it makes it hard to get her the proper care because she will refuse the appointment. Priscilla will be at the appointment. * Telephone Encounter - Kimi Mendez C.M.A. - 12/19/2021 8:24 AM EDT Please see below, Thanks! * Telephone Encounter - Saad Herman - 12/19/2021 8:10 AM EDT Patient does not feel comfortable seeing the DANO for kar. JHON stated to place patient with AC for next appt, okay to put pt on JM schedule instead of AC? documented in this encounter Plan of Treatment Not on file documented as of this encounter Visit Diagnoses Not on filedocumented in this encounter Care Teams Application Support Technician Relationship Specialty Start Date End Date Jonathan Hernandez MD [address] [place] [address] PCP - General Internal Medicine 09/04/21 Byron Fuentes MD Specialist Internal Medicine 10/05/19 Luis Rodriguez MD [address] [place] [address] Director Of Annual Giving Cardiovascular Disease 10/12/21 Arlen Millan NP [address] [place] [address] Nurse Practioner Acute Care 12/21/21 Joselito Pires MD [address] [place], [place] [phone] Neurology 02/08/22 Lisa Zepeda MD [address] [place] [address] Specialist Internal Medicine 02/08/22 Shawna Farooq NP [address] [place] [address] Cardiology 05/15/24 documented as of this encounter
--- OUTSIDE RECORDS SUMMARY | 2025-04-27 16:35 | XMS_ITS | Encounter Summary ---
Author Organization [facility] Address [address] [place] [address] Care Team Providers Care District Court Administrator Name Role Phone Byron Fuentes MD Primary Care Provider Un available Flor Bruce MD Primary Care Provider Unavail able Byron Fuentes MD Unavailable Unavaila Jonathan Beth MD Primary Care Provider [phone] Jonathan Hernandez MD Primary Care Provider Luis Rodriguez MD Unavailable Arlen Millan NP Unavailable Unavailab Joselito Carranza MD Unavailable Unavailab Lisa Maddox MD Unavailable UnavailShawna Alvarez WEIGHT CONTROL ENGINEER Unavailable [phone] Encounter Details Date Type Department Care Team Description 06/20/2010 Hospital Medical Records [address] [place] [address] Clay Garcia MD Social History Tobacco Use [...] on filedocumented in this encounter Care Teams District Court Administrator Relationship Specialty Start Date End Date Byron Fuentes MD PCP - General 07/15/1992 09/04/18 Flor Bruce MD PCP - General Internal Medicine 09/05/18 05/21/21 Jonathan Hernandez MD [address] [place] [address] PCP - General Internal Medicine 05/22/21 09/03/21 Jonathan Hernandez MD [address] [place] [address] PCP - General Internal Medicine 09/04/21 Byron Fuentes MD Specialist Internal Medicine 10/05/19 Luis Rodriguez MD [address] [place] [address] Director Business Development Cardiovascular Disease 10/12/21 Arlen Millan, KENNY [address] [place] [address] Nurse Practioner Acute Care 12/21/21 Joselito Pires MD [address] [place] [address] Neurology 02/08/22 Lisa Zepeda MD [address] [place] [address] Specialist Internal Medicine 02/08/22 Shawna Farooq NP [address] [place] [phone] Cardiology 05/15/24 documented as of this encounter
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
--- OUTSIDE RECORDS SUMMARY | 2025-04-27 16:35 | XMS_ITS | Encounter Summary ---
Author Organization [facility] Address [address] [place] [address] Care Team Providers Care Candle Pourer Name Role Phone Byron Fuentes MD Unavailable Unavaila Jonathan Beth MD Primary Care Provider [phone] Luis Rodriguez MD Unavailable Arlen Millan NP Unavailable Unavailab Joselito Carranza MD Unavailable Unavailab Lisa Maddox MD Unavailable UnavailShawna Alvarez CANOE BUILDER Unavailable [phone] Reason for Visit * Reason Onset Date Comments Provider Call Back 10/04/2021 Encounter Details Date Type Department Care Team Description 10/04/2021 Telephone Adult Medicine [address] [phone] Jonathan Hernandez MD [address] [place] [address] [phone] Provider Call Back Social History Tobacco Use [...] PM EST documented as of this encounter Miscellaneous Notes * Telephone Encounter - Lorrie Clarke - 10/04/2021 2:56 PM EDT Caller requesting call back from provider: Is the caller the patient? NO If caller is not the patient, what is the callers name? Priscilla Callers relationship to patient? Daughter If person calling is not the patient themselves, is there a verbal release in FYI or permanent comments for this person: NO Reason for call back: Needs to speak with a nurse in regards to her mother Caller offered to speak with the nurse for assistance: NO Response: documented in this encounter Plan of Treatment Not on file documented as of this encounter Visit Diagnoses Not on filedocumented in this encounter Care Teams Candle Pourer Relationship Specialty Start Date End Date Jonathan Hernandez MD [address] [place] [address] PCP - General Internal Medicine 09/04/21 Byron Fuentes MD Specialist Internal Medicine 10/05/19 Luis Rodriguez MD [address] [place] [address] Bander And Cellophaner Machine Helper Cardiovascular Disease 10/12/21 Arlen Millan NP [address] [place], [place] [phone] Nurse Practioner Acute Care 12/21/21 Joselito Pires MD [address] [place], [place] [phone] Neurology 02/08/22 Lisa Zepeda MD [address] [place], [place] [phone] Specialist Internal Medicine 02/08/22 Shawna Farooq NP [address] [place], [place] [phone] Cardiology 05/15/24 documented as of this encounter
--- OUTSIDE RECORDS SUMMARY | 2025-04-27 16:35 | XMS_ITS | Encounter Summary ---
Author Organization [facility] Address [address] [place] [address] Care Team Providers Care Overhead Crane Truck Loader Name Role Phone Byron Fuentes MD Primary Care Provider Un available Flor Bruce MD Primary Care Provider Unavail able Byron Fuentes MD Unavailable Unavaila Jonathan Beth MD Primary Care Provider [phone] Jonathan Hernandez MD Primary Care Provider Luis Rodriguez MD Unavailable Arlen Millan NP Unavailable Unavailab Joselito Carranza MD Unavailable Unavailab Lisa Maddox MD Unavailable UnavailShawna Alvarez BIOINFORMATICS SPECIALIST Unavailable [phone] Reason for Visit * Reason Onset Date Comments other 01/03/2015 Encounter Details Date Type Department Care Team Description 01/03/2015 Telephone [facility] - [address] [phone] Byron Fuentes MD other Social History Tobacco Use Types Packs/Day Years [...] encounter Miscellaneous Notes * Telephone Encounter - Byron Fuentes MD - 01/03/2015 2:[address] Fuentes * Telephone Encounter - Lauren Zapata LNicholeP.NNichole - 01/03/2015 1:42 PM EDT Booked for tomorrow for shoulder pain * Telephone Encounter - Rosemary Gilmore - 01/03/2015 12:30 PM EDT Patient request an appt with Dr. Sara BRINK, Please call * Telephone Encounter - Rosalva Jimenes - 01/03/2015 9:24 AM EDT Phone call from patient to radiology to attempt to book a bone density which she believes is due atthis time. If she is due please place the order and radiology will contact patient to book appointment. If not please contact the patient. Thank you, Rosalva Jimenes, BSR Radiology Department documented in this encounter Plan of Treatment Not on file documented as of this encounter Results * DXA BONE DENSITY STUDY 1+ SITS AXIAL SKEL (01/05/2015 11:36 AM EDT) Narrative Sandeep Israel MD - 01/05/2015 3:10 PM EDT BONE DENSITY Lumbar Spine T-score is -2.6 (SD relative to 20-29 y/o adult) Z-score is -0.3 (SD relative to age matched peers) This is consistent with osteoporosis by criteria defined by the WHO. Left Hip T-score is -2.4 Z-score is -0.4 This is consistent with osteopenia by criteria defined by the WHO. Comparison exam(s): significant decrease in bone density of hip when compared to most recent bone density examination Confidence level is +/-95%. Impression: Based on the World Health Organization criteria, Soraya Mendoza should be classified as having osteoporosis. The [facility] Department of Internal Medicine recommends using National Osteoporosis Foundation (NOF) guidelines in treatment decisions related to osteoporosis. NOF guidelines suggest considering treatment for postmenopausal women and men aged 50 or older presenting with the following: History of hip or vertebral fracture. T-score less than or equal to -2.5 (DXA) at the femoral neck, total hip, or spine, after appropriate evaluation to exclude secondary causes. Low bone mass (T-score between -1.0 and -2.5 at the femoral neck or spine) AND a 10-year probability of a hip fracture greater than or equal to 3% OR a 10-year probability of a major osteoporosis-related fracture greater than or equal to 20% based on the [place]-adapted WHO algorithm Please note that all treatment decisions require clinical judgment and consideration of individual patient factors, including patient preferences, co-morbidities, previous drug use, risk factors not captured in the FRAX model (e.g., frailty, falls, vitamin D deficiency, increased bone turnover, interval significant decline in bone density) and possible under- or over-estimation of fracture risk by FRAX. Procedure Note Sandeep Israel MD - 01/05/2015 BONE DENSITY Lumbar Spine T-score is -2.6 (SD relative to 20-29 y/o adult) Z-score is -0.3 (SD relative to age matched peers) This is consistent with osteoporosis by criteria defined by the WHO. Left Hip T-score is -2.4 Z-score is -0.4 This is consistent with osteopenia by criteria defined by the WHO. Comparison exam(s): significant decrease in bone density of hip whencompared to most recent bone density examination Confidence level is +/-95%. Impression: Based on the World Health Organization criteria, Soraya Mendoza shouldbe classified as having osteoporosis. The [facility] Department of Internal Medicine recommendsusing National Osteoporosis Foundation (NOF) guidelines in treatmentdecisions related to osteoporosis. NOF guidelines suggest consideringtreatment for postmenopausal women and men aged 50 or older presentingwith the following: History of hip or vertebral fracture. T-score less than or equal to -2.5 (DXA) at the femoral neck, total hip,or spine, after appropriate evaluation to exclude secondary causes. Low bone mass (T-score between -1.0 and -2.5 at the femoral neck or spine)AND a 10-year probability of a hip fracture greater than or equal to 3% ORa 10-year probability of a major osteoporosis-related fracture greaterthan or equal to 20% based on the [place]-adapted WHO algorithm Please note that all treatment decisions require clinical judgment andconsideration of individual patient factors, including patientpreferences, co-morbidities, previous drug use, risk factors not capturedin the FRAX model (e.g., frailty, falls, vitamin D deficiency, increasedbone turnover, interval significant decline in bone density) and possibleunder- or over-estimation of fracture risk by FRAX. Byron Fuentes MD DEXA documented in this encounter Visit Diagnoses Diagnosis Osteoporosis- Primary Osteoporosis, unspecified Osteoporosis Osteoporosis, unspecified documented in this encounter Care Teams Overhead Crane Truck Loader Relationship Specialty Start Date End Date Byron Fuentes MD PCP - General 07/15/1992 09/04/18 Flor Bruce MD PCP - General Internal Medicine 09/05/18 05/21/21 Jonathan Hernandez MD [address] [place] [id number] PCP - General Internal Medicine 05/22/21 09/03/21 Jonathan Hernandez MD [address] [place] [address] PCP - General Internal Medicine 09/04/21 Byron Fuentes MD Specialist Internal Medicine 10/05/19 Luis Rodriguez MD [address] [place], [place] [phone] Diesel Stationary Engineer Cardiovascular Disease 10/12/21 Arlen Millan NP [address] [place], [place] [phone] Nurse Practioner Acute Care 12/21/21 Joselito Pires MD [address] [place] [address] Neurology 02/08/22 Lisa Zepeda MD [address] [place] [address] Specialist Internal Medicine 02/08/22 Shawna Farooq NP [address] [place], [place] [phone] Cardiology 05/15/24 documented as of this encounter
--- OUTSIDE RECORDS SUMMARY | 2025-04-27 16:35 | XMS_ITS | Clinical Summary ---
Author Organization [facility] Address [address] [facility] [address] [place] [address] Care Team Providers Care Beauty Therapist Name Role Phone Unavailable Primary Care Provider Unavailabl e Immunizations Immunization Administration Dates Next Due Influenza, IIV3, injectable 04/14/2019, 8 Influenza, Unspecified 04/14/2019,03/11/2018 Influenza, seasonal, injecta ble, preservative free 04/06/2024,04/19/2016,05/22/2014,04/10,04/18/2011,03/31/2010,04/02/2009 ,04/01/2008,04/11/2007,05/20/2006,08/2004 Influenza, trivalent, adjuvanted 04/30/2022,02/13,05/01/2016 Novel [id number], preservative-free 07/21/2009 PPD Test 09/04/2011,12/26/2005 Pfizer Covid-19 [...] series) 2017 COVID-19 Vaccine (4 - season) 2025 07/05/2022, 09/12/2020, 08/22/2020 Influenza Vaccine [...]
--- OUTSIDE RECORDS SUMMARY | 2025-04-27 16:35 | XMS_ITS | Encounter Summary ---
Author Organization [facility] Address [address] [place] [address] Care Team Providers Care Manager Grant Name Role Phone Byron Fuentes MD Primary Care Provider Un available Flor Bruce MD Primary Care Provider Unavail able Byron Fuentes MD Unavailable Unavaila Jonathan Beth MD Primary Care Provider [phone] Jonathan Hernandez MD Primary Care Provider [phone] Luis Rodriguez MD Unavailable Arlen Millan NP Unavailable Unavailab Joselito Carranza MD Unavailable Unavailab Lisa Maddox MD Unavailable UnavailShawna Alvarez LAST SORTER Unavailable [phone] Encounter Details Date Type Department Care Team Description 09/02/2014 Business Doc Medical Records [address] [place] [address] Abstract, Provider Social History Tobacco Use Types [...] on filedocumented in this encounter Care Teams Manager Grant Relationship Specialty Start Date End Date Byron Fuentes MD PCP - General 07/15/1992 09/04/18 Flor Bruce MD PCP - General Internal Medicine 09/05/18 05/21/21 Jonathan Hernandez MD [address] [place] [id number] PCP - General Internal Medicine 05/22/21 09/03/21 Jonathan Hernandez MD [address] [place] [address] [id number] PCP - General Internal Medicine 09/04/21 Byron Fuentes MD Specialist Internal Medicine 10/05/19 Luis Rodriguez MD [address] [place] [id number] Ortho Nurse Cardiovascular Disease 10/12/21 Arlen Millan NP [address] [place], [place] [id number] Nurse Practioner Acute Care 12/21/21 Joselito Pires MD [address] [place] [address] [id number] Neurology 02/08/22 Lisa Zepeda MD [address] [place], [place] [id number] Specialist Internal Medicine 02/08/22 Shawna Farooq NP [address] [place] [address] [id number] Cardiology 05/15/24 documented as of this encounter
--- OUTSIDE RECORDS SUMMARY | 2025-04-27 16:35 | XMS_ITS | Encounter Summary ---
Author Organization [facility] Address [address] [place] [address] Care Team Providers Care Metal Bonder Name Role Phone Byron Fuentes MD Primary Care Provider Un available Flor Bruce MD Primary Care Provider Unavail able Byron Fuentes MD Unavailable Unavaila Jonathan Beth MD Primary Care Provider [phone] Jonathan Hernandez MD Primary Care Provider [phone] Luis Rodriguez MD Unavailable Arlen Millan NP Unavailable Unavailab Joselito Carranza MD Unavailable Unavailab Lisa Maddox MD Unavailable UnavailShawna Alvarez HEAD BANQUET WAITER/WAITRESS Unavailable [phone] Encounter Details Date Type Department Care Team Description 01/10/2015 Business Doc Medical Records [address] [place] [address] Abstract, Provider Social History Tobacco Use Types [...] on filedocumented in this encounter Care Teams Metal Bonder Relationship Specialty Start Date End Date Byron Fuentes MD PCP - General 07/15/1992 09/04/18 Flor Bruce MD PCP - General Internal Medicine 09/05/18 05/21/21 Jonathan Hernandez MD [address] [place] [id number] PCP - General Internal Medicine 05/22/21 09/03/21 Jonathan Hernandez MD [address] [place] [address] [id number] PCP - General Internal Medicine 09/04/21 Byron Fuentes MD Specialist Internal Medicine 10/05/19 Luis Rodriguez MD [address] [place] [address] [id number] Capacity Planning Engineer Cardiovascular Disease 10/12/21 Arlen Millan NP [address] [place], [place] [id number] Nurse Practioner Acute Care 12/21/21 Joselito Pires MD [address] [place] [address] [id number] Neurology 02/08/22 Lisa Zepeda MD [address] [place], [place] [phone] Specialist Internal Medicine 02/08/22 Shawna Farooq NP [address] [place] [id number] Cardiology 05/15/24 documented as of this encounter
[2025-04-27 17:19] VITALS: BP 187/83; PULSE 78; RESP 18; TEMP 36.6; O2SAT 99
--- NOTE | 2025-04-27 17:20 | HO.NURTONUR ---
Addendum entered by Nanda Owens RN 04/27/25 17:25: pt does have a pure wick Original Note: patient came in from home after walking up 2 steps and fell back onto rt hip no head strike or LOC. pt dx with rt hip fx and will be NPO at midnight. Upon arrival pt was a&ox2 person/place, she has a history of dementia and has since become only alert to person with increased confusion and attempting to get OOB. Bed alarm is on but the patient could use a patient safety camera when she gets upstairs. She has a 20G to Rt AC and got IV tylenol for pain and has not complained of pain since the initial dose. Daughter stated she would be back later this evening as she had to take the patients home (he also has dementia). vitals have been stable.
--- NOTE | 2025-04-27 17:59 | PHA.MEDREC ---
Pharmacy Consult ? Medication Reconciliation Pharmacy has completed the medication reconciliation. Spoke to patient's daughter Priscilla at bedside to confirmed medication list. She confirmed patient takes eliquis 2.5 mg bid and metoprolol ER 25 mg bid. Last dose of medication was this morning 04/27/25.
[2025-04-27 18:31] VITALS: BMI 27.5
[2025-04-27 18:38] VITALS: BP 174/77; PULSE 69; RESP 18; TEMP 36.7; O2SAT 95
[2025-04-27 20:00] VITALS: BP 176/82; PULSE 77; RESP 18; TEMP 37.5; O2SAT 97
[2025-04-27 20:16] VITALS: BP 176/82; PULSE 77
[2025-04-27] MEDS: Metoprolol Succinate ER 25 MG TAB.ER.24H PO (20:16)
--- NOTE | 2025-04-28 02:42 | P.EN_ITS ---
Event Note Date of Service: 04/28/25 Event Note: Nursing notified this personal lines underwriter that daughter arrived this hour to complain that pt is not on the correct meds for Namenda and thyroid. Meds brought in from home and med rec updated to reflect correct dosing and medication. Time Spent With Patient Time: Total time managing care of this patient today ____ minutes.
[2025-04-28 04:00] VITALS: BP 140/60; PULSE 70; RESP 18; TEMP 36.4; O2SAT 96
--- NOTE | 2025-04-28 04:34 | PC.NURSE ---
0115 pt daughter and healthcare proxy Priscilla called to check in on her mother. Pt was resting and calm which was communicated to the daughter. It was relayed to pt daughter that if anything changed or the pt became restless she would be contacted per her request. 0125 daughter calls back again asking to know what medications and doses her mother had received that evening. Priscilla was told what medications she received (see MAR). The daughter was unhappy that her mother received melatonin stating I asked you not to sedate my mother. It was explained that her mother was not sedated and still resting and continued to be calm. The daughter demanded to know who was the provider at that time and why her mother was prescribed melatonin. While on the phone, the remainder the pt medications were gone over with the daughter and she was upset that the dosage of memantine was incorrect and that synthroid was prescribed rather than tirosint. She asked who the doctor was that ordered these medications, why the nurse didn't contact pharmacy and said I don't want to wait until the morning to get a legal involved. I will be there in 20 mins, with her home medications and I want a list of her prescribed medications printed out. 0210 pt daughter Priscilla was present bedside and asked to speak to the nurse. She said So where's the doctor? . It was explained to Priscilla that the doctor would be contacted now that she was present, Dr. Somers was notified at that time. There was a discussion with two RNs present about what medications were given and what medications were ordered for the morning. The daughter was shown medication record and told the hospitals pharmacy had verified with the pt pharmacy on file the pt current medications. The daughter was upset that the medications were not correctly ordered or passed from ED to the floor correctly. After further discussion as to why the patient could not take synthroid - it contains fillers that the pt cannot tolerate - it was explained to the pt that the synthroid would not be given to her mother and that as soon as pharmacy got in, the home medications would be taken to pharmacy so they could be verified, labeled and used in the morning. The daughter was still upset and threatened to pascual the nurses and doctors on a professional and personal level . The daughter wanted further confirmation that the correct dosage and medications would be given to her mother - nursing first line production supervisor Maribell contacted and reiterated what was already explained regarding the home medications and pharmacy. There was further discussion about melatonin - how it occurs naturally in the body, is an over the counter medication and not a narcotic. The daughter did calm down and expressed how hard she works to keep her mother's medication regime on schedule/correct. Daughter visited with pt for a few minutes then left for the night. AUTO CLAIMS ADJUSTER Cachorro changed the orders for the memantine to reflect the correct dosage and synthroid to tirosint. Medications will be taken to pharmacy once open.
--- NOTE | 2025-04-28 06:11 | PC.NURSE ---
0610 pt medications from home dropped off at pharmacy.
[2025-04-28 06:22] LABS: Hematocrit 43.6 % (37.0-47.0); Hemoglobin 14.2 g/dl (12.0-16.0); Mean Corpuscular HGB Conc 32.6 g/dl (31.0-35.0); Mean Corpuscular Hemoglobin 28.0 pg (27.0-33.0); Mean Corpuscular Volume 86.0 fL (80.0-98.0); NRBC Abs Auto 0.000 X10*3/uL (0.0-0.012); NRBC Pct Auto 0.0 /100WBC (0.0-0.2); Platelet Count 156 X10*3/uL (160-400); Red Blood Count 5.07 X10*6/uL (4.20-5.50); White Blood Count 6.6 X10*3/uL (4.8-10.8)
[2025-04-28 06:35] LABS: Anion Gap 12 (12-20); Blood Urea Nitrogen 20 mg/dL (9-16); Calcium 8.6 mg/dL (8.4-10.2); Carbon Dioxide 22 mmol/L (22-29); Chloride 110 mmol/L (96-108); Creatinine Clr Calc Pharmacy 56.7; Estimated Glomerular Filt Rate > 60; Potassium 4.1 mmol/L (3.3-5.1); Sodium 140 mmol/L (135-145)
[2025-04-28 07:48] VITALS: BP 181/96; PULSE 81; RESP 20; TEMP 36.2; O2SAT 97
--- NOTE | 2025-04-28 07:57 | PC.NURSE ---
Held Valsartan as advised per surgery RN,daughter Priscilla notified about Memantine and Tirosint med being updated as requested by her earlier
--- NOTE | 2025-04-28 08:27 | HO.ANESPROP2 ---
Documented by User: Chantell Bella NP 04/28/25 08:37 HPI - Anesthesia Eval Consult details Narrative: 85 yr old female for right hemiarthroplasty hip Pt has severe dementia, unable to provide hx, daughter not at bedside during consult. Cardiomyopathy with reduced EF: improved on echo from 11/2023, LVEF 55-60%. Atrial flutter/afib: rate controlled on metoprolol; holter from 09/2023 NSR, average HR 69, single 8 beat run of nonsustained VT, PVC burden of 0.9%, PAC budren 0.59% Chronic thrombus left lower extremity: on eliquis PMFSH Active Problems Active Problems: All Active Problems Fall (Acute) Closed fracture of right hip (Acute) Displaced fracture of right femoral neck (Acute) Dementia with behavioral disturbance (Acute) Cardiomyopathy (Acute) NSVT (nonsustained ventricular tachycardia) (Acute) Arrhythmia (Acute) Acute non-ST elevation myocardial infarction (NSTEMI) (Acute) Closed left humeral fracture (Acute) Fall (Acute) Past Medical History Medical History Dementia with behavioral disturbance NSVT (nonsustained ventricular tachycardia) NSVT (nonsustained ventricular tachycardia) Breast cancer Rheumatoid aortitis Hypertension Troponin level elevated Fracture, humerus, neck Syncope Family History Family History Mother Cancer Sister Cancer Daughter Cancer Other No family history of coronary artery disease Surgical History Surgical History H/O knee surgery H/O mastectomy Social History Social History Household Members: Spouse and Children Housing: House Do you presently have visiting nurse or other home services: No Alcohol intake: never Comment: 1:1 sitter Patient Tobacco Use Status: Never used Tobacco Tobacco use type: Cigarette Cigarettes Per Day: 4 Second Hand Smoke Exposure: No service: No Current occupational status: retired Meds Allergies Allergy/AdvReac Type Severity Reaction Status Date / Time No Known Allergies Allergy Verified 04/27/25 12:06 Active Medications: Current Medications Acetaminophen (Acetaminophen 325 Mg Tablet) 650 mg PO Q6H PRN PRN Reason: Pain, Mild 1-3,fever,headache Last Admin: 10/14/25 20:16 Dose: 650 mg Calcium Carbonate (Calcium Carbonate 750 Mg Tab.Chew) 750 mg PO Q4H PRN PRN Reason: Heartburn Escitalopram Oxalate (Escitalopram Oxalate 10 Mg Tablet) 10 mg PO BID [facility] Last Admin: 04/27/25 20:16 Dose: 10 mg Cefazolin Sodium/Dextrose (Ancef) 2 gm in 50 mls @ 100 mls/hr IV PREOP ONE Stop: 04/28/25 14:29 Magnesium Hydroxide (Milk Of Magnesia 30 Ml Oral.Susp) 30 ml PO DAILY PRN PRN Reason: Constipation Melatonin (Melatonin 3 Mg Tablet) 6 mg PO BEDTIME PRN PRN Reason: Insomnia Last Admin: 04/27/25 20:16 Dose: 6 mg Metoprolol Succinate (Metoprolol Succinate Er 25 Mg Tab.Er.24h) 25 mg PO BID [facility]; Protocol Last Admin: 04/27/25 20:16 Dose: 25 mg Pat Own Med ( Levothyroxine [ Tirosint] 62.5 Mcg Capsule) 62.5 mcg PO DAILY@0600 [facility] Pat Own Med ( Memantine 28 Mg Capsule,Sprinkle,Er 24hr) 28 mg PO DAILY [facility] Sodium Chloride (0.9 % Sodium Chloride Flush 3 Ml Syringe) 3 ml IVFLUSH QSHIFT [facility] Last Admin: 04/27/25 20:20 Dose: 3 ml Valsartan (Valsartan 80 Mg Tablet) 80 mg PO DAILY [facility]; Protocol Last Admin: 04/28/25 07:49 Dose: Not Given Home Medications ?Medication ?Instructions ?Recorded ?Confirmed ?Last Taken ?Type escitalopram oxalate 10 mg tablet 10 mg PO BID 04/09/24 04/27/25 04/27/25 History valsartan 40 mg tablet 80 mg PO DAILY 04/09/24 04/27/25 04/27/25 History apixaban 2.5 mg tablet (Eliquis) 2.5 mg PO BID 01/27/25 04/27/25 04/27/25 History levothyroxine 62.5 mcg capsule 62.5 mcg PO DAILY 01/27/25 04/27/25 04/27/25 History (Tirosint) metoprolol succinate 25 mg 25 mg PO BID 10/14/25 10/14/25 10/14/25 History tablet,extended release 24 hr Exam Height,Weight and Vital Signs: Height 5 ft 2 in Weight 68.175 kg Last Vital Signs Temp 97.2 F 04/28/25 07:48 Pulse 81 04/28/25 07:48 Resp 20 04/28/25 07:48 BP 181/96 H 04/28/25 07:48 Pulse Ox 97 04/28/25 07:48 O2 Del Method Room Air 04/28/25 07:48 Pertinent Lab Results Pertinent Lab Results: Laboratory Tests 04/27/25 04/27/25 04/28/25 11:57 13:29 05:39 WBC 7.7 6.6 RBC 5.16 D 5.07 Hgb 14.4 D 14.2 Hct 45.7 D 43.6 MCV 88.6 86.0 MCH 27.9 28.0 MCHC 31.5 32.6 RDW 13.8 13.7 Plt Count 188 D 156 L MPV 9.9 10.3 Immature Gran % (Auto) 0.5 H Neut % (Auto) 63.6 Lymph % (Auto) 25.7 Rock % (Auto) 7.9 Eos % (Auto) 1.7 Baso % (Auto) 0.6 Lymph # (Auto) 2.0 Rock # (Auto) 0.6 Eos # (Auto) 0.1 Baso # (Auto) 0.1 Abs Immat Gran (auto) 0.04 H Absolute Neuts (auto) 4.9 Absolute Nucleated RBC 0.000 0.000 Nucleated RBC % (auto) 0.0 0.0 PT 15.2 H INR 1.3 H Sodium 142 140 Potassium 4.0 4.1 Chloride 108 110 H Carbon Dioxide 24 22 Anion Gap 14 12 BUN 25 H 20 H Creatinine 0.91 0.68 Estim Creat Clear Calc 43.4 56.7 Estimated GFR 59 > 60 Random Glucose 106 126 H Calcium 9.1 8.6 Magnesium 2.4 Total Bilirubin 0.4 AST 22 ALT 13 Alkaline Phosphatase 99 Total Protein 7.5 Albumin 4.0 Blood Type A Positive Antibody Screen NEGATIVE Narrative Narrative: EKG 04/2025 Vent. Rate : 64 BPM Atrial Rate : 64 BPM P-R Int : 160 ms QRS Dur : 84 ms QT Int : 396 ms P-R-T Axes : 100 -26 -54 degrees QTcB Int : 408 ms Normal sinus rhythm ST & T wave abnormality, consider anterolateral ischemia Abnormal ECG When compared with ECG of 20-Sep-2021 16:10, Non-specific change in ST segment in Inferior leads ST now depressed in Anterior leads T wave inversion now evident in Anterior leads ECHO 11/2023 Normal left ventricular chamber size. Normal left ventricular wall thickness. Normal regional wall motion. Normal left systolic function. LVEF 55-60%. Normal right ventricular size and function. No hemodynamically significant valve dysfunction. Documented by User: Niki Luna MD 04/29/25 10:40 [facility] Past Medical History Medical History Dementia with behavioral disturbance NSVT (nonsustained ventricular tachycardia) NSVT (nonsustained ventricular tachycardia) Breast cancer Rheumatoid aortitis Hypertension Troponin level elevated Fracture, humerus, neck Syncope Family History Family History Mother Cancer Sister Cancer Daughter Cancer Other No family history of coronary artery disease Family history of problems with anesthesia: No Surgical History Surgical History H/O knee surgery H/O mastectomy History of Problems with Anesthesia: No Social History Social History Household Members: Spouse and Children Housing: House Do you presently have visiting nurse or other home services: No Alcohol intake: never Comment: 1:1 sitter Patient Tobacco Use Status: Never used Tobacco Tobacco use type: Cigarette Cigarettes Per Day: 4 Second Hand Smoke Exposure: No service: No Current occupational status: retired [employer] Allergies Allergy/AdvReac Type Severity Reaction Status Date / Time No Known Allergies Allergy Verified 04/27/25 12:06 Home Medications ?Medication ?Instructions ?Recorded ?Confirmed ?Last Taken ?Type escitalopram oxalate 10 mg tablet 10 mg PO BID 04/09/24 04/27/25 04/27/25 History valsartan 40 mg tablet 80 mg PO DAILY 04/09/24 04/27/25 04/27/25 History apixaban 2.5 mg tablet (Eliquis) 2.5 mg PO BID 01/27/25 04/27/25 04/27/25 History levothyroxine 62.5 mcg capsule 62.5 mcg PO DAILY 01/27/25 04/27/25 04/27/25 History (Tirosint) metoprolol succinate 25 mg 25 mg PO BID 04/27/25 04/27/25 04/27/25 History tablet,extended release 24 hr Exam Airway Mallampati Class: II TM Dist: >3cm Neck ROM: Full Heart: rrr Lungs: cta Assessment and Plan Assessment Anesthesia Assessment: Anesthesia Plan Discussed and Chart Reviewed Final Anesthetic Review Family History of Problems with Anesthesia: No History of Problems with Anesthesia: No NPO: Yes ASA Class: III Final Preanesthetic Review: No Changes in Pt Med Stat, Meds/Allgs Chart Reviewed and Consent Obtained/Reviewed Patient Risk: Intermediate Procedure Risk: Intermediate Anesthetic Plan Anesthetic Plan: GA Disposition: Standard PACU
[2025-04-28] MEDS: 0.9 % Sodium Chloride Flush 3 ML SYRINGE IVFLUSH ×2 (09:20→21:22)
[2025-04-28] MEDS: LEVOTHYROXINE 62.5 MCG 62.5 EACH PO (09:21)
[2025-04-28 09:22] VITALS: BP 169/98; PULSE 97
[2025-04-28] MEDS: MEMANTINE 28 MG 28 EACH PO (09:22)
[2025-04-28] MEDS: Metoprolol Succinate ER 25 MG TAB.ER.24H PO ×2 (09:22→21:21)
--- NOTE | 2025-04-28 09:26 | PC.NURSE ---
BP elevated 169/98 ,pulse 97 ,Dr. Subramanian made aware
--- NOTE | 2025-04-28 09:44 | PC.NURSE ---
Dr. Subramanian made aware patient has only Tylenol orderd for pain,it was reported to me daughter Priscilla did not wanted her mother to have stronger meds ,dr. Subramanian made aware
[2025-04-28] MEDS: Lactated Ringers 1,000 ML 100 ML IVCONT (09:58)
--- NOTE | 2025-04-28 11:49 | MHC.CM.PN ---
IMM DELIVERED PT LIVES WITH DAUGHTER AND SPOUSE, DAUGHTER IS CAREGIVER FOR BOTH PARENTS. PT USES A CANE NEEDED. PT ATTENDS [facility] AND HAS MASSAGES WEEKLY. + HCP/POA ON FILE. PCP DR. NATALEE WOOD DP: PT IS ANTICIPATED TO NEED STR FOLLOWING HIP REPAIR. DAUGHTER REQUESTS FIRST CHOICE [facility], [facility] AND THIRD HOME WITH [facility]. PT WILL NEED BLS TRANSPORT. CM WILL CONTINUE TO FOLLOW FOR ANY CHANGE TO DC PLAN/NEEDS.
[2025-04-28 16:00] VITALS: BP 137/73; PULSE 86; RESP 18; TEMP 36.6; O2SAT 93
--- NOTE | 2025-04-28 16:52 | HO.PM.IMPN ---
Subjective Subjective Date of Service: 04/28/25 Interval History: hip fracture Review of Systems has some leg pain no new c/o Review of Systems: Yes all other systems are reviewed and are negative Physical Exam Exam: Exam: General: AO X 2, no acute distress Resp: CTA bilateral, no accessory muscles used CVS: S1,S2,RRR GI: soft, non tender, non distended Neuro: motor grossly intact, alert Psych: appropriate affect, has some insight Vital Signs: Vital Signs: Last Vital Signs Temp 97.8 F 04/28/25 16:00 Pulse 86 04/28/25 16:00 Resp 18 04/28/25 16:00 BP 137/73 04/28/25 16:00 Pulse Ox 93 04/28/25 16:00 O2 Del Method Room Air 04/28/25 16:00 BMI result Body Mass Index 27.5 Objective Data Active Medications Acetaminophen (Acetaminophen 325 Mg Tablet) 975 mg PO Q6H PRN PRN Reason: Pain, Mild 1-3,fever,headache Last Admin: 04/28/25 16:10 Dose: 975 mg Documented By: RALF Calcium Carbonate (Calcium Carbonate 750 Mg Tab.Chew) 750 mg PO Q4H PRN PRN Reason: Heartburn Enoxaparin Sodium (Enoxaparin Sodium 40 Mg/0.4 Ml Syringe) 40 mg SUBCUT ONCE ONE Stop: 04/28/25 17:01 Last Admin: 04/28/25 16:40 Dose: 40 mg Documented By: RALF Escitalopram Oxalate (Escitalopram Oxalate 10 Mg Tablet) 10 mg PO BID TAWNYA Last Admin: 04/28/25 09:22 Dose: 10 mg Documented By: RALF Lactated Ringer's (Lr) 1,000 mls @ 100 mls/hr IVCONT .Q10H TAWNYA On Hold: 04/28/25 16:21 Last Infusion: 04/28/25 16:31 Dose: 0 mls/hr Documented By: RALF Magnesium Hydroxide (Milk Of Magnesia 30 Ml Oral.Susp) 30 ml PO DAILY PRN PRN Reason: Constipation Melatonin (Melatonin 3 Mg Tablet) 6 mg PO BEDTIME PRN PRN Reason: Insomnia Last Admin: 04/27/25 20:16 Dose: 6 mg Documented By: SOHAIL Metoprolol Succinate (Metoprolol Succinate Er 25 Mg Tab.Er.24h) 25 mg PO BID [facility]; Protocol Last Admin: 04/28/25 09:22 Dose: 25 mg Documented By: RALF [place] [facility] ( Levothyroxine [ Tirosint] 62.5 Mcg Capsule) 62.5 mcg PO DAILY@0600 [facility] Last Admin: 04/28/25 09:21 Dose: 62.5 mcg Documented By: RALF [place] [facility] ( Memantine 28 Mg Capsule,Sprinkle,Er 24hr) 28 mg PO DAILY [facility] Last Admin: 04/28/25 09:22 Dose: 28 mg Documented By: RALF Sodium Chloride (0.9 % Sodium Chloride Flush 3 Ml Syringe) 3 ml IVFLUSH QSHIFT [facility] Last Admin: 04/28/25 15:41 Dose: Not Given Documented By: RALF Non-Admin Reason: IV Running Valsartan (Valsartan 80 Mg Tablet) 80 mg PO DAILY [facility]; Protocol Last Admin: 04/28/25 07:49 Dose: Not Given Documented By: RALF Non-Admin Reason: hold per surgery Labs 04/28/25 05:39 04/28/25 05:39 Labs: Laboratory Results - last 24 hr 04/28/25 05:39 MCV 86.0 MCH 28.0 MCHC 32.6 RDW 13.7 Plt Count 156 L MPV 10.3 Absolute Nucleated RBC 0.000 Nucleated RBC % (auto) 0.0 Anion Gap 12 Estim Creat Clear Calc 56.7 Estimated GFR > 60 Random Glucose 126 H Calcium 8.6 Assessment and Plan (1) Cardiomyopathy: Status: Acute Plan 85F PMH hfref EF 25%, post ablative hypothyroid, alzheimers dementia, breast ca s/p bilateral mastectomy in remission, history of recurrent dVT on eliquis 2.5mg bid, rheumatoid arthritis, presented with fall Mechanical fall complicated by right femur fracture ortho procedure for am npo past midnight History of DVT Restart Eliquis after surgery, if delay in surgery will bridge with IV heparin Alzheimer dementia At risk for delirium, monitor Memantine Chronic systolic CHF Euvolemic, on Toprol and valsartan Full code ongoing need : hip fracture and need for surgical repair needed. Quality Stroke Does the patient have a stroke diagnosis?: No VTE Prior VTE?: Yes VTE Risk Level:: Medical - moderate - high VTE Device Contraindication: N/A - Device Ordered VTE Drug Contraindication: Treatment Not Indicated
[2025-04-28 20:00] VITALS: BP 140/76; PULSE 78; RESP 16; TEMP 36.6; O2SAT 97
[2025-04-29] VITALS (10 sets, daily range): BP systolic 110–178; BP diastolic 56–82; PULSE 70–90; RESP 14–18; TEMP 36.1–37.1; O2SAT 94–100
--- NOTE | 2025-04-29 03:11 | PC.NURSE ---
0030 Asked to speak to patient's daughter, Priscilla on the phone. The patient's daughter expressed frustration regarding perceived lack of communication regarding receiving Tirosint 62.5mg po during the morning vs receiving it at night. Patient's daughter verbalized, I spoke at length to the nursing staff during the daytime about the importance of my mom receiving Tirosint at night as it helps her to sleep and minimize her dementia, I don't understand why it wasn't changed Daughter reported, I am extremely angry and want the medication to be given now by the provider. Patient's daughter expressed concerns over INR bloodwork, wanting to ensure the blood work was within limits to be able to have surgery in am as this is what she was told by provider. I listened to her concerns, using active listening techniques. I acknowledged her frustration with the perceived lack of communication and that I would notify the provider immediately. Patient's daughter insisted the doctor not a nurse practioner be notified and that it gets taken care of immediately . I assured I would message Dr. Somers and would call Priscilla, patient's daughter back once I heard a response. Dr. Somers and Radha Ivory COMPUTER LAB ASSISTANT notified of situation as patient's daughter did request a doctor to be notified and Radha Ivory COMPUTER LAB ASSISTANT covering the Medical Surgical unit the patient is on. PT/INR ordered for am and Tirosint medication reviewed. Dr. Somers reported she will follow up with daytime covering provider to review Tirosint medication and possibly changing Tirosint medication as daughter requested. Also both providers made aware Priscilla, patient's daughter would like a followup phone call, regarding her concerns. Followup phone call back to Priscilla made informing patient's daughter blood work has been ordered but the medication had already been given and at this time the daytime provider would have to review the Tirosint order and adjust accordingly in the morning. Patient's daughter verbalized she would follow up with the daytime providers regarding her mother's care and thanked me for listening to her concerns. Nursing [employer] made aware of eventa and Primary RN Lauren updated on conversations.
[2025-04-29 06:13] LABS: INTERNATIONAL NORM RATIO 1.3 (0.9-1.1); Prothrombin Time 14.7 SEC (10.9-12.4)
[2025-04-29] MEDS: MEMANTINE 28 MG 28 EACH PO (08:46)
[2025-04-29] MEDS: Metoprolol Succinate ER 25 MG TAB.ER.24H PO ×2 (08:47→20:48)
[2025-04-29] MEDS: 0.9 % Sodium Chloride Flush 3 ML SYRINGE IVFLUSH ×3 (08:47→20:48)
[2025-04-29] MEDS: Lactated Ringers 1,000 ML 80 ML IVCONT (10:43)
--- NOTE | 2025-04-29 11:13 | MHC.SHP ---
Pre-Procedural Eval Section A - 24 Hr Update-Section A only Date of Service: 04/29/25 The patient is an INPATIENT: Yes Changes since office visit: No Cold of Flu in the past 2 weeks, No New Medical Problems, No Changes in Medication and No Patient answered all questions The patient has been examined within 24 hours of the surgical procedure. The History & Physical has been completed within 30 days and I have reviewed it.: Yes Section B - Complete if H&P > 30 days Chief Complaint: hip fracture Allergies: Allergies Allergy/AdvReac Type Severity Reaction Status Date / Time No Known Allergies Allergy Verified 04/27/25 12:06 Plan I have reviewed the history and physical and performed a pertinent physical examination on my patient. No changes have occurred unless specified. Time Spent With Patient Time: Total time managing care of this patient today ____ minutes.
--- NOTE | 2025-04-29 14:43 | HO.PM.IMPN ---
Subjective Subjective Date of Service: 04/29/25 Interval History: hip fx Review of Systems going for hip surgery no chest pain or sob Review of Systems: Yes all other systems are reviewed and are negative Physical Exam Exam: Exam: General: AO X 2, no acute distress Resp: CTA bilateral, no accessory muscles used CVS: S1,S2,RRR GI: soft, non tender, non distended Neuro: motor grossly intact, alert Psych: appropriate affect, has some insight Vital Signs: Vital Signs: Last Vital Signs Temp 98.4 F 04/29/25 13:55 Pulse 84 04/29/25 13:55 Resp 14 04/29/25 13:55 BP 146/79 H 04/29/25 13:55 Pulse Ox 96 04/29/25 13:55 O2 Del Method Simple Mask 04/29/25 13:55 O2 Flow Rate 2 04/29/25 13:55 BMI result Body Mass Index 27.5 Objective Data Active Medications Calcium Carbonate (Calcium Carbonate 750 Mg Tab.Chew) 750 mg PO Q4H PRN PRN Reason: Heartburn Escitalopram Oxalate (Escitalopram Oxalate 10 Mg Tablet) 10 mg PO BID [facility] Last Admin: 04/29/25 08:47 Dose: 10 mg Documented By: MARILY Fentanyl (Fentanyl Citrate/Pf 100 Mcg/2 Ml Vial) 25 mcg IVPUSH Q5M PRN PRN Reason: Pain, Moderate to Severe (Pain Scale 4-10) Stop: 04/29/25 19:34 Cefazolin Sodium/Dextrose (Ancef) 2 gm in 50 mls @ 100 mls/hr IV POSTOP TAWNYA Acetaminophen (Ofirmev) 1,000 mg in 100 mls @ 400 mls/hr IV Q6H [facility] Last Admin: 04/29/25 14:26 Dose: 400 mls/hr Documented By: MARILY Magnesium Hydroxide (Milk Of Magnesia 30 Ml Oral.Susp) 30 ml PO DAILY PRN PRN Reason: Constipation Melatonin (Melatonin 3 Mg Tablet) 6 mg PO BEDTIME PRN PRN Reason: Insomnia Last Admin: 04/28/25 21:21 Dose: 6 mg Documented By: LEFEBVA Metoprolol Succinate (Metoprolol Succinate Er 25 Mg Tab.Er.24h) 25 mg PO BID [facility]; Protocol Last Admin: 04/29/25 08:47 Dose: 25 mg Documented By: MARILY Naloxone HCl (Naloxone Hcl 0.4 Mg/Ml Vial) 0.04 mg IVPUSH Q5M PRN PRN Reason: Excessive sedation or RR < 8 [facility] ( Memantine 28 Mg Capsule,Sprinkle,Er 24hr) 28 mg PO DAILY [facility] Last Admin: 04/29/25 08:46 Dose: 28 mg Documented By: MARILY Non-Formulary Medication (Levothyroxine [Tirosint]) 62.5 mcg PO BEDTIME [facility] Ondansetron HCl (Ondansetron Hcl 4 Mg/2 Ml Vial) 4 mg IVPUSH ONCE PRN PRN Reason: Nausea and Vomiting Stop: 04/29/25 19:34 Sodium Chloride (0.9 % Sodium Chloride Flush 3 Ml Syringe) 3 ml IVFLUSH QSHIFT [facility] Last Admin: 04/29/25 08:47 Dose: 3 ml Documented By: MARILY Valsartan (Valsartan 80 Mg Tablet) 80 mg PO DAILY [facility]; Protocol Last Admin: 04/29/25 08:40 Dose: Not Given Documented By: MARILY Non-Admin Reason: Physician Held Med Labs 04/28/25 05:39 04/28/25 05:39 Labs: Laboratory Results - last 24 hr 04/29/25 05:44 PT 14.7 H INR 1.3 H Assessment and Plan (1) Cardiomyopathy: Status: Acute Plan 85F PMH hfref EF 25%, post ablative hypothyroid, alzheimers dementia, breast ca s/p bilateral mastectomy in remission, 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 History of DVT Restart Eliquis after surgery, if delay in surgery will bridge with IV heparin Alzheimer dementia At risk for delirium, monitor Memantine Chronic systolic CHF Euvolemic, on Toprol and valsartan Full code ongoing need : hip fracture and need for surgical repair needed. Quality Stroke Does the patient have a stroke diagnosis?: No VTE Prior VTE?: Yes VTE Risk Level:: Medical - moderate - high VTE Device Contraindication: N/A - Device Ordered VTE Drug Contraindication: Treatment Not Indicated
--- NOTE | 2025-04-29 15:33 | PM.OP ---
Brief Operative Note Date of Service: 04/29/25 Pre-op diagnosis: Right femoral neck fx Post-op diagnosis: same Procedure: Right hip bianca Implants: [place] AcocladeC #[id number] with - bipolar Surgeon: Isaías Stanton MD Anesthesia: GLMA and local Was an Employment Specialist used for this Procedure?: Yes Employment Specialist: Daren Richardson Estimated blood loss (mL): 200 IV fluids (mL): 750 Pathology: other Condition: stable Disposition: PACU
[2025-04-29] MEDS: LEVOTHYROXINE 62.5 MCG 62.5 EACH PO (20:48)
[2025-04-30] VITALS (8 sets, daily range): BP systolic 90–146; BP diastolic 48–67; PULSE 64–90; RESP 16–20; TEMP 36.1–37.2; O2SAT 92–97
--- NOTE | 2025-04-30 00:16 | PC.NURSE ---
Pt bladder scanned at 20:39 with 514 mL in bladder. Pt assisted up to commode and urinated 200 mL. PVR was 389. SALOMÓN Garcia notified at this time. This RN was instructed to get pt up to commode again and after this if PVR is > 250 then to notify provider. Pt resting comfortably at this time and expressed relief from emptying her bladder. Will continue to monitor.
--- NOTE | 2025-04-30 03:29 | PM.EVENT ---
Event Note Date of Service: 04/30/25 Event Note: Working with nursing on managing patient's issues with urinary retention and postvoid residual of 384 since hip surgery earlier 04/29/2025. Patient was eventually able to void and did not require straight catheterization but postvoid residuals are still above 250. In addition patient experiencing hypotension with a systolic of 90, alert and orientated x3, no diaphoresis, no bradycardia or arrhythmia noted. POX did drop to 92% and pt was placed on NC 2L. Stat labs have been requested including CBC and BMP and repeating type and screen as it is greater than 72 hours, just in case. Dressing to affected hip is intact with a small amount of brown old drainage. Neurovascular check of RLE within normal limits. Patient will receive albumin 25 g, holding valsartan and metoprolol for now. Pt remains on 0.9 NS at 60 mls per hour. Patient will now be bedrest and Noriega will be placed noting ongoing issues with retention and now low blood pressure. CXR ordered. Pt does have low EF of 25%. WIll rule out pulmonary congestion. Time Spent With Patient Time: Total time managing care of this patient today ____ minutes.
[2025-04-30 03:40] LABS: MANUAL DIFF FLAG NO
[2025-04-30] MEDS: Albumin Human 25 % 50 ML 100 ML IV ×3 (03:44→16:00)
[2025-04-30 03:55] LABS: Hematocrit 34.7 % (37.0-47.0); Hemoglobin 11.1 g/dl (12.0-16.0); Imm Gran Abs Auto 0.04 X10*3/uL (0.00-0.03); Imm Gran Pct Auto 0.5 % (0.0-0.4); Lymphocytes Absolute Auto 1.1 X10*3/uL (1.2-4.9); Mean Corpuscular HGB Conc 32.0 g/dl (31.0-35.0); Mean Corpuscular Hemoglobin 28.1 pg (27.0-33.0); Mean Corpuscular Volume 87.8 fL (80.0-98.0); NRBC Abs Auto 0.000 X10*3/uL (0.0-0.012); NRBC Pct Auto 0.0 /100WBC (0.0-0.2); Platelet Count 144 X10*3/uL (160-400); Red Blood Count 3.95 X10*6/uL (4.20-5.50); White Blood Count 8.1 X10*3/uL (4.8-10.8)
[2025-04-30 04:04] LABS: Anion Gap 12 (12-20); Blood Urea Nitrogen 29 mg/dL (9-16); Calcium 7.9 mg/dL (8.4-10.2); Carbon Dioxide 23 mmol/L (22-29); Chloride 111 mmol/L (96-108); Potassium 4.3 mmol/L (3.3-5.1); Sodium 142 mmol/L (135-145)
[2025-04-30 04:16] LABS: Creatinine Clr Calc Pharmacy 30.3; Estimated Glomerular Filt Rate 40
[2025-04-30 04:24] LABS: Appearance Urine Cloudy; Glucose Urine UA Negative (Negative); PH 5.5 (5.0-9.0); Specific Gravity - Urine 1.020 (1.005-1.025); UMIC TRIGGER UA YES
--- NOTE | 2025-04-30 08:16 | HO.PM.IMPN ---
Subjective Subjective Date of Service: 04/30/25 Interval History: hip fx Review of Systems soft bp last night-improved with gentle hydration/albumin. Patient looks more awake today, eating Review of Systems: Yes all other systems are reviewed and are negative Physical Exam Exam: Exam: General: awake, no acute distress Resp: CTA bilateral, no accessory muscles used CVS: S1,S2,RRR GI: soft, non tender, non distended Neuro: motor grossly intact, alert Psych: ppropriate affect, has some insight Vital Signs: Vital Signs: Last Vital Signs Temp 97 F 04/30/25 03:32 Pulse 76 04/30/25 03:32 Resp 18 04/30/25 03:32 BP 107/53 L 04/30/25 04:01 Pulse Ox 97 04/30/25 04:01 O2 Del Method Oxymask 04/30/25 04:01 O2 Flow Rate 2 04/30/25 04:01 BMI result Body Mass Index 27.5 Objective Data Active Medications Calcium Carbonate (Calcium Carbonate 750 Mg Tab.Chew) 750 mg PO Q4H PRN PRN Reason: Heartburn Escitalopram Oxalate (Escitalopram Oxalate 10 Mg Tablet) 10 mg PO BID [facility] Last Admin: 04/29/25 20:48 Dose: 10 mg Documented By: SOHAIL Cefazolin Sodium/Dextrose (Ancef) 2 gm in 50 mls @ 100 mls/hr IV POSTOP TAWNYA Acetaminophen (Ofirmev) 1,000 mg in 100 mls @ 400 mls/hr IV Q6H [facility] Last Infusion: 04/30/25 02:08 Dose: Infused Documented By: SOHAIL Dextrose/Sodium Chloride (D5ns) 1,000 mls @ 60 mls/hr IVCONT .[id number] [facility] Last Admin: 04/29/25 17:04 Dose: 60 mls/hr Documented By: GRAZIC Sodium Chloride (Ns) 1,000 mls @ 60 mls/hr IVCONT .[id number] [facility] Last Admin: 04/30/25 05:02 Dose: 60 mls/hr Documented By: SOHAIL Magnesium Hydroxide (Milk Of Magnesia 30 Ml Oral.Susp) 30 ml PO DAILY PRN PRN Reason: Constipation Melatonin (Melatonin 3 Mg Tablet) 6 mg PO BEDTIME PRN PRN Reason: Insomnia Last Admin: 04/28/25 21:21 Dose: 6 mg Documented By: SOHAIL Metoprolol Succinate (Metoprolol Succinate Er 25 Mg Tab.Er.24h) 25 mg PO BID [facility]; Protocol On Hold: 04/30/25 03:28 Last Admin: 04/29/25 20:48 Dose: 25 mg Documented By: SOHAIL Naloxone HCl (Naloxone Hcl 0.4 Mg/Ml Vial) 0.04 mg IVPUSH Q5M PRN PRN Reason: Excessive sedation or RR < 8 [facility] ( Memantine 28 Mg Capsule,Sprinkle,Er 24hr) 28 mg PO DAILY [facility] Last Admin: 04/29/25 08:46 Dose: 28 mg Documented By: MARILY Non-Formulary Medication (Levothyroxine [Tirosint]) 62.5 mcg PO BEDTIME [facility] Last Admin: 04/29/25 20:48 Dose: 62.5 mcg Documented By: SOHAIL Sodium Chloride (0.9 % Sodium Chloride Flush 3 Ml Syringe) 3 ml IVFLUSH QSHIFT [facility] Last Admin: 04/30/25 08:14 Dose: Not Given Documented By: MARILY Non-Admin Reason: IV Running Valsartan (Valsartan 80 Mg Tablet) 80 mg PO DAILY [facility]; Protocol On Hold: 04/30/25 03:29 Last Admin: 04/29/25 08:40 Dose: Not Given Documented By: MARILY Non-Admin Reason: Physician Held Med Labs 04/30/25 03:35 04/30/25 03:35 Labs: Laboratory Results - last 24 hr 04/30/25 04/30/25 03:35 04:13 MCV 87.8 MCH 28.1 MCHC 32.0 RDW 13.9 Plt Count 144 L MPV 10.2 Immature Gran % (Auto) 0.5 H Neut % (Auto) 73.1 H Lymph % (Auto) 13.9 L [place] % (Auto) 11.1 H Eos % (Auto) 0.9 Baso % (Auto) 0.5 Lymph # (Auto) 1.1 L [place] # (Auto) 0.9 Eos # (Auto) 0.1 Baso # (Auto) 0.0 Abs Immat Gran (auto) 0.04 H Absolute Neuts (auto) 6.0 Absolute Nucleated RBC 0.000 Nucleated RBC % (auto) 0.0 Anion Gap 12 Estim Creat Clear Calc 30.3 Estimated GFR 40 Random Glucose 125 H Calcium 7.9 L D Urine Color Dark Yellow Urine Appearance Cloudy Urine pH 5.5 Ur Specific [place] 1.020 Urine Protein 30 (1+) H Urine Glucose (UA) Negative Urine Ketones Trace Urine Blood Trace H Urine Nitrite Negative Ur Leukocyte Esterase Trace H Urine RBC 11-20 H Urine WBC 6-10 H Ur Squamous Epith Cells 6-10 Urine Bacteria 1+ Hyaline Casts 0-2 Assessment and Plan (1) Cardiomyopathy: Status: Acute Plan 85F PMH hfref EF 25%, post ablative hypothyroid, alzheimers dementia, breast ca s/p bilateral mastectomy in remission, 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 Incentive spirometry, chest physiotherapy, Colace History of DVT Restart Eliquis after surgery, if delay in surgery will bridge with IV heparin Alzheimer dementia At risk for delirium, monitor Memantine Chronic systolic CHF Euvolemic, on Toprol and valsartan Full code ongoing need : dispo-rehab,when bed available Quality Stroke Does the patient have a stroke diagnosis?: No VTE Prior VTE?: Yes VTE Risk Level:: Medical - moderate - high VTE Device Contraindication: N/A - Device Ordered VTE Drug Contraindication: Treatment Not Indicated
[2025-04-30] MEDS: MEMANTINE 28 MG 28 EACH PO (08:21)
--- NOTE | 2025-04-30 08:38 | PM.PNORT ---
Subjective Subjective Date of Service: 04/30/25 Interval history: Postop day 1 status post right hip hemiarthroplasty Patient resting comfortably in chair this morning Reports pain is very well managed No acute events overnight No other acute complaints or concerns at this time Of note, patient does seem pleasantly confused over the course of interview and examination, but does not seem to be different from baseline Physical Exam Vital Signs: Vital Signs: Last Vital Signs Temp 98.0 F 04/30/25 08:00 Pulse 90 04/30/25 08:00 Resp 16 04/30/25 08:00 BP 143/67 H 04/30/25 08:00 Pulse Ox 97 04/30/25 08:00 O2 Del Method Oxymask 04/30/25 08:00 O2 Flow Rate 1 04/30/25 08:00 BMI result Body Mass Index 27.5 Extrem: Other: Dressing on right hip clean, dry, intact No evidence of surrounding erythema, ecchymosis No evidence of infection Patient is able to flex and extend the digits of the right foot without difficulty Compartments soft, nontender Distal sensation intact Capillary refill brisk Procedures Date of Service Date of Service: 04/30/25 Progress Note: A&P Assessment and plan (1) Status post hemiarthroplasty of right hip: Status: Acute Plan 1. Status post right hip hemiarthroplasty DOS 04/29/2025 Continue pain management Lovenox 40 mg x 2 doses, then resume home Eliquis Weight-bearing as tolerated right lower extremity PT/OT eval pending Dispo planning-pain management, PT/OT eval, medical clearance Time Spent With Patient Time: Total time managing care of this patient today ____ minutes. Quality Stroke Does the patient have a stroke diagnosis?: No VTE Prior VTE?: Yes VTE Risk Level:: Medical - moderate - high VTE Device Contraindication: N/A - Device Ordered VTE Drug Contraindication: Treatment Not Indicated
--- NOTE | 2025-04-30 09:06 | W.PM.OPN ---
Operative Note Operative Note Date of Service: 04/29/25 Narrative: Date of Service: 04/29/25 Pre-op diagnosis: Right femoral neck fx Post-op diagnosis: same Procedure: Right hip bianca Implants: [place] AccoladeC #4 [id number] with - bipolar Surgeon: Isaías Stanton MD Anesthesia: GLMA and local Was an Automotive Brake Specialist used for this Procedure?: Yes Automotive Brake Specialist: Daren Richardson Estimated blood loss (mL): 200 IV fluids (mL): 750 Pathology: other Condition: stable Disposition: PACU Procedure in detail: Patient was brought to the operative room placed in the left lateral decubitus position. All bony prominences were well padded and the was prepped and draped in standard sterile fashion. IV antibiotics per weight were administered and a time-out was called to identify proper site proper procedure proper surgeon. Radiographs were available and confirmed. TXA was not administered. I began by making a curvilinear incision over the posterolateral aspect of the greater trochanter. Dissection was taken down to the tensor fascia which was incised in line with the incision and a Charnley retractor was placed. The hip was internally rotated and the external rotators were identified. All vessels in the area were cauterized and a full-thickness capsular/external rotator layer was developed in a hockey-stick fashion starting just distal to the piriformis. This layer was tagged and the displaced femoral neck fracture was identified. Clean-up cuts was performed while protecting the posterolateral soft tissues and the head was removed and measured (45 mm) on the back table. I then copiously irrigated the acetabulum and removed all bony fragments. Once this was done I used a cookie cutter to lateralize and a Charnley awl to identify the canal. THe bone quality was poor and the decision was made to cement. I sequentially broached up to a #4c. I then trialed with a standard head and a bipolar component matching the femoral head size (45). I was satisfied with the range of motion and stability and length. Therefore I removed all instrumentation and copiously irrigated. I placed a suction into the canal and inserted a cement restrictor. 2 bags of Simplex on the back table using 3rd gen technique. A centralizer and distal plug were placed and the canal was again irrigated and then dried. A cement gun was used to fill the canal and then the #4 132 Accolade C stem was placed maintaining anatomic version and against the calcar. Once the cement was dry and all excess cement was removed I re-trialed with a -3 and then a +0 with a 45 bipolar. I was satisfied with the stability and tension using the -3. My final bipolar components were then placed. I closed the capsular layer with FiberWire and then copiously irrigated. I injected Aynrelef in the joint and on iether side of the ITB as I performed a layered closure with hood on skin. The patient was placed in sterile dressing extubated brought to recovery room in stable condition there were no known complications.
--- NOTE | 2025-04-30 09:35 | HO.POSTANES ---
Post Anesthesia Evaluation Post Anesthesia Evaluation Date of Service: 04/30/25 Vital Signs: Vital Signs Temp Pulse Resp BP Pulse Ox O2 Del Method O2 Flow Rate 04/30/25 08:00 98.0 F 90 16 143/67 H 97 Oxymask 1 04/30/25 04:01 107/53 L 97 Oxymask 2 04/30/25 03:32 97 F 76 18 90/48 L 92 Room Air Anesthesia: General Mental Status: Awake Pain Control: Satisfactory Nausea/Vomiting: None Hydration: Adequate Anesthesia-Related Issues: No Anes. Related Issues
[2025-04-30] MEDS: Metoprolol Succinate ER 25 MG TAB.ER.24H PO ×2 (12:01→22:08)
[2025-04-30 13:48] LABS: Appearance Urine Cloudy; Glucose Urine UA Negative (Negative); PH 5.0 (5.0-9.0); Specific Gravity - Urine 1.025 (1.005-1.025); UMIC TRIGGER UA YES
--- NOTE | 2025-04-30 13:52 | MHC.CM.PN ---
Addendum entered by Izzy Alcala 04/30/25 15:41: [facility] has accepted the patient for Rehab. They have initiated the insurance authorization process. DP to [facility] via BLS for Acute rehab pending insurance authorization. Original Note: Met with patient and family to discuss DP. Preferences for Rehab obtained and referrals have been sent. [facility] is reviewing for admission to Acute rehab. Rebeca Herrmann is reviewing for STR. A referral was sent to [facility] center at the [facility] declined to offer a bed. DP Rehab via BLS once a bed is offered, accepted and insurance authorization is received. Patients daughter requested [facility]. Referral sent, review is pending.
[2025-04-30] MEDS: 0.9 % Sodium Chloride Flush 3 ML SYRINGE IVFLUSH ×2 (16:37→22:04)
[2025-04-30] MEDS: LEVOTHYROXINE 62.5 MCG 62.5 EACH PO (22:10)
[2025-05-01 03:33] VITALS: BP 102/56; PULSE 67; RESP 18; TEMP 36.7; O2SAT 94
--- NOTE | 2025-05-01 03:54 | PC.NURSE ---
0349: KENNY Cachorro notified of pt BP 102/56 manually. No new orders at this time.
[2025-05-01 05:34] VITALS: BP 108/54
--- NOTE | 2025-05-01 07:27 | P.PNIM_ITS ---
Subjective Subjective Date of Service: 05/01/25 Interval History: s/p hip fx Review of Systems no sob feels comfortable , no pain Review of Systems: Yes all other systems are reviewed and are negative Physical Exam 2 Exam: Exam: General: awake, no acute distress Resp: CTA bilateral, no accessory muscles used CVS: S1,S2,RRR GI: soft, non tender, non distended Neuro: motor grossly intact, alert Psych: ppropriate affect, has some insight Vital Signs: Vital Signs: Last Vital Signs Temp 98.1 F 05/01/25 03:33 Pulse 67 05/01/25 03:33 Resp 18 05/01/25 03:33 BP 108/54 L 05/01/25 05:34 Pulse Ox 94 05/01/25 03:33 O2 Del Method Nasal Cannula 05/01/25 03:33 O2 Flow Rate 2 05/01/25 03:33 BMI result Body Mass Index 27.5 Objective Data Active Medications Calcium Carbonate (Calcium Carbonate 750 Mg Tab.Chew) 750 mg PO Q4H PRN PRN Reason: Heartburn Enoxaparin Sodium (Enoxaparin Sodium 40 Mg/0.4 Ml Syringe) 40 mg SUBCUT Q24H [facility] Stop: 05/02/25 15:00 Last Admin: 04/30/25 14:01 Dose: 40 mg Documented By: MARILY Escitalopram Oxalate (Escitalopram Oxalate 10 Mg Tablet) 10 mg PO BID [facility] Last Admin: 04/30/25 22:10 Dose: 10 mg Documented By: SOHAIL Acetaminophen (Ofirmev) 1,000 mg in 100 mls @ 400 mls/hr IV Q6H [facility] Last Infusion: 05/01/25 02:33 Dose: Infused Documented By: SOHAIL Magnesium Hydroxide (Milk Of Magnesia 30 Ml Oral.Susp) 30 ml PO DAILY PRN PRN Reason: Constipation Melatonin (Melatonin 3 Mg Tablet) 6 mg PO BEDTIME PRN PRN Reason: Insomnia Last Admin: 04/28/25 21:21 Dose: 6 mg Documented By: LEFEBVA Metoprolol Succinate (Metoprolol Succinate Er 25 Mg Tab.Er.24h) 25 mg PO BID [facility]; Protocol Last Admin: 04/30/25 22:08 Dose: 25 mg Documented By: SOHAIL Naloxone HCl (Naloxone Hcl 0.4 Mg/Ml Vial) 0.04 mg IVPUSH Q5M PRN PRN Reason: Excessive sedation or RR < 8 Pat Own Med ( Memantine 28 Mg Capsule,Sprinkle,Er 24hr) 28 mg PO DAILY [facility] Last Admin: 04/30/25 08:21 Dose: 28 mg Documented By: MARILY Non-Formulary Medication (Levothyroxine [Tirosint]) 62.5 mcg PO BEDTIME [facility] Last Admin: 04/30/25 22:10 Dose: 62.5 mcg Documented By: SOHAIL Sodium Chloride (0.9 % Sodium Chloride Flush 3 Ml Syringe) 3 ml IVFLUSH QSHIFT [facility] Last Admin: 04/30/25 22:04 Dose: 3 ml Documented By: SOHAIL Valsartan (Valsartan 80 Mg Tablet) 80 mg PO DAILY [facility]; Protocol On Hold: 04/30/25 03:29 Last Admin: 04/29/25 08:40 Dose: Not Given Documented By: MARILY Non-Admin Reason: Physician Held Med Labs 04/30/25 03:35 04/30/25 03:35 Labs: Laboratory Results - last 24 hr 04/30/25 13:23 Urine Color Dark Yellow Urine Appearance Cloudy Urine pH 5.0 Ur Specific [place] 1.025 Urine Protein 30 (1+) H Urine Glucose (UA) Negative Urine Ketones Trace Urine Blood Moderate (2+) H Urine Nitrite Negative Ur Leukocyte Esterase Trace H Urine RBC 3-5 H Urine WBC 6-10 Ur Squamous Epith Cells 3-5 Urine Bacteria Trace Hyaline Casts 11-20 Urine Yeast Present Assessment and Plan (1) Displaced fracture of right femoral neck: Status: Acute Plan 85F PMH hfref EF 25%, post ablative hypothyroid, alzheimers dementia, breast ca s/p bilateral mastectomy in remission, 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 Incentive spirometry, chest physiotherapy, Colace History of DVT Restart Eliquis after surgery, if delay in surgery will bridge with IV heparin Alzheimer dementia At risk for delirium, monitor Memantine Chronic systolic CHF Euvolemic, on Toprol and valsartan Full code ongoing need : dispo-rehab,when bed available Quality Stroke Does the patient have a stroke diagnosis?: No VTE Prior VTE?: Yes VTE Risk Level:: Medical - moderate - high VTE Device Contraindication: N/A - Device Ordered VTE Drug Contraindication: Treatment Not Indicated
[2025-05-01 07:54] VITALS: BP 144/61; PULSE 61; RESP 12; TEMP 36.4; O2SAT 99
[2025-05-01 08:17] VITALS: O2SAT 93
[2025-05-01] MEDS: MEMANTINE 28 MG 28 EACH PO (08:49)
[2025-05-01] MEDS: 0.9 % Sodium Chloride Flush 3 ML SYRINGE IVFLUSH ×2 (08:50→15:44)
[2025-05-01] MEDS: Metoprolol Succinate ER 25 MG TAB.ER.24H PO ×2 (08:50→20:36)
--- NOTE | 2025-05-01 09:22 | PM.PNORT ---
Subjective Subjective Date of Service: 05/01/25 Interval history: Postop day 2 status post right hip hemiarthroplasty Patient resting comfortably in chair this morning Reports pain is very well managed No acute events overnight No other acute complaints or concerns at this time Of note, patient does seem pleasantly confused over the course of interview and examination, but does not seem to be different from baseline Physical Exam Vital Signs: Vital Signs: Last Vital Signs Temp 97.6 F 05/01/25 07:54 Pulse 61 05/01/25 07:54 Resp 12 05/01/25 07:54 BP 144/61 H 05/01/25 07:54 Pulse Ox 93 05/01/25 08:17 O2 Del Method Room Air 05/01/25 08:17 O2 Flow Rate 1 05/01/25 07:54 BMI result Body Mass Index 27.5 Extrem: Other: Dressing on right hip clean, dry, intact No evidence of surrounding erythema, ecchymosis No evidence of infection Patient is able to flex and extend the digits of the right foot without difficulty Compartments soft, nontender Distal sensation intact Capillary refill brisk Procedures Date of Service Date of Service: 05/01/25 Progress Note: A&P Assessment and plan (1) Status post hemiarthroplasty of right hip: Status: Acute Plan 1. Status post right hip hemiarthroplasty DOS 04/29/2025 Continue pain management Lovenox 40 mg x 2 doses, then resume home Eliquis Weight-bearing as tolerated right lower extremity PT/OT recommending short-term rehab Dispo planning-pain management, PT/OT eval, medical clearance Time Spent With Patient Time: Total time managing care of this patient today ____ minutes. Quality Stroke Does the patient have a stroke diagnosis?: No VTE Prior VTE?: Yes VTE Risk Level:: Medical - moderate - high VTE Device Contraindication: N/A - Device Ordered VTE Drug Contraindication: Treatment Not Indicated
[2025-05-01 15:13] VITALS: BP 124/59; PULSE 60; RESP 17; TEMP 36.2; O2SAT 92
[2025-05-01 19:39] VITALS: BP 127/58; PULSE 70; RESP 18; TEMP 37.1; O2SAT 96
[2025-05-01] MEDS: LEVOTHYROXINE 62.5 MCG 62.5 EACH PO (22:08)
[2025-05-02] MEDS: 0.9 % Sodium Chloride Flush 3 ML SYRINGE IVFLUSH ×3 (02:27→20:03)
[2025-05-02 04:00] VITALS: BP 148/79; PULSE 56; RESP 14; TEMP 36.1; O2SAT 96
[2025-05-02 07:55] VITALS: BP 185/82; PULSE 76; RESP 20; TEMP 36.3; O2SAT 93
--- NOTE | 2025-05-02 08:07 | P.PNIM_ITS ---
Subjective Subjective Date of Service: 05/03/25 Interval History: s/phip sx Review of Systems seems comfortable bp flactuating Review of Systems: Yes all other systems are reviewed and are negative Physical Exam 2 Exam: Exam: General: awake, no acute distress Resp: CTA bilateral, no accessory muscles used CVS: S1,S2,RRR GI: soft, non tender, non distended Neuro: motor grossly intact, alert Psych: ppropriate affect, has some insight Vital Signs: Vital Signs: Last Vital Signs Temp 97.3 F 05/02/25 07:55 Pulse 76 05/02/25 07:55 Resp 20 05/02/25 07:55 BP 185/82 H 05/02/25 07:55 Pulse Ox 93 05/02/25 07:55 O2 Del Method Room Air 05/02/25 07:55 O2 Flow Rate 2 05/02/25 04:00 BMI result Body Mass Index 27.5 Objective Data Active Medications Amlodipine Besylate (Amlodipine Besylate 2.5 Mg Tablet) 2.5 mg PO DAILY [facility]; Protocol Calcium Carbonate (Calcium Carbonate 750 Mg Tab.Chew) 750 mg PO Q4H PRN PRN Reason: Heartburn Enoxaparin Sodium (Enoxaparin Sodium 40 Mg/0.4 Ml Syringe) 40 mg SUBCUT Q24H [facility] Stop: 05/02/25 15:00 Last Admin: 05/01/25 15:44 Dose: 40 mg Documented By: HARISH Escitalopram Oxalate (Escitalopram Oxalate 10 Mg Tablet) 10 mg PO BID [facility] Last Admin: 05/01/25 20:36 Dose: 10 mg Documented By: SOHAIL Acetaminophen (Ofirmev) 1,000 mg in 100 mls @ 400 mls/hr IV Q6H [facility] Last Infusion: 05/02/25 02:37 Dose: Infused Documented By: SOHAIL Magnesium Hydroxide (Milk Of Magnesia 30 Ml Oral.Susp) 30 ml PO DAILY PRN PRN Reason: Constipation Melatonin (Melatonin 3 Mg Tablet) 6 mg PO BEDTIME PRN PRN Reason: Insomnia Last Admin: 04/28/25 21:21 Dose: 6 mg Documented By: LEFEBVA Metoprolol Succinate (Metoprolol Succinate Er 25 Mg Tab.Er.24h) 25 mg PO BID [facility]; Protocol Last Admin: 05/01/25 20:36 Dose: 25 mg Documented By: SOHAIL Naloxone HCl (Naloxone Hcl 0.4 Mg/Ml Vial) 0.04 mg IVPUSH Q5M PRN PRN Reason: Excessive sedation or RR < 8 Pat Own Med ( Memantine 28 Mg Capsule,Sprinkle,Er 24hr) 28 mg PO DAILY [facility] Last Admin: 05/01/25 08:49 Dose: 28 mg Documented By: HARISH Non-Formulary Medication (Levothyroxine [Tirosint]) 62.5 mcg PO BEDTIME [facility] Last Admin: 05/01/25 22:08 Dose: 62.5 mcg Documented By: SOHAIL Sodium Chloride (0.9 % Sodium Chloride Flush 3 Ml Syringe) 3 ml IVFLUSH QSHIFT [facility] Last Admin: 05/02/25 02:27 Dose: 3 ml Documented By: SOHAIL Valsartan (Valsartan 80 Mg Tablet) 80 mg PO DAILY [facility]; Protocol On Hold: 04/30/25 03:29 Last Admin: 04/29/25 08:40 Dose: Not Given Documented By: MARILY Non-Admin Reason: Physician Held Med Labs 04/30/25 03:35 05/02/25 09:24 Microbiology Microbiology Results: Microbiology 04/30/25 Unknown Urine Culture - Preliminary Urine Catheterized - Straight Catheter No growth to date. 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 Incentive spirometry, chest physiotherapy, Colace. on/off mild agitation -improving, moniter closely, behavior control, frequent urination, DC Noriega voiding trial,if remain agitated -might need sitter History of DVT Restart Eliquis . Alzheimer dementia At risk for delirium, monitor Memantine Chronic systolic CHF Euvolemic, on Toprol and hold valsartan (flactuating bp due to intermittent agaitation/pain ,also po intake is flactuating). Patient has pyuria/trace bacteriuria: Asymptomatic Urine culture is lactobacillus-contaminant Will defer antibiotic currently. Full code ongoing need : dispo-rehab,when bed available Quality Stroke Does the patient have a stroke diagnosis?: No VTE Prior VTE?: Yes VTE Risk Level:: Medical - moderate - high VTE Device Contraindication: N/A - Device Ordered VTE Drug Contraindication: Treatment Not Indicated
[2025-05-02] MEDS: MEMANTINE 28 MG 28 EACH PO (08:21)
[2025-05-02] MEDS: Metoprolol Succinate ER 25 MG TAB.ER.24H PO ×2 (08:21→20:00)
[2025-05-02 09:52] VITALS: BP 154/83
[2025-05-02 10:10] LABS: Anion Gap 13 (12-20); Blood Urea Nitrogen 21 mg/dL (9-16); Calcium 8.9 mg/dL (8.4-10.2); Carbon Dioxide 21 mmol/L (22-29); Chloride 110 mmol/L (96-108); Creatinine Clr Calc Pharmacy 52.1; Estimated Glomerular Filt Rate > 60; Potassium 4.1 mmol/L (3.3-5.1); Sodium 140 mmol/L (135-145)
[2025-05-02 15:01] VITALS: BP 127/87; PULSE 72; RESP 16; TEMP 36.7; O2SAT 97
[2025-05-02 19:04] VITALS: BP 167/78; PULSE 92; RESP 16; TEMP 37; O2SAT 96
[2025-05-02] MEDS: LEVOTHYROXINE 62.5 MCG 62.5 EACH PO (21:32)
[2025-05-03 04:00] VITALS: BP 170/73; PULSE 72; RESP 16; TEMP 36.6; O2SAT 96
--- NOTE | 2025-05-03 04:23 | PC.NURSE ---
05/02/25 2300: pt daughter arrived and requested her mother be given melatonin. Melatonin was given per SEP.
[2025-05-03 08:00] VITALS: BP 175/76; PULSE 68; RESP 18; TEMP 37.1; O2SAT 97
[2025-05-03] MEDS: 0.9 % Sodium Chloride Flush 3 ML SYRINGE IVFLUSH ×2 (09:34→17:03)
[2025-05-03] MEDS: Metoprolol Succinate ER 25 MG TAB.ER.24H PO (09:36)
[2025-05-03] MEDS: MEMANTINE 28 MG 28 EACH PO (09:37)
--- NOTE | 2025-05-03 13:32 | HO.PM.IMPN ---
Subjective Subjective Date of Service: 05/03/25 Interval History: s/p hip sx Review of Systems blood pressure flactuating no sob Review of Systems: Yes all other systems are reviewed and are negative Physical Exam Exam: Exam: General: awake, no acute distress Resp: CTA bilateral, no accessory muscles used CVS: S1,S2,RRR GI: soft, non tender, non distended Neuro: motor grossly intact, alert Psych: ppropriate affect, has some insight Vital Signs: Vital Signs: Last Vital Signs Temp 98.8 F 05/03/25 08:00 Pulse 68 05/03/25 08:00 Resp 18 05/03/25 08:00 BP 175/76 H 05/03/25 08:00 Pulse Ox 97 05/03/25 08:00 O2 Del Method Room Air 05/03/25 08:00 O2 Flow Rate 2 05/03/25 04:00 BMI result Body Mass Index 27.5 Objective Data Active Medications Acetaminophen (Acetaminophen 325 Mg Tablet) 975 mg PO Q6H PRN PRN Reason: Pain, Severe (Pain Scale 7-10) Apixaban (Apixaban 2.5 Mg Tablet) 2.5 mg PO BID [facility] Last Admin: 05/03/25 09:36 Dose: 2.5 mg Documented By: JC Calcium Carbonate (Calcium Carbonate 750 Mg Tab.Chew) 750 mg PO Q4H PRN PRN Reason: Heartburn Escitalopram Oxalate (Escitalopram Oxalate 10 Mg Tablet) 10 mg PO BID [facility] Last Admin: 05/03/25 09:35 Dose: 10 mg Documented By: JC Magnesium Hydroxide (Milk Of Magnesia 30 Ml Oral.Susp) 30 ml PO DAILY PRN PRN Reason: Constipation Melatonin (Melatonin 3 Mg Tablet) 6 mg PO BEDTIME PRN PRN Reason: Insomnia Last Admin: 05/02/25 23:08 Dose: 6 mg Documented By: SOHAIL Metoprolol Succinate (Metoprolol Succinate Er 25 Mg Tab.Er.24h) 25 mg PO BID [facility]; Protocol Last Admin: 05/03/25 09:36 Dose: 25 mg Documented By: JC Naloxone HCl (Naloxone Hcl 0.4 Mg/Ml Vial) 0.04 mg IVPUSH Q5M PRN PRN Reason: Excessive sedation or RR < 8 Pat Own Med ( Memantine 28 Mg Capsule,Sprinkle,Er 24hr) 28 mg PO DAILY [facility] Last Admin: 05/03/25 09:37 Dose: 28 mg Documented By: JC Non-Formulary Medication (Levothyroxine [Tirosint]) 62.5 mcg PO BEDTIME [facility] Last Admin: 05/02/25 21:32 Dose: 62.5 mcg Documented By: SOHAIL Sodium Chloride (0.9 % Sodium Chloride Flush 3 Ml Syringe) 3 ml IVFLUSH QSHIFT [facility] Last Admin: 05/03/25 09:34 Dose: 3 ml Documented By: JC Valsartan (Valsartan 80 Mg Tablet) 80 mg PO DAILY [facility]; Protocol Last Admin: 05/03/25 09:35 Dose: 80 mg Documented By: JC Labs 04/30/25 03:35 05/02/25 09:24 Microbiology Microbiology Results: Microbiology 04/30/25 Unknown Urine Culture - Final Urine Catheterized - Straight Catheter Lactobacillus species Assessment and Plan (1) Displaced fracture of right femoral neck: Status: Acute Plan 85F PMH hfref EF 25%, post ablative hypothyroid, alzheimers dementia, breast ca s/p bilateral mastectomy in remission, 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 Incentive spirometry, chest physiotherapy, Colace. on/off mild agitation -improving, moniter closely, behavior control, frequent urination, DC Noriega voiding trial,if remain agitated -might need sitter. History of DVT Restart Eliquis . Alzheimer dementia At risk for delirium, monitor Memantine Chronic systolic CHF Euvolemic, on Toprol and hold valsartan (flactuating bp due to intermittent agaitation/pain ,also po intake is flactuating). Patient has pyuria/trace bacteriuria: Asymptomatic Urine culture is lactobacillus-contaminant Will defer antibiotic currently. Full code ongoing need : dispo-rehab,when bed available Quality Stroke Does the patient have a stroke diagnosis?: No VTE Prior VTE?: Yes VTE Risk Level:: Medical - moderate - high VTE Device Contraindication: N/A - Device Ordered VTE Drug Contraindication: Treatment Not Indicated
[2025-05-03 15:37] VITALS: BP 119/53; PULSE 83; TEMP 36.2; O2SAT 95
--- NOTE | 2025-05-03 15:51 | MHC.CM.PN ---
IMM 05/03/2025 Patient will discharge today to [facility]. She will transport via BLS @6:30pm.
--- NOTE | 2025-05-03 15:51 | PM.DS ---
DS: Providers Provider Date of Service: 05/03/25 Date of admission: 04/27/25 13:44 Date of discharge: 05/03/25 Primary care physician: Jonathan Hernandez III, MD Consults: 04/27/25 13:45 Consult to Orthopedics Routine Consulting Provider: [facility] Reason for consultation: right hip fracture Attending physician on discharge: Sneha Subramanian Discharging clinician: Sneha Subramanian DS: Diagnosis Discharge Diagnosis (1) Displaced fracture of right femoral neck: Status: Acute DS: Summary Hospital Course Hospital Course: HPI:85F PMH hfref EF 25%, post ablative hypothyroid, alzheimers dementia, breast ca s/p bilateral mastectomy in remission, 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 Fall was mechanical in nature. Patient was walking up stairs and slipped backwards, was partially helped down but still fell pretty hard on her right side. She is complaining about right-sided hip pain. In ED found to have sub capitular right femur fracture. Hospital course: Patient was admitted to the fall and hip fracture: Status post right hip hemiarthroplasty on 04/29/2025, pain control with Tylenol, seem to tolerable. seen by pt- recommended rehab. Incentive spirometry, chest physiotherapy, Continue Eliquis, follow-up with ortho outpatient. Alzheimer dementia: continue Memantine Patient had mild agitation/sundowning -improved significantly, calm ,no new symptoms, moniter closely, frequent orientation. off [place] , monitor PVR in rehab. plan: Continue pain control with Tylenol, melatonin 3 mg p.o. at bedtime p.r.n. Please see ortho instructions in the discharge section. Above management discussed with the patient and her daughter in detail length at the bedside, they understand and in agreement with the above plan. Time spent 45 minute. Time Attestation Total time managing care of this patient today: 45 mintues. Discharge Coordination Time (in mins): 45 min Quality: Safe Use of Opioids Does Pt have an Active Cancer Diagnosis on the Problem List?: No Quality: Stroke Does the patient have a stroke diagnosis?: No Physical Exam Exam: Exam: General: awake, no acute distress Resp: CTA bilateral, no accessory muscles used CVS: S1,S2,RRR GI: soft, non tender, non distended Neuro: motor grossly intact, alert Psych: ppropriate affect, has some insight Vital Signs: Vital Signs: Last Vital Signs Temp 97.1 F 05/03/25 15:37 Pulse 83 05/03/25 15:37 Resp 18 05/03/25 08:00 BP 119/53 L 05/03/25 15:37 Pulse Ox 95 05/03/25 15:37 O2 Del Method Nasal Cannula 05/03/25 15:37 O2 Flow Rate 2 05/03/25 15:37 BMI result Body Mass Index 27.5 DS: Data Data Completed and Pending Completed studies during hospitalization [Text1]: Pending at discharge 04/29/25 12:24 Surgical [PTH] Routine Discharge Plan Discharge Anticipated Discharge Date/Time: 05/03/25 15:53 Patient Disposition: Xfer Acute [facility] Discharge Diagnosis: hip fx Referrals: [facility] [Other] - 1 Week Referral Note: Acute Rehab Jonathan Hernandez III, MD [Primary Care Provider, Medical] - 1 Week Rozina Valverde PA-C [Physician [facility], Orthopedics] - 1 Week Referral Note: 05/12/25 11:00 [facility] Rozina Valverde PA-C Discharge Medications: New acetaminophen 325 mg Tablet 975 mg PO Q6H PRN (Reason: Pain, Severe (Pain Scale 7-10)) Qty: 1 0RF melatonin 3 mg Tablet 3 mg PO BEDTIME PRN (Reason: Insomnia) Qty: 1 0RF Continued memantine 28 mg capsule,sprinkle,ER 24hr 28 mg PO DAILY Qty: 30 6RF metoprolol succinate 25 mg tablet extended release 24 hr 25 mg PO BID Eliquis 2.5 mg tablet 2.5 mg PO BID Tirosint 62.5 mcg capsule 62.5 mcg PO DAILY escitalopram oxalate 10 mg tablet 10 mg PO BID valsartan 40 mg tablet 80 mg PO DAILY Discharge Orders: Discharge Order (Routine); Ordered 05/03/25 Ordered By: Sneha Subramanian Diet: Advance to usual diet Activity on Discharge: As tolerated Stand Alone Forms: Patient Portal Discharge page Print Language: Botswanan Care Plan Goals: as below. Health Concerns: as below. Plan of Treatment: -Bandage/Incision Site Care: -Ice 20mins at a time -Make sure you use a towel or cloth on your skin as a barrier -DO NOT remove the bandage -Keep Bandage clean, dry and intact -Do not get the bandage wet: -No tub bath, pools or hot tubs -If there are any concerns regarding the bandage please call orthopedics: [phone] -Hip Precautions: -Refrain from laying on side -No crossing the legs -Avoid low chairs and deep couches -Use supportive shoes with nonslip soles -Physical Therapy: -Patient is WBAT with the use of a walker -Strengthening: Quadriceps and hip muscles -Walking: Gait training and gradually increasing distance with walker -Ankle pumps and incentive spirometry to limit the risk of blood clot -Diet: -Resume regular diet as tolerated. -Drink plenty of fluids and eat a high-fiber foods to avoid constipation -This is a common side effect of pain medication) -Take stool softeners as prescribed -Blood Clot Prevention: -Take the prescribed blood thinner as directed -Perform ankle pumps and walk frequently with the walker and assistance if needed -Report calf pain, swelling, or shortness of breath immediately Assessment: as above.
[2025-05-03 18:34] VITALS: BP 128/61; PULSE 77; RESP 17; TEMP 36.4; O2SAT 96
== END 2025-05-03 19:00 | disposition short-term general hospital (02) | DRG 522 ==
LOC: HO.ED 13:40 → HO.EDOVER 13:51 → HO.S3 17:08
PROVIDERS: Nurse Practitioner Family; Orthopaedic Surgery; Physician Assistant Medical; Admitting Provider Internal Medicine; Emergency Provider Emergency Medicine; PCP Internal Medicine; Visit Provider Internal Medicine
PROC: 0SRR0J9 Replacement of Right Hip Joint, Femoral Surface with Synthetic Substitute, Cemented, Open Approach (ICD-10-PCS; CPT 27125; principal; 2025-04-29 11:00)
DX: S72.011A Unspecified intracapsular fracture of right femur, initial encounter for closed fracture (principal); I50.22 Chronic systolic (congestive) heart failure; F05 Delirium due to known physiological condition; W19.XXXA Unspecified fall, initial encounter; M06.9 Rheumatoid arthritis, unspecified; I11.0 Hypertensive heart disease with heart failure; E89.0 Postprocedural hypothyroidism; G30.9 Alzheimer's disease, unspecified; R33.9 Retention of urine, unspecified; F02.80 Dementia in other diseases classified elsewhere, unspecified severity, without behavioral disturbance, psychotic disturbance, mood disturbance, and anxiety; Z87.891 Personal history of nicotine dependence; Z90.10 Acquired absence of unspecified breast and nipple; Z86.718 Personal history of other venous thrombosis and embolism; Z85.3 Personal history of malignant neoplasm of breast; Z79.01 Long term (current) use of anticoagulants; Z79.890 Hormone replacement therapy; Z79.899 Other long term (current) drug therapy
CPT/HCPCS: 36415; 70450; 71045; 72125; 72170; 73502; 80048; 80053; 81001; 83735; 85025; 85027; 85610; 86850; 86900; 86901; 87086; 88305; 88311; 93005; 97162; 97166; 97530; 99285; C1776; J0131; J0668; J0690; J1100; J1650; J2151; J2371; J2405; J2704; J2795; J3010; J7120; P9047

== ENCOUNTER → 2025-04-27 11:48 | Outpatient (BNV) | payer MEDICARE, SELFPAY | PROVIDERS: Admitting Provider Internal Medicine; Emergency Provider Emergency Medicine; PCP Internal Medicine; Visit Provider Radiology Diagnostic Radiology | DX: M54.2 Cervicalgia (principal); R51.9 Headache, unspecified; S72.011A Unspecified intracapsular fracture of right femur, initial encounter for closed fracture; R53.1 Weakness; W19.XXXA Unspecified fall, initial encounter | CPT/HCPCS: 70450; 71045; 72125; 73502 ==

== ENCOUNTER → 2025-04-27 11:48 | Outpatient (BNV) | payer MEDICARE, SELFPAY | PROVIDERS: Admitting Provider Internal Medicine; Emergency Provider Emergency Medicine; PCP Internal Medicine; Visit Provider Internal Medicine Cardiovascular Disease | DX: R94.31 Abnormal electrocardiogram [ECG] [EKG] (principal); R53.1 Weakness | CPT/HCPCS: 93010 ==

== ENCOUNTER 2025-04-27 13:44 | Outpatient (BNV) | payer MEDICARE, SELFPAY | END 2025-04-29 16:23 | PROVIDERS: Admitting Provider Internal Medicine; Emergency Provider Emergency Medicine; PCP Internal Medicine; Visit Provider Radiology Diagnostic Radiology | DX: Z96.641 Presence of right artificial hip joint (principal) | CPT/HCPCS: 72170 ==

== ENCOUNTER 2025-04-27 13:44 | Outpatient (BNV) | payer MEDICARE, SELFPAY | END 2025-04-30 04:40 | PROVIDERS: Admitting Provider Internal Medicine; Emergency Provider Emergency Medicine; PCP Internal Medicine; Visit Provider Radiology Diagnostic Radiology | DX: R06.02 Shortness of breath (principal) | CPT/HCPCS: 71045 ==

== ENCOUNTER → 2025-04-27 13:44 | Outpatient (BNV) | payer MEDICARE, SELFPAY | PROVIDERS: Admitting Provider Internal Medicine; Emergency Provider Emergency Medicine; PCP Internal Medicine; Visit Provider Internal Medicine | DX: I42.9 Cardiomyopathy, unspecified (principal) | CPT/HCPCS: 99231; 99499 ==

== ENCOUNTER → 2025-04-27 13:44 | Outpatient (BNV) | payer MEDICARE, SELFPAY | PROVIDERS: Admitting Provider Internal Medicine; Emergency Provider Emergency Medicine; PCP Internal Medicine; Visit Provider Physician Assistant | DX: Z96.641 Presence of right artificial hip joint (principal) | CPT/HCPCS: 27236; 99024; 99223 ==

== ENCOUNTER 2025-05-12 09:00 | Outpatient (REF) | payer MEDICARE, SELFPAY ==
--- OUTSIDE RECORDS SUMMARY | 2025-05-03 09:15 | XMS_ITS ---
Author Organization [facility] Address [address] [place] [phone] Care Team Providers Care Mirror Inspector Name Role Phone Dewayne Hernandez MD Primary Care Provider Adelaida Kirkland [phone] Encounters Encounter Location Date Provider Diagnosis [address] [address] 05/03/2025 Adelaida Fontana Plan Of Treatment Next Appt Details Provider Name:Adelaida A Addi , 08/19/2025 01:30:00 PM, [address] [place] [address], [phone], Progress Notes * Soraya MENDOZADOB: 2 (85 yo F)Acc No.[id number]:05/03/2025 Progress Note Patient: Soraya RONQUILLO Provider: William Fontana DPM :1940 A ge:85 Y S ex:Female Date:05/03/2025 Address:[address] [place] [address] [id number] Pcp:Dewayne Hernandez MD Subjective: * Chief Complaints: [...] Date: 1 Generated for Erik cornelius/Constantino/Velma on: 10:01 AM EDT
--- NOTE | ~2025-05-12 | XR_ITS ---
EXAMINATION: XR HIP, RIGHT CLINICAL INFORMATION: M25.551 - Pain in right hip COMPARISON: April 27, 2025 TECHNIQUE: AP and cross lateral view of the right hip. FINDINGS: Metallic prosthesis with an acetabular and femoral component well-seated in the osseous structures of the right hip. Total left hip arthroplasty prosthesis, unchanged. Osteopenia versus osteoporosis. Spondylosis, lower lumbar spine. Skin hood, right hip. XR/XR hip RT min 2V IMPRESSION: Total right hip arthroplasty prosthesis placement. Satisfactory. Electronically signed by: Gagan Ernst MD 05/12/2025 11:08 AM EDT
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
--- OUTSIDE RECORDS SUMMARY | 2025-05-13 10:01 | XMS_ITS | Encounter Summary ---
Author Organization [facility] Address [address] [place] [address] Care Team Providers Care It Software Engineer Name Role Phone Jonathan Hernandez MD Primary Care Provider [phone] Encounter Details Date Type Department Care Team (Late st Contact Info) Description 05/10/2025 Lab Requisition [facility] - Main Lab [address] [facility] [place] [address] Maribel Gimenez, KENNY [address] [place] [address] Encounter for other general examination [...] 10:30 AM EST Office Visit Adult Medicine [address] [phone] Jonathan Hernandez MD [address] [place] [address] 08/10/2025 1:00 PM EST Office Visit Adult Medicine [address] [phone] Jennifer Santos NP [address] [place], [place] 01/17/2026 2:30 PM EDT Office Visit Adult Medicine [facility] [address] [place], [place] [phone] Jonathan Hernandez MD [address] [place], [place] documented as of this encounter Procedures [...] examination documented in this encounter Results * Culture urine (05/10/2025 11:40 PM EDT) Culture, Urine 10,000-49,000 CFU/mL Mixed bacterial morphotypes present suggestive of possible contamination during collection. Suggest appropriate recollection if clinically indicated. 05/12/2025 2:17 PM EDT [facility] Urine Urine specimen obtained by clean catch procedure / Unknown Non-blood Collection / Unknown 05/10/2025 11:40 PM EDT 05/11/2025 11:19 AM EDT us Maribel Gimenez NP LAB MICROBIOLOGY - GENERAL OR DERABLES Final Result [facility] [address] [place] [address], * (ABNORMAL) Urinalysis with reflex microscopic and culture (05/10/2025 11:40 PM EDT) Specific Salol Urine 1.009 1.003 - 1.030 LAB URINALYSIS - AUTOMATED METHOD 05/11/2025 11:19 AM [facility] pH, Urine 7.5 5.0 - 8.0 pH LAB URINALYSIS - AUTOMATED METHOD 05/11/2025 11:19 AM [facility] Leukocytes, Urine Moderate(A) Negative LAB URINALYSIS - AUTOMATED METHOD 05/11/2025 11:19 AM [facility] Nitrite, Urine Negative Negative LAB URINALYSIS - AUTOMATED METHOD 05/11/2025 11:19 AM [facility] Protein, Urine Negative <=Trace mg/dL LAB URINALYSIS - AUTOMATED METHOD 05/11/2025 11:19 AM [facility] Glucose, Urine Negative Negative mg/dL LAB URINALYSIS - AUTOMATED METHOD 05/11/2025 11:19 AM [facility] Ketones, Urine Negative Negative mg/dL LAB URINALYSIS - AUTOMATED METHOD 05/11/2025 11:19 AM [facility] Urobilinogen , Urine 0.2 0.2 - 1.0 mg/dL LAB URINALYSIS - AUTOMATED METHOD 05/11/2025 11:19 AM [facility] Bilirubin, Urine Negative Negative LAB URINALYSIS - AUTOMATED METHOD 05/11/2025 11:19 AM [facility] Blood, Urine Trace(A) Negative LAB URINALYSIS - AUTOMATED METHOD 05/11/2025 11:19 AM [facility] RBC, Urine 1.3 0 - 4 /HPF LAB URINALYSIS - AUTOMATED METHOD 05/11/2025 11:19 AM [facility] WBC, Urine 20(H) 0 - 4 /HPF LAB URINALYSIS - AUTOMATED METHOD 05/11/2025 11:19 AM EDT [facility] Squamous Epithelial, Urine >100(H) 0 - 60 /LPF LAB URINALYSIS - AUTOMATED METHOD 05/11/2025 11:19 AM EDT [facility] Bacteria, Urine Negative Negative /HPF LAB URINALYSIS - AUTOMATED METHOD 05/11/2025 11:19 AM EDT [facility] Hyaline Casts, Urine 1.6 0 - 3 /LPF LAB URINALYSIS - AUTOMATED METHOD 05/11/2025 11:19 AM EDT [facility] Urine Urine specimen obtained by clean catch procedure / Unknown Non-blood Collection / Unknown 05/10/2025 11:40 PM EDT 05/11/2025 10:42 AM EDT Maribel Gimenez REGIONAL SALES MANAGER LAB URINE ORDERABLES Final Re sult Performing Organization Address City/[facility]/ZIP Co de Phone Number [facility] [address] [place] [address], [place] [phone] * Valderrama urine culture tube (05/10/2025 11:40 PM EDT) Extra Tube Hold for add-ons. 05/11/2025 12:01 PM EDT [facility] Comment:Auto resulted. Urine Urine specimen obtained by clean catch procedure / Unknown Non-blood Collection / Unknown 05/10/2025 11:40 PM EDT 05/11/2025 10:42 AM EDT Maribel Gimenez REGIONAL SALES MANAGER LAB URINE ORDERABLES Final Re sult Performing Organization Address [facility]/ZIP Co de Phone Number [facility] [address] [place] [address], [place] [phone] documented in this encounter Visit Diagnoses Diagnosis Encounter for other general examination documented in this encounter Additional Health Concerns Assessment Noted Time PHQ-9 Depression Total Score: 2 01/15/20 25 3:51 PM EDT documented as of this encounter Care Teams It Software Engineer Relationship Specialty Start Date End Date Jonathan Hernandez MD [address] [place] [phone] PCP - General Internal Medicine 05/21/24 documented as of this encounter
--- OUTSIDE RECORDS SUMMARY | 2025-05-13 10:01 | XMS_ITS | Clinical Summary ---
Author Organization [facility] Address [address] [place] [address] Care Team Providers Care Uniform Designer Name Role Phone Byron Fuentes MD Primary Care Provider [phone] Allergies Active Allergy Reactions Criticality Noted Date [...] age to complete this topic Care Teams Uniform Designer Relationship Specialty Start Date End Date Byron Fuentes MD PCP - General Rheumatology 08/11/19
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
--- OUTSIDE RECORDS SUMMARY | 2025-05-13 10:01 | XMS_ITS | Encounter Summary ---
Author Organization [facility] Address [address] [place] [address] Care Team Providers Care Electric Installer Name Role Phone Jonathan Hernandez MD Primary Care Provider [phone] Encounter Details Date Type Department Care Team (Late st Contact Info) Description 05/04/2025 Lab Requisition [facility] [address] [facility] [place] [address] Minerva Ayala NP [address] [place] [address] Other usp (current) drug therapy Social History Tobacco Use [...] 10:30 AM EST Office Visit Adult Medicine [address] [phone] Jonathan Hernandez MD [address] [place] [address] 08/10/2025 1:00 PM EST Office Visit Adult Medicine [address] [phone] Jennifer Santos NP [address] [place], [place] 01/17/2026 2:30 PM EDT Office Visit Adult [facility] [address] [place], [place] [phone] Jonathan Hernandez MD [address] [place], [place] documented as of this encounter Procedures Procedure Name Priority Date/Time Associated Diagnosis Comments CBC WITH AUTO DIFFERENTIAL Routine 05/04/2025 5:19 AM EDT Other usp (current) drug therapy CBC AND DIFFERENTIAL Routine 05/04/2025 5:19 AM EDT Other usp (current) drug therapy MAGNESIUM Routine 05/04/2025 5:19 AM EDT Other usp (current) drug therapy COMPREHENSIVE METABOLIC PANEL Routine 05/04/2025 5:19 AM EDT Other usp (current) drug therapy documented in this encounter Results * (ABNORMAL) CBC auto differential (05/04/2025 5:19 AM EDT) [facility] WBC 5.3 4.8 - 10.8 K/mcL LAB HEMETOLOGY METHOD 05/04/2025 10:23 AM EDT [facility] RBC 3.90 3.80 - 4.80 M/mcL LAB HEMETOLOGY METHOD 05/04/2025 10:23 AM EDT [facility] Hemoglobin 10.9(L) 11.5 - 16.0 g/dL LAB HEMETOLOGY METHOD 05/04/2025 10:23 AM T [facility] Hematocrit 34.3(L) 35.0 - 47.0 % LAB HEMETOLOGY METHOD 05/04/2025 10:23 AM [facility] MCV 88.6 79.0 - 98.0 FL LAB HEMETOLOGY METHOD 05/04/2025 10:23 AM [facility] MCH 28.2 27.0 - 32.0 pcg LAB HEMETOLOGY METHOD 05/04/2025 10:23 AM [facility] MCHC 31.8(L) 32.0 - 37.0 g/dL LAB HEMETOLOGY METHOD 05/04/2025 10:23 AM [facility] RDW 14.1 11.0 - 15.0 % LAB HEMETOLOGY METHOD 05/04/2025 10:23 AM [facility] Platelets 189 130 - 400 K/mcL LAB HEMETOLOGY METHOD 05/04/2025 10:23 AM [facility] MPV 10.5 7.0 - 11.0 FL LAB HEMETOLOGY METHOD 05/04/2025 10:23 AM [facility] NRBC 0.0 <1.0 % LAB HEMETOLOGY METHOD 05/04/2025 10:23 AM [facility] NRBC Absolute 0.00 <0.10 K/mcL LAB HEMETOLOGY METHOD 05/04/2025 10:23 AM [facility] Neutrophils Relative 62.4 % LAB HEMETOLOGY METHOD 05/04/2025 10:23 AM [facility] Lymphocytes Relative 21.9 % LAB HEMETOLOGY METHOD 05/04/2025 10:23 AM [facility] Monocytes Relative 9.1 % LAB HEMETOLOGY METHOD 05/04/2025 10:23 AM [facility] Eosinophils Relative 4.8 % LAB HEMETOLOGY METHOD 05/04/2025 10:23 AM [facility] Basophils Relative 0.8 % LAB HEMETOLOGY METHOD 05/04/2025 10:23 AM EDT [facility] Immature Granulocytes Relative 1.0 % LAB HEMETOLOGY METHOD 05/04/2025 10:23 AM EDT [facility] Neutrophils Absolute 3.28 1.50 - 7.00 K/mcL LAB HEMETOLOGY METHOD 05/04/2025 10:23 AM EDT [facility] Lymphocytes Absolute 1.15 1.00 - 5.00 K/mcL LAB HEMETOLOGY METHOD 05/04/2025 10:23 AM EDT [facility] Monocytes Absolute 0.48 0.20 - 1.00 K/mcL LAB HEMETOLOGY METHOD 05/04/2025 10:23 AM EDT [facility] Eosinophils Absolute 0.25 0.00 - 0.50 K/mcL LAB HEMETOLOGY METHOD 05/04/2025 10:23 AM EDT [facility] Basophils Absolute 0.04 0.00 - 0.20 K/mcL LAB HEMETOLOGY METHOD 05/04/2025 10:23 AM EDT [facility] Immature Granulocytes Absolute 0.05(H) 0.00 - 0.03 K/mcL LAB HEMETOLOGY METHOD 05/04/2025 10:23 AM EDT [facility] Blood Venous blood specimen / Unknown Venipuncture / Unknown 05/04/2025 5:19 AM EDT 05/04/2025 9:11 AM EDT Minerva Ayala NP LAB BLOOD ORDERABLES Final Resul t [facility] [address] [place] [address], * Magnesium (05/04/2025 5:19 AM EDT) Magnesium 2.3 1.9 - 2.6 mg/dL LAB CHEMISTRY METHOD 05/04/2025 11:19 AM EDT [facility] Blood Venous blood specimen / Unknown Venipuncture / Unknown 05/04/2025 5:19 AM EDT 05/04/2025 9:11 AM EDT Minerva Ayala ECHO TECHNOLOGIST LAB BLOOD ORDERABLES Final Resul t [facility] [address] [place] [address], * (ABNORMAL) Comprehensive metabolic panel (05/04/2025 5:19 AM EDT) Sodium 141 133 - 145 mmol/L LAB CHEMISTRY METHOD 05/04/2025 11:41 AM [facility] Potassium 4.2 3.5 - 5.5 mmol/L LAB CHEMISTRY METHOD 05/04/2025 11:41 AM [facility] Chloride 108 96 - 110 mmol/L LAB CHEMISTRY METHOD 05/04/2025 11:41 AM [facility] CO2 27 21 - 32 mmol/L LAB CHEMISTRY METHOD 05/04/2025 11:41 AM [facility] Anion Gap 6 3 - 11 LAB CHEMISTRY METHOD 05/04/2025 11:41 AM [facility] Glucose 94 70 - 100 mg/dL LAB CHEMISTRY METHOD 05/04/2025 11:41 AM [facility] BUN 19 5 - 25 mg/dL LAB CHEMISTRY METHOD 05/04/2025 11:41 AM [facility] Creatinine 0.85 0.50 - 1.10 mg/dL LAB CHEMISTRY METHOD 05/04/2025 11:41 AM [facility] eGFR 68 >=60 mL/min/1. 73m2 LAB CHEMISTRY METHOD 05/04/2025 11:41 AM [facility] Comment:Calculation based on the Chronic Kidney Disease Epidemiology Collaboration (CKD-EPI) equation refit without adjustment for race. BUN/Creatinine Ratio 22.4 LAB CHEMISTRY METHOD 05/04/2025 11:41 AM [facility] Calcium 8.8 8.5 - 10.5 mg/dL LAB CHEMISTRY METHOD 05/04/2025 11:41 AM [facility] AST (SGOT) 46(H) 10 - 42 unit/L LAB CHEMISTRY METHOD 05/04/2025 11:41 AM [facility] Comment:Results verified by repeat testing ALT (SGPT) 29 10 - 60 unit/L LAB CHEMISTRY METHOD 05/04/2025 11:41 AM [facility] Alkaline Phosphatase 83 42 - 121 unit/L LAB CHEMISTRY METHOD 05/04/2025 11:41 AM [facility] Total Protein 6.6 6.0 - 8.0 g/dL LAB CHEMISTRY METHOD 05/04/2025 11:41 AM [facility] Albumin 3.4 3.2 - 5.0 g/dL LAB CHEMISTRY METHOD 05/04/2025 11:41 AM [facility] Total Bilirubin 0.7 0.0 - 1.4 mg/dL LAB CHEMISTRY METHOD 05/04/2025 11:41 AM [facility] Comment:Results verified by repeat testing Blood Venous blood specimen / Unknown Venipuncture / Unknown 05/04/2025 5:19 AM EDT 05/04/2025 9:11 AM EDT [facility] LAB BLOOD ORDERABLES Final Resul t [facility] [address] [place] [address], documented in this encounter Visit Diagnoses Diagnosis Other usp (current) drug therapy documented in this encounter Additional Health Concerns Assessment Noted Time PHQ-9 Depression Total Score: 2 01/15/20 25 3:51 PM EDT documented as of this encounter Care Teams Electric Installer Relationship Specialty Start Date End Date Jonathan Hernandez MD [address] [place] [phone] PCP - General Internal Medicine 05/21/24 documented as of this encounter
--- OUTSIDE RECORDS SUMMARY | 2025-05-13 10:01 | XMS_ITS | Encounter Summary ---
Author Organization [facility] Address [address] [place] [address] Care Team Providers Care Tar Processing Technician Name Role Phone Jonathan Hernandez MD Primary Care Provider [phone] Encounter Details Date Type Department Care Team (Late st Contact Info) Description 05/11/2025 Lab Requisition [facility] - Main Lab [address] [facility] [place] [address] Meliza Caballero PA [address] [place] [address] Encounter for other general examination [...] 10:30 AM EST Office Visit Adult Medicine [address] [phone] Jonathan Hernandez MD [address] [place] [address] 08/10/2025 1:00 PM EST Office Visit Adult Medicine [address] [phone] Jennifer Santos NP [address] [place], [place] 01/17/2026 2:30 PM EDT Office Visit Adult [facility] [address] [place] [address] Jonathan Hernandez MD [address] [place], [place] documented as of this encounter Procedures Procedure Name Priority Date/Time Associated Diagnosis Comments COMPLETE BLOOD COUNT Routine 05/11/2025 9:03 AM EDT Encounter for other general examination COMPREHENSIVE METABOLIC PANEL Routine 05/11/2025 9:03 AM EDT Encounter for other general examination documented in this encounter Results * (ABNORMAL) Complete blood count (05/11/2025 9:03 AM EDT) [facility] WBC 7.1 4.8 - 10.8 K/mcL LAB HEMETOLOGY METHOD 05/11/2025 11:08 AM [facility] RBC 4.00 3.80 - 4.80 M/mcL LAB HEMETOLOGY METHOD 05/11/2025 11:08 AM [facility] Hemoglobin 11.3(L) 11.5 - 16.0 g/dL LAB HEMETOLOGY METHOD 05/11/2025 11:08 AM [facility] Hematocrit 35.9 35.0 - 47.0 % LAB HEMETOLOGY METHOD 05/11/2025 11:08 AM [facility] MCV 89.5 79.0 - 98.0 FL LAB HEMETOLOGY METHOD 05/11/2025 11:08 AM [facility] MCH 28.2 27.0 - 32.0 [...] % LAB HEMETOLOGY METHOD 05/11/2025 11:08 AM [facility] NRBC Absolute 0.00 <0.10 K/mcL LAB HEMETOLOGY METHOD 05/11/2025 11:08 AM [facility] Blood Venous blood specimen / Unknown Venipuncture / Unknown 05/11/2025 9:03 AM EDT 05/11/2025 9:50 AM EDT us Meliza LORENZANA LAB BLOOD ORDERABLES Final Re sult [facility] [address] [place] [address], * (ABNORMAL) Comprehensive metabolic panel (05/11/2025 9:03 AM EDT) Sodium 136 133 - 145 mmol/L LAB CHEMISTRY METHOD 05/11/2025 11:36 AM T [facility] Potassium 4.7 3.5 - 5.5 mmol/L LAB CHEMISTRY METHOD 05/11/2025 11:36 AM [facility] Chloride 103 96 - 110 mmol/L LAB CHEMISTRY METHOD 05/11/2025 11:36 AM [facility] CO2 27 21 - 32 mmol/L LAB CHEMISTRY METHOD 05/11/2025 11:36 AM [facility] Anion Gap 6 3 - 11 LAB CHEMISTRY METHOD 05/11/2025 11:36 AM [facility] Glucose 107(H) 70 - 100 mg/dL LAB CHEMISTRY METHOD 05/11/2025 11:36 AM [facility] BUN 11 5 - 25 mg/dL LAB CHEMISTRY METHOD 05/11/2025 11:36 AM [facility] Creatinine 1.09 0.50 - 1.10 mg/dL LAB CHEMISTRY METHOD 05/11/2025 11:36 AM [facility] eGFR 51(L) >=60 mL/min/1. 73m2 LAB CHEMISTRY METHOD 05/11/2025 11:36 AM [facility] Comment:Calculation based on the Chronic Kidney Disease Epidemiology Collaboration (CKD-EPI) equation refit without adjustment for race. BUN/Creatinine Ratio 10.1 LAB CHEMISTRY METHOD 05/11/2025 11:36 AM [facility] Calcium 9.4 8.5 - 10.5 mg/dL LAB CHEMISTRY METHOD 05/11/2025 11:36 AM [facility] AST (SGOT) 22 10 - 42 unit/L LAB CHEMISTRY METHOD 05/11/2025 11:36 AM [facility] ALT (SGPT) 21 10 - 60 unit/L LAB CHEMISTRY METHOD 05/11/2025 11:36 AM [facility] Alkaline Phosphatase 104 42 - 121 unit/L LAB CHEMISTRY METHOD 05/11/2025 11:36 AM [facility] Total Protein 6.9 6.0 - 8.0 g/dL LAB CHEMISTRY METHOD 05/11/2025 11:36 AM [facility] Albumin 3.6 3.2 - 5.0 [...] Re sult [facility] [address] [place] [address], documented in this encounter Visit Diagnoses Diagnosis Encounter for other general examination documented in this encounter Additional Health Concerns Assessment Noted Time PHQ-9 Depression Total Score: 2 01/15/20 25 3:51 PM EDT documented as of this encounter Care Teams Tar Processing Technician Relationship Specialty Start Date End Date Jontahan Hernandez MD [address] [place] [address] PCP - General Internal Medicine 05/21/24 documented as of this encounter
--- OUTSIDE RECORDS SUMMARY | 2025-05-13 10:01 | XMS_ITS | Patient Health Record ---
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) Plantar fasciitis, bilateral (M72.2) Active confirmed Vital Signs Blood pressure diastolic 80 mm Hg 02/08/2025 Height 5 ft 2 in in 02/08/2025 Blood pressure systolic 130 mm Hg 02/08/2025 Weight 148 lbs 02/08/2025 BMI 27.07 kg/m2 02/08/2025 Procedures Procedure Date Ordered Date Performed Result Body Sit e 40798-SVPLIIA NAIL, 6 OR MORE 07/30/2024 N/A 30789-TAGVLYL NAIL, 6 OR MORE 11/09/2024 N/A 45377-Pzaeuhrr Plate 11/09/2024 N/A 81340-UMVRLVK NAIL, 6 OR MORE 02/08/2025 N/A Encounters Encounter Location Date Provider Diagnosis [address] [address] 07/30/2024 Adelaida Black Onychomycosis B35.1 ; Pain of toe of right foot M79.674 and Pain of toe of left foot M79.[address] [facility] [address] 11/09/2024 Adelaida Black Onychomycosis B35.1 ; Ingrown nail L60.0 ; Pain of toe of right foot M79.674 and Pain of toe of left foot M79.[address] [address] 02/08/2025 Adelaida Black Onychomycosis B35.1 ; Pain [...] M60.872 and Bursitis of left foot M77.52 [facility] [address] [address] 04/29/2025 Adelaida Fontana Assessments Encounter Date Diagnosis [...] Treatment Pending Test Test Name Order Date 62507-AIDDDYQ NAIL, 6 OR MORE 02/07/2023 31953-ZXEBOTB NAIL, 6 OR MORE 05/23/2023 62112-IPUZRAL NAIL, 6 OR MORE 09/16/2023 09659-KEAFRZA NAIL, 6 OR MORE 01/02/2024 45481-TMUWHPB NAIL, 6 OR MORE 04/16/2024 89017-FHMGTTI NAIL, 6 OR MORE 07/30/2024 50818-AZJZYVS NAIL, 6 OR MORE 11/09/2024 37435-ALVEWXT NAIL, 6 OR MORE 02/08/2025 22762-Vklbibcn Plate 11/09/2024 Next Appt Details Provider Name:Adelaida Hernandez Addi , 08/19/2025 01:30:00 PM, [address] [place], [address], Insurance Providers Payer Name Payer Address Payer Phone Subscriber Number Group Number Insured Name Patient Relationship to Insured Coverage Start Date Coverage End Date [facility] 65 Medicare Preferred [address] [place] [address] [phone] [id number] Soraya Mendoza Self - patient is the [...]
--- OUTSIDE RECORDS SUMMARY | 2025-05-13 10:01 | XMS_ITS | Clinical Summary ---
Author Organization [facility] Address [address] [facility] [address] [place] [address] Care Team Providers Care Show Card Letterer Name Role Phone Unavailable Primary Care Provider Unavailabl e Immunizations Immunization Administration Dates Next Due Influenza, IIV3, injectable 04/14/2019, 8 Influenza, Unspecified 04/14/2019,03/11/2018 Influenza, seasonal, injecta ble, preservative free 04/06/2024,04/19/2016,05/22/2014,04/10,04/18/2011,03/31/2010,04/02/2009 ,04/01/2008,04/11/2007,05/20/2006,08/2004 Influenza, trivalent, adjuvanted 04/30/2022,02/13,05/01/2016 Novel [id number], preservative-free 07/21/2009 PPD Test 09/04/2011,12/26/2005 Pfizer Covid-19 [...]
--- OUTSIDE RECORDS SUMMARY | 2025-05-13 10:01 | XMS_ITS | Clinical Summary ---
Author Organization [facility] Address [address] [facility] [address] [place] [phone] Phone Care Team Providers Care Wood Model Maker Name Role Phone Unavailable Primary Care Provider [...] It is not the complete legal health record.[facility]
== END 2025-05-12 09:01 | disposition home or self-care (01) ==
LOC: HO.HOSX 09:00
PROVIDERS: Visit Provider Physician Assistant
DX: S72.001D Fracture of unspecified part of neck of right femur, subsequent encounter for closed fracture with routine healing (principal); X58.XXXD Exposure to other specified factors, subsequent encounter
CPT/HCPCS: 73502; 99212

== ENCOUNTER 2025-05-12 10:35 | Outpatient (AMB) | payer MEDICARE, SELFPAY ==
--- OUTSIDE RECORDS SUMMARY | 2025-05-03 09:15 | XMS_ITS ---
Author Organization [facility] Address [address] [place] [phone] Care Team Providers Care Frame And Scrap Crusher Name Role Phone Dewayne Hernandez MD Primary Care Provider Adelaida Kirkland [phone] Encounters Encounter Location Date Provider Diagnosis [address] [address] 05/03/2025 Adelaida Fontana Plan Of Treatment Next Appt Details Provider Name:Adelaida A Addi , 08/19/2025 01:30:00 PM, [address] [place] [address], [phone], Progress Notes * Soraya MENDOZADOB: 2 (85 yo F)Acc No.[id number]:05/03/2025 Progress Note Patient: Soraya RONQUILLO Provider: William Fontana DPM :1940 A ge:85 Y S ex:Female Date:05/03/2025 Address:[address] [place] [address] [id number] Pcp:Dewayne Hernandez MD Subjective: * Chief Complaints: [...] Date: 1 Generated for Erik cornelius/Constantino/Velma on: 01:10 PM EDT
--- NOTE | 2025-05-12 10:43 | A.OFFVIS_ITS ---
Intake Visit Reasons: PO-2wk right hip hemiarthroplasty 04/28/25, NE Intake Note: Soraya is an 85 year old female who presents today post operatively after undergoing a right hip hemiarthroplasty, performed by Dr. Stanton on 04/28/25. Patient reports a lot of pain. Allergies No Known Allergies Allergy (Verified 05/12/25 11:39) Medication List - Last Reconciled 05/12/25 by Rozina Valverde PA-C acetaminophen 975 mg (3 x 325 mg) PO Q6H PRN apixaban (Eliquis) 2.5 mg PO BID escitalopram oxalate 10 mg PO BID levothyroxine (Tirosint) 62.5 mcg PO DAILY melatonin 3 mg PO BEDTIME PRN memantine 28 mg PO DAILY metoprolol succinate ER 25 mg PO BID valsartan 80 mg PO DAILY HPI HPI PO-2wk right hip hemiarthroplasty 04/28/25, NE: Details: 85-year-old female presents to the office today status post right hip hemiarthroplasty on 04/28/2025 Maximino. She is accompanied by her daughter Priscilla. She is still at [facility] and she is working with physical therapy. She is anticipating discharge hopefully this weekend back to home. [facility] Medical History Dementia with behavioral disturbance NSVT (nonsustained ventricular tachycardia) NSVT (nonsustained ventricular tachycardia) Breast cancer Rheumatoid aortitis Hypertension Troponin level elevated Fracture, humerus, neck Syncope Surgical History H/O knee surgery H/O mastectomy Family History Mother Cancer Sister Cancer Daughter Cancer Other No family history of coronary artery disease Social History Household Members: Spouse and Children Housing: House Are you a primary healthcare science specialist to a significant other at home: No Do you presently have visiting nurse or other home services: No Alcohol intake: never Comment: sitter Patient Tobacco Use Status: Former Tobacco user Tobacco use type: Cigarette Cigarettes Per Day: 4 Second Hand Smoke Exposure: No service: No Current occupational status: retired Review of Systems Const All systems reviewed & are unremarkable except as noted in HPI and below Physical Exam Extrem Other: Right hip incision is clean dry and intact. No pain with hip flexion or range of motion. No surrounding erythema or swelling. Calf is supple and nontender neurovascularly intact. Results Reviewed Results Reviewed: X-rays of the right hip obtained in the office today and reviewed by me show stable hip prosthesis Assessment & Plan Assessment & Plan (1) Displaced fracture of right femoral neck: Code(s): S72.001A - Fracture of unspecified part of neck of right femur, initial encounter for closed fracture Category: Medical Plan: Madison removed today Steri-Strips applied. The patient will continue working with physical therapy and occupational therapy and when she is transitioned home she will continue with home physical therapy 2 to 3 times a week. I did place an order for outpatient physical therapy for when she discharges with home PT her daughter can make an appointment for outpatient therapy. I will see her back in 6 weeks with x-rays, sooner if needed. Orders: Orders PT Evaluation and Treatment Today S72.001A - Fracture of unspecified part of neck of right femur, initial encounter for closed fracture XR hip RT min 2V Today M25.551 - Pain in right hip Coding Level of Care Code Global (98310) Diagnoses Displaced fracture of right femoral neck S72.001A
--- OUTSIDE RECORDS SUMMARY | 2025-05-12 13:10 | XMS_ITS | Encounter Summary ---
Author Organization [facility] Address [address] [place] [address] Care Team Providers Care Incinerator Attendant Name Role Phone Jonathan Hernandez MD Primary Care Provider [phone] Encounter Details Date Type Department Care Team (Late st Contact Info) Description 05/04/2025 Lab Requisition [facility] [address] [facility] [place] [address] Minerva Ayala NP [address] [place] [address] Other skilled nursing (current) drug therapy Social History Tobacco Use Types Packs/Day Years Used Date Smoking Tobacco: Former Cigarettes 0.1 63.3 S tarted: 01/26/1962 Smokeless Tobacco: Never Comments:Smokes two cigarett es daily Alcohol Use Standard Drinks/Week Comments No [...] on file Sexual Orientation Not on file documented as of this encounter Plan of Treatment Upcoming Encounters Date Type Department Care Team (Late st Contact Info) Description 05/27/2025 10:30 AM EST Office Visit Adult Medicine [address] [phone] Jonathan Hernandez MD [address] [place] [address] 08/10/2025 1:00 PM EST Office Visit Adult Medicine [address] [phone] Jennifer Santos NP [address] [place], [place] 01/17/2026 2:30 PM EDT Office Visit Adult [facility] [address] [place], [place] [phone] Jonathan Hernandez MD [address] [place], [place] documented as of this encounter Procedures Procedure Name Priority Date/Time Associated Diagnosis Comments CBC WITH AUTO DIFFERENTIAL Routine 05/04/2025 5:19 AM EDT Other skilled nursing (current) drug therapy CBC AND DIFFERENTIAL Routine 05/04/2025 5:19 AM EDT Other skilled nursing (current) drug therapy MAGNESIUM Routine 05/04/2025 5:19 AM EDT Other skilled nursing (current) drug therapy COMPREHENSIVE METABOLIC PANEL Routine 05/04/2025 5:19 AM EDT Other skilled nursing (current) drug therapy documented in this encounter Results * (ABNORMAL) CBC auto differential (05/04/2025 5:19 AM EDT) [facility] WBC 5.3 4.8 - 10.8 K/mcL LAB HEMETOLOGY METHOD 05/04/2025 10:23 AM EDT [facility] RBC 3.90 3.80 - 4.80 M/mcL LAB HEMETOLOGY METHOD 05/04/2025 10:23 AM EDT [facility] Hemoglobin 10.9(L) 11.5 - 16.0 g/dL LAB HEMETOLOGY METHOD 05/04/2025 10:23 AM T [facility] Hematocrit 34.3(L) 35.0 - 47.0 % LAB HEMETOLOGY METHOD 05/04/2025 10:23 AM [facility] MCV 88.6 79.0 - 98.0 FL LAB HEMETOLOGY METHOD 05/04/2025 10:23 AM [facility] MCH 28.2 27.0 - 32.0 pcg LAB HEMETOLOGY METHOD 05/04/2025 10:23 AM [facility] MCHC 31.8(L) 32.0 - 37.0 g/dL LAB HEMETOLOGY METHOD 05/04/2025 10:23 AM [facility] RDW 14.1 11.0 - 15.0 % LAB HEMETOLOGY METHOD 05/04/2025 10:23 AM [facility] Platelets 189 130 - 400 K/mcL LAB HEMETOLOGY METHOD 05/04/2025 10:23 AM [facility] MPV 10.5 7.0 - 11.0 FL LAB HEMETOLOGY METHOD 05/04/2025 10:23 AM [facility] NRBC 0.0 <1.0 % LAB HEMETOLOGY METHOD 05/04/2025 10:23 AM [facility] NRBC Absolute 0.00 <0.10 K/mcL LAB HEMETOLOGY METHOD 05/04/2025 10:23 AM [facility] Neutrophils Relative 62.4 % LAB HEMETOLOGY METHOD 05/04/2025 10:23 AM [facility] Lymphocytes Relative 21.9 % LAB HEMETOLOGY METHOD 05/04/2025 10:23 AM [facility] Monocytes Relative 9.1 % LAB HEMETOLOGY METHOD 05/04/2025 10:23 AM [facility] Eosinophils Relative 4.8 % LAB HEMETOLOGY METHOD 05/04/2025 10:23 AM [facility] Basophils Relative 0.8 % LAB HEMETOLOGY METHOD 05/04/2025 10:23 AM EDT [facility] Immature Granulocytes Relative 1.0 % LAB HEMETOLOGY METHOD 05/04/2025 10:23 AM EDT [facility] Neutrophils Absolute 3.28 1.50 - 7.00 K/mcL LAB HEMETOLOGY METHOD 05/04/2025 10:23 AM EDT [facility] Lymphocytes Absolute 1.15 1.00 - 5.00 K/mcL LAB HEMETOLOGY METHOD 05/04/2025 10:23 AM EDT [facility] Monocytes Absolute 0.48 0.20 - 1.00 K/mcL LAB HEMETOLOGY METHOD 05/04/2025 10:23 AM EDT [facility] Eosinophils Absolute 0.25 0.00 - 0.50 K/mcL LAB HEMETOLOGY METHOD 05/04/2025 10:23 AM EDT [facility] Basophils Absolute 0.04 0.00 - 0.20 K/mcL LAB HEMETOLOGY METHOD 05/04/2025 10:23 AM EDT [facility] Immature Granulocytes Absolute 0.05(H) 0.00 - 0.03 K/mcL LAB HEMETOLOGY METHOD 05/04/2025 10:23 AM EDT [facility] Blood Venous blood specimen / Unknown Venipuncture / Unknown 05/04/2025 5:19 AM EDT 05/04/2025 9:11 AM EDT Minerva Ayala NP LAB BLOOD ORDERABLES Final Resul t [facility] [address] [place] [address], * Magnesium (05/04/2025 5:19 AM EDT) Magnesium 2.3 1.9 - 2.6 mg/dL LAB CHEMISTRY METHOD 05/04/2025 11:19 AM EDT [facility] Blood Venous blood specimen / Unknown Venipuncture / Unknown 05/04/2025 5:19 AM EDT 05/04/2025 9:11 AM EDT Minerva Ayala MINE SUPERINTENDENT LAB BLOOD ORDERABLES Final Resul t [facility] [address] [place] [address], * (ABNORMAL) Comprehensive metabolic panel (05/04/2025 5:19 AM EDT) Sodium 141 133 - 145 mmol/L LAB CHEMISTRY METHOD 05/04/2025 11:41 AM [facility] Potassium 4.2 3.5 - 5.5 mmol/L LAB CHEMISTRY METHOD 05/04/2025 11:41 AM [facility] Chloride 108 96 - 110 mmol/L LAB CHEMISTRY METHOD 05/04/2025 11:41 AM [facility] CO2 27 21 - 32 mmol/L LAB CHEMISTRY METHOD 05/04/2025 11:41 AM [facility] Anion Gap 6 3 - 11 LAB CHEMISTRY METHOD 05/04/2025 11:41 AM [facility] Glucose 94 70 - 100 mg/dL LAB CHEMISTRY METHOD 05/04/2025 11:41 AM [facility] BUN 19 5 - 25 mg/dL LAB CHEMISTRY METHOD 05/04/2025 11:41 AM [facility] Creatinine 0.85 0.50 - 1.10 mg/dL LAB CHEMISTRY METHOD 05/04/2025 11:41 AM [facility] eGFR 68 >=60 mL/min/1. 73m2 LAB CHEMISTRY METHOD 05/04/2025 11:41 AM [facility] Comment:Calculation based on the Chronic Kidney Disease Epidemiology Collaboration (CKD-EPI) equation refit without adjustment for race. BUN/Creatinine Ratio 22.4 LAB CHEMISTRY METHOD 05/04/2025 11:41 AM [facility] Calcium 8.8 8.5 - 10.5 mg/dL LAB CHEMISTRY METHOD 05/04/2025 11:41 AM [facility] AST (SGOT) 46(H) 10 - 42 unit/L LAB CHEMISTRY METHOD 05/04/2025 11:41 AM [facility] Comment:Results verified by repeat testing ALT (SGPT) 29 10 - 60 unit/L LAB CHEMISTRY METHOD 05/04/2025 11:41 AM [facility] Alkaline Phosphatase 83 42 - 121 unit/L LAB CHEMISTRY METHOD 05/04/2025 11:41 AM [facility] Total Protein 6.6 6.0 - 8.0 g/dL LAB CHEMISTRY METHOD 05/04/2025 11:41 AM [facility] Albumin 3.4 3.2 - 5.0 g/dL LAB CHEMISTRY METHOD 05/04/2025 11:41 AM [facility] Total Bilirubin 0.7 0.0 - 1.4 mg/dL LAB CHEMISTRY METHOD 05/04/2025 11:41 AM [facility] Comment:Results verified by repeat testing Blood Venous blood specimen / Unknown Venipuncture / Unknown 05/04/2025 5:19 AM EDT 05/04/2025 9:11 AM EDT [facility] LAB BLOOD ORDERABLES Final Resul t [facility] [address] [place] [address], documented in this encounter Visit Diagnoses Diagnosis Other skilled nursing (current) drug therapy documented in this encounter Additional Health Concerns Assessment Noted Time PHQ-9 Depression Total Score: 2 01/15/20 25 3:51 PM EDT documented as of this encounter Care Teams Incinerator Attendant Relationship Specialty Start Date End Date Jonathan Hernandez MD [address] [place] [phone] PCP - General Internal Medicine 05/21/24 documented as of this encounter
--- OUTSIDE RECORDS SUMMARY | 2025-05-12 13:10 | XMS_ITS | Clinical Summary ---
Author Organization [facility] [facility] Address [address] [place] [address] Care Team Providers Care Narrow Gauge Brakeman Name Role Phone Unavailable Primary Care Provider Unavailabl e Immunizations Immunization Administration Dates Next Due Influenza, IIV3, injectable 04/14/2019, 8 Influenza, Unspecified 04/14/2019,03/11/2018 Influenza, seasonal, injecta ble, preservative free 04/06/2024,04/19/2016,05/22/2014,04/10,04/18/2011,03/31/2010,04/02/2009 ,04/01/2008,04/11/2007,05/20/2006,08/2004 Influenza, trivalent, adjuvanted 04/30/2022,02/13,05/01/2016 Novel [id number], preservative-free 07/21/2009 PPD Test 09/04/2011,12/26/2005 Pfizer Covid-19 [...]
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
--- OUTSIDE RECORDS SUMMARY | 2025-05-12 13:10 | XMS_ITS ---
Author Name [facility] Organization Unknown Care Team Organization Name Specialty Phone Email Start Date End Da te [facility] Pao Tate Primary Care 06/26/202302/12 [facility] Marika, OSMEL Primary Care 12/21/202202/12 [facility] Jeremy Turcios Primary Care 10/16/2022 03/02/20 24 [facility] NATALEE WOOD Primary Care 05/22/2022
--- OUTSIDE RECORDS SUMMARY | 2025-05-12 13:10 | XMS_ITS | Encounter Summary ---
Author Organization [facility] Address [address] [place] [address] Care Team Providers Care Mutual Funds Agent Name Role Phone Jonathan Hernandez MD Primary Care Provider [phone] Encounter Details Date Type Department Care Team (Late st Contact Info) Description 05/11/2025 Lab Requisition [facility] - Main Lab [address] [facility] [place] [address] Meliza Caballero PA [address] [place] [address] Encounter for other general examination Social History Tobacco Use Types Packs/Day Years [...] ed Within the last 3 months, chris w many times did you visit the emergency [...] do you feel lonely or isolated from ose around you? Never 01/14/2025 Food Risk [...] 10:30 AM EST Office Visit Adult Medicine [address] [phone] Jonathan Hernandez MD [address] [place] [address] 08/10/2025 1:00 PM EST Office Visit Adult Medicine [address] [phone] Jennifer Santos NP [address] [place], [place] 01/17/2026 2:30 PM EDT Office Visit Adult [facility] [address] [place] [address] Jonathan Hernandez MD [address] [place], [place] documented as of this encounter Procedures Procedure Name Priority Date/Time Associated Diagnosis Comments COMPLETE BLOOD COUNT Routine 05/11/2025 9:03 AM EDT Encounter for other general examination COMPREHENSIVE METABOLIC PANEL Routine 05/11/2025 9:03 AM EDT Encounter for other general examination documented in this encounter Results * (ABNORMAL) Complete blood count (05/11/2025 9:03 AM EDT) [facility] WBC 7.1 4.8 - 10.8 K/mcL LAB HEMETOLOGY METHOD 05/11/2025 11:[address] [facility] RBC 4.00 3.80 - 4.80 M/mcL LAB HEMETOLOGY METHOD 05/11/2025 11:[address] [facility] Hemoglobin 11.3(L) 11.5 - 16.0 g/dL LAB HEMETOLOGY METHOD 05/11/2025 11:[address] [facility] Hematocrit 35.9 35.0 - 47.0 % LAB HEMETOLOGY METHOD 05/11/2025 11:[address] [facility] MCV 89.5 79.0 - 98.0 FL LAB HEMETOLOGY METHOD 05/11/2025 11:[address] [facility] MCH 28.2 27.0 - 32.0 pcg LAB HEMETOLOGY METHOD 05/11/2025 11:08 AM EDT [facility] MCHC 31.5(L) 32.0 - 37.0 g/dL LAB HEMETOLOGY METHOD 05/11/2025 11:08 AM EDT [facility] RDW 14.9 11.0 - 15.0 % LAB HEMETOLOGY METHOD 05/11/2025 11:08 AM T [facility] Platelets 332 130 - 400 K/mcL LAB HEMETOLOGY METHOD 05/11/2025 11:08 AM EDT [facility] MPV 9.4 7.0 - 11.0 FL LAB HEMETOLOGY METHOD 05/11/2025 11:08 AM T [facility] NRBC 0.0 <1.0 % LAB HEMETOLOGY METHOD 05/11/2025 11:[address] [facility] NRBC Absolute 0.00 <0.10 K/mcL LAB HEMETOLOGY METHOD 05/11/2025 11:[address] [facility] Blood Venous blood specimen / Unknown Venipuncture / Unknown 05/11/2025 9:03 AM EDT 05/11/2025 9:50 AM EDT us Meliza LORENZANA LAB BLOOD ORDERABLES Final Re sult [facility] [address] [place] [address], * (ABNORMAL) Comprehensive metabolic panel (05/11/2025 9:03 AM EDT) Sodium 136 133 - 145 mmol/L LAB CHEMISTRY METHOD 05/11/2025 11:36 AM T [facility] Potassium 4.7 3.5 - 5.5 mmol/L LAB CHEMISTRY METHOD 05/11/2025 11:[address] [facility] Chloride 103 96 - 110 mmol/L LAB CHEMISTRY METHOD 05/11/2025 11:[address] [facility] CO2 27 21 - 32 mmol/L LAB CHEMISTRY METHOD 05/11/2025 11:[address] [facility] Anion Gap 6 3 - 11 LAB CHEMISTRY METHOD 05/11/2025 11:[address] [facility] Glucose 107(H) 70 - 100 mg/dL LAB CHEMISTRY METHOD 05/11/2025 11:[address] [facility] BUN 11 5 - 25 mg/dL LAB CHEMISTRY METHOD 05/11/2025 11:[address] [facility] Creatinine 1.09 0.50 - 1.10 mg/dL LAB CHEMISTRY METHOD 05/11/2025 11:[address] [facility] eGFR 51(L) >=60 mL/min/1. 73m2 LAB CHEMISTRY METHOD 05/11/2025 11:[address] [facility] Comment:Calculation based on the Chronic Kidney Disease Epidemiology Collaboration (CKD-EPI) equation refit without adjustment for race. BUN/Creatinine Ratio 10.1 LAB CHEMISTRY METHOD 05/11/2025 11:[address] [facility] Calcium 9.4 8.5 - 10.5 mg/dL LAB CHEMISTRY METHOD 05/11/2025 11:[address] [facility] AST (SGOT) 22 10 - 42 unit/L LAB CHEMISTRY METHOD 05/11/2025 11:[address] [facility] ALT (SGPT) 21 10 - 60 unit/L LAB CHEMISTRY METHOD 05/11/2025 11:[address] [facility] Alkaline Phosphatase 104 42 - 121 unit/L LAB CHEMISTRY METHOD 05/11/2025 11:[address] [facility] Total Protein 6.9 6.0 - 8.0 g/dL LAB CHEMISTRY METHOD 05/11/2025 11:[address] [facility] Albumin 3.6 3.2 - 5.0 g/dL LAB CHEMISTRY METHOD 05/11/2025 11:36 AM EDT [facility] Total Bilirubin 0.4 0.0 - 1.4 mg/dL LAB CHEMISTRY METHOD 05/11/2025 11:36 AM EDT [facility] Blood Venous blood specimen / Unknown Venipuncture / Unknown 05/11/2025 9:03 AM EDT 05/11/2025 9:50 AM EDT us Meliza LORENZANA LAB BLOOD ORDERABLES Final Re sult [facility] [address] [place] [address], documented in this encounter Visit Diagnoses Diagnosis Encounter for other general examination documented in this encounter Additional Health Concerns Assessment Noted Time PHQ-9 Depression Total Score: 2 01/15/20 25 3:51 PM EDT documented as of this encounter Care Teams Mutual Funds Agent Relationship Specialty Start Date End Date Jonathan Hernandez MD [address] [place] [address] PCP - General Internal Medicine 05/21/24 documented as of this encounter
--- OUTSIDE RECORDS SUMMARY | 2025-05-12 13:10 | XMS_ITS | Patient Health Record ---
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) Plantar fasciitis, bilateral (M72.2) Active confirmed Vital Signs Blood pressure diastolic 80 mm Hg 02/08/2025 Height 5 ft 2 in in 02/08/2025 Blood pressure systolic 130 mm Hg 02/08/2025 Weight 148 lbs 02/08/2025 BMI 27.07 kg/m2 02/08/2025 Procedures Procedure Date Ordered Date Performed Result Body Sit e 55656-PICAISH NAIL, 6 OR MORE 07/30/2024 N/A 15533-DZCKSGE NAIL, 6 OR MORE 11/09/2024 N/A 92903-Lzutjdhm Plate 11/09/2024 N/A 16014-PBDGDPS NAIL, 6 OR MORE 02/08/2025 N/A Encounters Encounter Location Date Provider Diagnosis [address] [address] 07/30/2024 Adelaida Black Onychomycosis B35.1 ; Pain of toe of right foot M79.674 and Pain of toe of left foot M79.675 [facility] [address] 11/09/2024 Adelaida Black Onychomycosis B35.1 ; Ingrown nail L60.0 ; Pain of toe of right foot M79.674 and Pain of toe of left foot M79.[address] [address] 02/08/2025 Adelaida Black Onychomycosis B35.1 ; Pain [...] M60.872 and Bursitis of left foot M77.52 [facility] [address] [address] 04/29/2025 Adelaida Fontana Assessments Encounter Date Diagnosis (ICD Code) Assessment [...] Treatment Pending Test Test Name Order Date 54003-XJPDMNA NAIL, 6 OR MORE 02/07/2023 10983-HPIOBMX NAIL, 6 OR MORE 05/23/2023 64920-MVXMKAG NAIL, 6 OR MORE 09/16/2023 07758-KBJCRPF NAIL, 6 OR MORE 01/02/2024 03920-LKCHKSM NAIL, 6 OR MORE 04/16/2024 45115-GHAZHXX NAIL, 6 OR MORE 07/30/2024 23114-NTPDUKI NAIL, 6 OR MORE 11/09/2024 78883-UYURSWE NAIL, 6 OR MORE 02/08/2025 74979-Oyjckqki Plate 11/09/2024 Next Appt Details Provider Name:Adelaida Hernandez Addi , 08/19/2025 01:30:00 PM, [address] [place], [address], Insurance Providers Payer Name Payer Address Payer Phone Subscriber Number Group Number Insured Name Patient Relationship to Insured Coverage Start Date Coverage End Date [facility] 65 Medicare Preferred [address] [place] [address] [phone] [id number] Soraya Mendoza Self - patient is the [...]
--- OUTSIDE RECORDS SUMMARY | 2025-05-12 13:10 | XMS_ITS | Clinical Summary ---
Author Organization [facility] Address [address] [facility] [address] [place] [address] Phone Care Team Providers Care Business Support Administrator Name Role Phone Unavailable Primary Care Provider [...] It is not the complete legal health record.[facility]
--- OUTSIDE RECORDS SUMMARY | 2025-05-12 13:10 | XMS_ITS | Encounter Summary ---
Author Organization [facility] Address [address] [place] [address] Care Team Providers Care Manager Privacy Name Role Phone Jonathan Hernandez MD Primary Care Provider [phone] Encounter Details Date Type Department Care Team (Late st Contact Info) Description 05/10/[address] [facility] - Main Lab [address] [facility] [place] [address] Maribel Gimenez, KENNY [address] [place] [address] Encounter for other general examination Social History [...] 10:30 AM EST Office Visit Adult Medicine [address] [phone] Jonathan Hernandez MD [address] [place] [address] 08/10/2025 1:00 PM EST Office Visit Adult Medicine [address] [phone] Jennifer Santos NP [address] [place], [place] 01/17/2026 2:30 PM EDT Office Visit Adult Medicine [facility] [address] [place], [place] [phone] Jonathan Hernandez MD [address] [place], [place] Pending Results Name Type Priority Associated Diagnoses Date /Time Culture urine Microbiology Routine Encounter for other general examination 05/10/2025 11:40 PM EDT documented as of this encounter Procedures Procedure Name Priority Date/Time Associated Diagnosis Comments URINALYSIS WITH REFLEX MICROSCOPIC AND CULTURE Routine 05/10/2025 11:40 PM EDT Encounter for other general examination VALDERRAMA URINE CULTURE TUBE Routine 05/10/2025 11:40 PM EDT Encounter for other general examination URINALYSIS WITH REFLEX MICROSCOPIC AND CULTURE Routine 05/10/2025 11:40 PM EDT Encounter for other general examination documented in this encounter Results * (ABNORMAL) Urinalysis with reflex microscopic and culture (05/10/2025 11:40 PM EDT) Specific [place] Urine 1.009 1.003 - 1.030 LAB URINALYSIS - AUTOMATED METHOD 05/11/2025 11:19 AM [facility] pH, Urine 7.5 5.0 - 8.0 pH LAB URINALYSIS - AUTOMATED METHOD 05/11/2025 11:19 AM [facility] Leukocytes, Urine Moderate(A) Negative LAB URINALYSIS - AUTOMATED METHOD 05/11/2025 11:19 AM [facility] Nitrite, Urine Negative Negative LAB URINALYSIS - AUTOMATED METHOD 05/11/2025 11:19 AM [facility] Protein, Urine Negative <=Trace mg/dL LAB URINALYSIS - AUTOMATED METHOD 05/11/2025 11:19 AM [facility] Glucose, Urine Negative Negative mg/dL LAB URINALYSIS - AUTOMATED METHOD 05/11/2025 11:19 AM [facility] Ketones, Urine Negative Negative mg/dL LAB URINALYSIS - AUTOMATED METHOD 05/11/2025 11:19 AM [facility] Urobilinogen , Urine 0.2 0.2 - 1.0 mg/dL LAB URINALYSIS - AUTOMATED METHOD 05/11/2025 11:19 AM [facility] Bilirubin, Urine Negative Negative LAB URINALYSIS - AUTOMATED METHOD 05/11/2025 11:19 AM [facility] Blood, Urine Trace(A) Negative LAB URINALYSIS - AUTOMATED METHOD 05/11/2025 11:19 AM [facility] RBC, Urine 1.3 0 - 4 /HPF LAB URINALYSIS - AUTOMATED METHOD 05/11/2025 11:19 AM [facility] WBC, Urine 20(H) 0 - 4 /HPF LAB URINALYSIS - AUTOMATED METHOD 05/11/2025 11:19 AM [facility] Squamous Epithelial, Urine >100(H) 0 - 60 /LPF LAB URINALYSIS - AUTOMATED METHOD 05/11/2025 11:19 AM [facility] Bacteria, Urine Negative Negative /HPF LAB URINALYSIS - AUTOMATED METHOD 05/11/2025 11:19 AM [facility] Hyaline Casts, Urine 1.6 0 - 3 /LPF LAB URINALYSIS - AUTOMATED METHOD 05/11/2025 11:19 AM [facility] Urine Urine specimen obtained by clean catch procedure / Unknown Non-blood Collection / Unknown 05/10/2025 11:40 PM EDT 05/11/2025 10:42 AM EDT us Maribel Gimenez BENEFITS CLERK LAB URINE ORDERABLES Final Re sult Performing Organization Address [facility]/ZIP Co de Phone Number [facility] [address] [place] [address], [place] [phone] * Valderrama urine culture tube (05/10/2025 11:40 PM EDT) Extra Tube Hold for add-ons. 05/11/2025 12:01 PM EDT [facility] Comment:Auto resulted. Urine Urine specimen obtained by clean catch procedure / Unknown Non-blood Collection / Unknown 05/10/2025 11:40 PM EDT 05/11/2025 10:42 AM EDT Maribel Gimenez BENEFITS CLERK LAB URINE ORDERABLES Final Re sult Performing Organization Address [facility] Co de Phone Number [facility] [address] [place] [address], [place] [phone] documented in this encounter Visit Diagnoses Diagnosis Encounter for other general examination documented in this encounter Additional Health Concerns Assessment Noted Time PHQ-9 Depression Total Score: 2 01/15/20 25 3:51 PM EDT documented as of this encounter Care Teams Manager Privacy Relationship Specialty Start Date End Date Jonathan Hernandez MD [address] [place] [address] PCP - General Internal Medicine 05/21/24 documented as of this encounter
--- OUTSIDE RECORDS SUMMARY | 2025-05-12 13:10 | XMS_ITS | Clinical Summary ---
Author Organization [facility] Address [address] [place] [address] Care Team Providers Care Digital Coordinator Name Role Phone Byron Fuentes MD Primary Care Provider [phone] Allergies Active Allergy Reactions Criticality Noted Date [...] age to complete this topic Care Teams Digital Coordinator Relationship Specialty Start Date End Date Byron Fuentes MD PCP - General Rheumatology 08/11/19
--- OUTSIDE RECORDS SUMMARY | 2025-05-12 13:10 | XMS_ITS | Encounter Summary ---
Author Organization [facility] Address [address] [place] [address] Care Team Providers Care Inspector Water Pollution Control Name Role Phone Jonathan Hernandez MD Primary Care Provider [phone] Reason for Visit * Reason Onset Date Comments Hospital Follow-up 05/11/2025 Encounter Details Date Type Department Care Team (Late st Contact Info) Description 05/11/2025 Telephone Adult Medicine [address] [address] Karen Aviles MA Social History Tobacco Use Types Packs/Day Years [...] on file documented as of this encounter Progress Notes * Ana Lewis RN - 05/11/2025 2:56 PM EDT An appointment was made for her to be seen in the office on 05/27/25 at 10:[address] Hernandez and she is in agreement with this plan. * Karen Aviles MA - 05/11/2025 2:35 PM EDT Hospital/ER follow up appointment needed Hospital patient was treated at: [facility] Was this only an ER visit or was the patient admitted to the hospital? Admitted to the hospital/kept overnight Date of visit if ER visit only: If patient was admitted what was the date of discharge? 05/11/25 Reason/diagnosis for visit or stay: RIGHT FEMUR FRACTURE When was the patient told to follow up? WITHIN 7-10 DAYS Was visit or stay related to an injury? If yes, what was the date of injury (DOI)? No If yes, was the injury due to: Not 3rd constitution party related documented in this encounter Plan of Treatment Upcoming Encounters Date Type Department Care Team (Late st Contact Info) Description 05/27/2025 10:30 AM EST Office Visit [address] [phone] Jonathan Hernandez MD [address] [place] [address] 08/10/2025 1:00 PM EST Office Visit [address] [phone] Jennifer Santos NP [address] [place] [address] 01/17/2026 2:30 PM EDT Office Visit [address] [phone] Jonathan Hernandez MD [address] [place] [address] documented as of this encounter Visit Diagnoses Not on filedocumented in this encounter Additional Health Concerns Assessment Noted Time PHQ-9 Depression Total Score: 2 01/15/20 25 3:51 PM EDT documented as of this encounter Care Teams Inspector Water Pollution Control Relationship Specialty Start Date End Date Jonathan Hernandez MD [address] [place] [address] PCP - General Internal Medicine 05/21/24 documented as of this encounter
== END 2025-05-12 12:00 | disposition home or self-care (01) ==
LOC: HO.HOS 10:36
PROVIDERS: PCP Internal Medicine; Visit Provider Physician Assistant
DX: S72.001A Fracture of unspecified part of neck of right femur, initial encounter for closed fracture (principal)
CPT/HCPCS: 99024

== ENCOUNTER → 2025-05-12 10:38 | Outpatient (BNV) | payer MEDICARE, SELFPAY | PROVIDERS: Visit Provider Radiology Diagnostic Radiology | DX: M25.551 Pain in right hip (principal); Z96.641 Presence of right artificial hip joint | CPT/HCPCS: 73502 ==

== ENCOUNTER 2025-06-09 07:20 | Outpatient (REF) | payer MEDICARE, SELFPAY ==
--- OUTSIDE RECORDS SUMMARY | 2025-05-03 08:15 | XMS_ITS ---
Author Organization [facility] Address [address] [place] [id number] Care Team Providers Care Monument Carver Name Role Phone Dewayne Hernandez MD Primary Care Provider Adelaida Kirkland [phone] Encounters Encounter Location Date Provider Diagnosis [address] [address] 05/03/2025 Adelaida Fontana Plan Of Treatment Next Appt Details Provider Name:Adelaida A Addi , 08/19/2025 01:30:00 PM, [address] [place] [address], [phone], Progress Notes * Soraya MENDOZADOB: 2 (85 yo F)Acc No.[id number]:05/03/2025 Progress Note Patient: oSraya RONQUILLO Provider: William Fontana DPM :1940 A ge:85 Y S ex:Female Date:05/03/2025 Address:[address] [place] [address] Karri [place]ung [id number] Pcp:Dewayne Hernandez MD Subjective: * Chief Complaints: * * Medical History: Objective: * Vitals: Assessment: Plan: * Treatment: * Images: * The named appointment provid er may or may not be the originator of this progress note, and it is not deemed complete until electronically signed by the appointment provider. Sign off status: Pending * Provider: William Fontana DPM Date: 1 Generated for Erik cornelius/Constantino/Velma on: 08/12/2024 07:24 AM EST
--- OUTSIDE RECORDS SUMMARY | 2025-05-13 08:30 | XMS_ITS ---
Author Organization [facility] Address [address] [place] [address] Care Team Providers Care Dock Superintendent Name Role Phone Dewayne Hernandez MD Primary Care Provider UnavailAdelaida Torres [phone] REASON FOR VISIT misbooked Encounters Encounter Location Date Provider Diagnosis [address] [address] 05/13/2025 Adelaida Fontana Plan Of Treatment Next Appt Details Provider Name:Adelaida Fontana , 08/19/2025 01:30:00 PM, [address] [place] [address], [phone], Progress Notes * Soraya MENDOZADOB: 2 (85 yo F)Acc No.[id number]:05/13/2025 Progress Note Patient: Daniella JT Soraya Provider: William Fontana DPM :1940 A ge:85 Y S ex:Female Date:05/13/2025 Address:[address] [place] [address] [id number] Pcp:Dewayne Hernandez MD Subjective: * Chief Complaints: [...]
--- NOTE | ~2025-06-09 | XR_ITS ---
EXAMINATION: XR HIP 2 OR MORE VIEWS RIGHT HISTORY: M25.551 - Pain in right hip COMPARISON: Comparison is made with the prior examination dated 05/12/2025. FINDINGS: A single AP view of the pelvis and 2 views of the right hip are submitted. The patient is again noted to be status post right total hip arthroplasty. The orthopedic elements are in anatomic alignment. There is no radiographic evidence of loosening. There is no fracture or dislocation. 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 There is cholelithiasis. XR/XR hip RT min 2V IMPRESSION: Status post right total hip arthroplasty. Electronically signed by: Edgar English MD 06/09/2025 02:51 PM EST
--- OUTSIDE RECORDS SUMMARY | 2025-06-12 07:24 | XMS_ITS | Clinical Summary ---
Author Organization [facility] Address [address] [facility] 7t [place] [address] Care Team Providers Care Scheduling Specialist Name Role Phone Unavailable Primary Care Provider Unavailabl e Immunizations Immunization Administration Dates Next Due Influenza, IIV3, injectable 04/14/2019, 8 Influenza, Unspecified 04/14/2019,03/11/2018 Influenza, seasonal, injecta ble, preservative free 04/06/2024,04/19/2016,05/22/2014,04/10,04/18/2011,03/31/2010,04/02/2009 ,04/01/2008,04/11/2007,05/20/2006,08/2004 Influenza, trivalent, adjuvanted 04/30/2022,02/13,05/01/2016 Novel [id number], preservative-free 07/21/2009 PPD Test 09/04/2011,12/26/2005 Pfizer Covid-19 [...] Payer (Ef fective 2024-Present) Name:Yan Mendoza Member ID:[id number] Relation to Subscriber:Self Name:Yan Mendoza Subscriber ID:[id number] Payer ID:STATE Group ID:Not on file Type:Medicare Address: [employer] [facility], [facility]. [address] [facility] [place] [address]
--- OUTSIDE RECORDS SUMMARY | 2025-06-12 07:24 | XMS_ITS | Encounter Summary ---
Author Organization [facility] Address [address] [place] [address] Care Team Providers Care Tin Whiz Machine Operator Name Role Phone Jonathan Hernandez MD Primary Care Provider [phone] Encounter Details Date Type Department Care Team (Late st Contact Info) Description 05/10/2025 Lab Requisition [facility] - Main Lab [address] [facility] [place] [address] Maribel Gimenez NP [address] [place] [address] Encounter for other general examination Social History Tobacco Use Types Packs/Day Years Used Date Smoking Tobacco: Former Cigarettes 0.1 63.4 S tarted: 01/26/1962 Smokeless Tobacco: Never Comments:Smokes [...] 1:00 PM EST Office Visit Adult Medicine [facility] [address] [place] [address] Jennifer Santos NP [address] [place] [address] 09/20/2025 1:10 PM EDT Office Visit [facility] - [facility] [address] [facility] [address] [place] [phone] Shawna Farooq NP [address] [place] [address] [place] [address] 01/17/2026 2:30 PM EDT Office Visit Adult Medicine [facility] [address] [place], [place] [phone] Jonathan Hernandez MD [address] [place] [address] documented as of this encounter Procedures Procedure [...] if clinically indicated. 05/12/2025 2:17 PM EDT [facility] Urine Urine specimen obtained by clean catch procedure / Unknown Non-blood Collection / Unknown 05/10/2025 11:40 PM EDT 05/11/2025 11:19 AM EDT us Maribel Gimenez DIRECTOR TRANSITION LAB MICROBIOLOGY - GENERAL OR DERABLES Final Result [facility] [address] [place] [address], [place] [phone] * (ABNORMAL) Urinalysis with reflex microscopic and culture (05/10/2025 11:40 PM EDT) Specific [place] Urine 1.009 1.003 - 1.030 LAB URINALYSIS - AUTOMATED METHOD 05/11/2025 11:19 AM [facility] pH, Urine 7.5 5.0 - 8.0 pH LAB URINALYSIS - AUTOMATED METHOD 05/11/2025 11:19 AM [facility] Leukocytes, Urine Moderate(A) Negative LAB URINALYSIS - AUTOMATED METHOD 05/11/2025 11:19 AM [facility] Nitrite, Urine Negative Negative LAB URINALYSIS - AUTOMATED METHOD 05/11/2025 11:19 AM [facility] Protein, Urine Negative <=Trace mg/dL LAB URINALYSIS - AUTOMATED METHOD 05/11/2025 11:19 AM [facility] Glucose, Urine Negative Negative mg/dL LAB URINALYSIS - AUTOMATED METHOD 05/11/2025 11:19 AM [facility] Ketones, Urine Negative Negative mg/dL LAB URINALYSIS - AUTOMATED METHOD 05/11/2025 11:19 AM [facility] Urobilinogen , Urine 0.2 0.2 - 1.0 mg/dL LAB URINALYSIS - AUTOMATED METHOD 05/11/2025 11:19 AM [facility] Bilirubin, Urine Negative Negative LAB URINALYSIS - AUTOMATED METHOD 05/11/2025 11:19 AM [facility] Blood, Urine Trace(A) Negative LAB URINALYSIS - AUTOMATED METHOD 05/11/2025 11:19 AM [facility] RBC, Urine 1.3 0 - 4 /HPF LAB URINALYSIS - AUTOMATED METHOD 05/11/2025 11:19 AM [facility] WBC, Urine 20(H) 0 - 4 /HPF LAB URINALYSIS - AUTOMATED METHOD 05/11/2025 11:19 AM EDT [facility] Squamous Epithelial, Urine >100(H) 0 - 60 /LPF LAB URINALYSIS - AUTOMATED METHOD 05/11/2025 11:19 AM EDT [facility] Bacteria, Urine Negative Negative /HPF LAB URINALYSIS - AUTOMATED METHOD 05/11/2025 11:19 AM EDT [facility] Hyaline Casts, Urine 1.6 0 - 3 /LPF LAB URINALYSIS - AUTOMATED METHOD 05/11/2025 11:19 AM EDT [facility] Urine Urine specimen obtained by clean catch procedure / Unknown Non-blood Collection / Unknown 05/10/2025 11:40 PM EDT 05/11/2025 10:42 AM EDT Maribel Gimenez DIRECTOR TRANSITION LAB URINE ORDERABLES Final Re sult Performing Organization Address City/[facility]/ZIP Co de Phone Number [facility] [address] [place] [address], [place] [phone] * Valderrama urine culture tube (05/10/2025 11:40 PM EDT) Extra Tube Hold for add-ons. 05/11/2025 12:01 PM EDT [facility] Comment:Auto resulted. Urine Urine specimen obtained by clean catch procedure / Unknown Non-blood Collection / Unknown 05/10/2025 11:40 PM EDT 05/11/2025 10:42 AM EDT us Maribel Gimenez DIRECTOR TRANSITION LAB URINE ORDERABLES Final Re sult Performing Organization Address [facility]/ZIP Co de Phone Number [facility] [address] [place] [address], [place] [phone] documented in this encounter Visit Diagnoses Diagnosis Encounter for other general examination documented in this encounter Additional Health Concerns Assessment Noted Time PHQ-9 Depression Total Score: 2 07/03/20 25 3:51 PM EDT documented as of this encounter Care Teams Tin Whiz Machine Operator Relationship Specialty Start Date End Date Jonathan Hernandez MD [address] [place] [phone] PCP - General Internal Medicine 05/21/24 documented as of this encounter
--- OUTSIDE RECORDS SUMMARY | 2025-06-12 07:24 | XMS_ITS | Encounter Summary ---
Author Organization [facility] Address [address] [place] [address] Care Team Providers Care Floral Design Teacher Name Role Phone Jonathan Hernandez MD Primary Care Provider [phone] Encounter Details Date Type Department Care Team (Late st Contact Info) Description 05/31/2025 Telephone Adult Medicine [facility] [address] [place] [phone] Jonathan Hernandez MD [address] [place] [phone] Social History Tobacco Use Types Packs/Day Years [...] Record ed Within the last 3 months, ho w many times did you visit the [...] on file documented as of this encounter Ordered Prescriptions Prescription Sig Dispense Quantity Refills Last Filled Start Date End Date nitrofurantoin, macrocrystal-monoh ydrate, (MACROBID) 100 mg capsule Take 1 capsule (100 mg total) by mouth 2 (two) times a day for 5 days. 10 each 05/31/2025 documented in this encounter Progress Notes * Ana Lewis RN - 06/02/2025 4:42 PM EST Called and spoke to pt's daughter. She started the antibiotics on 05/31/25. She states there is an improvement in her symptoms. She has abdominal pain associated with the UTI. Pt is drinking 6-8 eight ounce glasses of fluid a day. She states the abdominal pain is improving. She also has pain in her flank. No fever. * Yesy Lozano MA - 06/02/2025 3:31 PM EST Please call patient's daughter (Priscilla) she states that the patient is having abdominal pain. * Jonathan Hernandez MD - 05/31/2025 8:40 AM EST Please inform patient's daughter that the mothers urine is consistent with a a UTI, and appropriateantibiotic has been sent Macrobid 100 mg po bid x 5 days documented in this encounter Plan of Treatment Upcoming Encounters Date Type Department Care Team (Late st Contact Info) Description 08/10/2025 1:00 PM EST Office Visit [address] [phone] Jennifer Santos NP [address] [place] [address] 09/20/2025 1:10 PM EDT Office Visit [facility] [address] [address] Shawna Farooq NP [address] [place] [address] [place] [address] 01/17/2026 2:30 PM EDT Office Visit [address] [phone] Jonathan Hernandez MD [address] [place] [phone] documented as of this encounter Visit Diagnoses Not on filedocumented in this encounter Additional Health Concerns Assessment Noted Time PHQ-9 Depression Total Score: 2 01/15/20 25 3:51 PM EDT documented as of this encounter Care Teams Floral Design Teacher Relationship Specialty Start Date End Date Jonathan Hernandez MD [address] [place] [address] PCP - General Internal Medicine 05/21/24 documented as of this encounter
--- OUTSIDE RECORDS SUMMARY | 2025-06-12 07:24 | XMS_ITS | Encounter Summary ---
Author Organization [facility] Address [address] [place] [address] Care Team Providers Care Coil Connector Name Role Phone Jonathan Hernandez MD Primary Care Provider [phone] Encounter Details Date Type Department Care Team (Late st Contact Info) Description 05/27/2025 Telephone Adult Medicine [address] [address] Calixto Hancock LPN Social History Tobacco Use Types Packs/Day Years [...] 1:00 PM EST Office Visit Adult Medicine [facility] [facility] [address] [place] [address] Jennifer Santos NP [address] [place] [address] 09/20/2025 1:10 PM EDT Office Visit [facility] - [facility] [address] [address] Shawna Farooq, KENNY [address] [place] [address] [place] [address] 01/17/2026 2:30 PM EDT Office Visit Adult Medicine [address] [phone] Jonathan Hernandez MD [address] [place] [address] documented as of this encounter Visit Diagnoses Not on filedocumented in this encounter Additional Health Concerns Assessment Noted Time PHQ-9 Depression Total Score: 2 01/15/20 25 3:51 PM EDT documented as of this encounter Care Teams Coil Connector Relationship Specialty Start Date End Date Jonathan Hernandez MD [address] [place] [address] PCP - General Internal Medicine 05/21/24 documented as of this encounter
--- OUTSIDE RECORDS SUMMARY | 2025-06-12 07:24 | XMS_ITS | Patient Health Record ---
Author Organization [facility] Address [address] [facility] [place] [address] Care Team Providers Care Product Sales Representative Name Role Phone Dewayne Hernandez MD Primary Care Provider Unavailabl e Black, Adelaida Unavailable [phone] Allergies Allergen (clinical drug ingredient) Drug/Non Drug Allergy documented on EMR Reaction Allergy Type Onset Date Status Information temporarily unavailable Percocet Unknown Drug Allergy Active Information temporarily unavailable Iodinated Diagnostic Agents Unknown Drug Allergy Active [...] Problem Status W/U Status Risk Notes Problem Information temporarily unavailable Plantar fasciitis, bilateral (M72.2) Active confirmed Vital Signs Blood pressure diastolic 80 mm Hg 02/08/2025 Height 5 ft 2 in in 02/08/2025 Blood pressure systolic 130 mm Hg 02/08/2025 Weight 148 lbs 02/08/2025 BMI 27.07 kg/m2 02/08/2025 Procedures Procedure Date Ordered Date Performed Result Body Sit e 87268-OROSCPW NAIL, 6 OR MORE 07/30/2024 N/A 66910-KQFMPKU NAIL, 6 OR MORE 11/09/2024 N/A 16945-Uqvxuelf Plate 11/09/2024 N/A 08821-MOFJCCE NAIL, 6 OR MORE 02/08/2025 N/A Encounters Encounter Location Date Provider Diagnosis [address] [address] 07/30/2024 Adelaida Black Onychomycosis B35.1 ; Pain of toe of right foot M79.674 and Pain of toe of left foot M79.[address] [facility] [address] 11/09/2024 Adelaida Black Onychomycosis B35.1 ; Ingrown nail L60.0 ; Pain of toe of right foot M79.674 and Pain of toe of left foot M79.[address] [address] 02/08/2025 Adelaida Black Onychomycosis B35.1 ; Pain [...] M60.872 and Bursitis of left foot M77.52 [facility] [address] [place] [address] 04/29/2025 Adelaida Fontana Assessments Encounter Date Diagnosis [...] Treatment Pending Test Test Name Order Date 76886-ZLUFPHT NAIL, 6 OR MORE 02/07/2023 71272-MDBVVQL NAIL, 6 OR MORE 05/23/2023 05690-QFZGHKR NAIL, 6 OR MORE 09/16/2023 50919-VKGGOCV NAIL, 6 OR MORE 01/02/2024 71164-IFECTTV NAIL, 6 OR MORE 04/16/2024 34303-YRZCLNX NAIL, 6 OR MORE 07/30/2024 54739-KJJEQKP NAIL, 6 OR MORE 11/09/2024 40798-YEWMDDR NAIL, 6 OR MORE 02/08/2025 69956-Srbmntds Plate 11/09/2024 Next Appt Details Provider Name:Adelaida Fontana , 08/19/2025 01:30:00 PM, [address] [facility], [place], [address], Insurance Providers Payer Name Payer Address Payer Phone Subscriber Number Group Number Insured Name Patient Relationship to Insured Coverage Start Date Coverage End Date BlueCare 65 Medicare Preferred [address] [place] [address] [phone] [id number] Soraya Mendoza Self - patient is the [...]
--- OUTSIDE RECORDS SUMMARY | 2025-06-12 07:24 | XMS_ITS | Clinical Summary ---
Author Organization [facility] Address [address] [place] [address] Care Team Providers Care Ball Worker Name Role Phone Byron Fuentes MD Primary Care Provider [phone] Allergies Active Allergy Reactions Criticality Noted Date [...] age to complete this topic Care Teams Ball Worker Relationship Specialty Start Date End Date Byron Fuentes MD PCP - General Rheumatology 08/11/19
--- OUTSIDE RECORDS SUMMARY | 2025-06-12 07:24 | XMS_ITS | Encounter Summary ---
Author Organization [facility] Address [address] [place] [address] Care Team Providers Care Supervisor Mending Name Role Phone Jonathan Hernandez MD Primary Care Provider [phone] Encounter Details Date Type Department Care Team (Late st Contact Info) Description 05/11/2025 Lab Requisition [facility] - Main Lab [address] [place] [address] Meliza Caballero PA [address] [place] [phone] Encounter for other general examination Social History [...] 1:00 PM EST Office Visit Adult Medicine [facility] [address] [place] [address] Jennifer Santos NP [address] [place] [address] 09/20/2025 1:10 PM EDT Office Visit [facility] [address] [facility] [address] [place] [phone] Shawna Farooq NP [address] [place] [address] [place] [address] 01/17/2026 2:30 PM EDT Office Visit Adult [facility] [address] [place], [place] [phone] Jonathan Hernandez MD [address] [place] [address] documented as of this encounter Procedures Procedure Name Priority Date/Time Associated Diagnosis Comments COMPLETE BLOOD COUNT Routine 05/11/2025 9:03 AM EDT Encounter for other general examination COMPREHENSIVE METABOLIC PANEL Routine 05/11/2025 9:03 AM EDT Encounter for other general examination documented in this encounter Results * (ABNORMAL) Complete blood count (05/11/2025 9:03 AM EDT) WBC 7.1 4.8 - 10.8 K/mcL LAB HEMETOLOGY METHOD 05/11/2025 11:08 AM [facility] RBC 4.00 3.80 - 4.80 M/mcL LAB HEMETOLOGY METHOD 05/11/2025 11:08 AM [facility] Hemoglobin 11.3(L) 11.5 - 16.0 g/dL LAB HEMETOLOGY METHOD 05/11/2025 11:08 AM [facility] Hematocrit 35.9 35.0 - 47.0 % LAB HEMETOLOGY METHOD 05/11/2025 11:08 AM [facility] MCV 89.5 79.0 - 98.0 FL LAB HEMETOLOGY METHOD 05/11/2025 11:08 AM [facility] MCH 28.2 27.0 - 32.0 pcg LAB HEMETOLOGY METHOD 05/11/2025 11:08 AM EDT [facility] MCHC 31.5(L) 32.0 - 37.0 g/dL LAB HEMETOLOGY METHOD 05/11/2025 11:08 AM EDT [facility] RDW 14.9 11.0 - 15.0 % LAB HEMETOLOGY METHOD 05/11/2025 11:08 AM EDT [facility] Platelets 332 130 - 400 K/mcL LAB HEMETOLOGY METHOD 05/11/2025 11:08 AM EDT [facility] MPV 9.4 7.0 - 11.0 FL LAB HEMETOLOGY METHOD 05/11/2025 [facility] NRBC 0.0 <1.0 % LAB HEMETOLOGY METHOD 05/11/2025 11:[facility] NRBC Absolute 0.00 <0.10 K/mcL LAB HEMETOLOGY METHOD 05/11/2025 11:08 AM [facility] Blood Venous blood specimen / Unknown Venipuncture / Unknown 05/11/2025 9:03 AM EDT 05/11/2025 9:50 AM EDT us Meliza LORENZANA LAB BLOOD ORDERABLES Final Re sult [facility] [address] [place] [address], * (ABNORMAL) Comprehensive metabolic panel (05/11/2025 9:03 AM EDT) Sodium 136 133 - 145 mmol/L LAB CHEMISTRY METHOD 05/11/2025 11:36 AM T [facility] Potassium 4.7 3.5 - 5.5 mmol/L LAB CHEMISTRY METHOD 05/11/2025 11:36 AM T [facility] Chloride 103 96 - 110 mmol/L LAB CHEMISTRY METHOD 05/11/2025 11:36 AM [facility] CO2 27 21 - 32 mmol/L LAB CHEMISTRY METHOD 05/11/2025 11:36 AM [facility] Anion Gap 6 3 - 11 LAB CHEMISTRY METHOD 05/11/2025 11:36 AM [facility] Glucose 107(H) 70 - 100 mg/dL LAB CHEMISTRY METHOD 05/11/2025 11:36 AM [facility] BUN 11 5 - 25 mg/dL LAB CHEMISTRY METHOD 05/11/2025 11:36 AM [facility] Creatinine 1.09 0.50 - 1.10 mg/dL LAB CHEMISTRY METHOD 05/11/2025 11:36 AM [facility] eGFR 51(L) >=60 mL/min/1. 73m2 LAB CHEMISTRY METHOD 05/11/2025 11:36 AM [facility] Comment:Calculation based on the Chronic Kidney Disease Epidemiology Collaboration (CKD-EPI) equation refit without adjustment for race. BUN/Creatinine Ratio 10.1 LAB CHEMISTRY METHOD 05/11/2025 11:36 AM [facility] Calcium 9.4 8.5 - 10.5 mg/dL LAB CHEMISTRY METHOD 05/11/2025 11:36 AM [facility] AST (SGOT) 22 10 - 42 unit/L LAB CHEMISTRY METHOD 05/11/2025 11:36 AM [facility] ALT (SGPT) 21 10 - 60 unit/L LAB CHEMISTRY METHOD 05/11/2025 11:36 AM [facility] Alkaline Phosphatase 104 42 - 121 unit/L LAB CHEMISTRY METHOD 05/11/2025 11:36 AM [facility] Total Protein 6.9 6.0 - 8.0 g/dL LAB CHEMISTRY METHOD 05/11/2025 11:36 AM [facility] Albumin 3.6 3.2 - 5.0 g/dL LAB CHEMISTRY METHOD 05/11/2025 11:36 AM EDT [facility] Total Bilirubin 0.4 0.0 - 1.4 mg/dL LAB CHEMISTRY METHOD 05/11/2025 11:36 AM EDT [facility] Blood Venous blood specimen / Unknown Venipuncture / Unknown 05/11/2025 9:03 AM EDT 05/11/2025 9:50 AM EDT us Meliza LORENZANA LAB BLOOD ORDERABLES Final Re sult [facility] [address] [place] [address], documented in this encounter Visit Diagnoses Diagnosis Encounter for other general examination documented in this encounter Additional Health Concerns Assessment Noted Time PHQ-9 Depression Total Score: 2 01/15/20 25 3:51 PM EDT documented as of this encounter Care Teams Supervisor Mending Relationship Specialty Start Date End Date Jonathan Hernandez MD [address] [place] [address] PCP - General Internal Medicine 05/21/24 documented as of this encounter
--- OUTSIDE RECORDS SUMMARY | 2025-06-12 07:24 | XMS_ITS | Encounter Summary ---
Author Organization [facility] Address [address] [place] [address] Care Team Providers Care Cone Winder Name Role Phone Jonathan Hernandez MD Primary Care Provider [phone] Encounter Details Date Type Department Care Team (Late st Contact Info) Description 05/04/[address] [facility] [address] [place] [address] Minerva Ayala NP [address] [place] [address] Other manager intermediate (current) drug therapy Social History Tobacco Use [...] 1:00 PM EST Office Visit Adult Medicine [facility] [address] [place] [address] Jennifer Santos NP [address] [place] [address] 09/20/2025 1:10 PM EDT Office Visit [facility] [address] [facility] [address] [place] [phone] Shawna Farooq NP [address] [place] [address] [place] [address] 01/17/2026 2:30 PM EDT Office Visit [facility] [address] [place] [address] Jonathan Hernandez MD [address] [place] [address] documented as of this encounter Procedures Procedure Name Priority Date/Time Associated Diagnosis Comments CBC WITH AUTO DIFFERENTIAL Routine 05/04/2025 5:19 AM EDT Other fdc (current) drug therapy CBC AND DIFFERENTIAL Routine 05/04/2025 5:19 AM EDT Other manager intermediate (current) drug therapy MAGNESIUM Routine 05/04/2025 5:19 AM EDT Other fdc (current) drug therapy COMPREHENSIVE METABOLIC PANEL Routine 05/04/2025 5:19 AM EDT Other fdc (current) drug therapy documented in this encounter Results * (ABNORMAL) CBC auto differential (05/04/2025 5:19 AM EDT) [facility] WBC 5.3 4.8 - 10.8 K/mcL LAB HEMETOLOGY METHOD 05/04/2025 10:23 AM EDT [facility] RBC 3.90 3.80 - 4.80 M/mcL LAB HEMETOLOGY METHOD 05/04/2025 10:23 AM EDT [facility] Hemoglobin 10.9(L) 11.5 - 16.0 g/dL LAB HEMETOLOGY METHOD 05/04/2025 10:23 AM EDT [facility] Hematocrit 34.3(L) 35.0 - 47.0 % LAB HEMETOLOGY METHOD 05/04/2025 10:23 AM [facility] MCV 88.6 79.0 - 98.0 FL LAB HEMETOLOGY METHOD 05/04/2025 10:23 AM [facility] MCH 28.2 27.0 - 32.0 pcg LAB HEMETOLOGY METHOD 05/04/2025 10:23 AM [facility] MCHC 31.8(L) 32.0 - 37.0 g/dL LAB HEMETOLOGY METHOD 05/04/2025 10:23 AM [facility] RDW 14.1 11.0 - 15.0 % LAB HEMETOLOGY METHOD 05/04/2025 10:23 AM [facility] Platelets 189 130 - 400 K/mcL LAB HEMETOLOGY METHOD 05/04/2025 10:23 AM [facility] MPV 10.5 7.0 - 11.0 FL LAB HEMETOLOGY METHOD 05/04/2025 10:23 AM [facility] NRBC 0.0 <1.0 % LAB HEMETOLOGY METHOD 05/04/2025 10:23 AM [facility] NRBC Absolute 0.00 <0.10 K/mcL LAB HEMETOLOGY METHOD 05/04/2025 10:23 AM [facility] Neutrophils Relative 62.4 % LAB HEMETOLOGY METHOD 05/04/2025 10:23 AM [facility] Lymphocytes Relative 21.9 % LAB HEMETOLOGY METHOD 05/04/2025 10:23 AM [facility] Monocytes Relative 9.1 % LAB HEMETOLOGY METHOD 05/04/2025 10:23 AM [facility] Eosinophils Relative 4.8 % LAB HEMETOLOGY METHOD 05/04/2025 10:23 AM [facility] Basophils Relative 0.8 % LAB HEMETOLOGY METHOD 05/04/2025 10:23 AM EDT [facility] Immature Granulocytes Relative 1.0 % LAB HEMETOLOGY METHOD 05/04/2025 10:23 AM EDT [facility] Neutrophils Absolute 3.28 1.50 - 7.00 K/mcL LAB HEMETOLOGY METHOD 05/04/2025 10:23 AM EDT [facility] Lymphocytes Absolute 1.15 1.00 - 5.00 K/mcL LAB HEMETOLOGY METHOD 05/04/2025 10:23 AM EDT [facility] Monocytes Absolute 0.48 0.20 - 1.00 K/mcL LAB HEMETOLOGY METHOD 05/04/2025 10:23 AM EDT [facility] Eosinophils Absolute 0.25 0.00 - 0.50 K/mcL LAB HEMETOLOGY METHOD 05/04/2025 10:23 AM EDT [facility] Basophils Absolute 0.04 0.00 - 0.20 K/mcL LAB HEMETOLOGY METHOD 05/04/2025 10:23 AM EDT [facility] Immature Granulocytes Absolute 0.05(H) 0.00 - 0.03 K/mcL LAB HEMETOLOGY METHOD 05/04[facility]2025 [facility] Blood Venous blood specimen / Unknown Venipuncture / Unknown 05/04/2025 5:19 AM EDT 05/04/2025 9:11 AM EDT us Minerva Ayala NP LAB BLOOD ORDERABLES Final Resul t [facility] [address] [place] [address], * Magnesium (05/04/2025 5:19 AM EDT) Magnesium 2.3 1.9 - 2.6 mg/dL LAB CHEMISTRY METHOD 05/04/2025 11:19 AM [facility] Blood Venous blood specimen / Unknown Venipuncture / Unknown 05/04/2025 5:19 AM EDT 05/04/2025 9:11 AM EDT us Minerva Ayala [employer] LAB BLOOD ORDERABLES Final Resul t [facility] [address] [place] [address], * (ABNORMAL) Comprehensive metabolic panel (05/04/2025 5:19 AM EDT) Sodium 141 133 - 145 mmol/L LAB CHEMISTRY METHOD 05/04/2025 11:41 AM [facility] Potassium 4.2 3.5 - 5.5 mmol/L LAB CHEMISTRY METHOD 05/04/2025 11:41 AM [facility] Chloride 108 96 - 110 mmol/L LAB CHEMISTRY METHOD 05/04/2025 11:41 AM [facility] CO2 27 21 - 32 mmol/L LAB CHEMISTRY METHOD 05/04/2025 11:41 AM [facility] Anion Gap 6 3 - 11 LAB CHEMISTRY METHOD 05/04/2025 11:41 AM [facility] Glucose 94 70 - 100 mg/dL LAB CHEMISTRY METHOD 05/04/2025 11:41 AM [facility] BUN 19 5 - 25 mg/dL LAB CHEMISTRY METHOD 05/04/2025 11:41 AM [facility] Creatinine 0.85 0.50 - 1.10 mg/dL LAB CHEMISTRY METHOD 05/04/2025 11:41 AM [facility] eGFR 68 >=60 mL/min/1. 73m2 LAB CHEMISTRY METHOD 05/04/2025 11:41 AM [facility] Comment:Calculation based on the Chronic Kidney Disease Epidemiology Collaboration (CKD-EPI) equation refit without adjustment for race. BUN/Creatinine Ratio 22.4 LAB CHEMISTRY METHOD 05/04/2025 11:41 AM [facility] Calcium 8.8 8.5 - 10.5 mg/dL LAB CHEMISTRY METHOD 05/04/2025 11:41 AM [facility] AST (SGOT) 46(H) 10 - 42 unit/L LAB CHEMISTRY METHOD 05/04/2025 11:41 AM [facility] Comment:Results verified by repeat testing ALT (SGPT) 29 10 - 60 unit/L LAB CHEMISTRY METHOD 05/04/2025 11:41 AM [facility] Alkaline Phosphatase 83 42 - 121 unit/L LAB CHEMISTRY METHOD 05/04/2025 11:41 AM [facility] Total Protein 6.6 6.0 - 8.0 g/dL LAB CHEMISTRY METHOD 05/04/2025 11:41 AM [facility] Albumin 3.4 3.2 - 5.0 g/dL LAB CHEMISTRY METHOD 05/04/2025 11:41 AM [facility] Total Bilirubin 0.7 0.0 - 1.4 mg/dL LAB CHEMISTRY METHOD 05/04/2025 11:41 AM [facility] Comment:Results verified by repeat testing Blood Venous blood specimen / Unknown Venipuncture / Unknown 05/04/2025 5:19 AM EDT 05/04/2025 9:11 AM EDT us Minerva Ayala NP LAB BLOOD ORDERABLES Final Resul t [facility] [address] [place] [address], documented in this encounter Visit Diagnoses Diagnosis Other fdc (current) drug therapy documented in this encounter Additional Health Concerns Assessment Noted Time PHQ-9 Depression Total Score: 2 01/15/20 25 3:51 PM EDT documented as of this encounter Care Teams Cone Winder Relationship Specialty Start Date End Date Jonathan Hernandez MD [address] [place] [phone] PCP - General Internal Medicine 05/21/24 documented as of this encounter
--- OUTSIDE RECORDS SUMMARY | 2025-06-12 07:24 | XMS_ITS | Clinical Summary ---
Author Organization [facility] Address [address] [facility] [place] [phone] Phone Care Team Providers Care Country Printer Name Role Phone Unavailable Primary Care Provider [...] It is not the complete legal health record.[facility]
--- OUTSIDE RECORDS SUMMARY | 2025-06-12 07:25 | XMS_ITS | Clinical Summary ---
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 STUDY 1+ SITS AXIAL SKEL (06/15/2022 10:18 AM EST) Anatomical Region Laterality Modality Bone Densitometr y 02/08/2022 10:4 6 AM EDT Narrative 06/18/2022 9:14 AM EST Clinical history: other osteoporosis Scans of the lumbar spine and hips were performed on a PodPoster/Arara fan beam bone densitometer. Bone mineral density [...] spine and hips were performed on a PodPoster/CobrainigDefinition 6fan beam bone densitometer. 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
== END 2025-06-09 07:21 | disposition home or self-care (01) ==
LOC: HO.HOSX 07:20
PROVIDERS: Visit Provider Physician Assistant
DX: Z47.1 Aftercare following joint replacement surgery (principal); Z96.641 Presence of right artificial hip joint
CPT/HCPCS: 73502; 99212

== ENCOUNTER 2025-06-09 14:34 | Outpatient (AMB) | payer MEDICARE, SELFPAY ==
--- NOTE | 2025-06-09 14:48 | A.OFFVIS_ITS ---
Intake Visit Reasons: Rt hip bianca arthroplasty 04/28/25 xrays Intake Note: Soraya is an 85 year old female who presents today post operatively after undergoing a right hip hemiarthroplasty, performed by Dr. Stanton on 04/28/25. At her last visit she was instructed to continue working with physical therapy. Follow up in 6 weeks with x-rays. Allergies No Known Allergies Allergy (Verified 06/09/25 14:59) Medication List - Last Reconciled 06/09/25 by Rozina Valverde PA-C acetaminophen 975 mg (3 x 325 mg) PO Q6H PRN apixaban (Eliquis) 2.5 mg PO BID celecoxib (Celebrex) 200 mg PO BID 30 days escitalopram oxalate 10 mg PO BID levothyroxine (Tirosint) 62.5 mcg PO DAILY lorazepam 0.5 mg PO DAILY PRN 7 days MDD 0.5mg lorazepam 0.5 mg PO TID PRN melatonin 3 mg PO BEDTIME PRN memantine 28 mg PO DAILY metoprolol succinate ER 25 mg PO BID valsartan 80 mg PO DAILY HPI HPI Rt hip bianca arthroplasty 04/28/25 xrays: Details: 85-year-old female returns to the office today status post right hip hemiarthroplasty on 04/28/2025. She continues to ambulate with a walker but is doing quite well with activities at home. She is accompanied by her and her daughter. The daughter states the patient ambulates around the house without a walker but she will hold onto objects around the house for balance. [facility] Medical History Dementia with behavioral disturbance NSVT (nonsustained ventricular tachycardia) NSVT (nonsustained ventricular tachycardia) Breast cancer Rheumatoid aortitis Hypertension Troponin level elevated Fracture, humerus, neck Syncope Surgical History H/O knee surgery H/O mastectomy Family History Mother Cancer Sister Cancer Daughter Cancer Other No family history of coronary artery disease Social History Household Members: Spouse and Children Housing: House Are you a primary career development director to a significant other at home: No Do you presently have visiting nurse or other home services: No Alcohol intake: never Comment: sitter Patient Tobacco Use Status: Former Tobacco user Tobacco use type: Cigarette Cigarettes Per Day: 4 Second Hand Smoke Exposure: No service: No Current occupational status: retired Review of Systems Const All systems reviewed & are unremarkable except as noted in HPI and below Physical Exam Extrem Other: Right hip incision is well healed. No pain with hip flexion or range of motion. No surrounding erythema or swelling. Calf is supple and nontender neurovascularly intact. Results Reviewed Results Reviewed: X-rays of the right hip obtained in the office today and reviewed by me show stable hip prosthesis Assessment & Plan Assessment & Plan (1) Status post hemiarthroplasty of right hip: Code(s): Z96.641 - Presence of right artificial hip joint Category: Surgical Plan: Patient will continue with activities as tolerated. I did place an order for outpatient physical therapy and the daughter will call to make an appointment. If there is any concerns going forward she will call our office otherwise follow up as needed. Orders: Orders XR hip RT min 2V Today M25.551 - Pain in right hip Coding Level of Care Code Global (88124) Diagnoses Status post hemiarthroplasty of right hip Z96.641
--- OUTSIDE RECORDS SUMMARY | 2025-06-09 17:23 | XMS_ITS | Clinical Summary ---
Author Organization [facility] Address [address] [facility] 7t [place] [address] Care Team Providers Care Licensed Psychiatric Technician Name Role Phone Unavailable Primary Care Provider Unavailabl e Immunizations Immunization Administration Dates Next Due Influenza, IIV3, injectable 04/14/2019, 8 Influenza, Unspecified 04/14/2019,03/11/2018 Influenza, seasonal, injecta ble, preservative free 04/06/2024,04/19/2016,05/22/2014,04/10,04/18/2011,03/31/2010,04/02/2009 ,04/01/2008,04/11/2007,05/20/2006,08/2004 Influenza, trivalent, adjuvanted 04/30/2022,02/13,05/01/2016 Novel [id number], preservative-free 07/21/2009 PPD Test 09/04/2011,12/26/2005 Pfizer Covid-19 [...] age to complete this topic Insurance MEDICARE Member Subscriber Plan / Payer (Ef fective 2024-Present) Name:Yan Mendoza Member ID:[id number] Relation to Subscriber:Self Name:Yan Mendoza Subscriber ID:[id number] Payer ID:[id number] Group ID:Not on file Type:Medicare Address: [place] [email or web address] [facility], [facility]. [address] [facility] [place] [address]
--- OUTSIDE RECORDS SUMMARY | 2025-06-09 17:23 | XMS_ITS | Clinical Summary ---
Author Organization [facility] Address [address] [place] [address] Care Team Providers Care Mold Release Worker Name Role Phone Byron Fuentes MD Primary Care Provider [phone] Allergies Active Allergy Reactions Criticality Noted Date [...] age to complete this topic Care Teams Mold Release Worker Relationship Specialty Start Date End Date Byron Fuentes MD PCP - General Rheumatology 08/11/19
--- OUTSIDE RECORDS SUMMARY | 2025-06-09 17:23 | XMS_ITS | Clinical Summary ---
Author Organization [facility] Address [address] [facility] [address] [place] [address] Phone Care Team Providers Care Ms Access Database Developer Name Role Phone Unavailable Primary Care Provider [...] It is not the complete legal health record.[facility]
== END 2025-06-09 15:18 | disposition home or self-care (01) ==
LOC: HO.HOS 14:34
PROVIDERS: Visit Provider Physician Assistant
DX: Z96.641 Presence of right artificial hip joint (principal)
CPT/HCPCS: 99024

== ENCOUNTER → 2025-06-09 14:37 | Outpatient (BNV) | payer MEDICARE, SELFPAY | PROVIDERS: Visit Provider Radiology Diagnostic Radiology | DX: M25.551 Pain in right hip (principal); Z96.641 Presence of right artificial hip joint | CPT/HCPCS: 73502 ==

== ENCOUNTER 2025-06-29 13:35 | Outpatient (AMB) | payer MEDICARE, SELFPAY ==
--- OUTSIDE RECORDS SUMMARY | 2025-05-03 08:15 | XMS_ITS ---
Author Organization [facility] Address [address] [place] [phone] Care Team Providers Care Desk Clerks Supervisor Name Role Phone Dewayne Hernandez MD Primary Care Provider Adelaida Kirkland [phone] Encounters Encounter Location Date Provider Diagnosis [address] [address] 05/03/2025 Adelaida Fontana Plan Of Treatment Next Appt Details Provider Name:Adelaida A Addi , 08/19/2025 01:30:00 PM, [address] [place] [address], [phone], Progress Notes * Soraya MENDOZADOB: 2 (85 yo F)Acc No.[id number]:05/03/2025 Progress Note Patient: Soraya RONQUILLO Provider: William Fontana DPM :1940 A ge:85 Y S ex:Female Date:05/03/2025 Address:[address] [place] [address] Kar[place]ung [id number] Pcp:Dewayne Hernandez MD Subjective: * Chief Complaints: [...] Date: 1 Generated for Erik cornelius/Constantino/Velma on: 1 08/30/2024 05:37 PM EST
--- OUTSIDE RECORDS SUMMARY | 2025-05-13 08:30 | XMS_ITS ---
Author Organization [facility] Address [address] [place] [address] Care Team Providers Care Peach Grower Name Role Phone Dewayne Hernandez MD Primary Care Provider UnavailAdelaida Torres [phone] REASON FOR VISIT misbooked Encounters Encounter Location Date Provider Diagnosis [address] [address] 05/13/2025 Adelaida Fontana Plan Of Treatment Next Appt Details Provider Name:Adelaida Fontana , 08/19/2025 01:30:00 PM, [address] [place] [address], [phone], Progress Notes * Soraya MENDOZADOB: 2 (85 yo F)Acc No.[id number]:05/13/2025 Progress Note Patient: Daniella JT Soraya Provider: William Fontana DPM :1940 A ge:85 Y S ex:Female Date:05/13/2025 Address:[address] [place] [address] [id number] Pcp:Dewayne Hernandez MD Subjective: * Chief Complaints: * 1 . Misbooked. * Medical History: Objective: * Vitals: Assessment: Plan: * Treatment: * Images: * The named appointment provid er may or may not be the originator of this progress note, and it is not deemed complete until electronically signed by the appointment provider. Sign off status: Pending * Provider: William Fontana DPM Date: 1 Generated for Erik cornelius/Constantino/Velma on: 08/30/2024 05:37 PM EST
--- NOTE | 2025-06-29 13:37 | A.OFFVIS_ITS ---
Vital Signs 06/29/25 13:44 Height 5 ft 1 in BP 112/80 Blood Pressure Location Rt brachial Position Sitting Pulse 72 Pulse Source Pulse Oximeter Pulse Oximetry (%) 98 Oxygen Delivery Method Room Air Intake Visit Reasons: F/U ok per MD Intake Note: Follow up dementia with behavioral disturbances Trailer Rental Clerk Required: No Accompanied by: Daughter ansd spouse Allergies No Known Allergies Allergy (Verified 06/29/25 13:37) Medication List - Last Reconciled 06/29/25 by Glenna Lema MD acetaminophen 975 mg (3 x 325 mg) PO Q6H PRN apixaban (Eliquis) 2.5 mg PO BID escitalopram oxalate 10 mg PO BID levothyroxine (Tirosint) 62.5 mcg PO DAILY memantine 28 mg PO DAILY metoprolol succinate ER 25 mg PO BID valproic acid 250 mg PO BID valsartan 80 mg PO DAILY HPI Comments Details: 85y/o female comes for follow up of dementia and behavior issues.s she was started on Thyroid replacement and is doing better since then. Her behavior and cognition is better she was in rehab after a fall and had UTI when she came home from the hospital she was given trazadone but stopped due to side effects. Now she is home and is sleeping OK 9pm-9am she is more confused at 10 am , is rigid and staring episodes .It can last 10-20 minutes .she is not responsive . History from last visit- he had a left hip fracture in NOVEMBER 2023 afetr a fall. she has partial hip replacement complicated by DVT then bleeding related to anticoagulants . she was encompass in [place] and she started walking in 2 weeks .she is doing well now and goes to she goes to senior center everyday.Memory is stable. she still reads a lot but does not remember what she read.Her daughter reports increase in appetite. she is accompanied by her daughter and who helps with the history. Her helps with meals. she needs reminder with her showers.Her cognition fluctuates. She sleeps OK. she reads the newspaper everyday she was too drowsy with quetiapine [facility] Medical History (Updated 06/29/25 @ 14:09 by Glenna Lema MD) Staring episodes Dementia with behavioral disturbance NSVT (nonsustained ventricular tachycardia) NSVT (nonsustained ventricular tachycardia) Breast cancer Rheumatoid aortitis Hypertension Troponin level elevated Fracture, humerus, neck Syncope Surgical History H/O knee surgery H/O mastectomy Family History Mother Cancer Sister Cancer Daughter Cancer Other No family history of coronary artery disease Social History Household Members: Spouse and Children Housing: House Are you a primary home health aide caregiver to a significant other at home: No Do you presently have visiting nurse or other home services: No Alcohol intake: never Comment: sitter Patient Tobacco Use Status: Former Tobacco user Tobacco use type: Cigarette Cigarettes Per Day: 4 Second Hand Smoke Exposure: No service: No Current occupational status: retired Physical Exam Vital Signs: Last Vital Signs Pulse 72 06/29/25 13:44 BP 112/80 06/29/25 13:44 Pulse Ox 98 06/29/25 13:44 Oxygen Delivery Method Room Air 06/29/25 13:44 Const General: no acute distress Nutritional Appearance: average body habitus HEENT Head: Yes normal to inspection Face and sinus: Yes normal facial exam Eyes Pupils: Equal, round and reactive pupils present Neuro Other: gait- off balance with cane General: moves all extremities and no focal motor deficits Cranial nerves: Yes Facial sensation intact/muscles of mastication intact, Yes Equal, round and reactive pupils present, Yes Bilaterally intact EOM present, Yes Nystagmus not present, Yes Normal facial strength present, Yes Midline tongue present, Yes Symmetric palate elevation present and Yes Ability to bilaterally elevate shoulders present Cognition (Neuro): abnormal cognition Speech: Expressive aphasia present and Receptive aphasia present Motor exam (neuro): 5/5 motor strength present throughout and Normal motor muscle tone present throughout Assessment & Plan Assessment & Plan (1) Dementia with behavioral disturbance: Comment: ? frontal lobe dementia Code(s): F03.918 - Unspecified dementia, unspecified severity, with other behavioral disturbance Category: Medical (2) Staring episodes: Code(s): R40.4 - Transient alteration of awareness Category: Medical Plan she did not react well to quetiapine or benzodiazepine. or trazadone she is doing well on escitalopram 10mg bid and could use another dose in the middle of the day. Trial patient on valproic acid 250mg bid - she has some staring episodes and also may help with behvaior she has sundowning - usually calm ., but has hallucinations. Medications: New valproic acid 250 mg PO BID 60 caps 4RF Coding Level of Care Code Est Pt Level 4 (71894) Add On Problem Visit Only Diagnoses Dementia with behavioral disturbance F03.918 Staring episodes R40.4
[2025-06-29 13:44] VITALS: BP 112/80; PULSE 72; O2SAT 98
--- OUTSIDE RECORDS SUMMARY | 2025-06-29 17:37 | XMS_ITS | Encounter Summary ---
Author Organization [facility] Address [address] [place] [address] Care Team Providers Care Swiss Machinist Name Role Phone Jonathan Hernandez MD Primary Care Provider [phone] Encounter Details Date Type Department Care Team (Late st Contact Info) Description 05/04/2025 Lab Requisition [facility] [address] [place] [address] Minerva Ayala NP [address] [place] [address] Other termite control representative (current) drug therapy Social History Tobacco Use [...] 1:00 PM EST Office Visit Adult Medicine [facility] [address] [place] [address] Jennifer Santos NP [address] [place] [address] 09/20/2025 1:10 PM EDT Office Visit [facility] [address] [facility] [address] [place] [phone] Shawna Farooq NP [address] [place] [address] [place] [address] 01/17/2026 2:30 PM EDT Office Visit [facility] [address] [place] [address] Jonathan Hernandez MD [address] [place] [address] documented as of this encounter Procedures Procedure Name Priority Date/Time Associated Diagnosis Comments CBC WITH AUTO DIFFERENTIAL Routine 05/04/2025 5:19 AM EDT Other fci (current) drug therapy CBC AND DIFFERENTIAL Routine 05/04/2025 5:19 AM EDT Other termite control representative (current) drug therapy MAGNESIUM Routine 05/04/2025 5:19 AM EDT Other fci (current) drug therapy COMPREHENSIVE METABOLIC PANEL Routine 05/04/2025 5:19 AM EDT Other fci (current) drug therapy documented in this encounter Results * (ABNORMAL) CBC auto differential (05/04/2025 5:19 AM EDT) [facility] WBC 5.3 4.8 - 10.8 K/mcL LAB HEMETOLOGY METHOD 05/04/2025 10:23 AM EDT [facility] RBC 3.90 3.80 - 4.80 M/mcL LAB HEMETOLOGY METHOD 05/04/2025 10:23 AM EDT [facility] Hemoglobin 10.9(L) 11.5 - 16.0 g/dL LAB HEMETOLOGY METHOD 05/04/2025 10:23 AM EDT [facility] Hematocrit 34.3(L) 35.0 - [...] LAB HEMETOLOGY METHOD 05/04/2025 10:23 AM EDT [facility] Immature Granulocytes Relative 1.0 % LAB HEMETOLOGY METHOD 05/04/2025 10:23 AM EDT [facility] Neutrophils Absolute 3.28 1.50 - 7.00 K/mcL LAB HEMETOLOGY METHOD 05/04/2025 10:23 AM EDT [facility] Lymphocytes Absolute 1.15 1.00 - 5.00 K/mcL LAB HEMETOLOGY METHOD 05/04/2025 10:23 AM EDT [facility] Monocytes Absolute 0.48 0.20 - 1.00 K/mcL LAB HEMETOLOGY METHOD 05/04/2025 10:23 AM EDT [facility] Eosinophils Absolute 0.25 0.00 - 0.50 K/mcL LAB HEMETOLOGY METHOD 05/04/2025 10:23 AM EDT [facility] Basophils Absolute 0.04 0.00 - 0.20 K/mcL LAB HEMETOLOGY METHOD 05/04/2025 10:23 AM EDT [facility] Immature Granulocytes Absolute 0.05(H) 0.00 - 0.03 K/mcL LAB HEMETOLOGY METHOD 05/04/2025 10:23 [facility] Blood Venous blood specimen / Unknown Venipuncture / Unknown 05/04/2025 5:19 AM EDT 05/04/2025 9:11 AM EDT us Minerva Ayala NP LAB BLOOD ORDERABLES Final Resul t [facility] [address] [place] [address], * Magnesium (05/04/2025 5:19 AM EDT) Magnesium 2.3 1.9 - 2.6 mg/dL LAB CHEMISTRY METHOD 05/04/2025 11:19 AM [facility] Blood Venous blood specimen / Unknown Venipuncture / Unknown 05/04/2025 5:19 AM EDT 05/04/2025 9:11 AM EDT us Minerva Ayala ROCKET SCIENTIST LAB BLOOD ORDERABLES Final Resul t [facility] [address] [place] [address], * (ABNORMAL) Comprehensive metabolic panel (05/04/2025 5:19 [...] NP LAB BLOOD ORDERABLES Final Resul t [facility] [address] [place] [address], documented in this encounter Visit Diagnoses Diagnosis Other fci (current) drug therapy documented in this encounter Additional Health Concerns Assessment Noted Time PHQ-9 Depression Total Score: 2 01/15/20 25 3:51 PM EDT documented as of this encounter Care Teams Swiss Machinist Relationship Specialty Start Date End Date Jonathan Hernandez MD [address] [place] [phone] PCP - General Internal Medicine 05/21/24 documented as of this encounter
--- OUTSIDE RECORDS SUMMARY | 2025-06-29 17:37 | XMS_ITS | Clinical Summary ---
Author Organization [employer] Address [address] [facility] 7[address] [place] [address] Care Team Providers Care Director Perioperative Name Role Phone Unavailable Primary Care Provider Unavailabl e Immunizations Immunization Administration Dates Next Due Influenza, IIV3, injectable 04/14/2019, 8 Influenza, Unspecified 04/14/2019,03/11/2018 Influenza, seasonal, injecta ble, preservative free 04/06/2024,04/19/2016,05/22/2014,04/10,04/18/2011,03/31/2010,04/02/2009 ,04/01/2008,04/11/2007,05/20/2006,08/2004 Influenza, trivalent, adjuvanted 04/30/2022,02/13,05/01/2016 Novel [id number], preservative-free 07/21/2009 PPD Test 09/04/2011,12/26/2005 Pfizer Covid-19 [...]
--- OUTSIDE RECORDS SUMMARY | 2025-06-29 17:37 | XMS_ITS | Encounter Summary ---
Author Organization [facility] Address [address] [place] [address] Care Team Providers Care Academy Director Name Role Phone Jonathan Hernandez MD Primary Care Provider [phone] Encounter Details Date Type Department Care Team (Late st Contact Info) Description 05/31/2025 Telephone Adult Medicine [facility] [address] [place] [phone] Jonathan Hernandez MD [address] [place] [phone] Social History Tobacco Use Types Packs/Day Years [...] Description 08/10/2025 1:00 PM EST Office Visit [address] [phone] Jennifer Santos NP [address] [place] [address] 09/20/2025 1:10 PM EDT Office Visit [facility] [address] [address] Shawna Farooq NP [address] [place] [address] [place] [address] 01/17/2026 2:30 PM EDT Office Visit [address] [phone] Jonathan Hernandez MD [address] [place] [phone] documented as of this encounter Visit Diagnoses Not on filedocumented in this encounter Additional Health Concerns Assessment Noted Time PHQ-9 Depression Total Score: 2 01/15/20 25 3:51 PM EDT documented as of this encounter Care Teams Academy Director Relationship Specialty Start Date End Date Jonathan Hernandez MD [address] [place] [phone] PCP - General Internal Medicine 05/21/24 documented as of this encounter
--- OUTSIDE RECORDS SUMMARY | 2025-06-29 17:37 | XMS_ITS | Clinical Summary ---
Author Organization [facility] Address [address] [facility] [address] [place] [phone] Phone Care Team Providers Care Anthropology Faculty Member Name Role Phone Unavailable Primary Care Provider [...] It is not the complete legal health record.[facility]
--- OUTSIDE RECORDS SUMMARY | 2025-06-29 17:38 | XMS_ITS | Encounter Summary ---
Author Organization [facility] Address [address] [place] [address] Care Team Providers Care Loan Operations Manager Name Role Phone Jonathan Hernandez MD Primary Care Provider [phone] Encounter Details Date Type Department Care Team (Late st Contact Info) Description 05/10/2025 Lab Requisition [facility] Lab [address] [facility] [place] [address] Maribel Gimenez NP [address] [place] [address] Encounter for other general examination [...] 1:00 PM EST Office Visit Adult Medicine [facility] [address] [place] [address] Jennifer Santos NP [address] [place] [address] 09/20/2025 1:10 PM EDT Office Visit [facility] - [facility] [address] [facility] [address] [place] [phone] Shawna Farooq NP [address] [place] [address] [place] [address] 01/17/2026 2:30 PM EDT Office Visit Adult Medicine [facility] [address] [place], [place] [phone] Jonathan Hernandez MD [address] [place] [address] documented as of this encounter Procedures Procedure [...] if clinically indicated. 05/12/2025 2:17 PM EDT [facility] Urine Urine specimen obtained by clean catch procedure / Unknown Non-blood Collection / Unknown 05/10/2025 11:40 PM EDT 05/11/2025 11:19 AM EDT us Maribel Gimenez SUPERVISOR GARMENT MANUFACTURING LAB MICROBIOLOGY - GENERAL OR DERABLES Final Result [facility] [address] [place] [address], [place] [phone] * (ABNORMAL) Urinalysis with reflex microscopic and culture (05/10/2025 11:40 PM EDT) Specific [place] Urine 1.009 1.003 - 1.030 LAB URINALYSIS [...] - AUTOMATED METHOD 05/11/2025 11:19 AM EDT [facility] Squamous Epithelial, Urine >100(H) 0 - 60 /LPF LAB URINALYSIS - AUTOMATED METHOD 05/11/2025 11:19 AM EDT [facility] Bacteria, Urine Negative Negative /HPF LAB URINALYSIS - AUTOMATED METHOD 05/11/2025 11:19 AM EDT [facility] Hyaline Casts, Urine 1.6 0 - 3 /LPF LAB URINALYSIS - AUTOMATED METHOD 05/11/2025 11:19 AM EDT [facility] Urine Urine specimen obtained by clean catch procedure / Unknown Non-blood Collection / Unknown 05/10/2025 11:40 PM EDT 05/11/2025 10:42 AM EDT Maribel Gimenez SUPERVISOR GARMENT MANUFACTURING LAB URINE ORDERABLES Final Re sult Performing Organization Address City/[facility]/ZIP Co de Phone Number [facility] [address] [place] [address], [place] [phone] * Valderrama urine culture tube (05/10/2025 11:40 PM EDT) Extra Tube Hold for add-ons. 05/11/2025 12:01 PM EDT [facility] Comment:Auto resulted. Urine Urine specimen obtained by clean catch procedure / Unknown Non-blood Collection / Unknown 05/10/2025 11:40 PM EDT 05/11/2025 10:42 AM EDT us Maribel Gimenez SUPERVISOR GARMENT MANUFACTURING LAB URINE ORDERABLES Final Re sult Performing Organization Address [facility]/ZIP Co de Phone Number [facility] [address] [place] [address], [place] [phone] documented in this encounter Visit Diagnoses Diagnosis Encounter for other general examination documented in this encounter Additional Health Concerns Assessment Noted Time PHQ-9 Depression Total Score: 2 07/03/20 25 3:51 PM EDT documented as of this encounter Care Teams Loan Operations Manager Relationship Specialty Start Date End Date Jonathan Hernandez MD [address] [place] [phone] PCP - General Internal Medicine 05/21/24 documented as of this encounter
--- OUTSIDE RECORDS SUMMARY | 2025-06-29 17:38 | XMS_ITS | Encounter Summary ---
Author Organization [facility] Address [address] [place] [address] Care Team Providers Care Production Packager Name Role Phone Jonathan Hernandez MD Primary Care Provider [phone] Encounter Details Date Type Department Care Team (Late st Contact Info) Description 05/11/2025 Lab Requisition [facility] [address] [place] [address] Meliza Caballero PA [address] [place] [phone] Encounter for other general examination Social History [...] 1:00 PM EST Office Visit Adult Medicine [facility] [address] [place] [address] Jennifer Santos NP [address] [place] [address] 09/20/2025 1:10 PM EDT Office Visit [facility] - [address] [facility] [address] [place] [phone] Shawna Farooq NP [address] [place] [address] [place] [address] 01/17/2026 2:30 PM EDT Office Visit Adult [facility] [place] [address] [place], [place] [phone] Jonathan Hernandez MD [address] [place] [address] documented as of this encounter Procedures Procedure [...] LAB HEMETOLOGY METHOD 05/11/2025 11:08 AM EDT [facility] MCHC 31.5(L) 32.0 - 37.0 g/dL LAB HEMETOLOGY METHOD 05/11/2025 11:08 AM EDT [facility] RDW 14.9 11.0 - 15.0 % LAB HEMETOLOGY METHOD 05/11/2025 11:08 AM EDT [facility] Platelets 332 130 - 400 K/mcL LAB HEMETOLOGY METHOD 05/11/2025 11:08 AM EDT [facility] MPV 9.4 7.0 - 11.0 FL LAB HEMETOLOGY METHOD 05/11[facility]2025 [facility] NRBC 0.0 <1.0 % LAB HEMETOLOGY METHOD 05/11/2025 11:[facility] NRBC Absolute 0.00 <0.10 K/mcL LAB HEMETOLOGY METHOD 05/11/2025 11:08 AM [facility] Blood Venous blood specimen / Unknown Venipuncture / Unknown 05/11/2025 9:03 AM EDT 05/11/2025 9:50 AM EDT us Meliza LORENZANA LAB BLOOD ORDERABLES Final Re sult [facility] [address] [place] [address], * (ABNORMAL) Comprehensive metabolic panel (05/11/2025 9:03 AM EDT) Sodium 136 133 - 145 mmol/L LAB CHEMISTRY METHOD 05/11/2025 11:36 AM T [facility] Potassium 4.7 3.5 - 5.5 mmol/L LAB CHEMISTRY METHOD 05/11/2025 11:36 AM T [facility] Chloride 103 96 - 110 mmol/L [...] LAB CHEMISTRY METHOD 05/11/2025 11:36 AM EDT [facility] Total Bilirubin 0.4 0.0 - 1.4 mg/dL LAB CHEMISTRY METHOD 05/11/2025 11:36 AM EDT [facility] Blood Venous blood specimen / Unknown Venipuncture / Unknown 05/11/2025 9:03 AM EDT 05/11/2025 9:50 AM EDT us Meliza LORENZANA LAB BLOOD ORDERABLES Final Re sult [facility] [address] [place] [address], documented in this encounter Visit Diagnoses Diagnosis Encounter for other general examination documented in this encounter Additional Health Concerns Assessment Noted Time PHQ-9 Depression Total Score: 2 01/15/20 25 3:51 PM EDT documented as of this encounter Care Teams Production Packager Relationship Specialty Start Date End Date Jonathan Hernandez MD [address] [place] [phone] PCP - General Internal Medicine 05/21/24 documented as of this encounter
--- OUTSIDE RECORDS SUMMARY | 2025-06-29 17:38 | XMS_ITS | Patient Health Record ---
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 fasciitis, bilateral (M72.2) Active confirmed Vital Signs Blood pressure diastolic 80 mm Hg 02/08/2025 Height 5 ft 2 in in 02/08/2025 Blood pressure systolic 130 mm Hg 02/08/2025 Weight 148 lbs 02/08/2025 BMI 27.07 kg/m2 02/08/2025 Procedures Procedure Date Ordered Date Performed Result Body Sit e 57155-PVLCUWY NAIL, 6 OR MORE 07/30/2024 N/A 77673-[id number] NAIL, 6 OR MORE 11/09/2024 N/A 69229-Patjgbur Plate 11/09/2024 N/A 10946-ECAXGDW NAIL, 6 OR MORE 02/08/2025 N/A Encounters Encounter Location Date Provider Diagnosis [address] [address] 07/30/2024 Adelaida Black Onychomycosis B35.1 ; Pain of toe of right foot M79.674 and Pain of toe of left foot M79.675 [facility] [address] 11/09/2024 Adelaida Black Onychomycosis B35.1 ; Ingrown nail L60.0 ; Pain of toe of right foot M79.674 and Pain of toe of left foot M79.[address] [address] 02/08/2025 Adelaida Black Onychomycosis B35.1 ; Pain [...] M60.872 and Bursitis of left foot M77.52 [facility] [address] [address] 04/29/2025 Adelaida Fontana Assessments Encounter Date Diagnosis [...] Treatment Pending Test Test Name Order Date 23779-[id number] NAIL, 6 OR MORE 02/07/2023 84271-ZUWGDPP NAIL, 6 OR MORE 05/23/2023 86655-DGCBAVW NAIL, 6 OR MORE 09/16/2023 80155-EAOVNIJ NAIL, 6 OR MORE 01/02/2024 16879-ZAVCWGA NAIL, 6 OR MORE 04/16/2024 04993-SUQXYRI NAIL, 6 OR MORE 07/30/2024 88036-TWZOFCQ NAIL, 6 OR MORE 11/09/2024 83402-MAZUYGA NAIL, 6 OR MORE 02/08/2025 29066-Rmhwhdbb Plate 11/09/2024 Next Appt Details Provider Name:Adelaida Hernandez Addi , 08/19/2025 01:30:00 PM, [address] [place], [address], Insurance Providers Payer Name Payer Address Payer Phone Subscriber Number Group Number Insured Name Patient Relationship to Insured Coverage Start Date Coverage End Date [facility] 65 Medicare Preferred [address] [place] [address] [id number] Soraya Mendoza Self - patient is the [...]
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
--- OUTSIDE RECORDS SUMMARY | 2025-06-29 17:38 | XMS_ITS | Clinical Summary ---
Author Organization [facility] Prior to 12/12/24 Address [address] [place] [address] Care Team Providers Care Set Up Person Name Role Phone Byron Fuentes MD Primary Care Provider [phone] Allergies Active Allergy Reactions Criticality Noted Date [...] 2025 , 04/30/2022, 04/14/2019, Additional history exists DTap / [...] age to complete this topic Care Teams Set Up Person Relationship Specialty Start Date End Date Byron Fuentes MD PCP - General Rheumatology 08/11/19
== END 2025-06-29 14:17 | disposition home or self-care (01) ==
LOC: HO.HSMS 13:36
PROVIDERS: Visit Provider Psychiatry & Neurology Neurology
DX: F03.918 Unspecified dementia, unspecified severity, with other behavioral disturbance (principal); R40.4 Transient alteration of awareness
CPT/HCPCS: 99214; G2211

== ENCOUNTER → 2025-06-29 13:35 | Outpatient (BNVA) | payer MEDICARE, SELFPAY | PROVIDERS: Visit Provider Psychiatry & Neurology Neurology | DX: F03.92 Unspecified dementia, unspecified severity, with psychotic disturbance (principal); R44.3 Hallucinations, unspecified; Z79.899 Other long term (current) drug therapy | CPT/HCPCS: 99212 ==

== ENCOUNTER 2025-06-30 12:41 | Outpatient (REF) | payer MEDICARE, SELFPAY ==
--- OUTSIDE RECORDS SUMMARY | 2025-05-03 08:15 | XMS_ITS ---
Author Organization [facility] Address [address] [place] [phone] Care Team Providers Care Culinary Worker Name Role Phone Dewayne Hernandez MD Primary Care Provider Adelaida Kirkland [phone] Encounters Encounter Location Date Provider Diagnosis [address] [address] 05/03/2025 Adelaida Fontana Plan Of Treatment Next Appt Details Provider Name:Adelaida A Addi , 08/19/2025 01:30:00 PM, [address] [place] [address], [phone], Progress Notes * Soraya MENDOZADOB: 2 (85 yo F)Acc No.[id number]:05/03/2025 Progress Note Patient: Soraya RONQUILLO Provider: William Fontana DPM :1940 A ge:85 Y S ex:Female Date:05/03/2025 Address:[address] [place] [address] Kar[place]ung [id number] Pcp:Dewayne Hernandez MD Subjective: * Chief Complaints: [...] 1 Generated for Erik cornelius/Constantino/Velma on: 1 08/31/2024 04:51 PM EST
--- OUTSIDE RECORDS SUMMARY | 2025-05-13 08:30 | XMS_ITS ---
Author Organization [facility] Address [address] [place] [address] Care Team Providers Care Ordering Machine Operator Name Role Phone Dewayne Hernandez MD Primary Care Provider UnavailAdelaida Torres [phone] REASON FOR VISIT misbooked Encounters Encounter Location Date Provider Diagnosis [address] [address] 05/13/2025 Adelaida Fontana Plan Of Treatment Next Appt Details Provider Name:Adelaida Fontana , 08/19/2025 01:30:00 PM, [address] [place] [address], [phone], Progress Notes * Soraya MENDOZADOB: 2 (85 yo F)Acc No.[id number]:05/13/2025 Progress Note Patient: Daniella JT Soraya Provider: William Fontana DPM :1940 A ge:85 Y S ex:Female Date:05/13/2025 Address:[address] [place] [address] [id number] Pcp:Dewayne Hernandez MD Subjective: * Chief Complaints: [...] Date: 1 Generated for Erik cornelius/Constantino/Velma on: 08/31/2024 04:52 PM EST
--- NOTE | ~2025-06-30 | XR_ITS ---
EXAMINATION: XR HIP, RIGHT CLINICAL INFORMATION: M25.551 - Pain in right hip COMPARISON: 06/09/2025 and 05/12/2025 TECHNIQUE: AP pelvis and AP and frog-leg lateral views of the right hip. FINDINGS: Bilateral total hip replacement is again seen. Since prior study, there is a new rounded density lateral to the right greater trochanter consistent with heterotopic ossification. No other changes are apparent. 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 Stable bilateral total hip replacements. Electronically signed by: Rob Rowe MD 06/30/2025 01:44 PM EST RP
--- NOTE | ~2025-06-30 | XR_ITS ---
EXAMINATION: XR KNEE, LEFT CLINICAL INFORMATION: M25.562 - Pain in left knee COMPARISON: None available. TECHNIQUE: AP bilateral standing, sunrise, and lateral views of the left knee. FINDINGS: Total knee replacement has been performed bilaterally. Left knee demonstrates no joint effusion. There is no periprosthetic fracture. There is no abnormal lucency at hardware interfaces with bone to suggest loosening. There is atherosclerotic calcification in the popliteal artery. XR/XR knee LT 3V IMPRESSION: Unremarkable left total knee arthroplasty. Electronically signed by: Rob Rowe MD 06/30/2025 02:32 PM EST
--- OUTSIDE RECORDS SUMMARY | 2025-06-30 16:52 | XMS_ITS | Clinical Summary ---
Author Organization [facility] Prior to 12/12/24 Address [address] [place] [address] Care Team Providers Care Street Flusher Driver Name Role Phone Byron Fuentes MD Primary Care Provider [phone] Allergies Active Allergy Reactions Criticality Noted Date [...] age to complete this topic Care Teams Street Flusher Driver Relationship Specialty Start Date End Date Byron Fuentes MD PCP - General Rheumatology 08/11/19
--- OUTSIDE RECORDS SUMMARY | 2025-06-30 16:52 | XMS_ITS | Clinical Summary ---
Author Organization [facility] Address [address] [facility] 7[address] [place] [address] Care Team Providers Care Public Health Analyst Name Role Phone Unavailable Primary Care Provider Unavailabl e Immunizations Immunization Administration Dates Next Due Influenza, IIV3, injectable 04/14/2019, 8 Influenza, Unspecified 04/14/2019,03/11/2018 Influenza, seasonal, injecta ble, preservative free 04/06/2024,04/19/2016,05/22/2014,04/10,04/18/2011,03/31/2010,04/02/2009 ,04/01/2008,04/11/2007,05/20/2006,08/2004 Influenza, trivalent, adjuvanted 04/30/2022,02/13,05/01/2016 Novel [id number], preservative-free 07/21/2009 PPD Test 09/04/2011,12/26/2005 Pfizer Covid-19 [...]
--- OUTSIDE RECORDS SUMMARY | 2025-06-30 16:52 | XMS_ITS | Encounter Summary ---
Author Organization [facility] Address [address] [place] [address] Care Team Providers Care Gis Consultant Name Role Phone Jonathan Hernandez MD Primary Care Provider [phone] Encounter Details Date Type Department Care Team (Late st Contact Info) Description 05/31/2025 Telephone Adult Medicine [facility] [address] [place] [phone] Jonathan Hernandez MD [address] [place] [phone] Social History Tobacco Use Types Packs/Day Years [...] Description 08/10/2025 1:00 PM EST Office Visit [address] [phone] Jennifer Santos NP [address] [place] [address] 09/20/2025 1:10 PM EDT Office Visit [facility] [address] [address] Shawna Farooq NP [address] [place] [address] [place] [address] 01/17/2026 2:30 PM EDT Office Visit [address] [phone] Jonathan Hernandez MD [address] [place] [phone] documented as of this encounter Visit Diagnoses Not on filedocumented in this encounter Additional Health Concerns Assessment Noted Time PHQ-9 Depression Total Score: 2 01/15/20 25 3:51 PM EDT documented as of this encounter Care Teams Gis Consultant Relationship Specialty Start Date End Date Jonathan Hernanedz MD [address] [place] [address] PCP - General Internal Medicine 05/21/24 documented as of this encounter
--- OUTSIDE RECORDS SUMMARY | 2025-06-30 16:52 | XMS_ITS | Clinical Summary ---
Author Organization [facility] Address [address] [facility] [address] [place] [phone] Phone Care Team Providers Care Auto Tester Name Role Phone Unavailable Primary Care Provider [...] It is not the complete legal health record.[facility]
--- OUTSIDE RECORDS SUMMARY | 2025-06-30 16:52 | XMS_ITS | Patient Health Record ---
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) Plantar fasciitis, bilateral (M72.2) Active confirmed Vital Signs Blood pressure diastolic 80 mm Hg 02/08/2025 Height 5 ft 2 in in 02/08/2025 Blood pressure systolic 130 mm Hg 02/08/2025 Weight 148 lbs 02/08/2025 BMI 27.07 kg/m2 02/08/2025 Procedures Procedure Date Ordered Date Performed Result Body Sit e 76538-OWCNQUG NAIL, 6 OR MORE 07/30/2024 N/A 96048-DSMCKDG NAIL, 6 OR MORE 11/09/2024 N/A 15625-Jurzhwem Plate 11/09/2024 N/A 76695-JGKRSTZ NAIL, 6 OR MORE 02/08/2025 N/A Encounters Encounter Location Date Provider Diagnosis [address] [phone] 07/30/2024 Adelaida Black Onychomycosis B35.1 ; Pain of toe of right foot M79.674 and Pain of toe of left foot M79.[address] [facility] [address] 11/09/2024 Adelaida Black Onychomycosis B35.1 ; Ingrown nail L60.0 ; Pain of toe of right foot M79.674 and Pain of toe of left foot M79.[address] [address] 02/08/2025 Adelaida Black Onychomycosis B35.1 ; Pain [...] M60.872 and Bursitis of left foot M77.52 [facility] [address] [address] 04/29/2025 Adelaida Fontana Assessments Encounter Date Diagnosis [...] Treatment Pending Test Test Name Order Date 01708-BCPARAG NAIL, 6 OR MORE 02/07/2023 61638-CDNUPTT NAIL, 6 OR MORE 05/23/2023 12051-IAAAWSP NAIL, 6 OR MORE 09/16/2023 70464-FAJSHXU NAIL, 6 OR MORE 01/02/2024 66104-QQQKCBW NAIL, 6 OR MORE 04/16/2024 97768-UHANPMV NAIL, 6 OR MORE 07/30/2024 83871-GZVIUYC NAIL, 6 OR MORE 11/09/2024 43021-OYGQWXX NAIL, 6 OR MORE 02/08/2025 42819-Lnmejjpu Plate 11/09/2024 Next Appt Details Provider Name:Adelaida Hernandez Addi , 08/19/2025 01:30:00 PM, [address] [place], [address], Insurance Providers Payer Name Payer Address Payer Phone Subscriber Number Group Number Insured Name Patient Relationship to Insured Coverage Start Date Coverage End Date [facility] 65 Medicare Preferred [address] [place] [address] [id number] Soraya Mendoza Self - patient is the [...]
--- OUTSIDE RECORDS SUMMARY | 2025-06-30 16:52 | XMS_ITS | Encounter Summary ---
Author Organization [facility] Address [address] [place] [address] Care Team Providers Care Communications Assistant Name Role Phone Jonathan Hernandez MD Primary Care Provider [phone] Encounter Details Date Type Department Care Team (Late st Contact Info) Description 05/10/2025 Lab Requisition [facility] - Main Lab [address] [facility] [place] [address] Maribel Gimenez NP [address] [place] [address] Encounter for other general examination [...] EST Office Visit Adult Medicine [facility] [address] [place] [address] Jennifer Santos NP [address] [place] [address] 09/20/2025 1:10 PM EDT Office Visit [facility] - [facility] [address] [facility] [address] [place] [phone] Shawna Farooq NP [address] [place] [address] [place] [address] 01/17/2026 2:30 PM EDT Office Visit Adult Medicine [facility] [address] [place], [place] [phone] Jonathan Hernandez MD [address] [place] [address] documented as of this encounter Procedures Procedure [...] if clinically indicated. 05/12/2025 2:17 PM EDT [facility] Urine Urine specimen obtained by clean catch procedure / Unknown Non-blood Collection / Unknown 05/10/2025 11:40 PM EDT 05/11/2025 11:19 AM EDT us Maribel Gimenez CUSTOMER ADVOCACY MANAGER LAB MICROBIOLOGY - GENERAL OR DERABLES Final Result [facility] [address] [place] [address], [place] [phone] * (ABNORMAL) Urinalysis with reflex microscopic and culture (05/10/2025 11:40 PM EDT) Specific [place] Urine 1.009 1.003 - 1.030 LAB URINALYSIS - AUTOMATED METHOD 05/11/2025 11:19 AM [facility] pH, Urine 7.5 5.0 - 8.0 pH LAB URINALYSIS - AUTOMATED METHOD 05/11/2025 11:19 AM [facility] Leukocytes, Urine Moderate(A) Negative LAB URINALYSIS - AUTOMATED METHOD 05/11/2025 11:19 AM [facility] Nitrite, Urine Negative Negative LAB URINALYSIS - AUTOMATED METHOD 05/11/2025 11:19 AM [facility] Protein, Urine Negative <=Trace mg/dL LAB URINALYSIS - AUTOMATED METHOD 05/11/2025 11:19 AM [facility] Glucose, Urine Negative Negative mg/dL LAB URINALYSIS - AUTOMATED METHOD 05/11/2025 11:19 AM [facility] Ketones, Urine Negative Negative mg/dL LAB URINALYSIS - AUTOMATED METHOD 05/11/2025 11:19 AM [facility] Urobilinogen , Urine 0.2 0.2 - 1.0 mg/dL LAB URINALYSIS - AUTOMATED METHOD 05/11/2025 11:19 AM [facility] Bilirubin, Urine Negative Negative LAB URINALYSIS - AUTOMATED METHOD 05/11/2025 11:19 AM [facility] Blood, Urine Trace(A) Negative LAB URINALYSIS - AUTOMATED METHOD 05/11/2025 11:19 AM [facility] RBC, Urine 1.3 0 - 4 /HPF LAB URINALYSIS - AUTOMATED METHOD 05/11/2025 11:19 AM [facility] WBC, Urine 20(H) 0 - 4 /HPF LAB URINALYSIS - AUTOMATED METHOD 05/11/2025 11:19 AM EDT [facility] Squamous Epithelial, Urine >100(H) 0 - 60 /LPF LAB URINALYSIS - AUTOMATED METHOD 05/11/2025 11:19 AM EDT [facility] Bacteria, Urine Negative Negative /HPF LAB URINALYSIS - AUTOMATED METHOD 05/11/2025 11:19 AM EDT [facility] Hyaline Casts, Urine 1.6 0 - 3 /LPF LAB URINALYSIS - AUTOMATED METHOD 05/11/2025 11:19 AM EDT [facility] Urine Urine specimen obtained by clean catch procedure / Unknown Non-blood Collection / Unknown 05/10/2025 11:40 PM EDT 05/11/2025 10:42 AM EDT Maribel Gimenez CUSTOMER ADVOCACY MANAGER LAB URINE ORDERABLES Final Re sult Performing Organization Address City/[facility]/ZIP Co de Phone Number [facility] [address] [place] [address], [place] [phone] * Valderrama urine culture tube (05/10/2025 11:40 PM EDT) Extra Tube Hold for add-ons. 05/11/2025 12:01 PM EDT [facility] Comment:Auto resulted. Urine Urine specimen obtained by clean catch procedure / Unknown Non-blood Collection / Unknown 05/10/2025 11:40 PM EDT 05/11/2025 10:42 AM EDT us Maribel Gimenez CUSTOMER ADVOCACY MANAGER LAB URINE ORDERABLES Final Re sult Performing Organization Address [facility]/ZIP Co de Phone Number [facility] [address] [place] [address], [place] [phone] documented in this encounter Visit Diagnoses Diagnosis Encounter for other general examination documented in this encounter Additional Health Concerns Assessment Noted Time PHQ-9 Depression Total Score: 2 07/03/20 25 3:51 PM EDT documented as of this encounter Care Teams Communications Assistant Relationship Specialty Start Date End Date Jonathan Hernandez MD [address] [place] [phone] PCP - General Internal Medicine 05/21/24 documented as of this encounter
--- OUTSIDE RECORDS SUMMARY | 2025-06-30 16:52 | XMS_ITS | Encounter Summary ---
Author Organization [facility] Address [address] [place] [address] Care Team Providers Care Net Developer With Wcf Name Role Phone Jonathan Hernandez MD Primary Care Provider [phone] Encounter Details Date Type Department Care Team (Late st Contact Info) Description 05/04/2025 Lab Requisition [facility] [address] [facility] [place] [address] Minerva Ayala NP [address] [place] [address] Other terminal supervisor (current) drug therapy Social History Tobacco Use [...] EST Office Visit Adult Medicine [facility] [address] [place] [address] Jennifer Santos NP [address] [place] [address] 09/20/2025 1:10 PM EDT Office Visit [facility] - [facility] [address] [facility] [address] [place] [phone] Shawna Farooq NP [address] [place] [address] [place] [address] 01/17/2026 2:30 PM EDT Office Visit [facility] [address] [place] [address] Jonathan Hernandez MD [address] [place] [address] documented as of this encounter Procedures Procedure Name Priority Date/Time Associated Diagnosis Comments CBC WITH AUTO DIFFERENTIAL Routine 05/04/2025 5:19 AM EDT Other fci (current) drug therapy CBC AND DIFFERENTIAL Routine 05/04/2025 5:19 AM EDT Other terminal supervisor (current) drug therapy MAGNESIUM Routine 05/04/2025 5:19 AM EDT Other fci (current) drug therapy COMPREHENSIVE METABOLIC PANEL Routine 05/04/2025 5:19 AM EDT Other fci (current) drug therapy documented in this encounter Results * (ABNORMAL) CBC auto differential (05/04/2025 5:19 AM EDT) [facility] WBC 5.3 4.8 - 10.8 K/mcL LAB HEMETOLOGY METHOD 05/04/2025 10:23 AM EDT [facility] RBC 3.90 3.80 - 4.80 M/mcL LAB HEMETOLOGY METHOD 05/04/2025 10:23 AM EDT [facility] Hemoglobin 10.9(L) 11.5 - 16.0 g/dL LAB HEMETOLOGY METHOD 05/04/2025 10:23 AM EDT [facility] Hematocrit 34.3(L) 35.0 - 47.0 % LAB HEMETOLOGY METHOD 05/04/2025 10:[address] [facility] MCV 88.6 79.0 - 98.0 FL LAB HEMETOLOGY METHOD 05/04/2025 10:[address] [facility] MCH 28.2 27.0 - 32.0 pcg LAB HEMETOLOGY METHOD 05/04/2025 10:[address] [facility] MCHC 31.8(L) 32.0 - 37.0 g/dL LAB HEMETOLOGY METHOD 05/04/2025 10:[address] [facility] RDW 14.1 11.0 - 15.0 % LAB HEMETOLOGY METHOD 05/04/2025 10:[address] [facility] Platelets 189 130 - 400 K/mcL LAB HEMETOLOGY METHOD 05/04/2025 10:[address] [facility] MPV 10.5 7.0 - 11.0 FL LAB HEMETOLOGY METHOD 05/04/2025 10:[address] [facility] NRBC 0.0 <1.0 % LAB HEMETOLOGY METHOD 05/04/2025 10:[address] [facility] NRBC Absolute 0.00 <0.10 K/mcL LAB HEMETOLOGY METHOD 05/04/2025 10:[address] [facility] Neutrophils Relative 62.4 % LAB HEMETOLOGY METHOD 05/04/2025 10:[address] [facility] Lymphocytes Relative 21.9 % LAB HEMETOLOGY METHOD 05/04/2025 10:[address] [facility] Monocytes Relative 9.1 % LAB HEMETOLOGY METHOD 05/04/2025 10:[address] [facility] Eosinophils Relative 4.8 % LAB HEMETOLOGY METHOD 05/04/2025 10:[address] [facility] Basophils Relative 0.8 % LAB HEMETOLOGY METHOD 05/04/2025 10:23 AM EDT [facility] Immature Granulocytes Relative 1.0 % LAB HEMETOLOGY METHOD 05/04/2025 10:23 AM EDT [facility] Neutrophils Absolute 3.28 1.50 - 7.00 K/mcL LAB HEMETOLOGY METHOD 05/04/2025 10:23 AM EDT [facility] Lymphocytes Absolute 1.15 1.00 - 5.00 K/mcL LAB HEMETOLOGY METHOD 05/04/2025 10:23 AM EDT [facility] Monocytes Absolute 0.48 0.20 - 1.00 K/mcL LAB HEMETOLOGY METHOD 05/04/2025 10:23 AM EDT [facility] Eosinophils Absolute 0.25 0.00 - 0.50 K/mcL LAB HEMETOLOGY METHOD 05/04/2025 10:23 AM EDT [facility] Basophils Absolute 0.04 0.00 - 0.20 K/mcL LAB HEMETOLOGY METHOD 05/04/2025 10:23 AM EDT [facility] Immature Granulocytes Absolute 0.05(H) 0.00 - 0.03 K/mcL LAB HEMETOLOGY METHOD [facility]04[facility] Blood Venous blood specimen / Unknown Venipuncture / Unknown 05/04/2025 5:19 AM EDT 05/04/2025 9:11 AM EDT us Minerva Ayala NP LAB BLOOD ORDERABLES Final Resul t [facility] [address] [place] [address], * Magnesium (05/04/2025 5:19 AM EDT) Magnesium 2.3 1.9 - 2.6 mg/dL LAB CHEMISTRY METHOD 05/04/2025 11:[address] [facility] Blood Venous blood specimen / Unknown Venipuncture / Unknown 05/04/2025 5:19 AM EDT 05/04/2025 9:11 AM EDT us Minerva Ayala REAL ESTATE ACCOUNTANT LAB BLOOD ORDERABLES Final Resul t [facility] [address] [place] [address], * (ABNORMAL) Comprehensive metabolic panel (05/04/2025 5:19 AM EDT) Sodium 141 133 - 145 mmol/L LAB CHEMISTRY METHOD 05/04/2025 11:[address] [facility] Potassium 4.2 3.5 - 5.5 mmol/L LAB CHEMISTRY METHOD 05/04/2025 11:[address] [facility] Chloride 108 96 - 110 mmol/L LAB CHEMISTRY METHOD 05/04/2025 11:[address] [facility] CO2 27 21 - 32 mmol/L LAB CHEMISTRY METHOD 05/04/2025 11:[address] [facility] Anion Gap 6 3 - 11 LAB CHEMISTRY METHOD 05/04/2025 11:[address] [facility] Glucose 94 70 - 100 mg/dL LAB CHEMISTRY METHOD 05/04/2025 11:[address] [facility] BUN 19 5 - 25 mg/dL LAB CHEMISTRY METHOD 05/04/2025 11:[address] [facility] Creatinine 0.85 0.50 - 1.10 mg/dL LAB CHEMISTRY METHOD 05/04/2025 11:[address] [facility] eGFR 68 >=60 mL/min/1. 73m2 LAB CHEMISTRY METHOD 05/04/2025 11:[address] [facility] Comment:Calculation based on the Chronic Kidney Disease Epidemiology Collaboration (CKD-EPI) equation refit without adjustment for race. BUN/Creatinine Ratio 22.4 LAB CHEMISTRY METHOD 05/04/2025 11:[address] [facility] Calcium 8.8 8.5 - 10.5 mg/dL LAB CHEMISTRY METHOD 05/04/2025 11:[address] [facility] AST (SGOT) 46(H) 10 - 42 unit/L LAB CHEMISTRY METHOD 05/04/2025 11:[address] [facility] Comment:Results verified by repeat testing ALT (SGPT) 29 10 - 60 unit/L LAB CHEMISTRY METHOD 05/04/2025 11:[address] [facility] Alkaline Phosphatase 83 42 - 121 unit/L LAB CHEMISTRY METHOD 05/04/2025 11:[address] [facility] Total Protein 6.6 6.0 - 8.0 g/dL LAB CHEMISTRY METHOD 05/04/2025 11:[address] [facility] Albumin 3.4 3.2 - 5.0 g/dL LAB CHEMISTRY METHOD 05/04/2025 11:[address] [facility] Total Bilirubin 0.7 0.0 - 1.4 mg/dL LAB CHEMISTRY METHOD 05/04/2025 11:[address] [facility] Comment:Results verified by repeat testing Blood Venous blood specimen / Unknown Venipuncture / Unknown 05/04/2025 5:19 AM EDT 05/04/2025 9:11 AM EDT us Minerva Ayala NP LAB BLOOD ORDERABLES Final Resul t [facility] [address] [place] [address], documented in this encounter Visit Diagnoses Diagnosis Other fci (current) drug therapy documented in this encounter Additional Health Concerns Assessment Noted Time PHQ-9 Depression Total Score: 2 01/15/20 25 3:51 PM EDT documented as of this encounter Care Teams Net Developer With Wcf Relationship Specialty Start Date End Date Jonathan Hernandez MD [address] [place] [phone] PCP - General Internal Medicine 05/21/24 documented as of this encounter
--- OUTSIDE RECORDS SUMMARY | 2025-06-30 16:52 | XMS_ITS | Encounter Summary ---
Author Organization [facility] Address [address] [place] [address] Care Team Providers Care Production Proofreader Name Role Phone Jonathan Hernandez MD Primary Care Provider [phone] Encounter Details Date Type Department Care Team (Late st Contact Info) Description 05/11/2025 Lab Requisition [facility] - Main Lab [address] [place] [address] Meliza Caballero PA [address] [place] [phone] Encounter for other general examination Social History [...] 1:00 PM EST Office Visit Adult Medicine [facility] [address] [place] [phone] Jennifer Santos NP [address] [place] [address] 09/20/2025 1:10 PM EDT Office Visit [facility] [address] [facility] [address] [place] [phone] Shawna Farooq NP [address] [place] [address] [place] [address] 01/17/2026 2:30 PM EDT Office Visit Adult [facility] [address] [place], [place] [phone] Jonathan Hernandez MD [address] [place] [address] documented as of this encounter Procedures Procedure [...] K/mcL LAB HEMETOLOGY METHOD 05/11/2025 11:08 AM [facility] RBC 4.00 3.80 - 4.80 M/mcL LAB HEMETOLOGY METHOD 05/11/2025 11:08 AM [facility] Hemoglobin 11.3(L) 11.5 - 16.0 g/dL LAB HEMETOLOGY METHOD 05/11/2025 11:08 AM [facility] Hematocrit 35.9 35.0 - 47.0 % LAB HEMETOLOGY METHOD 05/11/2025 11:08 AM [facility] MCV 89.5 79.0 - 98.0 FL LAB HEMETOLOGY METHOD 05/11/2025 11:08 AM [facility] MCH 28.2 27.0 - 32.0 pcg LAB HEMETOLOGY METHOD 05/11/2025 11:08 AM EDT [facility] MCHC 31.5(L) 32.0 - 37.0 g/dL LAB HEMETOLOGY METHOD 05/11/2025 11:08 AM EDT [facility] RDW 14.9 11.0 - 15.0 % LAB HEMETOLOGY METHOD 05/11/2025 11:08 AM EDT [facility] Platelets 332 130 - 400 K/mcL LAB HEMETOLOGY METHOD 05/11/2025 11:08 AM EDT [facility] MPV 9.4 7.0 - 11.0 FL LAB HEMETOLOGY METHOD [facility] NRBC 0.0 <1.0 % LAB HEMETOLOGY METHOD [facility] NRBC Absolute 0.00 <0.10 K/mcL LAB HEMETOLOGY METHOD 05/11/2025 11:08 AM [facility] Blood Venous blood specimen / Unknown Venipuncture / Unknown 05/11/2025 9:03 AM EDT 05/11/2025 9:50 AM EDT us Meliza LORENZANA LAB BLOOD ORDERABLES Final Re sult [facility] [address] [place] [address], * (ABNORMAL) Comprehensive metabolic panel (05/11/2025 9:03 AM EDT) Sodium 136 133 - 145 mmol/L LAB CHEMISTRY METHOD 05/11/2025 11:36 AM T [facility] Potassium 4.7 3.5 - 5.5 mmol/L LAB CHEMISTRY METHOD 05/11/2025 11:36 AM T [facility] Chloride 103 96 - 110 mmol/L LAB CHEMISTRY METHOD 05/11/2025 11:36 AM [facility] CO2 27 21 - 32 mmol/L LAB CHEMISTRY METHOD 05/11/2025 11:36 AM [facility] Anion Gap 6 3 - 11 LAB CHEMISTRY METHOD 05/11/2025 11:36 AM [facility] Glucose 107(H) 70 - 100 mg/dL LAB CHEMISTRY METHOD 05/11/2025 11:36 AM [facility] BUN 11 5 - 25 mg/dL LAB CHEMISTRY METHOD 05/11/2025 11:36 AM [facility] Creatinine 1.09 0.50 - 1.10 mg/dL LAB CHEMISTRY METHOD 05/11/2025 11:36 AM [facility] eGFR 51(L) >=60 mL/min/1. 73m2 LAB CHEMISTRY METHOD 05/11/2025 11:36 AM [facility] Comment:Calculation based on the Chronic Kidney Disease Epidemiology Collaboration (CKD-EPI) equation refit without adjustment for race. BUN/Creatinine Ratio 10.1 LAB CHEMISTRY METHOD 05/11/2025 11:36 AM [facility] Calcium 9.4 8.5 - 10.5 mg/dL LAB CHEMISTRY METHOD 05/11/2025 11:36 AM [facility] AST (SGOT) 22 10 - 42 unit/L LAB CHEMISTRY METHOD 05/11/2025 11:36 AM [facility] ALT (SGPT) 21 10 - 60 unit/L LAB CHEMISTRY METHOD 05/11/2025 11:36 AM [facility] Alkaline Phosphatase 104 42 - 121 unit/L LAB CHEMISTRY METHOD 05/11/2025 11:36 AM [facility] Total Protein 6.9 6.0 - 8.0 g/dL LAB CHEMISTRY METHOD 05/11/2025 11:36 AM [facility] Albumin 3.6 3.2 - 5.0 g/dL LAB CHEMISTRY METHOD 05/11/2025 11:36 AM EDT [facility] Total Bilirubin 0.4 0.0 - 1.4 mg/dL LAB CHEMISTRY METHOD 05/11/2025 11:36 AM EDT [facility] Blood Venous blood specimen / Unknown Venipuncture / Unknown 05/11/2025 9:03 AM EDT 05/11/2025 9:50 AM EDT us Meliza LORENZANA LAB BLOOD ORDERABLES Final Re sult [facility] [address] [place] [address], documented in this encounter Visit Diagnoses Diagnosis Encounter for other general examination documented in this encounter Additional Health Concerns Assessment Noted Time PHQ-9 Depression Total Score: 2 01/15/20 25 3:51 PM EDT documented as of this encounter Care Teams Production Proofreader Relationship Specialty Start Date End Date Jonathan Hernandez MD [address] [place] [phone] PCP - General Internal Medicine 05/21/24 documented as of this encounter
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
== END 2025-06-30 12:42 | disposition home or self-care (01) ==
LOC: HO.HOSX 12:41
PROVIDERS: Visit Provider Physician Assistant
DX: M25.551 Pain in right hip (principal); M25.562 Pain in left knee; Z96.641 Presence of right artificial hip joint
CPT/HCPCS: 73502; 73562; 99212

== ENCOUNTER 2025-06-30 13:13 | Outpatient (AMB) | payer MEDICARE, SELFPAY ==
--- NOTE | 2025-06-30 13:31 | A.OFFVIS_ITS ---
Intake Visit Reasons: PO-Rt hip bianca arthroplasty 04/28/25 xrays Intake Note: Soraya is an 85 year old female who presents today with complaints of hip pain status post right hip hemiarthroplasty, performed by Dr. Stanton on 04/28/25. Patient daughter reports that patient has had a couple of falls, usually she is able to catch her prior to the fall however recently on Saturday she was unable to catch her. Since her fall she has had soreness, and complaints of pain in her groin area. Patient daughter is also questioning how much Tylenol she is able to safely take. Allergies No Known Allergies Allergy (Verified 06/30/25 13:40) Medication List - Last Reconciled 06/30/25 by Rozina Valverde PA-C acetaminophen 975 mg (3 x 325 mg) PO Q6H PRN apixaban (Eliquis) 2.5 mg PO BID escitalopram oxalate 10 mg PO BID levothyroxine (Tirosint) 62.5 mcg PO DAILY memantine 28 mg PO DAILY metoprolol succinate ER 25 mg PO BID valproic acid 250 mg PO BID valsartan 80 mg PO DAILY HPI Comments Details: History of Present Illness The patient is an 85-year-old female presenting for evaluation after a fall. She is accompanied by her daughter. She reportedly fell on her side, possibly the right side, at home. This occurred two months after her right hip hemiarthroplasty in April. Prior to this week, her recovery was proceeding well without concerns. This week, she increased her activity, including walking more at the senior center and to doctor's appointments. The day before the visit, she attended the senior center, had a massage, and saw her neurologist without any problems noted. She has a history of a knee replacement a long time ago and a recent UTI that has resolved. She took 1500 mg of Tylenol yesterday for pain, having not taken any recently. Social History - Activity Level: The patient has been increasing her activity this week, walking at the senior center and to appointments. - Rehabilitation: She previously participated in home rehabilitation exercises after her surgery but was reportedly combative. [facility] Medical History (Updated 06/29/25 @ 14:09 by Glenna Lema MD) Staring episodes Dementia with behavioral disturbance NSVT (nonsustained ventricular tachycardia) NSVT (nonsustained ventricular tachycardia) Breast cancer Rheumatoid aortitis Hypertension Troponin level elevated Fracture, humerus, neck Syncope Surgical History H/O knee surgery H/O mastectomy Family History Mother Cancer Sister Cancer Daughter Cancer Other No family history of coronary artery disease Social History Household Members: Spouse and Children Housing: House Are you a primary child care teacher to a significant other at home: No Do you presently have visiting nurse or other home services: No Alcohol intake: never Comment: sitter Patient Tobacco Use Status: Former Tobacco user Tobacco use type: Cigarette Cigarettes Per Day: 4 Second Hand Smoke Exposure: No service: No Current occupational status: retired Review of Systems Narrative Review of Systems - General: Reports feeling sore. - Musculoskeletal: Reports right leg pain with active movement. - Musculoskeletal: Reports pain in the pelvic region. - Musculoskeletal: Reports knee pain on flexion. - Musculoskeletal: Reports pain in the groin. - Musculoskeletal: Denies pain with passive leg movement. Physical Exam Exam Exam: Physical Exam - General: Patient appears sore. - Musculoskeletal: Hip appears stable with no 'out of place' findings on palpation. - Musculoskeletal: Passive range of motion of the hip is tolerated. - Musculoskeletal: Active hip flexion against resistance elicits pain. - Musculoskeletal: Passive knee flexion elicits pain. - Musculoskeletal: Knee is not dislocated. Assessment & Plan Assessment & Plan (1) Status post hemiarthroplasty of right hip: Code(s): Z96.641 - Presence of right artificial hip joint Category: Surgical Plan Plan 1. Right Hip And Pelvic Pain After Fall The patient presents with pain after a fall, two months after her right hip surgery. X-rays of the hip and pelvis were reviewed and show no acute fracture, malalignment, or dislocation, and the hip prosthesis is in good position. Physical exam findings are reassuring with no palpable abnormalities. The pain is present in the groin and with active leg lifting, suggesting a muscular etiology involving the hip flexors. This is considered a minor setback, and she is expected to recover well with continued activity. A new order will be placed for physical therapy, which can be attempted at home, to continue with her postoperative rehabilitation exercises. Pain management with Tylenol was discussed; her current dose of 1500 mg daily is safe, and it can be increased up to 0870-2320 mg per day, provided she has no liver disease. 2. Right Knee Pain The patient reports right knee pain, particularly with flexion, and has a history of a prior knee replacement. While a periprosthetic fracture is not suspected as she can still bend the knee, an X-ray of the right knee was obtained which was negative for fracture or dislocation . The exam confirmed the knee is not dislocated. Consent Patient was informed and verbally consented to the use of an ambient scribe for clinic note documentation during this visit. Orders: Orders XR hip RT min 2V 06/30/25 M25.551 - Pain in right hip XR knee LT 3V 06/30/25 M25.562 - Pain in left knee Coding Level of Care Code Global (36336) Diagnoses Status post hemiarthroplasty of right hip Z96.641
== END 2025-06-30 15:28 | disposition home or self-care (01) ==
PROVIDERS: Visit Provider Physician Assistant
DX: Z96.641 Presence of right artificial hip joint (principal)
CPT/HCPCS: 99024

== ENCOUNTER → 2025-06-30 13:17 | Outpatient (BNV) | payer MEDICARE, SELFPAY | PROVIDERS: Visit Provider Radiology Diagnostic Radiology | DX: M61.551 Other ossification of muscle, right thigh (principal); Z96.643 Presence of artificial hip joint, bilateral; M25.562 Pain in left knee; Z96.641 Presence of right artificial hip joint | CPT/HCPCS: 73502; 73562 ==